=== PATIENT | male | born 1950 | race Caucasian/White ===

== ENCOUNTER 2016-06-05 12:58 | Observation (INO) | payer MEDICARE, MEDICAID ==
[2016-06-05] VITALS (12 sets, daily range): BP systolic 104–134; BP diastolic 72–89; PULSE 89–121; RESP 16–18; TEMP 97.4–98.2; O2SAT 95–98
[~2016-06-05] VITALS: Ht 177.8 cm; Wt 84.7 kg
[~2016-06-05 12:58] MED LIST: ASPI81 CHEW; ATOR80TA PO; CARV12.52 PO; ENAL5 PO; NITR.4 SL; TORS20TA PO
[2016-06-05 13:32] LABS: APTT (PATIENT) 26.6 SEC (24.3-30.1); INTERNATIONAL NORMALIZED RATIO 1.1 RATIO; PROTHROMBIN TIME - PATIENT 12.7 SEC (9.8-11.6)
[2016-06-05 13:34] LABS: AUTOMATED NEUTROPHIL # 4.1 TH/MM3 (1.8-7.7); BASOPHIL # 0.1 TH/MM3 (0-0.2); BASOPHIL % 1.2 % (0.0-2.0); EOSINOPHIL # 0.2 TH/MM3 (0-0.4); HEMATOCRIT 39.2 % (39.0-51.0); HEMO FLAGS DIFF FINAL; LYMPH % 18.9 % (9.0-44.0); LYMPHOCYTE # 1.2 TH/MM3 (1.0-4.8); MEAN CELL VOLUME 89.7 FL (80.0-100.0); MEAN CORPUSCULAR HEMOGLOBIN 30.7 PG (27.0-34.0); MEAN CORPUSCULAR HGB CONC 34.2 % (32.0-36.0); MONO % 9.4 % (0.0-8.0); NEUT % 67.5 % (16.0-70.0); PLATELET COUNT 156 TH/MM3 (150-450); RED BLOOD COUNT 4.37 MIL/MM3 (4.50-5.90); RED CELL DISTRIBUTION WIDTH 14.6 % (11.6-17.2); WHITE BLOOD COUNT 6.1 TH/MM3 (4.0-11.0)
[2016-06-05] MEDS ORDERED: ASPI1TAB69 PO (13:40)
[2016-06-05 13:43] LABS: BICARBONATE 27.9 MEQ/L (21.0-32.0)
--- NOTE | 2016-06-05 13:48 | RADRPT ---
EXAM DATE/TIME: 06/05/2016 13:17 [facility] COMPARISON: MYOCARDIAL PERF PHARM SPECT, GATED W/EF, November 29, 2015, 9:46. CT PULMONARY ANGIOGRAM, April 12, 015, 18:30. INDICATIONS : Chest pains. MEDICAL HISTORY : Cerebrovascular disease. SURGICAL HISTORY : CABG. ICD w/ Pacemaker 2010 [employer] model, Stents placed in 2009, 2012, and 2015 ENCOUNTER: Initial ACUITY: 2 days PAIN SCORE: 2/10 LOCATION: lower chest FINDINGS: Stable appearance of the single lead cardiac device. Multiple intact median sternotomy wires. Mild ca rdiomegaly. Pulmonary vasculature is normal in caliber. The lungs are clear. The osseous structures are unremarka ble. CONCLUSION: Stable mild cardiomegaly without evidence of congestive heart failure.. Altagracia Rubalcava MD on June 05, 2016 at 13:45 Board Certified Radiologist. This report was verified electronically.
--- NOTE | 2016-06-05 13:50 | PD ---
HPI Chief Complaint: Chest Pain Time Seen by Provider: 13:27 Travel History International Travel<30 days: No Contact w/Intl Traveler<30days: No Traveled to known affect area: No History of Present Illness HPI The patient is a 66-year-old male who presents to the emergency department for chest pain and shortness of breath. The patient has a history of coronary artery disease, hypertension, and hyperlipidemia with previous CABG and stent placement. The patient states his last 2 stents were placed approximately 14 months ago by his brand representative, Dr. Ward. The patient notes increasing shortness of breath with exertion over the last several weeks, was walking over 1 mile without exertional shortness of breath, now can only walk approximately 20 steps prior to having shortness of breath. The patient's chest pain is described as dull, achy, worse with exertion, and alleviated at rest. The patient's shortness of breath is also improved at rest. The patient denies any nausea, vomiting, or diaphoresis. He does have a history of chronic abdominal pain with workup including CT, but no known cause. The patient states his abdominal pain is worse after eating with distention which is alleviated after several hours. The patient denies any history of pulmonary embolism, DVT, recent hospitalizations in the last 3 months, recent surgeries and last 3 months, or recent prolonged travel in the last 3 months. PFSH Past Medical History Hx Anticoagulant Therapy: Yes (PLAVIX) Arthritis: No Atrial Fibrillation: Yes (HX) Autoimmune Disease: No Blood Disorders: No Anxiety: No Depression: No Heart Rhythm Problems: Yes (A Fib) Cancer: No Cardiac Catheterization: Yes Cardiovascular Problems: Yes High Cholesterol: Yes Chemotherapy: No Chest Pain: Yes Congestive Heart Failure: Yes COPD: No Cerebrovascular Accident: No Coronary Artery Disease: Yes Diabetes: No (borderline) Diminished Hearing: No Endocrine: No Gastrointestinal Disorders: No GERD: No Glaucoma: No Genitourinary: No Headaches: No Hepatitis: No Hiatal Hernia: No Hypertension: Yes Immune Disorder: No Implanted Vascular Access Dvce: Yes Kidney Stones: No Musculoskeletal: No Neurologic: No Psychiatric: No Reproductive: No Respiratory: No Integumentary: No Migraines: No Myocardial Infarction: Yes (X4) Radiation Therapy: No Renal Failure: No Seizures: No Sickle Cell Disease: No Thyroid Disease: No Ulcer: No Past Surgical History Abdominal Surgery: No AICD: Yes Appendectomy: No Body Medical Devices: Pacemaker Cardiac Surgery: Yes (BYPASS 2002, ABLATION 2013) Cholecystectomy: No Coronary Artery Bypass Graft: Yes (01/2003) Coronary Stent: Yes (8 STENTS) Ear Surgery: No Endocrine Surgery: No Eye Surgery: Yes Genitourinary Surgery: No Gynecologic Surgery: No Insulin Pump: No Joint Replacement: No Oral Surgery: Yes (TONSILLECTOMY) Pacemaker: Yes (ICD, PACEMAKER) Thoracic Surgery: No Tonsillectomy: Yes Other Surgery: Yes Social History Alcohol Use: No Tobacco Use: No Substance Use: No Allergies-Medications (Allergen,Severity, Reaction): Coded Allergies: No Known Allergies (Verified , 11/29/15) Reported Meds & Prescriptions Reported Meds & Active Scripts Active Reported Finasteride 5 Mg Tab 5 Mg PO DAILY Do not crush. Enalapril (Enalapril Maleate) 5 Mg Tab 5 Mg PO BID Carvedilol 25 Mg Tab 25 Mg PO BID Atorvastatin (Atorvastatin Calcium) 80 Mg Tab 80 Mg PO HS Torsemide 20 Mg Tab 20 Mg PO DAILY Aspirin 81 Mg Tabdr 81 Mg PO DAILY Review of Systems Except as stated in HPI: all other systems reviewed are Neg General / Constitutional: No: Fever HENT: No: Lightheadedness Cardiovascular: Positive: Chest Pain or Discomfort, Dyspnea on exertion Respiratory: Positive: Shortness of Breath Gastrointestinal: Positive: Abdominal Pain (chronic over the last 4-5 months), No: Nausea, Vomiting Musculoskeletal: Positive: Weakness, No: Edema Neurologic: No: Dizziness Physical Exam Narrative GENERAL: Awake, alert, nontoxic-appearing 66-year-old male who appears his stated age and is in no acute respiratory distress. SKIN: Warm and dry. Mild pallor noted. HEAD: Atraumatic. Normocephalic. EYES: Pupils equal and round. No scleral icterus. No injection or drainage. ENT: No nasal bleeding or discharge. Mucous membranes pink and moist. NECK: Trachea midline. No JVD. CARDIOVASCULAR: Regular, tachycardic with a heart rate of 120. Well-healed sternal scar. AICD in place left chest wall. RESPIRATORY: No accessory muscle use. Clear to auscultation. Breath sounds equal bilaterally. GASTROINTESTINAL: Abdomen soft, non-tender, nondistended. No rebound tenderness. MUSCULOSKELETAL: No obvious deformities. No clubbing. No cyanosis. No edema. Calves are soft bilaterally. NEUROLOGICAL: Awake and alert. No obvious cranial nerve deficits. Motor grossly within normal limits. Normal speech. PSYCHIATRIC: Appropriate mood and affect; insight and judgment normal. Data Data Last Documented VS Vital Signs Date Time Temp Pulse Resp B/P Pulse Ox O2 Delivery O2 Flow Rate FiO2 06/05/16 15:22 113 16 108/78 98 Room Air 06/05/16 13:01 97.4 Orders Electrocardiogram (06/05/16 13:04) Complete Blood Count With Diff (06/05/16 13:04) Basic Metabolic Panel (Bmp) (06/05/16 13:04) Ckmb (Isoenzyme) Profile (06/05/16 13:04) Troponin I (06/05/16 13:04) Chest, Single Ap (06/05/16 13:04) Iv Access Insert/Monitor (06/05/16 13:04) Act Partial Throm Time (Ptt) (06/05/16 13:13) Prothrombin Time / Inr (Pt) (06/05/16 13:13) Ct Pulmonary Angiogram (06/05/16 ) Aspirin Chew (Aspirin Chew) (06/05/16 14:00) Sodium Chlor 0.9% 250 Ml Inj (Ns 250 Ml (06/05/16 14:00) Iohexol 350 Inj (Omnipaque 350 Inj) (06/05/16 14:41) Admit Order (Ed Use Only) (06/05/16 15:30) Labs Laboratory Tests Test 06/05/16 13:13 White Blood Count 6.1 TH/MM3 Red Blood Count 4.37 MIL/MM3 Hemoglobin 13.4 GM/DL Hematocrit 39.2 % Mean Corpuscular Volume 89.7 FL Mean Corpuscular Hemoglobin 30.7 PG Mean Corpuscular Hemoglobin 34.2 % Concent Red Cell Distribution Width 14.6 % Platelet Count 156 TH/MM3 Mean Platelet Volume 8.6 FL Neutrophils (%) (Auto) 67.5 % Lymphocytes (%) (Auto) 18.9 % Monocytes (%) (Auto) 9.4 % Eosinophils (%) (Auto) 3.0 % Basophils (%) (Auto) 1.2 % Neutrophils # (Auto) 4.1 TH/MM3 Lymphocytes # (Auto) 1.2 TH/MM3 Monocytes # (Auto) 0.6 TH/MM3 Eosinophils # (Auto) 0.2 TH/MM3 Basophils # (Auto) 0.1 TH/MM3 CBC Comment DIFF FINAL Differential Comment Prothrombin Time 12.7 SEC Prothromb Time International 1.1 RATIO Ratio Activated Partial 26.6 SEC Thromboplast Time Sodium Level 139 MEQ/L Potassium Level 4.0 MEQ/L Chloride Level 104 MEQ/L Carbon Dioxide Level 27.9 MEQ/L Anion Gap 7 MEQ/L Blood Urea Nitrogen 22 MG/DL Creatinine 1.07 MG/DL Estimat Glomerular Filtration 69 ML/MIN Rate Random Glucose 144 MG/DL Calcium Level 8.2 MG/DL Total Creatine Kinase 93 U/L Troponin I 0.02 NG/ML MDM Medical Decision Making Medical Screen Exam Complete: Yes Emergency Medical Condition: Yes Medical Record Reviewed: Yes Interpretation(s) EKG reveals left bundle branch block with a rate of 120. Laboratory Tests Test 06/05/16 13:13 White Blood Count 6.1 TH/MM3 Red Blood Count 4.37 MIL/MM3 Hemoglobin 13.4 GM/DL Hematocrit 39.2 % Mean Corpuscular Volume 89.7 FL Mean Corpuscular Hemoglobin 30.7 PG Mean Corpuscular Hemoglobin 34.2 % Concent Red Cell Distribution Width 14.6 % Platelet Count 156 TH/MM3 Mean Platelet Volume 8.6 FL Neutrophils (%) (Auto) 67.5 % Lymphocytes (%) (Auto) 18.9 % Monocytes (%) (Auto) 9.4 % Eosinophils (%) (Auto) 3.0 % Basophils (%) (Auto) 1.2 % Neutrophils # (Auto) 4.1 TH/MM3 Lymphocytes # (Auto) 1.2 TH/MM3 Monocytes # (Auto) 0.6 TH/MM3 Eosinophils # (Auto) 0.2 TH/MM3 Basophils # (Auto) 0.1 TH/MM3 CBC Comment DIFF FINAL Differential Comment Prothrombin Time 12.7 SEC Prothromb Time International 1.1 RATIO Ratio Activated Partial 26.6 SEC Thromboplast Time Sodium Level 139 MEQ/L Potassium Level 4.0 MEQ/L Chloride Level 104 MEQ/L Carbon Dioxide Level 27.9 MEQ/L Anion Gap 7 MEQ/L Blood Urea Nitrogen 22 MG/DL Creatinine 1.07 MG/DL Estimat Glomerular Filtration 69 ML/MIN Rate Random Glucose 144 MG/DL Calcium Level 8.2 MG/DL Total Creatine Kinase 93 U/L Troponin I 0.02 NG/ML Last Impressions Chest X-Ray 06/05/16 3364 Signed Impressions: Service Date/Time: May 13:17 - CONCLUSION: Stable mild cardiomegaly without evidence of congestive heart failure.. Altagracia Rubalcava MD CT pulmonary angiogram reveals no evidence of pulmonary embolism. Cardiomegaly and coronary calcifications. Tiny bilateral pleural effusions. Stable 19 and 10 mm low density lesions within the liver which are indeterminate. Differential Diagnosis Differential diagnosis includes acute coronary syndrome, cardiomyopathy, congestive heart failure, pleural effusion, pulmonary embolism, deconditioning, pericardial effusion. Narrative Course IV was established, labs are drawn and sent, and the patient was placed on cardiac telemetry monitoring and continuous pulse oximetry monitoring. EKG was ordered and interpreted. Chest x-ray was ordered. CT pulmonary angiogram was ordered as the patient is tachycardic with exertional shortness of breath. The patient's initial troponin is negative. EKG does reveal left bundle-branch block with sinus tachycardia. CT pulmonary angiogram was negative for pulmonary embolism. Does reveal tiny bilateral pleural effusions, chest x-ray otherwise is unremarkable. I reviewed the EMR, the patient had a nuclear medicine myocardial perfusion performed in the summertime at 2016 which revealed previous infarct. As the patient is having exertional dyspnea and chest pain consistent with acute coronary syndrome, the patient's brand representative, Dr. Ward, was paged at 3:[address] Ward evaluated the patient in the emergency department. I discussed the patient with the on-call [facility] hospitalists, covering for Dr. Menjivar, who agrees with admission. Physician Communication Physician Communication I discussed the patient with a Mayra Briscoe who agrees with [address] Bruner. Diagnosis Primary Impression: Exertional dyspnea Additional Impression: Ischemic cardiomyopathy Admitting Information Admitting Physician Requests: Observation Condition: Stable Lupillo Ramon MD Jun 05, 2016 13:50
[2016-06-05] MEDS ORDERED: ASPIRIN 81 MG CHEW TAB CHEW ONE (14:00)
[2016-06-05] MEDS ORDERED: SODIUM CHLOR 0.9% 250 ML INJ 250 ML IV ONE (14:00)
[2016-06-05] MEDS ORDERED: FINA5TAB2 PO (14:19)
[2016-06-05] MEDS ORDERED: CARV25TA PO (14:19)
[2016-06-05] MEDS ORDERED: ATOR1TAB18 PO (14:19)
[2016-06-05] MEDS ORDERED: TORS20TA PO (14:19)
[2016-06-05] MEDS ORDERED: ENAL5TAB PO (14:19)
[2016-06-05] MEDS ORDERED: IOHEXOL 350 MG/ML 10 ML VIAL (for RAD DIAG) IV ONE (14:41)
--- NOTE | 2016-06-05 14:56 | RADRPT ---
EXAM DATE/TIME: 06/05/2016 14:32 [facility] COMPARISON: CT PULMONARY ANGIOGRAM, April 12, 2015, 18:30. INDICATIONS : Tachycardia with shortness of breath on exertion; evaluate for pulmonary embolism. IV CONTRAST: 65 cc Omnipaque 350 (iohexol) IV RADIATION DOSE: 23.29 CTDIvol (mGy) MEDICAL HISTORY : Cardiovascular disease. Hypertension. Diabetes mellitus type 2. SURGICAL HISTORY : CABG Pacemaker.Coronary artery stent. ENCOUNTER: Initial ACUITY: 1 day PAIN SCALE: 4/10 LOCATION: chest TECHNIQUE: Volumetric scanning of the chest was performed using a pulmonary embolism protocol MIP images were reconstructed. Using automated exposure control and adjustment of the mA and/or kV acco rding to patient size, radiation dose was kept as low as reasonably achievable to obtain optimal diag nostic quality images. FINDINGS: PULMONARY ARTERIES:No filling defects are seen in the pulmonary arteries through the segmental level. LUNGS: There is no consolidation or pneumothorax . No concerning pulmonary nodule is visualized. PLEURAE: Tiny bilateral pleural effusions are noted. MEDIASTINUM: There is good visualization of the great vessels of the middle mediastinum. No evid ence of mediastinal or hilar adenopathy/mass. Cardiomegaly and coronary artery calcifications are not ed. Left subclavian AICD has its tip in the right ventricle. MUSCULOSKELETAL: Within normal limits for patient age. MISCELLANEOUS: The visualized upper abdominal organs demonstrate no acute abnormality. There are stable low-density lesions within the liver parenchyma measuring 19 and 10 mm which are indeterminate . CONCLUSION: 1. No evidence of pulmonary embolism. 2. Cardiomegaly and coronary calcifications. 3. Tiny bilateral pleural effusions. 4. Stable 19 and 10 mm low density lesions within the liver which are indeterminate. Jaspal Nice MD on June 05, 2016 at 14:49 Board Certified Radiologist. This report was verified electronically.
--- NOTE | 2016-06-05 15:42 | HHI.HP ---
[facility] Collin Menjivar M.D. Admission Diagnosis exertional dyspnea, acute coronary syndrome Diagnoses: Travel History International Travel<30 Days: No Contact w/Intl Traveler <30 Da: No Traveled to Known Affected Are: No Past Family Social History Past Medical History atrial fibrillation, cardiac ablation [address] Crawford, coronary artery disease status post [place] cardiac stents 6 and coronary artery bypass graft, congestive heart failure status post AICD placement, cardiomyopathy. Past Surgical History Cardiac stents 6, coronary artery bypass graft, cardiac ablation last cath 03/2016-s/p stenting of SVG's to diagonal and to OM1. Reported Medications Reported Meds & Active Scripts Active Reported Finasteride 5 Mg Tab 5 Mg PO DAILY Do not crush. Enalapril (Enalapril Maleate) 5 Mg Tab 5 Mg PO BID Carvedilol 25 Mg Tab 25 Mg PO BID Atorvastatin (Atorvastatin Calcium) 80 Mg Tab 80 Mg PO HS Torsemide 20 Mg Tab 20 Mg PO DAILY Aspirin 81 Mg Tabdr 81 Mg PO DAILY Allergies: Coded Allergies: No Known Allergies (Verified , 11/29/15) Active Ordered Medications Inpatient Medications Acetaminophen (Tylenol) 650 mg Q4H PRN PO TEMP > 100.4; Start 06/05/16 at 15:45 ; Status UNV Aspirin 162 mg 162 mg ONCE ONCE CHEW ; Start 06/05/16 at 14:00; Stop 06/05/16 at 14:01; Status DC IV Flush (NS Flush) 2 ml BID FLUSH ; Start 06/05/16 at 21:00; Status UNV Naloxone HCl (Narcan Inj) 0.4 mg UNSCH PRN IV SEE LABEL COMMENTS; Start at 15:45; Status UNV Ondansetron HCl (Zofran Inj) 4 mg Q6H PRN IVP NAUSEA OR VOMITING; Start at 15:45; Status UNV Sodium Chloride (NS 250 ml Inj) 250 ml @ 250 mls/hr BOLUS ONCE IV Last administered on 06/05/16t 14:10; Start 06/05/16 at 14:00; Stop 06/05/16 at 14:59 ; Status DC Physical Exam Vital Signs Vital Signs Date Time Temp Pulse Resp B/P Pulse Ox O2 Delivery O2 Flow Rate FiO2 06/05/16 15:22 113 16 108/78 98 Room Air 06/05/16 13:38 120 18 97 Room Air 06/05/16 13:36 121 18 122/80 97 Room Air 06/05/16 13:01 97.4 120 16 116/74 95 Room Air Physical Exam GENERAL: This is a well-nourished, well-developed patient, in no apparent distress. SKIN: No rashes, ecchymoses or lesions. Cool and dry. HEAD: Atraumatic. Normocephalic. No temporal or scalp tenderness. EYES: Pupils equal round and reactive. Extraocular motions intact. No scleral icterus. No injection or drainage. ENT: Nose without bleeding, purulent drainage or septal hematoma. Throat without erythema, tonsillar hypertrophy or exudate. Uvula midline. Airway patent. NECK: Trachea midline. No JVD or lymphadenopathy. Supple, nontender, no meningeal signs. CARDIOVASCULAR: Regular rate and rhythm without murmurs, gallops, or rubs. RESPIRATORY: Clear to auscultation. Breath sounds equal bilaterally. No wheezes , rales, or rhonchi. GASTROINTESTINAL: Abdomen soft, non-tender, nondistended. No hepato-splenomegaly , or palpable masses. No guarding. MUSCULOSKELETAL: Extremities without clubbing, cyanosis, or edema. No joint tenderness, effusion, or edema noted. No calf tenderness. Negative Homans sign bilaterally. NEUROLOGICAL: Awake and alert. Cranial nerves II through XII intact. Motor and sensory grossly within normal limits. Five out of 5 muscle strength in all muscle groups. Normal speech. Laboratory Laboratory Tests Test 06/05/16 13:13 White Blood Count 6.1 Red Blood Count 4.37 Hemoglobin 13.4 Hematocrit 39.2 Mean Corpuscular Volume 89.7 Mean Corpuscular Hemoglobin 30.7 Mean Corpuscular Hemoglobin 34.2 Concent Red Cell Distribution Width 14.6 Platelet Count 156 Mean Platelet Volume 8.6 Neutrophils (%) (Auto) 67.5 Lymphocytes (%) (Auto) 18.9 Monocytes (%) (Auto) 9.4 Eosinophils (%) (Auto) 3.0 Basophils (%) (Auto) 1.2 Neutrophils # (Auto) 4.1 Lymphocytes # (Auto) 1.2 Monocytes # (Auto) 0.6 Eosinophils # (Auto) 0.2 Basophils # (Auto) 0.1 CBC Comment DIFF FINAL Differential Comment Prothrombin Time 12.7 Prothromb Time International 1.1 Ratio Activated Partial 26.6 Thromboplast Time Sodium Level 139 Potassium Level 4.0 Chloride Level 104 Carbon Dioxide Level 27.9 Anion Gap 7 Blood Urea Nitrogen 22 Creatinine 1.07 Estimat Glomerular Filtration 69 Rate Random Glucose 144 Calcium Level 8.2 Total Creatine Kinase 93 Troponin I 0.02 Result Diagram: 06/05/16 1313 06/05/16 1313 Imaging Last Impressions Chest X-Ray 06/05/16 1304 Signed Impressions: Service Date/Time: May 13:17 - CONCLUSION: Stable mild cardiomegaly without evidence of congestive heart failure.. Altagracia Rubalcava MD CT Angiography 06/05/16 0000 Signed Impressions: Service Date/Time: May 14:32 - CONCLUSION: 1. No evidence of pulmonary embolism. 2. Cardiomegaly and coronary calcifications. 3. Tiny bilateral pleural effusions. 4. Stable 19 and 10 mm low density lesions within the liver which are indeterminate. Jaspal Nice MD Assessment and Plan Problem List: (1) Exertional dyspnea (2) Hypertension (3) Hyperlipidemia (4) Ischemic cardiomyopathy (5) CAD (coronary artery disease) Mayra Briscoe Jun 05, 2016 15:42
[2016-06-05] MEDS ORDERED: SODIUM CHLORIDE 0.9% FLUSH 5 ML FLUSH FLUSH PRN (15:45)
[2016-06-05] MEDS ORDERED: NALOXONE HCL 0.4 MG/ML AMP IV PRN (15:45)
[2016-06-05] MEDS ORDERED: ACETAMINOPHEN 325 MG TAB PO PRN (15:45)
--- NOTE | 2016-06-05 16:57 | HHI.HP ---
HPI Service [facility] Primary Care Physician Collin Menjivar M.D. Admission Diagnosis exertional dyspnea, acute coronary syndrome Diagnoses: Chief Complaint: Shortness of breath, chest pain (Alden Briscoeana AnnabelWinter ESCALONA) Travel History International Travel<30 Days: No Contact w/Intl Traveler <30 Da: No Traveled to Known Affected Are: No (Alden Briscoeana AnnabelWinter ESCALONA) History of Present Illness This is a pleasant 66-year-old gentleman with a past medical history of atrial fibrillation, cardiac ablation [address] Crawford, coronary artery disease status post [place] cardiac stents 7, coronary artery bypass graft, congestive heart failure, cardiomyopathy status post AICD placement. Patient presented to the emergency room with complaint of worsening dyspnea on exertion with chest discomfort is March. According to the patient, he had been walking up to 1 mile and a half a day, however since March he's noted increased dyspnea with exertion with chest discomfort across sternum with occasional dizziness, shakiness, mild nausea, no vomiting. At this time, he ambulates maybe 20 feet when he develops symptoms,which are relieved with rest. Patient was last admitted March 2015 with same symptomology, at that time he was found with 2 occluded vein graft, underwent angioplasty and stent placement per Dr. Ward. At that time he was also found in paroxysmal A. fib and was discharged on Eliquis. According to the patient he had increased bleeding therefore he stopped taking Eliquis approximately [address] Ward was aware. Patient was also within the process of having GI workup for chronic abdominal pain and waiting for clearance to stop Plavix, patient decided on his own to stop taking it. He has not taken Plavix for the last 4-5 weeks. Patient denies other symptoms, fever, no chills, no cough, sputum production. He has chronic abdominal pain, it is diffuse, has been an ongoing problem since December and currently waiting to undergo colonoscopy per Dr. Schwartz. States that his abdomen becomes distended after eating. States bowel movements have been regular, no blood. He has lost approximately 25 pounds in the last year and a half. No urinary symptoms. He has an AICD, he has not noted any discharges. Patient was evaluated in the emergency room, laboratory workup was essentially unremarkable. Troponin was negative. CT of the chest was completed, no evidence of pulmonary emboli. Tiny bilateral pleural effusions.Stable low-density lesions within the liver which is indeterminate. Chest x-ray showed mild cardiomegaly, no evidence of CHF. Patient is noted tachycardic, heart rate 113, blood pressure stable. Patient was evaluated in the emergency room, he is resting comfortably. Dr. Ward is at bedside, examining patient. He's recommending cardiac catheterization as well as amiodarone drip to control HR. Patient is agreeable with plan. Patient is admitted for further evaluation and treatment. (Mayra Briscoe) Review of Systems Constitutional: COMPLAINS OF: Weight loss, Dizziness, DENIES: Diaphoretic episodes, Fatigue, Fever, Weight gain, Chills, Change in appetite, Night Sweats Endocrine: DENIES: Heat/cold intolerance, Polydipsia, Polyuria, Polyphagia Eyes: DENIES: Blurred vision, Diplopia, Eye inflammation, Eye pain, Vision loss , Photosensitivity, Double Vision Ears, nose, mouth, throat: DENIES: Tinnitus, Hearing loss, Vertigo, Nasal discharge, Oral lesions, Throat pain, Hoarseness, Ear Pain, Running Nose, Epistaxis, Sinus Pain, Toothache, Odynophagia Respiratory: DENIES: Apneas, Cough, Snoring, Wheezing, Hemoptysis, Sputum production, Shortness of breath Cardiovascular: COMPLAINS OF: Chest pain, Dyspnea on Exertion, DENIES: Palpitations, Syncope, PND, Lower Extremity Edema, Orthopnea, Claudication Gastrointestinal: COMPLAINS OF: Abdominal pain, DENIES: Black stools, Bloody stools, Constipation, Diarrhea, Nausea, Vomiting, Difficulty Swallowing, Anorexia Genitourinary: DENIES: Sexual dysfunction, Urinary frequency, Urinary incontinence, Urgency, Hematuria, Dysuria, Nocturia, Penile Discharge, Testicular Pain, Testicular Swelling Musculoskeletal: DENIES: Joint pain, Muscle aches, Stiffness, Joint Swelling, Back pain, Neck pain Integumentary: DENIES: Abnormal pigmentation, Nail changes, Pruritus, Rash Hematologic/lymphatic: DENIES: Bruising, Lymphadenopathy Immunologic/allergic: DENIES: Eczema, Urticaria Neurologic: DENIES: Abnormal gait, Headache, Localized weakness, Paresthesias, Seizures, Speech Problems, Tremor, Poor Balance Psychiatric: DENIES: Anxiety, Confusion, Mood changes, Depression, Hallucinations, Agitation, Suicidal Ideation, Homicidal Ideation, Delusions ( Mayra Briscoe) Past Family Social History Past Medical History atrial fibrillation, cardiac ablation [address] Crawford, coronary artery disease status post GA cardiac stents 6 and coronary artery bypass graft, congestive heart failure status post AICD placement, cardiomyopathy. Chronic abdominal pain, currently undergoing workup with gastroenterology. Past Surgical History Cardiac stents 6, coronary artery bypass graft, cardiac ablation last cath 03/2016-s/p stenting of SVG's to diagonal and to OM1. Reported Medications Reported Meds & Active Scripts Active Reported Finasteride 5 Mg Tab 5 Mg PO DAILY Do not crush. Enalapril (Enalapril Maleate) 5 Mg Tab 5 Mg PO BID Carvedilol 25 Mg Tab 25 Mg PO BID Atorvastatin (Atorvastatin Calcium) 80 Mg Tab 80 Mg PO HS Torsemide 20 Mg Tab 20 Mg PO DAILY Aspirin 81 Mg Tabdr 81 Mg PO DAILY (Mayra Briscoe) Allergies: Coded Allergies: No Known Allergies (Verified , 11/29/15) Active Ordered Medications Inpatient Medications Acetaminophen (Tylenol) 650 mg Q4H PRN PO TEMP > 100.4; Start 06/05/16 at 15:45 Aspirin (Ecotrin Ec) 81 mg DAILY PO ; Start 06/06/16 at 09:00 Aspirin 162 mg 162 mg ONCE ONCE CHEW ; Start 06/05/16 at 14:00; Stop 06/05/16 at 14:01; Status DC Atorvastatin Calcium (Lipitor) 80 mg HS PO ; Start 06/05/16 at 21:00 Carvedilol (Coreg) 25 mg BID PO ; Start 06/05/16 at 21:00 Enalapril Maleate (Vasotec) 5 mg BID PO ; Start 06/05/16 at 21:00 Finasteride (Proscar) 5 mg DAILY PO ; Start 06/06/16 at 09:00 IV Flush (NS Flush) 2 ml BID FLUSH ; Start 06/05/16 at 21:00 Naloxone HCl (Narcan Inj) 0.4 mg UNSCH PRN IV SEE LABEL COMMENTS; Start at 15:45 Ondansetron HCl (Zofran Inj) 4 mg Q6H PRN IVP NAUSEA OR VOMITING; Start at 15:45 Sodium Chloride (NS 250 ml Inj) 250 ml @ 250 mls/hr BOLUS ONCE IV Last administered on 06/05/16t 14:10; Start 06/05/16 at 14:00; Stop 06/05/16 at 14:59 ; Status DC Torsemide (Demadex) 20 mg DAILY PO ; Start 06/06/16 at 09:00 Family History Mother and father Father from bladder cancer, mother of breast cancer, history of coronary artery disease and stent Two brothers at age 47 and 62 from sudden cardiac , poss. [place] Social History Patient lives alone, has no children. Quit smoking in 1994, stopped drinking alcohol 5-6 years ago, no illegal drug use. Was walking 1 mile a day, at this time very little physical activity due to dyspnea on exertion. (Mayra Briscoe) Physical Exam Vital Signs Vital Signs Date Time Temp Pulse Resp B/P Pulse Ox O2 Delivery O2 Flow Rate FiO2 06/05/16 16:16 117 16 115/72 97 Room Air 06/05/16 15:22 113 16 108/78 98 Room Air 06/05/16 13:38 120 18 97 Room Air 06/05/16 13:36 121 18 122/80 97 Room Air 06/05/16 13:01 97.4 120 16 116/74 95 Room Air Physical Exam GENERAL: This is a well-nourished, well-developed patient, in no apparent distress. SKIN: Skin pale, no rashes, ecchymoses or lesions. Cool and dry. HEAD: Atraumatic. Normocephalic. No temporal or scalp tenderness. EYES: Pupils equal round and reactive. Extraocular motions intact. No scleral icterus. No injection or drainage. ENT: Nose without bleeding, purulent drainage or septal hematoma. Throat without erythema, tonsillar hypertrophy or exudate. Uvula midline. Airway patent. NECK: Trachea midline. No JVD or lymphadenopathy. Supple, nontender, no meningeal signs. CARDIOVASCULAR: S1, S2, tachycardic, regular rate and rhythm without murmurs, gallops, or rubs. RESPIRATORY: Clear to auscultation. Breath sounds equal bilaterally. No wheezes , rales, or rhonchi. GASTROINTESTINAL: Abdomen soft, diffuse tenderness, nondistended. No hepato- splenomegaly, or palpable masses. No guarding. MUSCULOSKELETAL: Extremities without clubbing, cyanosis, or edema. No joint tenderness, effusion, or edema noted. No calf tenderness. Negative Homans sign bilaterally. NEUROLOGICAL: Awake and alert. Cranial nerves II through XII intact. Motor and sensory grossly within normal limits. Five out of 5 muscle strength in all muscle groups. Normal speech. Laboratory Laboratory Tests Test 06/05/16 13:13 White Blood Count 6.1 Red Blood Count 4.37 Hemoglobin 13.4 Hematocrit 39.2 Mean Corpuscular Volume 89.7 Mean Corpuscular Hemoglobin 30.7 Mean Corpuscular Hemoglobin 34.2 Concent Red Cell Distribution Width 14.6 Platelet Count 156 Mean Platelet Volume 8.6 Neutrophils (%) (Auto) 67.5 Lymphocytes (%) (Auto) 18.9 Monocytes (%) (Auto) 9.4 Eosinophils (%) (Auto) 3.0 Basophils (%) (Auto) 1.2 Neutrophils # (Auto) 4.1 Lymphocytes # (Auto) 1.2 Monocytes # (Auto) 0.6 Eosinophils # (Auto) 0.2 Basophils # (Auto) 0.1 CBC Comment DIFF FINAL Differential Comment Prothrombin Time 12.7 Prothromb Time International 1.1 Ratio Activated Partial 26.6 Thromboplast Time Sodium Level 139 Potassium Level 4.0 Chloride Level 104 Carbon Dioxide Level 27.9 Anion Gap 7 Blood Urea Nitrogen 22 Creatinine 1.07 Estimat Glomerular Filtration 69 Rate Random Glucose 144 Calcium Level 8.2 Total Creatine Kinase 93 Troponin I 0.02 (Mayra Briscoe) Result Diagram: 06/05/16 1313 06/05/16 1313 Imaging Last Impressions Chest X-Ray 06/05/16 1304 Signed Impressions: Service Date/Time: May 13:17 - CONCLUSION: Stable mild cardiomegaly without evidence of congestive heart failure.. Altagracia Rubalcava MD CT Angiography 06/05/16 0000 Signed Impressions: Service Date/Time: May 14:32 - CONCLUSION: 1. No evidence of pulmonary embolism. 2. Cardiomegaly and coronary calcifications. 3. Tiny bilateral pleural effusions. 4. Stable 19 and 10 mm low density lesions within the liver which are indeterminate. Jaspal Nice MD (Mayra Briscoe) Assessment and Plan Problem List: (1) Exertional dyspnea (2) Chest pain (3) Atrial tachycardia (4) Hypertension (5) Hyperlipidemia (6) Ischemic cardiomyopathy (7) CAD (coronary artery disease) (8) Paroxysmal atrial fibrillation (9) Chronic abdominal pain Assessment and Plan Admit to Dr. Bruner 66-year-old male with significant past medical history of coronary artery disease, status post cardiac stents, CABG, cardiomyopathy, has AICD, paroxysmal A. fib. Patient presented to the emergency room with dyspnea on exertion with chest pain relieved by rest. Also noted with tachycardia. Admitted with dyspnea on exertion, rule out acute coronary syndrome -Dr. Ward evaluated patient, cardiac catheterization is recommended -Keep nothing by mouth after midnight Patient stopped taking Plavix, cardiology recommends to continue aspirin for now. -Continue Coreg, statin Sinus tachycardia, atrial tach, history of paroxysmal A. fib Amiodarone drip will be started by cardiology -He will evaluate pt. for anticoagulation, pt. agreeable with plan Cardiomyopathy, has AICD Cardiology will have rep interrogate device Hypertension, stable Continue home medications Hyperlipidemia, stable Continue with home medications Chronic abdominal pain, currently undergoing workup, stable at this time PPI for GI prophylaxis Home medications reviewed, initiated as indicated SCDs for DVT prophylaxis Protonix for GI prophylaxis Plan of care has been discussed with the patient, attending and registered nurse. Further management of the patient will be dependent hospital course This patient was seen by myself and Dr. Bruner, this H&P is written on his behalf. 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 In the case of services not specified as inpatient-only, they are appropriately provided as inpatient services in accordance with the 2-midnight benchmark. Estimated LOS (days): 2 2 days is the estimated time the patient will need to remain in the hospital, assuming treatment plan goals are met and no additional complications. Post-Hospital Plan: Home (Mayra Briscoe) Problem Qualifiers (1) Chest pain: Qualified Code: I20.8 - Stable angina pectoris (2) Hypertension: Qualified Code: I10 - Essential hypertension (3) Hyperlipidemia: Qualified Code: E78.5 - Hyperlipidemia, unspecified hyperlipidemia type (4) CAD (coronary artery disease): Qualified Code: I25.118 - Coronary artery disease involving [place] coronary artery of tor[place]inez heart with other form of angina pectoris Mayra Briscoe Jun 05, 2016 16:57 Lenny Bruner MD Jun 05, 2016 18:50
[2016-06-05] MEDS: SODIUM CHLOR 0.9% 1000 ML INJ 1,000 ML IV SCH (16:58)
[2016-06-05] MEDS ORDERED: AMIODARONE INJ 450 MG in DEXTROSE 5% IN WATE(EXCEL) INJ 241 ML IV SCH ×2 (17:00)
[2016-06-05] MEDS ORDERED: diphenhydrAMINE HCL 50 MG CAP PO SCH (17:00)
[2016-06-05] MEDS ORDERED: AMIODARONE INJ 150 MG in DEXTROSE 5% IN WATER 100ML INJ 97 ML IV ONE ×2 (17:00)
[2016-06-05] MEDS ORDERED: ASPIRIN 325 MG TAB PO SCH (17:00)
[2016-06-05] MEDS ORDERED: DIAZEPAM 10 MG TAB PO SCH (17:00)
--- NOTE | 2016-06-05 18:54 | MB ---
cc: PONCHO COURTNEY M.D. DATE OF CONSULTATION: 06/05/2016 REASON FOR CONSULTATION Acute coronary syndrome, tachycardia, shortness of breath. HISTORY OF PRESENT ILLNESS The patient is a 66-year-old white male with a history of severe ischemic cardiomyopathy, coronary artery disease, diabetes, paroxysmal atrial fibrillation who for the past several weeks has been having increasing dyspnea on exertion. The patient had been able to walk at least a half mile without difficulty but starting around Thanksgiving he began to experience increased shortness of breath. In the last few days he has been barely able to do minimal activity without considerable shortness of breath as well as a chest "burning". The patient states his chest burning symptoms last about 10 minutes and are very similar to his previous angina. He denies palpitations, lightheadedness, syncope, near-syncope, pedal edema, paroxysmal nocturnal dyspnea. The patient reports compliance with his medications and a no added salt diet. He also reports a mild nonproductive cough. At the present time he is resting comfortably denying shortness of breath or chest discomfort. PAST MEDICAL HISTORY 1. Coronary artery disease status post bypass surgery in 2002, status post stent of the ostium to proximal portion of the vein graft to the right coronary artery 09/04/09, status post stent of the proximal and mid vein graft to the first obtuse marginal 04/11/13. He is also status post repeat stenting of the ostium of the vein graft to the first obtuse marginal and stent of the ostial to proximal portion of the vein graft to the diagonal 03/2015 at which time his vein graft to the second obtuse marginal was found to be totally occluded. 2. Severe ischemic cardiomyopathy with ejection fraction of 20%. He has had approximately three hospitalizations for congestive heart failure in the last several years. 3. Paroxysmal atrial fibrillation status post ablation Sep, 2013. He has had intermittent recurrent paroxysmal atrial fibrillation based on AICD checks initially back in March,. 4. Status post [place] AICD implant 2009, single chamber. 5. Hyperlipidemia. 6. Hypertension 7. Diabetes. MEDICATIONS His medications at home - 1. Aspirin 81 mg q.d. 2. Torsemide 20 mg q.d. (he occasionally takes 30 mg q.d.). 3. Atorvastatin 80 mg q.h.s. 4. Carvedilol 25 mg b.i.d. 5. Enalapril 5 mg b.i.d. ALLERGIES NO KNOWN DRUG ALLERGIES. FAMILY HISTORY Noncontributory. SOCIAL HISTORY The patient is a former smoker. There is no history of alcohol abuse. REVIEW OF SYSTEMS As in the History of Present Illness otherwise negative or noncontributory. He also denies headache, visual changes, abdominal pain, melena, dyspepsia, bright red blood per rectum, fevers. PHYSICAL EXAMINATION VITAL SIGNS: His blood pressure 115/72 with a pulse of 120, respirations 16. GENERAL: He is a well-developed, thin, white male in no acute distress. HEENT: Jugular venous pressure is seen to the mandible. Carotid pulses are 2+ bilaterally and without bruits. CHESET: Examination of the chest reveals clear lung chaparro. CARDIAC: On cardiac examination he has a tachycardic regular rhythm without S3, S4 or murmur. His PMI is diffuse and laterally displaced. ABDOMEN: On abdominal examination he has a soft, nontender abdomen, bowel sounds are present. There is no definite hepatosplenomegaly. EXTREMITIES: Examination of the extremities reveals no clubbing, cyanosis or edema. Peripheral pulses are normal. LABORATORY DATA Normal CBC, potassium 4.0, BUN 22, creatinine 1.07, CK 93, troponin less than 0.02, INR 1.1. IMAGING Chest x-ray shows no acute disease. EKG shows possible atrial tachycardia with 2:1 AV conduction, left bundle-branch block pattern. IMPRESSION Recurrent worsening angina, probable paroxysmal atrial tachycardia in this 66-year-old white male with a history of severe ischemic cardiomyopathy, ejection fraction 20-25%, coronary artery disease status post bypass surgery in 2002, status post a number of percutaneous interventions since that time, diabetes, hypertension, paroxysmal atrial fibrillation. Initial cardiac enzymes are negative for myocardial infarction. There is no definite evidence for congestive heart failure by exam or chest x-ray. His EKG does indeed suggest atrial tachycardia which could account for some of his increase in shortness of breath. The patient also has been having recurrent angina which in the last few days has been occurring with very minimal exertion. I suspect he has restenosed one or more of his stents which were placed in March,. Because of the instability of his symptoms, I have recommended he undergo cardiac catheterization with possible repeat percutaneous intervention. The risks of which have been explained to him including but not limited to , myocardial infarction, stroke, arrhythmia, bleeding, infection, renal failure. He agrees to proceed. With respect to his atrial arrhythmias, his thromboembolic risk is very high. At some point he was on Eliquis. I do not know why he is no longer taking anticoagulation drug therapy. RECOMMENDATIONS 1. Cardiac catheterization tomorrow. 2. Continue his usual home cardiac medications. 3. We will see if the patient qualifies for participation in a research trial examining different antiplatelet/anticoagulation regimens for patients undergoing percutaneous intervention with a concomitant need for anticoagulation therapy due to atrial fibrillation. MD BRIT Paulino/BJKendrick /5:04 PM /6:32 PM MTDD
[2016-06-05] MEDS: SODIUM CHLORIDE 0.9% FLUSH 5 ML FLUSH FLUSH SCH (21:00)
[2016-06-05] MEDS ORDERED: TORSEMIDE 20 MG TAB PO ONE (21:15)
[2016-06-05] MEDS: ENALAPRIL MALEATE 5 MG TAB PO SCH (21:17)
[2016-06-05] MEDS: CARVEDILOL 12.5 MG TAB PO SCH (21:17)
[2016-06-05] MEDS: ATORVASTATIN 80 MG TAB PO SCH (21:18)
[2016-06-06] VITALS (27 sets, daily range): BP systolic 95–114; BP diastolic 58–86; PULSE 90–110; RESP 17–20; TEMP 97–98.2; O2SAT 96–100
[2016-06-06] MEDS: ONDANSETRON HCL 4 MG/2 ML VIAL IVP PRN (00:48)
[2016-06-06] MEDS: RESP: ALBUTEROL 2.5 MG/IPRATROPIUM 0.5 MG NEB (PRN) NEB ×2 (01:05→18:22)
[2016-06-06] MEDS: SODIUM CHLORIDE 0.9% FLUSH 5 ML FLUSH FLUSH SCH ×2 (07:49→20:51)
[2016-06-06] MEDS: TORSEMIDE 20 MG TAB PO SCH (08:46)
[2016-06-06] MEDS: PANTOPRAZOLE SOD 40 MG DELAYED RELEASE TAB PO SCH (08:55)
[2016-06-06] MEDS: CARVEDILOL 12.5 MG TAB PO SCH ×2 (08:55→20:51)
[2016-06-06] MEDS: FINASTERIDE 5 MG TAB PO SCH (08:55)
[2016-06-06] MEDS: ENALAPRIL MALEATE 5 MG TAB PO SCH ×2 (08:55→20:51)
[2016-06-06] MEDS ORDERED: ASPIRIN EC 81 MG TABEC PO SCH (09:00)
[2016-06-06] MEDS ORDERED: HEPARIN-NS/PF INJ 500 ML ONE (12:14)
[2016-06-06] MEDS ORDERED: MIDAZOLAM HCL 2 MG/2 ML VIAL ONE ×2 (12:21→13:41)
[2016-06-06] MEDS ORDERED: IOHEXOL 350 MG/ML 50 ML BTL (for Cath Lab) OTHER ONE (12:33)
[2016-06-06] MEDS ORDERED: IOHEXOL 350 MG/ML 100 ML BTL (for Cath Lab) OTHER ONE (12:33)
[2016-06-06] MEDS ORDERED: TIROFIBAN INFUSION INJ 250 ML IV ONE (12:56)
[2016-06-06] MEDS: SODIUM CHLOR 0.9% 1000 ML INJ 1,000 ML IV SCH ×2 (12:58→14:21)
[2016-06-06] MEDS ORDERED: HEPARIN SODIUM - IV 10,000 UNITS/10 ML VIAL ONE (13:00)
[2016-06-06] MEDS ORDERED: FLUMAZENIL 0.5 MG/5 ML VIAL ONE (13:54)
[2016-06-06] MEDS ORDERED: TICAGRELOR 90 MG TAB PO ONE (14:02)
[2016-06-06] MEDS ORDERED: ONDANSETRON HCL 4 MG/2 ML VIAL ONE (14:16)
[2016-06-06] MEDS: TIROFIBAN INFUSION INJ 250 ML IV SCH (14:21)
--- NOTE | 2016-06-06 14:21 | PD.CARD.PN ---
Subjective Subjective Remarks Mild dyspnea at rest. No angina today. No dizziness, palpitations, PND. Objective Medications Item Value Date Time Aspirin 81 mg 06/06/16 0900 (Ecotrin Ec) DAILY/PO 06/06/16 0855 Torsemide 20 mg 06/06/16 0900 (Demadex) DAILY/PO Atorvastatin 80 mg 06/05/162099 Calcium HS/PO 06/05/162117 (Lipitor) Carvedilol 25 mg 06/05/162099 (Coreg) BID/PO 06/06/16 0855 Enalapril Maleate 5 mg 06/05/162099 (Vasotec) BID/PO 06/06/16 0855 Amiodarone HCl 250 ml @ 0 mls/hr 06/05/16 1700 450 mg/Dextrose CONTINUOUS/IV 06/05/16 1810 Vital Signs / I&O Vital Signs Date Time Temp Pulse Resp B/P Pulse Ox O2 Delivery O2 Flow Rate FiO2 06/06/16 10:29 105 06/06/16 09:46 100 06/06/16 09:45 97.0 100 18 100/70 98 06/06/16 08:10 110 06/06/16 07:44 106 06/06/16 06:00 98 06/06/16 05:00 94 06/06/16 04:35 98.2 100 17 95/62 98 06/06/16 04:00 104 06/06/16 03:00 98 06/06/16 02:00 99 06/06/16 01:00 90 06/06/16 00:00 96 06/05/16 23:20 98.2 89 17 112/75 98 06/05/16 23:00 103 06/05/16 22:00 96 06/05/16 21:00 93 06/05/16 20:00 112 06/05/16 19:20 98.2 113 17 104/83 97 06/05/16 19:00 108 06/05/16 17:54 113 16 134/89 97 Room Air 06/05/16 16:16 117 16 115/72 97 Room Air 06/05/16 15:22 113 16 108/78 98 Room Air I/O 06/05/16 06/05/16 06/05/16 06/06/16 06/06/16 06/06/16 07:00 15:00 23:00 07:00 15:00 23:00 Intake Total 240 ml Balance 240 ml Intake Oral 240 ml # Voids 3 # Bowel Movements 1 Physical Exam GENERAL: Well developed, well nourished. No acute distress. HEENT: Jugular venous pressure is normal. CHEST: Lungs clear to auscultation bilaterally. Unlabored respiratory effort. CARDIAC: Regular rate and rhythm without S3, S4, or murmur. ABDOMEN: Soft, nontender, no hepatosplenomegaly. Bowel sounds present. EXTREMITIES: No clubbing, cyanosis, or edema. Laboratory Laboratory Tests Test 06/05/16 06/06/16 20:04 01:49 Total Creatine Kinase 104 U/L 128 U/L Troponin I 0.03 NG/ML 0.03 NG/ML Assessment and Plan Problem List: (1) CAD (coronary artery disease) Assessment and Plan: Patient s/p cath today showing severe 3 vessel [place] CAD , patent SIMS to LAD, patent SV to diag, chronically occluded SV to RCA with good left to right collaterals, severe disease of SV to OM, treated with 3 stents plus thrombectomy. EF 10%. REC Brilinta and aspirin, cont beta benjamin, NATE-I (2) Paroxysmal atrial fibrillation Assessment and Plan: Rhythm currently appears to be sinus rhythm. Rec change Amiodarone to po. (3) Hypertension Assessment and Plan: Hypertension not active issue. (4) Ischemic cardiomyopathy Assessment and Plan: EF 10% by cath today. Patient compensated overall. No definite pulmonary edema by CXR, exam. Rec cont metoprolol, NATE-I, consider Entresto. Code Status full code Discussed Condition With patient Problem Qualifiers (1) CAD (coronary artery disease): Qualified Code: I25.700 - Coronary artery disease involving coronary bypass graft of [place] heart with unstable angina pectoris (2) Hypertension: Qualified Code: I10 - Essential hypertension Chris Ward MD Jun 06, 2016 14:21
[2016-06-06] MEDS ORDERED: MISC INFORMATION XX ONE (14:30)
[2016-06-06] MEDS ORDERED: ONDANSETRON HCL 4 MG/2 ML VIAL IV PRN (14:30)
[2016-06-06] MEDS ORDERED: TEMAZEPAM 15 MG CAP PO PRN (14:30)
[2016-06-06] MEDS ORDERED: ATROPINE SULFATE 1 MG/ML VIAL IV PRN (14:30)
[2016-06-06] MEDS ORDERED: LIDOCAINE HCL 1% 50 ML VIAL INFIL PRN (14:30)
[2016-06-06] MEDS ORDERED: SODIUM CHLORIDE 0.9% FLUSH 5 ML FLUSH IVF PRN (14:30)
[2016-06-06] MEDS ORDERED: SODIUM CHLOR 0.9% 250 ML INJ 250 ML IV PRN (14:30)
[2016-06-06] MEDS ORDERED: LORazepam 2 MG/ML VIAL IV PRN (14:30)
[2016-06-06] MEDS ORDERED: ACETAMINOPHEN 325 MG TAB PO PRN (14:30)
[2016-06-06] MEDS ORDERED: MORPHINE SULFATE 4 MG/ML INJ IV PUSH PRN (14:30)
--- NOTE | 2016-06-06 15:04 | MA ---
cc: PONCHO COURTNEY M.D. DATE: 06/06/2016. PROCEDURE PERFORMED: Left heart catheterization, selective coronary and graft angiography, left ventriculography, angioplasty and stent x 3 of the vein graft to the obtuse marginal, thrombectomy of the vein graft to the obtuse marginal. PROCEDURE NOTES: The patient was brought to the cardiac catheterization laboratory in a fasting state after having signed informed consent. The right groin was prepped and draped as per policy and anesthetized with 1% lidocaine. Arterial access was obtained via the right femoral artery and a 6-Faroese sheath placed. Coronary arteriography was performed using 6-Faroese Sharmin left 4.0 and right progressive catheters. The bypass grafts were engaged with the progressive right catheter except for the vein graft to the obtuse marginal which was engaged with a left coronary bypass catheter. Left ventriculography was done using a standard 6-Faroese pigtail. Percutaneous graft intervention was done as described below. There were no apparent immediate complications. HEMODYNAMIC RESULTS: Left ventricle 92 with an end-diastolic pressure of 20. Aorta 93/64 with a mean of 75. There was no significant transvalvular aortic gradient on pullback of the pigtail catheter. CORONARY ARTERIOGRAPHY: The left main likely has up to 30% ostial stenosis. The left anterior descending is diffusely diseased before a total occlusion in its midportion. At the ostium of the LAD there is 40-50% stenosis. Right before the total occlusion, there is 50% stenosis. The LAD gives rise to two medium size septal perforators which provide collaterals to the right coronary. The left circumflex is diffusely diseased. The left circumflex is diffusely diseased with up to 60% ostial stenosis and then total occlusion in its midportion. The right coronary artery is totally occluded in its midportion after the takeoff of a medium-sized right ventricular branch which has up to 50% ostial stenosis. The proximal right coronary is diffusely diseased with up to 85% stenosis. GRAFT ANGIOGRAPHY: The vein graft to the right coronary artery is known to be totally chronically occluded. The left internal mammary artery to the LAD is widely patent. The vein graft to the diagonal demonstrates a number of stents throughout its length. In a non-stented region of the midportion of this graft, there is 30% to 40% stenosis. There is also up to 30% to 40% restenosis of the more distal stent in two different areas of the stent. The [place] diagonal appears to be free of disease distal to the anastomosis site. The vein graft to the obtuse marginal demonstrates possibly two overlapping stents at its ostium. These stents are widely patent. A stent is also evident in the midportion of the graft and there is eccentric 60% to 70% restenosis of the stent at its distal aspect. Just proximal to this stent, the graft has a 70% somewhat eccentric stenosis. There is suggestion of a small thrombus in the distal portion of the graft. There is normal flow through the vessel. LEFT VENTRICULOGRAPHY: Contrast injection of the left ventricle reveals severe global hypokinesis. Estimated ejection fraction is 10%. There is also mild to moderate mitral regurgitation. PERCUTANEOUS GRAFT INTERVENTION: Aggrastat was given as per protocol. Adequate heparin was given during the procedure to achieve an ACT greater than 280 seconds. Using a 6-Faroese left coronary bypass guiding catheter, the ostium of the vein graft to the obtuse marginal was re-engaged. A 0.014 [place] guidewire was advanced distal to the mid disease. A spider filter wire was then deployed distally. Stenting of the midportion was done using a 3.5 x 20-mm Promus stent which was deployed at 11 atmospheres for 40 seconds. Stenting of more proximal disease was done using a 3.5 x 16-mm Promus stent which was deployed at 11 atmospheres for 40 seconds. Angiography at this point shows a lesion between the two stents resulting in up to 80% stenosis. This area was stented with a 3.5 x 8 mm Promus stent once again inflated to 11 atmospheres for 40 seconds. Angiography at this point suggested thrombus in two areas of the distal graft. It was decided to place the [place] wire back down and an [place] thrombectomy catheter was introduced. Two passes were made. Angiography at this point shows resolution of the thrombus with good flow through the vessel. Final angiography shows reduction of the initial diffuse disease to roughly 0% residual. The patient tolerated the procedure well. He did develop chest pains with balloon inflations. CONCLUSIONS: 1. Severe three-vessel [place] coronary artery disease. 2. Known chronically totally occluded vein graft to the right coronary artery with fairly good [id number] collaterals. 3. Patent left internal mammary artery to the LAD. 4. Moderately diseased vein graft to the diagonal. 5. Severely diseased vein graft to the obtuse marginal, now status post stent x 3 of this graft as well as thrombectomy. 6. Severely reduced left ventricular systolic function with estimated ejection fraction of 10% MD BRIT Paulino/BRUNA /2:08 PM /2:49 PM SHIRAZ
[2016-06-06] MEDS: AMIODARONE 200 MG TAB PO SCH (15:23)
--- NOTE | 2016-06-06 16:36 | HHI.PR ---
Subjective Remarks Patient is seen post catheterization Offering no complaint Lying comfortably on the bed without any apparent distress denies any shortness of breath chest pain or diaphoresis Review of system for 10 point system otherwise unremarkable Objective Objective Results - Vital Signs Date Time Temp Pulse Resp B/P Pulse Ox O2 Delivery O2 Flow Rate FiO2 06/06/16 15:25 106/72 06/06/16 15:24 107/70 06/06/16 15:07 95 06/06/16 10:29 105 06/06/16 09:46 100 06/06/16 09:45 97.0 100 18 100/70 98 06/06/16 08:10 110 06/06/16 07:44 106 06/06/16 06:00 98 06/06/16 05:00 94 06/06/16 04:35 98.2 100 17 95/62 98 06/06/16 04:00 104 06/06/16 03:00 98 06/06/16 02:00 99 06/06/16 01:00 90 06/06/16 00:00 96 06/05/16 23:20 98.2 89 17 112/75 98 06/05/16 23:00 103 06/05/16 22:00 96 06/05/16 21:00 93 06/05/16 20:00 112 06/05/16 19:20 98.2 113 17 104/83 97 06/05/16 19:00 108 06/05/16 17:54 113 16 134/89 97 Room Air I/O 06/05/16 06/05/16 06/05/16 06/06/16 06/06/16 06/06/16 07:00 15:00 23:00 07:00 15:00 23:00 Intake Total 240 ml Balance 240 ml Intake Oral 240 ml # Voids 3 # Bowel Movements 1 Result Diagram: 06/05/16 1313 06/05/16 1313 Imaging Last Impressions Chest X-Ray 06/05/16 1304 Signed Impressions: Service Date/Time: May 13:17 - CONCLUSION: Stable mild cardiomegaly without evidence of congestive heart failure.. Altagracia Rubalcava MD CT Angiography 06/05/16 0000 Signed Impressions: Service Date/Time: May 14:32 - CONCLUSION: 1. No evidence of pulmonary embolism. 2. Cardiomegaly and coronary calcifications. 3. Tiny bilateral pleural effusions. 4. Stable 19 and 10 mm low density lesions within the liver which are indeterminate. Jaspal Nice MD Other Results Laboratory Tests Test 06/05/16 06/06/16 20:04 01:49 Total Creatine Kinase 104 128 Troponin I 0.03 0.03 Physical Exam Physical Exam GENERAL: This is a well-nourished, well-developed patient, in no apparent distress. SKIN: Skin pale, no rashes, ecchymoses or lesions. Cool and dry. HEAD: Atraumatic. Normocephalic. No temporal or scalp tenderness. EYES: Extraocular motions intact. No scleral icterus. No injection or drainage. ENT: Airway patent. NECK: Trachea midline. No JVD or lymphadenopathy. Supple, nontender, no meningeal signs. CARDIOVASCULAR: S1, S2, tachycardic, regular rate and rhythm without murmurs, gallops, or rubs. RESPIRATORY: Clear to auscultation. Breath sounds equal bilaterally. No wheezes , rales, or rhonchi. GASTROINTESTINAL: Abdomen soft, diffuse tenderness, nondistended. No hepato- splenomegaly, or palpable masses. No guarding. MUSCULOSKELETAL: Extremities without clubbing, cyanosis, or edema. No joint tenderness, effusion, or edema noted. No calf tenderness. Negative Homans sign bilaterally. NEUROLOGICAL: Awake and alert. Cranial nerves II through XII intact. Motor and sensory grossly within normal limits. Five out of 5 muscle strength in all muscle groups. Normal speech. A/P Assessment and Plan (1) Exertional dyspnea (2) Chest pain (3) Atrial tachycardia (4) Hypertension (5) Hyperlipidemia (6) Ischemic cardiomyopathy (7) CAD (coronary artery disease) (8) Paroxysmal atrial fibrillation (9) Chronic abdominal pain Plan 66-year-old male with significant past medical history of coronary artery disease, status post cardiac stents, CABG, cardiomyopathy, has AICD, paroxysmal A. fib. Patient presented to the emergency room with dyspnea on exertion with chest pain relieved by rest. Also noted with tachycardia. Admitted with dyspnea on exertion, rule out acute coronary syndrome -Dr. Ward evaluated patient, cardiac catheterization done today. 3 stent put in severely diseased vein graft to obtuse marginal vessel as well as thrombectomy done. Patient has severely reduced LV function 10% EF Patient patient on aspirin and Brilinta -Continue Coreg, statin Sinus tachycardia, atrial tach, history of paroxysmal A. fib Stable artery On aspirin and Brilinta -- Cardiomyopathy, has AICD EF 10% Hypertension, stable Continue home medications Hyperlipidemia, stable Continue with home medications Chronic abdominal pain, currently undergoing workup, stable at this time PPI for GI prophylaxis Home medications reviewed, initiated as indicated SCDs for DVT prophylaxis Protonix for GI prophylaxis Plan of care has been discussed with the patient and registered nurse. Further management of the patient will be dependent hospital course Lenny Bruner MD Jun 06, 2016 16:36
[2016-06-06] MEDS: SODIUM CHLORIDE 0.9% FLUSH 5 ML FLUSH IVF SCH (20:51)
[2016-06-06] MEDS: ATORVASTATIN 80 MG TAB PO SCH (20:51)
--- NOTE | 2016-06-06 22:48 | EKG ---
Date Performed: 06/05/2016 Time Performed: 13:36:36 PTAGE: 66 years EKG: SUPERVENTRICULAR TACHYCARDIA, PROBABLY A SINUS TACHYCARDIA WITH A 2:1 ATRIAL FLUTTER CANNOT BE EXCLUDED. A RHYTHM STRIP IS ADVISED. MARKED LEFT AXIS DEVIATION LATERAL MYOCARDIAL INFARCTION INT ERVENTRICULAR CONDUCTION DEFECT Compared to previous tracing, the tachycardia is new. The PVCs have resolved. ABNORMAL ECG PREVIOUS TRACING : 06/05/2016 13.21 DOCTOR: Alyson Camejo Interpretating Date/Time 06/06/2016 22:47:17
--- NOTE | 2016-06-06 22:52 | EKG ---
Date Performed: 06/05/2016 Time Performed: 22:38:50 PTAGE: 66 years EKG: Atrial fibrillation Left axis deviation IV conduction defect Possible anteroseptal infarct - age undetermined Lateral T wave changes are nonspecific Cannot exclude some type of conduction defe ct as this patient has always had a low amplitude P wave and this might not be atrial fibrillation bu t there is no definite or discrete organized P wave activity. Ventricular response is under better c ontrol and except for the uncertainty of the rhythm, with probable atrial fibrillation, there has bee n no serial change since the most recent tracing. A rhythm strip that would include lead II is advis ed, as this would be the most useful in determining the actual mechanism of the arrhythmia. Abnormal ECG PREVIOUS TRACING : 06/05/2016 13.36 DOCTOR: Alyson Camejo Interpretating Date/Time 06/06/2016 22:50:50
[2016-06-07] VITALS (26 sets, daily range): BP systolic 82–103; BP diastolic 58–79; PULSE 79–109; RESP 18–20; TEMP 97.4–98.4; O2SAT 93–100
[2016-06-07] MEDS: SODIUM CHLOR 0.9% 1000 ML INJ 1,000 ML IV SCH
[2016-06-07] MEDS: ONDANSETRON HCL 4 MG/2 ML VIAL IVP PRN (00:45)
[2016-06-07 04:37] LABS: AUTOMATED NEUTROPHIL # 7.6 TH/MM3 (1.8-7.7); BASOPHIL % 0.3 % (0.0-2.0); HEMATOCRIT 41.9 % (39.0-51.0); HEMO FLAGS DIFF FINAL; LYMPH % 8.2 % (9.0-44.0); LYMPHOCYTE # 0.8 TH/MM3 (1.0-4.8); MEAN CELL VOLUME 91.4 FL (80.0-100.0); MEAN CORPUSCULAR HEMOGLOBIN 30.2 PG (27.0-34.0); MONO % 15.2 % (0.0-8.0); NEUT % 76.3 % (16.0-70.0); PLATELET COUNT 173 TH/MM3 (150-450); RED BLOOD COUNT 4.58 MIL/MM3 (4.50-5.90); RED CELL DISTRIBUTION WIDTH 14.8 % (11.6-17.2)
[2016-06-07 04:54] LABS: BICARBONATE 25.6 MEQ/L (21.0-32.0); POTASSIUM 4.7 MEQ/L (3.5-5.1)
[2016-06-07 04:57] LABS: HDL CHOLESTEROL 24.7 MG/DL (40.0-60.0)
[2016-06-07] MEDS: TIROFIBAN INFUSION INJ 250 ML IV SCH (07:43)
[2016-06-07] MEDS: SODIUM CHLORIDE 0.9% FLUSH 5 ML FLUSH IVF SCH ×2 (09:00→21:00)
[2016-06-07] MEDS: AMIODARONE 200 MG TAB PO SCH (09:20)
[2016-06-07] MEDS: FINASTERIDE 5 MG TAB PO SCH (09:20)
[2016-06-07] MEDS: ENALAPRIL MALEATE 5 MG TAB PO SCH ×2 (09:20→23:24)
[2016-06-07] MEDS: CARVEDILOL 12.5 MG TAB PO SCH ×2 (09:21→21:00)
[2016-06-07] MEDS: TORSEMIDE 20 MG TAB PO SCH (09:21)
[2016-06-07] MEDS: TICAGRELOR 90 MG TAB PO SCH ×2 (09:21→22:11)
[2016-06-07] MEDS: PANTOPRAZOLE SOD 40 MG DELAYED RELEASE TAB PO SCH (09:21)
[2016-06-07] MEDS: SODIUM CHLORIDE 0.9% FLUSH 5 ML FLUSH FLUSH SCH ×2 (09:22→22:10)
[2016-06-07] MEDS: ASPIRIN 81 MG CHEW TAB PO SCH (09:22)
--- NOTE | 2016-06-07 09:44 | PD.CARD.PN ---
Subjective Subjective Remarks Dyspnea much better. No CP, groin pain, dizziness, palpitations. Slept fairly well. Objective Medications Item Value Date Time Aspirin 81 mg 06/07/16 0900 (Aspirin Chew) DAILY/PO 06/07/16 0922 Ticagrelor 90 mg 06/07/16 0900 (Brilinta) BID/PO 06/07/16 0921 Amiodarone HCl 200 mg 06/06/16 1430 (Cordarone) DAILY/PO 06/07/16 0920 Tirofiban/Sodium 250 ml @ 14.4 mls/hr 06/06/16 1421 Chloride [id number]/IV Torsemide 20 mg 06/06/16 0900 (Demadex) DAILY/PO 06/07/16 0921 Atorvastatin 80 mg 06/05/162099 Calcium HS/PO 06/06/162050 (Lipitor) Carvedilol 25 mg 06/05/162099 (Coreg) BID/PO 06/07/16920 Enalapril Maleate 5 mg 06/05/162099 (Vasotec) BID/PO 06/07/16919 Vital Signs / I&O Vital Signs Date Time Temp Pulse Resp B/P Pulse Ox O2 Delivery O2 Flow Rate FiO2 06/07/16 09:00 102 06/07/16 08:00 105 06/07/16 07:00 92 06/07/16 07:00 98.4 107 20 90/63 100 06/07/16 04:00 106 06/07/16 03:33 97.6 105 18 103/73 100 06/07/16 03:00 98 06/07/16 02:00 108 06/07/16 01:00 106 06/07/16 00:30 97.4 101 20 101/79 98 06/07/16 00:00 105 06/06/16 23:00 98 06/06/16 22:00 104 06/06/16 21:00 102 06/06/16 20:00 100 06/06/16 19:30 97.6 101 20 114/86 98 06/06/16 19:00 98 06/06/16 18:22 94 20 98/58 06/06/16 18:22 100 Nasal Cannula 2.00 06/06/16 18:19 98 06/06/16 17:01 98 06/06/16 16:50 97.0 92 18 107/68 96 06/06/16 16:49 92 06/06/16 15:25 106/72 06/06/16 15:24 107/70 06/06/16 15:07 95 06/06/16 10:29 105 06/06/16 09:46 100 06/06/16 09:45 97.0 100 18 100/70 98 I/O 06/06/16 06/06/16 06/06/16 06/07/16 06/07/16 06/07/16 07:00 15:00 23:00 07:00 15:00 23:00 Intake Total 240 ml 1720 ml 240 ml Output Total 750 ml 100 ml 475 ml Balance 240 ml 970 ml -100 ml -235 ml Intake Oral 240 ml 620 ml 240 ml IV Total 1100 ml Output Urine Total 750 ml 100 ml 475 ml # Voids 3 # Bowel Movements 1 Physical Exam GENERAL: Well developed, well nourished. No acute distress. HEENT: Jugular venous pressure is normal. CHEST: Lungs clear to auscultation bilaterally. Unlabored respiratory effort. CARDIAC: Regular rate and rhythm without S3, S4, or murmur. ABDOMEN: Soft, nontender, no hepatosplenomegaly. Bowel sounds present. EXTREMITIES: No clubbing, cyanosis, or edema. Right groin nontender, no hematoma. Laboratory Laboratory Tests Test 06/07/16 03:57 White Blood Count 10.0 TH/MM3 Red Blood Count 4.58 MIL/MM3 Hemoglobin 13.8 GM/DL Hematocrit 41.9 % Mean Corpuscular Volume 91.4 FL Mean Corpuscular Hemoglobin 30.2 PG Mean Corpuscular Hemoglobin 33.0 % Concent Red Cell Distribution Width 14.8 % Platelet Count 173 TH/MM3 Mean Platelet Volume 8.9 FL Neutrophils (%) (Auto) 76.3 % Lymphocytes (%) (Auto) 8.2 % Monocytes (%) (Auto) 15.2 % Eosinophils (%) (Auto) 0.0 % Basophils (%) (Auto) 0.3 % Neutrophils # (Auto) 7.6 TH/MM3 Lymphocytes # (Auto) 0.8 TH/MM3 Monocytes # (Auto) 1.5 TH/MM3 Eosinophils # (Auto) 0.0 TH/MM3 Basophils # (Auto) 0.0 TH/MM3 CBC Comment DIFF FINAL Differential Comment Sodium Level 138 MEQ/L Potassium Level 4.7 MEQ/L Chloride Level 102 MEQ/L Carbon Dioxide Level 25.6 MEQ/L Anion Gap 10 MEQ/L Blood Urea Nitrogen 40 MG/DL Creatinine 2.00 MG/DL Estimat Glomerular Filtration 33 ML/MIN Rate Random Glucose 179 MG/DL Calcium Level 8.2 MG/DL Total Creatine Kinase 264 U/L Triglycerides Level 84 MG/DL Cholesterol Level 101 MG/DL LDL Cholesterol 60 MG/DL HDL Cholesterol 24.7 MG/DL Cholesterol/HDL Ratio 4.08 RATIO Assessment and Plan Problem List: (1) CAD (coronary artery disease) Assessment and Plan: Patient s/p cath yesterday showing severe 3 vessel [place] CAD, patent SIMS to LAD, patent SV to diagonal, chronically occluded SV to RCA with good left to right collaterals, severe disease of SV to OM, treated with 3 stents plus thrombectomy. EF 10%. REC Brilinta and aspirin, cont beta benjamin, NATE-I, ambulate in halls, possible discharge tomorrow (2) Paroxysmal atrial fibrillation Assessment and Plan: Rhythm somewhat difficult to discern on monitor. May be ectopic atrial tachycardia. At times appears to be multifocal atrial tachycardia. No definite atrial fib. Patient intermittently slightly tachycardic. REC increase Amiodarone to 400 mg qd monitor 24 more hours will decide on patient's anticoagulation/antiplatelet regimen by tomorrow, may enroll patient in research protocol if he qualifies (3) Hypertension Assessment and Plan: Hypertension not active issue. (4) Ischemic cardiomyopathy Assessment and Plan: EF 10% by cath. Patient compensated overall. No definite pulmonary edema by CXR, exam. Rec cont metoprolol, NATE-I, consider Entresto. Code Status full code Discussed Condition With patient Problem Qualifiers (1) CAD (coronary artery disease): Qualified Code: I25.700 - Coronary artery disease involving coronary bypass graft of [place] heart with unstable angina pectoris (2) Hypertension: Qualified Code: I10 - Essential hypertension Chris Ward MD Jun 07, 2016 09:44
--- NOTE | 2016-06-07 13:03 | HHI.PR ---
Subjective Remarks Patient offering no complaint Feeling better Breathing better No chest pain Lying comfortably on the bed without any apparent distress denies any shortness of breath chest pain or diaphoresis Review of system for 10 point system otherwise unremarkable Objective Objective Results - Vital Signs Date Time Temp Pulse Resp B/P Pulse Ox O2 Delivery O2 Flow Rate FiO2 06/07/16 12:00 95 06/07/16 11:00 98.3 98 20 97/78 100 06/07/16 11:00 109 06/07/16 10:00 96 06/07/16 09:00 102 06/07/16 08:00 105 06/07/16 07:00 92 06/07/16 07:00 98.4 107 20 90/63 100 06/07/16 04:00 106 06/07/16 03:33 97.6 105 18 103/73 100 06/07/16 03:00 98 06/07/16 02:00 108 06/07/16 01:00 106 06/07/16 00:30 97.4 101 20 101/79 98 06/07/16 00:00 105 06/06/16 23:00 98 06/06/16 22:00 104 06/06/16 21:00 102 06/06/16 20:00 100 06/06/16 19:30 97.6 101 20 114/86 98 06/06/16 19:00 98 06/06/16 18:22 94 20 98/58 06/06/16 18:22 100 Nasal Cannula 2.00 06/06/16 18:19 98 06/06/16 17:01 98 06/06/16 16:50 97.0 92 18 107/68 96 06/06/16 16:49 92 06/06/16 15:25 106/72 06/06/16 15:24 107/70 06/06/16 15:07 95 I/O 06/06/16 06/06/16 06/06/16 06/07/16 06/07/16 06/07/16 07:00 15:00 23:00 07:00 15:00 23:00 Intake Total 240 ml 1720 ml 240 ml Output Total 750 ml 100 ml 475 ml Balance 240 ml 970 ml -100 ml -235 ml Intake Oral 240 ml 620 ml 240 ml IV Total 1100 ml Output Urine Total 750 ml 100 ml 475 ml # Voids 3 # Bowel Movements 1 Result Diagram: 06/07/16 0357 06/07/16 0357 Imaging Last Impressions Chest X-Ray 06/05/16 1304 Signed Impressions: Service Date/Time: May 13:17 - CONCLUSION: Stable mild cardiomegaly without evidence of congestive heart failure.. Altagracia Rubalcava MD CT Angiography 06/05/16 0000 Signed Impressions: Service Date/Time: May 14:32 - CONCLUSION: 1. No evidence of pulmonary embolism. 2. Cardiomegaly and coronary calcifications. 3. Tiny bilateral pleural effusions. 4. Stable 19 and 10 mm low density lesions within the liver which are indeterminate. Jaspal Nice MD Other Results Laboratory Tests Test 06/07/16 03:57 White Blood Count 10.0 Red Blood Count 4.58 Hemoglobin 13.8 Hematocrit 41.9 Mean Corpuscular Volume 91.4 Mean Corpuscular Hemoglobin 30.2 Mean Corpuscular Hemoglobin 33.0 Concent Red Cell Distribution Width 14.8 Platelet Count 173 Mean Platelet Volume 8.9 Neutrophils (%) (Auto) 76.3 Lymphocytes (%) (Auto) 8.2 Monocytes (%) (Auto) 15.2 Eosinophils (%) (Auto) 0.0 Basophils (%) (Auto) 0.3 Neutrophils # (Auto) 7.6 Lymphocytes # (Auto) 0.8 Monocytes # (Auto) 1.5 Eosinophils # (Auto) 0.0 Basophils # (Auto) 0.0 CBC Comment DIFF FINAL Differential Comment Sodium Level 138 Potassium Level 4.7 Chloride Level 102 Carbon Dioxide Level 25.6 Anion Gap 10 Blood Urea Nitrogen 40 Creatinine 2.00 Estimat Glomerular Filtration 33 Rate Random Glucose 179 Calcium Level 8.2 Total Creatine Kinase 264 Triglycerides Level 84 Cholesterol Level 101 LDL Cholesterol 60 HDL Cholesterol 24.7 Cholesterol/HDL Ratio 4.08 Physical Exam Physical Exam GENERAL: This is a well-nourished, well-developed patient, in no apparent distress. SKIN: Skin pale, no rashes, ecchymoses or lesions. Cool and dry. HEAD: Atraumatic. Normocephalic. No temporal or scalp tenderness. EYES: Extraocular motions intact. No scleral icterus. No injection or drainage. ENT: Airway patent. NECK: Trachea midline. No JVD or lymphadenopathy. Supple, nontender, no meningeal signs. CARDIOVASCULAR: S1, S2, tachycardic, regular rate and rhythm without murmurs, gallops, or rubs. RESPIRATORY: Clear to auscultation. Breath sounds equal bilaterally. No wheezes , rales, or rhonchi. GASTROINTESTINAL: Abdomen soft, diffuse tenderness, nondistended. No hepato- splenomegaly, or palpable masses. No guarding. MUSCULOSKELETAL: Extremities without clubbing, cyanosis, or edema. No joint tenderness, effusion, or edema noted. No calf tenderness. Negative Homans sign bilaterally. NEUROLOGICAL: Awake and alert. Cranial nerves II through XII intact. Motor and sensory grossly within normal limits. Five out of 5 muscle strength in all muscle groups. Normal speech. A/P Assessment and Plan (1) Exertional dyspnea (2) Chest pain (3) Atrial tachycardia (4) Hypertension (5) Hyperlipidemia (6) Ischemic cardiomyopathy (7) CAD (coronary artery disease) (8) Paroxysmal atrial fibrillation (9) Chronic abdominal pain Plan 66-year-old male with significant past medical history of coronary artery disease, status post cardiac stents, CABG, cardiomyopathy, has AICD, paroxysmal A. fib. Patient presented to the emergency room with dyspnea on exertion with chest pain relieved by rest. Also noted with tachycardia. Admitted with dyspnea on exertion, rule out acute coronary syndrome -Dr. Ward evaluated patient, cardiac catheterization done. 3 stent put in severely diseased vein graft to obtuse marginal vessel as well as thrombectomy done. Patient has severely reduced LV function 10% EF Patient on aspirin and Brilinta -Continue Coreg, statin Sinus tachycardia, atrial tach, history of paroxysmal A. fib Stable artery On aspirin and Brilinta -- Cardiomyopathy, has AICD EF 10% Hypertension, stable Continue home medications Hyperlipidemia, stable Continue with home medications Chronic abdominal pain, currently undergoing workup, stable at this time PPI for GI prophylaxis Acute kidney insufficiency increased BUN/creatinine --Plan for cautious IV hydration --BMP tomorrow morning Labs reviewed Home medications reviewed, initiated as indicated SCDs for DVT prophylaxis Protonix for GI prophylaxis Plan of care has been discussed with the patient Further management of the patient will be dependent hospital course Lenny Brunre MD Jun 07, 2016 13:03
[2016-06-07] MEDS ORDERED: SODIUM CHLORID 0.9% 500 ML INJ 250 ML IV SCH (13:15)
[2016-06-07] MEDS ORDERED: ALBUMIN HUMAN 25% 25 GM/100 ML BAGP IV ONE (22:00)
[2016-06-07] MEDS ORDERED: SODIUM CHLORID 0.9% IV ONE (22:00)
[2016-06-07] MEDS: ATORVASTATIN 80 MG TAB PO SCH (22:11)
[2016-06-07] MEDS: RESP: ALBUTEROL 2.5 MG/IPRATROPIUM 0.5 MG NEB (PRN) NEB (23:48)
[2016-06-08] VITALS (26 sets, daily range): BP systolic 90–101; BP diastolic 31–77; PULSE 75–115; RESP 18–20; TEMP 97.6–98.5; O2SAT 95–100
[2016-06-08] MEDS: TIROFIBAN INFUSION INJ 250 ML IV SCH ×2 (00:29→17:20)
[2016-06-08 05:42] LABS: BICARBONATE 29.8 MEQ/L (21.0-32.0); POTASSIUM 3.6 MEQ/L (3.5-5.1)
[2016-06-08] MEDS: SODIUM CHLORIDE 0.9% FLUSH 5 ML FLUSH IVF SCH ×2 (09:00→21:00)
[2016-06-08] MEDS: ENALAPRIL MALEATE 5 MG TAB PO SCH (10:08)
[2016-06-08] MEDS: ASPIRIN 81 MG CHEW TAB PO SCH (10:08)
[2016-06-08] MEDS: TORSEMIDE 20 MG TAB PO SCH (10:08)
[2016-06-08] MEDS: PANTOPRAZOLE SOD 40 MG DELAYED RELEASE TAB PO SCH (10:09)
[2016-06-08] MEDS: CARVEDILOL 12.5 MG TAB PO SCH ×2 (10:09→21:01)
[2016-06-08] MEDS: FINASTERIDE 5 MG TAB PO SCH (10:09)
[2016-06-08] MEDS: TICAGRELOR 90 MG TAB PO SCH ×2 (10:10→21:02)
[2016-06-08] MEDS: AMIODARONE 200 MG TAB PO SCH (10:10)
[2016-06-08] MEDS: SODIUM CHLORIDE 0.9% FLUSH 5 ML FLUSH FLUSH SCH ×2 (10:11→21:01)
--- NOTE | 2016-06-08 10:31 | PD.CARD.PN ---
Subjective Subjective Remarks Denies dyspnea, CP, palpitations, dizziness, nausea. Eating meals well, slept well. Objective Medications Item Value Date Time Amiodarone HCl 400 mg 06/08/16 0900 (Cordarone) DAILY/PO 06/08/16 1010 Aspirin 81 mg 06/07/16 0900 (Aspirin Chew) DAILY/PO 06/08/16 1008 Tirofiban/Sodium 250 ml @ 14.4 mls/hr 06/06/16 1421 Chloride [id number] Torsemide 20 mg 06/06/16 0900 (Demadex) DAILY/PO 06/08/16 1008 Atorvastatin 80 mg 06/05/16 2100 Calcium HS/PO 06/07/16 2211 (Lipitor) Carvedilol 25 mg 06/05/16 2100 (Coreg) BID/PO 06/08/16 1009 Enalapril Maleate 5 mg 06/05/16 2100 (Vasotec) BID/PO 06/08/16 1008 Vital Signs / I&O Vital Signs Date Time Temp Pulse Resp B/P Pulse Ox O2 Delivery O2 Flow Rate FiO2 06/08/16 10:00 102 06/08/16 09:00 111 06/08/16 08:00 111 06/08/16 07:00 98.5 106 18 94/77 99 06/08/16 07:00 113 06/08/16 06:00 90 06/08/16 05:00 94 06/08/16 04:00 80 06/08/16 03:30 97.9 96 18 93/62 99 06/08/16 03:00 97 06/08/16 02:00 87 06/08/16 01:00 97 06/08/16 00:00 98 06/07/16 23:51 99 Nasal Cannula 2.00 06/07/16 23:00 97.6 90 18 96/71 100 92/73 06/07/16 23:00 102 06/07/16 22:00 86 06/07/16 21:00 81 06/07/16 21:00 83/65 86/62 06/07/16 20:00 91 06/07/16 20:00 97.6 89 18 91/58 99 06/07/16 19:00 81 06/07/16 18:00 98 06/07/16 17:00 97 06/07/16 16:00 83 06/07/16 15:00 90 06/07/16 15:00 98.4 88 20 82/58 98 06/07/16 14:00 79 06/07/16 13:00 85 06/07/16 12:00 95 06/07/16 11:00 98.3 98 20 97/78 100 06/07/16 11:00 109 I/O 06/07/16 06/07/16 06/07/16 06/08/16 06/08/16 06/08/16 07:00 15:00 23:00 07:00 15:00 23:00 Intake Total 240 ml 1558 ml 640 ml Output Total 100 ml 475 ml 500 ml 650 ml Balance -100 ml -235 ml 1058 ml -10 ml Intake Oral 240 ml 660 ml 240 ml IV Total 898 ml 300 ml Albumin 100 ml Output Urine Total 100 ml 475 ml 500 ml 650 ml # Bowel Movements 0 Physical Exam GENERAL: Well developed, well nourished. No acute distress. HEENT: Jugular venous pressure is normal. CHEST: Lungs clear to auscultation bilaterally. Unlabored respiratory effort. CARDIAC: Regular rate and rhythm without S3, S4, or murmur. ABDOMEN: Soft, nontender, no hepatosplenomegaly. Bowel sounds present. EXTREMITIES: No clubbing, cyanosis, or edema. Laboratory Laboratory Tests Test 06/08/16 04:30 Sodium Level 142 MEQ/L Potassium Level 3.6 MEQ/L Chloride Level 104 MEQ/L Carbon Dioxide Level 29.8 MEQ/L Anion Gap 8 MEQ/L Blood Urea Nitrogen 36 MG/DL Creatinine 1.47 MG/DL Estimat Glomerular Filtration 48 ML/MIN Rate Random Glucose 110 MG/DL Calcium Level 7.7 MG/DL Assessment and Plan Problem List: (1) CAD (coronary artery disease) Assessment and Plan: Patient s/p cath this admission showing severe 3 vessel [place] CAD, patent SIMS to LAD, patent SV to diagonal, chronically occluded SV to RCA with good left to right collaterals, severe disease of SV to OM, treated with 3 stents plus thrombectomy. EF 10%. REC Brilinta and aspirin, cont beta benjamin hold his NATE-I with the post cath drop in renal function and with mild hypotension in past 24 hours (2) Paroxysmal atrial fibrillation Assessment and Plan: Rhythm somewhat difficult to discern on monitor. May be ectopic atrial tachycardia. At times appears to be multifocal atrial tachycardia. No definite atrial fib. Patient mildly tachycardic. REC continue Amiodarone to 400 mg qd add digoxin hold discharge for now on discharge will likely discharge him on Brilinta and Eliquis no aspirin, then try to enroll him in [place] trial examining different anticoagulation/antiplatelet regimens (3) Hypertension Assessment and Plan: Hypertension not active issue. Mildly hypotensive last night. To hold his NATE-I. (4) Ischemic cardiomyopathy Assessment and Plan: EF 10% by cath. Patient compensated overall. No definite pulmonary edema by CXR, exam. Rec cont metoprolol, consider Entresto. Code Status full code Discussed Condition With patient Problem Qualifiers (1) CAD (coronary artery disease): Qualified Code: I25.700 - Coronary artery disease involving coronary bypass graft of [place] heart with unstable angina pectoris (2) Hypertension: Qualified Code: I10 - Essential hypertension Chris Ward MD Jun 08, 2016 10:31
[2016-06-08] MEDS ORDERED: DIGOXIN 0.5 MG/2 ML VIAL IV PUSH ONE (10:45)
--- NOTE | 2016-06-08 13:36 | EKG ---
Date Performed: 06/07/2016 Time Performed: 10:51:22 PTAGE: 66 years EKG: Atrial fibrillation. Left axis deviation IV conduction defect Possible anteroseptal infarct - age undetermined Lateral T wave changes may be due to myocardial ischemia Compared to prior tracin g no significant change Abnormal ECG NO PREVIOUS TRACING DOCTOR: Pio Rubio Interpretating Date/Time 06/08/2016 13:35:10
--- NOTE | 2016-06-08 14:10 | HHI.PR ---
Subjective Remarks Patient offering no complaint at present Had high heart rate last night and this morning Feeling better Breathing better No chest pain Lying comfortably on the bed without any apparent distress denies any shortness of breath chest pain or diaphoresis Review of system for 10 point system otherwise unremarkable Objective Objective Results - Vital Signs Date Time Temp Pulse Resp B/P Pulse Ox O2 Delivery O2 Flow Rate FiO2 06/08/16 13:00 84 06/08/16 12:00 115 06/08/16 11:00 113 06/08/16 11:00 98.0 108 20 94/31 95 06/08/16 10:00 102 06/08/16 09:00 111 06/08/16 08:00 111 06/08/16 07:00 98.5 106 18 94/77 99 06/08/16 07:00 113 06/08/16 06:00 90 06/08/16 05:00 94 06/08/16 04:00 80 06/08/16 03:30 97.9 96 18 93/62 99 06/08/16 03:00 97 06/08/16 02:00 87 06/08/16 01:00 97 06/08/16 00:00 98 06/07/16 23:51 99 Nasal Cannula 2.00 06/07/16 23:00 97.6 90 18 96/71 100 92/73 06/07/16 23:00 102 06/07/16 22:00 86 06/07/16 21:00 81 06/07/16 21:00 83/65 86/62 06/07/16 20:00 91 06/07/16 20:00 97.6 89 18 91/58 99 06/07/16 19:00 81 06/07/16 18:00 98 06/07/16 17:00 97 06/07/16 16:00 83 06/07/16 15:00 90 06/07/16 15:00 98.4 88 20 82/58 98 I/O 06/07/16 06/07/16 06/07/16 06/08/16 06/08/16 06/08/16 07:00 15:00 23:00 07:00 15:00 23:00 Intake Total 240 ml 1558 ml 640 ml Output Total 100 ml 475 ml 500 ml 650 ml Balance -100 ml -235 ml 1058 ml -10 ml Intake Oral 240 ml 660 ml 240 ml IV Total 898 ml 300 ml Albumin 100 ml Output Urine Total 100 ml 475 ml 500 ml 650 ml # Bowel Movements 0 Result Diagram: 06/07/16 0357 06/08/16 0430 Imaging Last Impressions Chest X-Ray 06/05/16 1304 Signed Impressions: Service Date/Time: May 13:17 - CONCLUSION: Stable mild cardiomegaly without evidence of congestive heart failure.. Atlagracia Rubalcava MD CT Angiography 06/05/16 0000 Signed Impressions: Service Date/Time: May 14:32 - CONCLUSION: 1. No evidence of pulmonary embolism. 2. Cardiomegaly and coronary calcifications. 3. Tiny bilateral pleural effusions. 4. Stable 19 and 10 mm low density lesions within the liver which are indeterminate. Jaspal Nice MD Other Results Laboratory Tests Test 06/08/16 04:30 Sodium Level 142 Potassium Level 3.6 Chloride Level 104 Carbon Dioxide Level 29.8 Anion Gap 8 Blood Urea Nitrogen 36 Creatinine 1.47 Estimat Glomerular Filtration 48 Rate Random Glucose 110 Calcium Level 7.7 Physical Exam Physical Exam GENERAL: This is a well-nourished, well-developed patient, in no apparent distress. SKIN: Skin pale, no rashes, ecchymoses or lesions. Cool and dry. HEAD: Atraumatic. Normocephalic. No temporal or scalp tenderness. EYES: Extraocular motions intact. No scleral icterus. No injection or drainage. ENT: Airway patent. NECK: Trachea midline. No JVD or lymphadenopathy. Supple, nontender, no meningeal signs. CARDIOVASCULAR: S1, S2, tachycardic, regular rate and rhythm without murmurs, gallops, or rubs. RESPIRATORY: Clear to auscultation. Breath sounds equal bilaterally. No wheezes , rales, or rhonchi. GASTROINTESTINAL: Abdomen soft, diffuse tenderness, nondistended. No hepato- splenomegaly, or palpable masses. No guarding. MUSCULOSKELETAL: Extremities without clubbing, cyanosis, or edema. No joint tenderness, effusion, or edema noted. No calf tenderness. Negative Homans sign bilaterally. NEUROLOGICAL: Awake and alert. Cranial nerves II through XII intact. Motor and sensory grossly within normal limits. Five out of 5 muscle strength in all muscle groups. Normal speech. A/P Assessment and Plan (1) Exertional dyspnea (2) Chest pain (3) Atrial tachycardia (4) Hypertension (5) Hyperlipidemia (6) Ischemic cardiomyopathy (7) CAD (coronary artery disease) (8) Paroxysmal atrial fibrillation (9) Chronic abdominal pain Plan 66-year-old male with significant past medical history of coronary artery disease, status post cardiac stents, CABG, cardiomyopathy, has AICD, paroxysmal A. fib. Patient presented to the emergency room with dyspnea on exertion with chest pain relieved by rest. Also noted with tachycardia. Admitted with dyspnea on exertion, rule out acute coronary syndrome -Dr. Ward evaluated patient, cardiac catheterization done. 3 stent put in severely diseased vein graft to obtuse marginal vessel as well as thrombectomy done. Patient has severely reduced LV function 10% EF Patient started by cardiology on Brilinta -Continue Coreg, statin Sinus tachycardia, atrial tach, history of paroxysmal A. fib Stable amiodarone. --Digoxin added --On aspirin and Brilinta. Recommendation for discharge Eliquis and Brilinta no aspirin -- Cardiomyopathy, has AICD EF 10%. With AICD. Cardiology considering entresto Hypertension, stable Continue home medications Hyperlipidemia, stable Continue with home medications Chronic abdominal pain, currently undergoing workup, stable at this time PPI for GI prophylaxis Acute kidney insufficiency increased BUN/creatinine --Status post small dose IV hydration --BMP showing improvement of creatinine from 2--1.47. --Will give 250 cc slowly today Labs reviewed Home medications reviewed, initiated as indicated SCDs for DVT prophylaxis Protonix for GI prophylaxis Plan of care has been discussed with the patient Further management of the patient will be dependent hospital course Lenny Bruner MD Jun 08, 2016 14:10
[2016-06-08] MEDS: SODIUM CHLOR 0.45% IV SCH ×2 (14:41→19:16)
[2016-06-08] MEDS: ATORVASTATIN 80 MG TAB PO SCH (21:02)
[2016-06-08] MEDS: APIXABAN 5 MG TABLET PO SCH (21:02)
[2016-06-09] VITALS (14 sets, daily range): BP systolic 86–103; BP diastolic 59–71; PULSE 69–88; RESP 18; TEMP 97.8–97.9; O2SAT 94–98
[2016-06-09] MEDS: SODIUM CHLOR 0.45% IV SCH ×4 (00:02→10:47)
[2016-06-09 06:51] LABS: HEMATOCRIT 36.2 % (39.0-51.0); MEAN CELL VOLUME 90.2 FL (80.0-100.0); MEAN CORPUSCULAR HEMOGLOBIN 30.3 PG (27.0-34.0); MEAN CORPUSCULAR HGB CONC 33.6 % (32.0-36.0); PLATELET COUNT 132 TH/MM3 (150-450); RED BLOOD COUNT 4.01 MIL/MM3 (4.50-5.90); RED CELL DISTRIBUTION WIDTH 14.3 % (11.6-17.2); REVIEW FLAG FINAL; WHITE BLOOD COUNT 7.6 TH/MM3 (4.0-11.0)
[2016-06-09 07:17] LABS: BICARBONATE 32.1 MEQ/L (21.0-32.0); POTASSIUM 3.1 MEQ/L (3.5-5.1)
[2016-06-09] MEDS: TORSEMIDE 20 MG TAB PO SCH (08:12)
[2016-06-09] MEDS: PANTOPRAZOLE SOD 40 MG DELAYED RELEASE TAB PO SCH (08:13)
[2016-06-09] MEDS: CARVEDILOL 12.5 MG TAB PO SCH (08:13)
[2016-06-09] MEDS: TICAGRELOR 90 MG TAB PO SCH (08:13)
[2016-06-09] MEDS: FINASTERIDE 5 MG TAB PO SCH (08:14)
[2016-06-09] MEDS: APIXABAN 5 MG TABLET PO SCH (08:14)
[2016-06-09] MEDS: AMIODARONE 200 MG TAB PO SCH (08:14)
[2016-06-09] MEDS: TIROFIBAN INFUSION INJ 250 ML IV SCH (08:15)
[2016-06-09] MEDS: SODIUM CHLORIDE 0.9% FLUSH 5 ML FLUSH IVF SCH (08:15)
[2016-06-09] MEDS: SODIUM CHLORIDE 0.9% FLUSH 5 ML FLUSH FLUSH SCH (08:15)
[2016-06-09] MEDS ORDERED: DIGOXIN 0.125 MG TAB PO SCH (09:00)
--- NOTE | 2016-06-09 10:58 | PD.CARD.PN ---
Subjective Subjective Remarks Slightly lightheaded. No CP. Minimal dyspnea on ambulation. No palpitations, nausea, constipation, abdominal pain. Objective Medications Item Value Date Time Ticagrelor 90 mg 06/07/16 0900 (Brilinta) BID/PO 06/08/16 1010 Digoxin 0.125 mg 06/09/16 0900 (Lanoxin) DAILY/PO 06/09/16 0814 Apixaban 5 mg 06/08/16 2100 (Eliquis) BID/PO 06/09/16 0814 Amiodarone HCl 400 mg 06/08/16 0900 (Cordarone) DAILY/PO 06/09/16 0814 Ticagrelor 90 mg 06/07/16 0900 (Brilinta) BID/PO 06/09/16 0813 Torsemide 20 mg 06/06/16 0900 (Demadex) DAILY/PO 06/09/16 0812 Atorvastatin 80 mg 06/05/16 2100 Calcium HS/PO 06/08/16 210 (Lipitor) Carvedilol 25 mg 06/05/16 2100 (Coreg) BID/PO 06/09/16 0813 Vital Signs / I&O Vital Signs Date Time Temp Pulse Resp B/P Pulse Ox O2 Delivery O2 Flow Rate FiO2 06/09/16 10:25 94 21 06/09/16 08:00 97.8 84 18 103/71 98 06/09/16 08:00 82 06/09/16 06:00 69 06/09/16 05:00 78 06/09/16 04:00 74 06/09/16 03:00 84 06/09/16 03:00 97.8 84 18 87/59 97 06/09/16 02:00 88 06/09/16 01:00 82 06/09/16 00:00 72 06/08/16 23:00 75 06/08/16 23:00 97.8 75 18 92/60 99 06/08/16 22:00 91 06/08/16 21:00 84 06/08/16 20:00 86 06/08/16 20:00 97.9 92 18 101/73 97 06/08/16 19:00 92 06/08/16 18:00 89 06/08/16 17:00 89 06/08/16 16:00 87 06/08/16 15:00 97.6 83 20 90/65 100 06/08/16 15:00 88 06/08/16 14:00 77 06/08/16 13:00 84 06/08/16 12:00 115 06/08/16 11:59 98 06/08/16 11:00 113 06/08/16 11:00 98.0 108 20 94/31 95 I/O 06/08/16 06/08/16 06/08/16 06/09/16 06/09/16 06/09/16 07:00 15:00 23:00 07:00 15:00 23:00 Intake Total 640 ml 1187 ml 360 ml Output Total 650 ml 1050 ml 2125 ml Balance -10 ml 137 ml -1765 ml Intake Oral 240 ml 1080 ml 240 ml IV Total 300 ml 107 ml 120 ml Albumin 100 ml Output Urine Total 650 ml 1050 ml 2125 ml # Bowel Movements 0 0 Physical Exam GENERAL: Well developed, well nourished. No acute distress. HEENT: Jugular venous pressure is normal. CHEST: Lungs clear to auscultation bilaterally. Unlabored respiratory effort. CARDIAC: Regular rate and rhythm without S3, S4, or murmur. ABDOMEN: Soft, nontender, no hepatosplenomegaly. Bowel sounds present. EXTREMITIES: No clubbing, cyanosis, or edema. Laboratory Laboratory Tests Test 06/09/16 06:22 White Blood Count 7.6 TH/MM3 Red Blood Count 4.01 MIL/MM3 Hemoglobin 12.2 GM/DL Hematocrit 36.2 % Mean Corpuscular Volume 90.2 FL Mean Corpuscular Hemoglobin 30.3 PG Mean Corpuscular Hemoglobin 33.6 % Concent Red Cell Distribution Width 14.3 % Platelet Count 132 TH/MM3 Mean Platelet Volume 8.7 FL Sodium Level 142 MEQ/L Potassium Level 3.1 MEQ/L Chloride Level 101 MEQ/L Carbon Dioxide Level 32.1 MEQ/L Anion Gap 9 MEQ/L Blood Urea Nitrogen 26 MG/DL Creatinine 1.18 MG/DL Estimat Glomerular Filtration 62 ML/MIN Rate Random Glucose 113 MG/DL Calcium Level 7.3 MG/DL Protein Corrected Calcium 8.0 MG/DL Total Protein 5.8 GM/DL Assessment and Plan Problem List: (1) CAD (coronary artery disease) Assessment and Plan: Patient s/p cath this admission showing severe 3 vessel [place] CAD, patent SIMS to LAD, patent SV to diagonal, chronically occluded SV to RCA with good left to right collaterals, severe disease of SV to OM, treated with 3 stents plus thrombectomy. EF 10%. REC continue carvedilol, Brilinta continue to hold his NATE-I with the post cath drop in renal function and with mild hypotension in past 48 hours (2) Paroxysmal atrial fibrillation Assessment and Plan: Rhythm still somewhat difficult to discern on monitor. May be ectopic atrial tachycardia. No definite atrial fib. Patient's HR's now normal. REC continue Amiodarone to 400 mg qd continue digoxin 0.125 mg qd discharge today discharge him on Brilinta and Eliquis, no aspirin, then try to enroll him in [place] trial examining different anticoagulation/antiplatelet regimens (3) Hypertension Assessment and Plan: Hypertension not active issue. Mildly hypotensive again last night. To hold his NATE-I. (4) Ischemic cardiomyopathy Assessment and Plan: EF 10% by cath. Patient compensated overall. No definite pulmonary edema by CXR, exam. Rec cont carvedilol, consider Entresto. Code Status full code Discussed Condition With patient Problem Qualifiers (1) CAD (coronary artery disease): Qualified Code: I25.700 - Coronary artery disease involving coronary bypass graft of [place] heart with unstable angina pectoris (2) Hypertension: Qualified Code: I10 - Essential hypertension Chris Ward MD Jun 09, 2016 10:58
[2016-06-09] MEDS ORDERED: APIX5TAB PO (11:01)
[2016-06-09] MEDS ORDERED: DIGO0.12 PO (11:01)
[2016-06-09] MEDS ORDERED: AMIO200T PO (11:01)
[2016-06-09] MEDS ORDERED: BRIL90TA PO (11:04)
--- NOTE | 2016-06-09 12:12 | HHI.PR ---
Subjective Remarks Patient offering no complaint at present Feeling better Breathing better No chest pain Lying comfortably on the bed without any apparent distress denies any shortness of breath chest pain or diaphoresis Review of system for 10 point system otherwise unremarkable Objective Objective Results - Vital Signs Date Time Temp Pulse Resp B/P Pulse Ox O2 Delivery O2 Flow Rate FiO2 06/09/16 11:00 70 06/09/16 10:25 94 21 06/09/16 10:00 73 06/09/16 09:00 79 06/09/16 08:00 97.8 84 18 103/71 98 06/09/16 08:00 82 06/09/16 07:00 72 06/09/16 06:00 69 06/09/16 05:00 78 06/09/16 04:00 74 06/09/16 03:00 84 06/09/16 03:00 97.8 84 18 87/59 97 06/09/16 02:00 88 06/09/16 01:00 82 06/09/16 00:00 72 06/08/16 23:00 75 06/08/16 23:00 97.8 75 18 92/60 99 06/08/16 22:00 91 06/08/16 21:00 84 06/08/16 20:00 86 06/08/16 20:00 97.9 92 18 101/73 97 06/08/16 19:00 92 06/08/16 18:00 89 06/08/16 17:00 89 06/08/16 16:00 87 06/08/16 15:00 97.6 83 20 90/65 100 06/08/16 15:00 88 06/08/16 14:00 77 06/08/16 13:00 84 I/O 06/08/16 06/08/16 06/08/16 06/09/16 06/09/16 06/09/16 07:00 15:00 23:00 07:00 15:00 23:00 Intake Total 640 ml 1187 ml 360 ml Output Total 650 ml 1050 ml 2125 ml Balance -10 ml 137 ml -1765 ml Intake Oral 240 ml 1080 ml 240 ml IV Total 300 ml 107 ml 120 ml Albumin 100 ml Output Urine Total 650 ml 1050 ml 2125 ml # Bowel Movements 0 0 Result Diagram: 06/09/1662106/09/16621 Imaging Last Impressions Chest X-Ray 06/05/16 1304 Signed Impressions: Service Date/Time: May 13:17 - CONCLUSION: Stable mild cardiomegaly without evidence of congestive heart failure.. Altagracia Rubalcava MD CT Angiography 06/05/16 0000 Signed Impressions: Service Date/Time: , June 05, 2016 14:32 - CONCLUSION: 1. No evidence of pulmonary embolism. 2. Cardiomegaly and coronary calcifications. 3. Tiny bilateral pleural effusions. 4. Stable 19 and 10 mm low density lesions within the liver which are indeterminate. Jaspal Nice MD Other Results Laboratory Tests Test 06/09/16 06:22 White Blood Count 7.6 Red Blood Count 4.01 Hemoglobin 12.2 Hematocrit 36.2 Mean Corpuscular Volume 90.2 Mean Corpuscular Hemoglobin 30.3 Mean Corpuscular Hemoglobin 33.6 Concent Red Cell Distribution Width 14.3 Platelet Count 132 Mean Platelet Volume 8.7 Sodium Level 142 Potassium Level 3.1 Chloride Level 101 Carbon Dioxide Level 32.1 Anion Gap 9 Blood Urea Nitrogen 26 Creatinine 1.18 Estimat Glomerular Filtration 62 Rate Random Glucose 113 Calcium Level 7.3 Protein Corrected Calcium 8.0 Total Protein 5.8 Physical Exam Physical Exam GENERAL: This is a well-nourished, well-developed patient, in no apparent distress. SKIN: Skin pale, no rashes, ecchymoses or lesions. Cool and dry. HEAD: Atraumatic. Normocephalic. No temporal or scalp tenderness. EYES: Extraocular motions intact. No scleral icterus. No injection or drainage. ENT: Airway patent. NECK: Trachea midline. No JVD or lymphadenopathy. Supple, nontender, no meningeal signs. CARDIOVASCULAR: S1, S2, tachycardic, regular rate and rhythm without murmurs, gallops, or rubs. RESPIRATORY: Clear to auscultation. Breath sounds equal bilaterally. No wheezes , rales, or rhonchi. GASTROINTESTINAL: Abdomen soft, diffuse tenderness, nondistended. No hepato- splenomegaly, or palpable masses. No guarding. MUSCULOSKELETAL: Extremities without clubbing, cyanosis, or edema. No joint tenderness, effusion, or edema noted. No calf tenderness. Negative Homans sign bilaterally. NEUROLOGICAL: Awake and alert. Cranial nerves II through XII intact. Motor and sensory grossly within normal limits. Five out of 5 muscle strength in all muscle groups. Normal speech. A/P Assessment and Plan (1) Exertional dyspnea (2) Chest pain (3) Atrial tachycardia (4) Hypertension (5) Hyperlipidemia (6) Ischemic cardiomyopathy (7) CAD (coronary artery disease) (8) Paroxysmal atrial fibrillation (9) Chronic abdominal pain Plan 66-year-old male with significant past medical history of coronary artery disease, status post cardiac stents, CABG, cardiomyopathy, has AICD, paroxysmal A. fib. Patient presented to the emergency room with dyspnea on exertion with chest pain relieved by rest. Also noted with tachycardia. Admitted with dyspnea on exertion, rule out acute coronary syndrome -Dr. Ward evaluated patient, cardiac catheterization done. 3 stent put in severely diseased vein graft to obtuse marginal vessel as well as thrombectomy done. Patient has severely reduced LV function 10% EF Patient started by cardiology on Brilinta -Continue Coreg, statin Sinus tachycardia, atrial tach, history of paroxysmal A. fib Stable amiodarone. --Digoxin added --On eliquis and Brilinta. Recommendation for discharge Eliquis and Brilinta no aspirin -- Cardiomyopathy, has AICD EF 10%. With AICD. Cardiology considering entresto Hypertension, stable Continue home medications Hyperlipidemia, stable Continue with home medications Chronic abdominal pain, currently undergoing workup, stable at this time PPI for GI prophylaxis Acute kidney insufficiency increased BUN/creatinine --Status post small dose IV hydration --BMP showing improvement of creatinine . Labs reviewed Home medications reviewed, initiated as indicated SCDs for DVT prophylaxis Protonix for GI prophylaxis Plan of care has been discussed with the patient Okay with cardiology to DC patient. Plan to discharge him home to be followed by his primary care DrWinter and cardiology as outpatient Lenny Bruner MD Jun 09, 2016 12:12
--- NOTE | 2016-06-09 12:17 | HHI.DS ---
Discharge Summary Admission Date Jun 05, 2016 at 15:32 Admitting Diagnosis exertional dyspnea, acute coronary syndrome (1) Exertional dyspnea Diagnosis: Principal (2) Chest pain Diagnosis: Principal (3) Atrial tachycardia Diagnosis: Principal (4) Hypertension Diagnosis: Principal (5) Hyperlipidemia Diagnosis: Principal (6) Ischemic cardiomyopathy Diagnosis: Principal (7) CAD (coronary artery disease) Diagnosis: Principal (8) Paroxysmal atrial fibrillation Diagnosis: Principal (9) Chronic abdominal pain Diagnosis: Principal Brief History This is a pleasant 66-year-old gentleman with a past medical history of atrial fibrillation, cardiac ablation [address] Crawford, coronary artery disease status post [place] cardiac stents 7, coronary artery bypass graft, congestive heart failure, cardiomyopathy status post AICD placement. Patient presented to the emergency room with complaint of worsening dyspnea on exertion with chest discomfort is March. According to the patient, he had been walking up to 1 mile and a half a day, however since March he's noted increased dyspnea with exertion with chest discomfort across sternum with occasional dizziness, shakiness, mild nausea, no vomiting. Before admission he ambulates maybe 20 feet when he develops symptoms,which are relieved with rest. Patient was last admitted March 2015 with same symptomology, at that time he was found with 2 occluded vein graft, underwent angioplasty and stent placement per Dr. Ward. At that time he was also found in paroxysmal A. fib and was discharged on Eliquis. According to the patient he had increased bleeding therefore he stopped taking Eliquis approximately [address] Ward was aware. Patient was also within the process of having GI workup for chronic abdominal pain and waiting for clearance to stop Plavix, patient decided on his own to stop taking it. He has not taken Plavix for the last 4-5 weeks. Patient denies other symptoms, fever, no chills, no cough, sputum production. He has chronic abdominal pain, it is diffuse, has been an ongoing problem since December and currently waiting to undergo colonoscopy per Dr. Schwartz. Patient was admitted because of angina. Patient was seen and followed by cardiology. Cardiac catheterization was done. Another occlusion followed thrombectomy and 3 stents were put in. His heart rate was monitored. Patient was put on appropriate anticoagulants. Including Brilinta and Eliquis. No aspirin. Patient was monitored in-house. Patient has no sign of bleeding. As patient is overall a stable plan to discharge him home to be followed by his primary care doctor and cardiology as outpatient. And he has an appointment with GI as outpatient. CBC/BMP: 06/09/16 0622 06/09/16 0622 Significant Findings Laboratory Tests Test 06/07/16 06/08/16 06/09/16 03:57 04:30 06:22 Neutrophils (%) (Auto) 76.3 % (16.0-70.0) Lymphocytes (%) (Auto) 8.2 % (9.0-44.0) Monocytes (%) (Auto) 15.2 % (0.0-8.0) Lymphocytes # (Auto) 0.8 TH/MM3 (1.0-4.8) Monocytes # (Auto) 1.5 TH/MM3 (0-0.9) Blood Urea Nitrogen 40 MG/DL (7-18) 36 MG/DL (7-18) 26 MG/DL (7-18) Creatinine 2.00 MG/DL 1.47 MG/DL (0.60-1.30) (0.60-1.30) Estimat Glomerular Filtration 33 ML/MIN (>89) 48 ML/MIN (>89) 62 ML/MIN (>89) Rate Random Glucose 179 MG/DL 110 MG/DL 113 MG/DL (74-106) (74-106) (74-106) Calcium Level 8.2 MG/DL 7.7 MG/DL 7.3 MG/DL (8.5-10.1) (8.5-10.1) (8.5-10.1) Cholesterol Level 101 MG/DL (120-200) HDL Cholesterol 24.7 MG/DL (40.0-60.0) Red Blood Count 4.01 MIL/MM3 (4.50-5.90) Hemoglobin 12.2 GM/DL (13.0-17.0) Hematocrit 36.2 % (39.0-51.0) Platelet Count 132 TH/MM3 (150-450) Potassium Level 3.1 MEQ/L (3.5-5.1) Carbon Dioxide Level 32.1 MEQ/L (21.0-32.0) Protein Corrected Calcium 8.0 MG/DL (8.5-10.1) Total Protein 5.8 GM/DL (6.4-8.2) Pt Condition on Discharge: Good Discharge Disposition: Discharge Home Discharge Instructions DIET: Follow Instructions for: Heart Healthy Diet Follow up Referrals: Cardiology - 2 Weeks PCP Follow-up - 1 Week New Medications: Amiodarone (Amiodarone) 200 Mg Tab 400 MG PO DAILY HEART RHYTHM CONTROL Days 30 Ref 11 TAB Apixaban (Eliquis) 5 Mg Tab 5 MG PO BID CLOT PREVENTION Days 30 TAB Digoxin (Digoxin) 0.125 Mg Tab 0.125 MG PO DAILY HEART RATE CONTROL Days 30 Ref 11 TAB Ticagrelor (Brilinta) 90 Mg Tab 90 MG PO BID CLOT PREVENTION Days 30 Ref 11 TAB Continued Medications: Atorvastatin (Atorvastatin) 80 Mg Tab 80 MG PO HS Cholesterol Management #30 Ref 0 TAB Carvedilol (Carvedilol) 25 Mg Tab 25 MG PO BID #60 Ref 0 TAB Finasteride (Finasteride) 5 Mg Tab 5 MG PO DAILY Do not crush. Manage Prostate Problems #30 Ref 0 TAB Torsemide (Torsemide) 20 Mg Tab 20 MG PO DAILY #30 Ref 0 TAB Discontinued Medications: Aspirin (Aspirin) 81 Mg Tabdr 81 MG PO DAILY TAB Enalapril (Enalapril) 5 Mg Tab 5 MG PO BID #60 Ref 0 TAB Lenny Bruner MD Jun 09, 2016 12:17
== END 2016-06-09 15:46 | disposition home or self-care (01) ==
LOC: NEPA 12:58 → NEDA 15:32 → HCIS 18:20
PROVIDERS: ADMIT Specialist; ATTEND Specialist
DX: I25.700 Atherosclerosis of coronary artery bypass graft(s), unspecified, with unstable angina pectoris (principal); I48.0 Paroxysmal atrial fibrillation; I47.1 Supraventricular tachycardia; I25.5 Ischemic cardiomyopathy; I44.7 Left bundle-branch block, unspecified; I10 Essential (primary) hypertension; E11.9 Type 2 diabetes mellitus without complications; E78.5 Hyperlipidemia, unspecified; E78.00 Pure hypercholesterolemia, unspecified; I25.2 Old myocardial infarction; N28.9 Disorder of kidney and ureter, unspecified; R10.9 Unspecified abdominal pain; G89.29 Other chronic pain; Z95.5 Presence of coronary angioplasty implant and graft; Z95.0 Presence of cardiac pacemaker; Z87.891 Personal history of nicotine dependence
CPT/HCPCS: 71010; 71275; 80048; 80061; 82550; 84155; 84484; 85002; 85025; 85027; 85610; 85730; 92937; 93005; 93459; 94640; 94664; 96360; 99285; C1757; C1769; C1874; C1884; C1887; C1893; G0378; J0282; J1160; J1644; J2250; J2270; J2405; J3010; J3246; J7030; J7040; J7050; J7060; P9047; Q9967; 76937

== ENCOUNTER 2017-09-14 08:48 | Day surgery (SDC) | payer MEDICARE, MEDICAID ==
[~2017-09-14 08:48] MED LIST changes: +AMIO200T PO; +APIX5TAB PO; -ASPI81 CHEW; -ATOR80TA PO; +ATOR80TA45 PO; +BRIL90TA PO; -CARV12.52 PO; +CARV25TA PO; +DIGO0.12 PO; -ENAL5 PO; +FINA5TAB2 PO; -NITR.4 SL
[2017-09-14] MEDS ORDERED: IOHEXOL 350 MG/ML 100 ML BTL (for Cath Lab) OTHER ONE (08:49)
[2017-09-14 09:40] VITALS: BP 90/66; PULSE 65; RESP 18; TEMP 98; O2SAT 97
[2017-09-14] MEDS ORDERED: NS 1000P @30 MLS/HR (KVO) IV SCH (09:45)
[2017-09-14 09:51] LABS: AUTOMATED NEUTROPHIL # 5.1 TH/MM3 (1.8-7.7); BASOPHIL % 0.6 % (0.0-2.0); EOSINOPHIL # 0.2 TH/MM3 (0-0.4); EOSINOPHIL % 2.7 % (0.0-4.0); HEMATOCRIT 42.6 % (39.0-51.0); HEMOGLOBIN 15.1 GM/DL (13.0-17.0); LYMPH % 11.4 % (9.0-44.0); LYMPHOCYTE # 0.8 TH/MM3 (1.0-4.8); MEAN CELL VOLUME 93.3 FL (80.0-100.0); MEAN CORPUSCULAR HGB CONC 35.4 % (32.0-36.0); MEAN PLATELET VOLUME 8.1 FL (7.0-11.0); MONO % 9.3 % (0.0-8.0); MONOCYTE # 0.6 TH/MM3 (0-0.9); PLATELET COUNT 194 TH/MM3 (150-450); RED BLOOD COUNT 4.57 MIL/MM3 (4.50-5.90); RED CELL DISTRIBUTION WIDTH 13.9 % (11.6-17.2); WHITE BLOOD COUNT 6.7 TH/MM3 (4.0-11.0)
[2017-09-14] MEDS ORDERED: SACU1TAB PO (09:52)
[2017-09-14] MEDS ORDERED: PLAV75TA29 PO (09:52)
[2017-09-14] MEDS ORDERED: SPIR25TA PO (09:52)
[2017-09-14] MEDS ORDERED: TAMS0.4C4 (09:52)
[2017-09-14] MEDS ORDERED: METO5TAB3 PO (09:52)
[2017-09-14 10:00] LABS: INTERNATIONAL NORMALIZED RATIO 1.1 RATIO; PROTHROMBIN TIME - PATIENT 11.2 SEC (9.8-11.6)
[2017-09-14 10:15] LABS: BICARBONATE 27.6 MEQ/L (21.0-32.0); CALCIUM 8.6 MG/DL (8.5-10.1); CREATININE 1.69 MG/DL (0.60-1.30)
[2017-09-14] MEDS ORDERED: HEPARIN-NS/PF FLUSH BAG 2,000 ML IV FLUSH ONE (10:31)
[2017-09-14] MEDS ORDERED: LIDOCAINE HCL 1% PF 30 ML VIAL ONE (10:31)
[2017-09-14] MEDS ORDERED: MIDAZOLAM HCL 2 MG/2 ML VIAL ONE (10:31)
[2017-09-14] MEDS ORDERED: HEPARIN SODIUM - IV 10,000 UNITS/10 ML VIAL ONE (10:59)
[2017-09-14] MEDS ORDERED: TIROFIBAN INFUSION INJ 250 ML IV ONE (11:06)
[2017-09-14] MEDS ORDERED: CLOPIDOGREL 75 MG TAB ONE (12:01)
[2017-09-14] MEDS ORDERED: SODIUM CHLOR 0.9% 1000 ML INJ 1,000 ML IV SCH (12:16)
--- NOTE | 2017-09-14 12:26 | CATHPROC ---
[facility] HIS Report Study Information Study Number Admission Scheduled Start Study Start [id number] Sep 14 2017 8:48AM 09/14/2017 Sep 14 2017 10:18AM [place] [facility] Cardiac Catheterization Admit Source Facility Department Other [facility] [address] - Rug Inspector Physician and Clinical Staff Initial Chris Harrison Mother'S Helper Beryl Grant,BEAN Recorder Evette Bruner,[place] TECH2 Recorder Chencho Noe,RT(R) ScrGuillermo Levin,RT(R) Procedures Performed Procedure Location (Site) Vessel Name Coronary Angiograms LCA Left Coronary Coronary Angiograms RCA Right Coronary Coronary Angiograms SIMS-LAD Left Coronary Coronary Angiograms SVG-DIAG Left Coronary Coronary Angiograms SVG-LCX CIRC Coronary Angiograms Gft. Stump 1 SVG Graft PTCA RCA Prox Right Coronary Wire insertion Fem Art (right) Femoral Art Equipment Time Fleet Mechanic Description Size Mfg Part Number Used/Scraped [id number] 11:06 [employer] WIRE, ASARTB-Media PROWATER 180CM 180CM Used *[id number] TRANSDUCER, TRUWAVE [id number] 10:19 TUBBS BROUSSARD * Used W/STOCKCOCK *[id number] BALLOON, 1.2 8MM EMERGE PUSH 11:44 [employer] SCI[employer]IFIC 1.2 8MM [id number] Used MR [id number] 12:01 [facility] MEDICAL VASCADE, FR6 CLOSURE SYSTEM FR 6\7 Used *[id number] 534-676T *[id number] 670-035-00 *[id number] [phone] *[id number] 534-645T *[id number] 670-037-00 *[id number] 670-111-00 *0609450 [phone] *[id number] 534-620T *[id number] 534-672T *[id number] 10:19 MEDLINE INDUSTRIES PACK, CCL CUSTOM * Used *[id number] 10:19 MEDLINE PACER PEN, SKIN DUAL W/ RULER * Used *[id number] 11:16 MEDTRONIC BALLOON, 1.5 X 15MM EUPHORA 15MM Used *[id number] 11:39 MEDTRONIC BALLOON, 1.5 X 15MM EUPHORA 15MM Used *[id number] 11:15 MEDTRONIC BALLOON, 2.0 X 15MM EUPHORA 15MM Used *[id number] 11:10 MEDTRONIC BALLOON, 3.0 X 15MM EUPHORA 15MM Used *[id number] 11:19 Experts 911 30 ALMA INDEFLATOR Used *[id number] 10:19 [employer] MEDICAL SHEATH, FR6.5 PRELUDE 11CM FR 6.5 038ACT Used *[id number] 10:19 Experts 911 WIRE, 3MMJ .035 180CM 180CM Used *[id number] 10:19 NAMIC MANIFOLD, 4 PORT * Used *[id number] 10:19 NYCOMED OMNIPAQUE, 350 MG, 150ML 150ML [id number] Used [id number] 10:19 [facility] BLANKET,WARM AIR CCL * Used *[id number] Equipment Model, Serial, Lot Number and Expiration Data Description Model Number Serial Number Lot Number Expiration Date VASCADE, FR6 CLOSURE SYSTEM [id number] History: Current Medications Medication Dosage/Unit Route Frequency Last Date/Time Taken Statins (any) ELIQUIS PLAVIX Allopurinol NTG SL History: Allergies Allergy Reaction No Known Allergies amiodarone diltiazem History: Risk Factors Family History of Hypertension Dyslipidemia Previous AK Previous Heart Failure Premature CAD Yes Yes Yes Yes Yes Prior Valve Prior PCI Prior PCIDate Prior CABG Prior CABGDate Surgery No Yes 06/06/2016 Yes 05/25/2002 Cerebrovascular Peripheral Artery Chronic Lung On Dialysis Diabetes Diabetes Therapy Disease Disease Disease No No No No Yes Diet History: Symptoms/Diagnosis Selection Items Chest pain History: CV Disease Selection Items Cardiomyopathy dilated History: Arrhythmias Selection Items Atrial fibrillation History: Other Current Smoker Method Quit Packs a Day No Cigarettes 23 Years Ago 2 Labs Hgb (g/dl) Hct (%) WBC (l/cumm) Platelets (thousands) 11.60-17.00 35.00-51.00 4.00-11.00 150.00-450.00 15.1 42.6 6.7 194 Glucose (mg/dl) BUN (mg/dl) Creatinine (mg/dl) BUN:Creatinine (1:x) 74.00-106.00 7.00-18.00 0.50-1.30 10.00-20.00 157 54 1.7 31.8 Na (meq/l) K (meq/l) CO2 (mmol/L) 136.00-145.00 3.50-5.10 21.00-32.00 132 4.1 27.6 PT (sec) PTT (sec) INR (PTT:PT) 9.80-11.60 24.30-30.10 0.90-1.10 11.2 26.8 1.1 CPK-MB (ng/ML) 0.50-3.60 Not Drawn Medication Medication Total Dose (Bolus/Oral) Medication Total Dosage/Unit 1% XYLOCAINE 20 mL AGGRASTAT BOLUS 42 mL HEPARIN 5000 units PLAVIX 75 mg VERSED 1 mg Medications (Bolus/Oral) Medication Time Given Dosage/Unit Administered By Reason VERSED 09/14/2017 10:49:31 AM 1 mg Beryl Grant 1 mg VERSED given in lab by Beryl Grant RN in Left Antecubital via Peripheral IV. Ordered by Chris Castillo. 1% XYLOCAINE 09/14/2017 10:50:12 AM 20 mL Chris Ward 20 mL 1% XYLOCAINE given in lab by Chris Ward in Right Groin via Subcutaneous. HEPARIN 09/14/2017 11:06:25 AM 5000 units Beryl Grant As per physicians verbal order 5000 units HEPARIN given in lab by Beryl Grant RN in Left Antecubital via Peripheral IV. Ordered by Chris Ward. Reason: As per physicians verbal order. AGGRASTAT BOLUS 09/14/2017 11:09:50 AM 42 mL Beryl Grant 42 mL AGGRASTAT BOLUS given in lab by Beryl Grant RN in Left Antecubital via Peripheral IV. Orde red by Chris Ward. PLAVIX 09/14/2017 12:04:18 PM 75 mg Beryl Grant 75 mg PLAVIX given in lab by Beryl Grant, BEAN via Oral. Ordered by Chris Ward. Medication (Drip) Medication Time Given Dosage/Unit Concentration/Unit Diluent (ml) Solutio n AGGRASTAT DRIP 09/14/2017 11:12:03 AM 0.15 mcg/kg/min 12.5 mg 250 NaCl .9 0.15 mcg/kg/min AGGRASTAT DRIP given in lab by Beryl Grant RN in Left Antecubital via Peripheral IV. Pump/Drip Flow = 14.85 ml/hr using NaCl .9 with a concentration of 12.5 mg in 250 ml. Ordered by Chris Ward. AGGRASTAT DRIP 09/14/2017 11:59:05 AM 0.15 mcg/kg/min 12.5 mg 250 NaCl .9 0.15 mcg/kg/min AGGRASTAT DRIP discontinued in lab by Beryl Grant RN via Peripheral IV. Pump/Dri p Flow = 14.85 ml/hr using NaCl .9 with a concentration of 12.5 mg in 250 ml. Ordered by Chris Ward. Reason: As per physicians verbal order. Discontinued at 09/14/2017 11:58. IV Solutions 09/14/2017 10:32:36 AM 0 mL (IV) 500 NaCl .9 Patient arrived on IV Solutions in Left Antecubital via Peripheral IV. Pump/Drip Flow = 20 ml/hr usin g NaCl .9. Initial Case Assessment Cardiovascular HR Rhythm NIBP Chest Pain 52 sr/pvc's 102/81 0 Circulatory - Right Pulses Dorsalis Pedis Femoral 1 1 Scale (0,1,2,3,4,d) Circulatory - Left Pulses Dorsalis Pedis Femoral 1 1 Scale (0,1,2,3,4,d) Neurological State Oriented to time-place- Alert Moves all extremities person Respiration - General Respiration Rate SpO2 (%) (B/min) 17 96 Final Case Assessment Cardiovascular HR Rhythm NIBP Chest Pain 44 sr/pvc's 103/71 0 Neurological State Oriented to time-place- Alert Moves all extremities person Respiration - General Respiration Rate SpO2 (%) (B/min) 10 99 Chronological Log Time Study Chronological Log 10:26:01 Patient arrived via Bed. 10:26:02 Patient Name, D.O.B, / Armband Verified By R.N. 10:26:04 Consent signed by the physician and the patient and verified by the Rug Inspector staff. 10:26:05 Pre-op and post- op instructions given; patient acknowledges understanding of instructions. 10:30:35 Verbal Stimulation=2 Physical Stimulation=2 Airway=2 Respiration=2 TOTAL=8. (0=absent, 1=li mited, 2=present) Vitals capture started with the following parameters, Patient=Adult, Interval=5 min, Initial Pr qukkkr=700 mmHg, 10:31:16 Deflation Rate=5 mmHg, Cuff placed on Right Ankle 10:31:54 HR=28 bpm, KNOW=442/81 mmhg, Resp=14 B/min 10:32:12 Presedation assessment performed by Rug Inspector RN. 10:32:15 Patient has been NPO for More than 6Hrs. 10:32:16 Skin Breakdown-none 10:32:18 Shamika Prominences Protected 10:32:19 A # 20 IV was noted in the Antecubital (left). Grade = patent 10:32:36 Patient arrived on IV Solutions in Left Antecubital via Peripheral IV. Pump/Drip Flow = 20 ml/hr using NaCl .9. 10:32:54 History and physical on the chart or being dictated. Assessment: Initial Case, HR=52 BPM, Rhythm=sr/pvc's, PXDY=533/81 mmhg, Chest Pain=0 Right Pulses: Miki Ped=1, Femoral=1 10:33:10 Left Pulses: Miki Ped=1, Femoral=1 Neurological: State=Alert, Ox3, DEVRIES Respiration: Resp=17 B/min, SpO2=96 % 10:35:10 Bilateral groins prepped with 2% chlorhexidine, and draped after a 3 minute waiting time. 10:36:49 HR=55 bpm, QVFN=665/60 mmhg, SpO2=98.0 %, Resp=17 B/min 10:41:48 HR=43 bpm, NIBP=93/56 mmhg, SpO2=98.0 %, Resp=15 B/min 10:43:34 Pressure channel 1 zeroed. 10:46:00 MD arrived. 10:46:23 Reference ECG taken 10:46:47 HR=48 bpm, NIBP=83/61 mmhg, SpO2=97.0 %, Resp=12 B/min Time Out. Correct patient, correct procedure, correct physician, power injector loaded, or not loaded with contrast with 10:49:16 surgical team present. Time Out Concurred by MD and individual staff in procedure. 10:49:31 1 mg VERSED given in lab by Beryl Grant, RN in Left Antecubital via Peripheral IV. Orde red by Chris Ward. 10:50:12 Case Start 10:50:12 20 mL 1% XYLOCAINE given in lab by Chris Ward in Right Groin via Subcutaneous. 10:51:02 Access site was Right Femoral Artery. 10:51:10 A SHEATH, FR6.5 PRELUDE 11CM FR 6.5 was advanced into the Fem Art (right) using the Percuta neous technique. 10:51:44 HR=39 bpm, NIBP=84/66 mmhg, SpO2=95.0 %, Resp=18 B/min A JL 4.0 INFINITI CATHETER FR 6 was advanced over a wire. OMNIPAQUE, 350 MG, 150ML 150ML was us ed for 10:51:58 injections. 10:52:46 The LCA was injected and visualized at various angles. OMNIPAQUE, 350 MG, 150ML 150ML used . 10:53:09 Catheter was removed A 3DRC INFINITI CATHETER FR 6 was advanced over a wire. OMNIPAQUE, 350 MG, 150ML 150ML was used for 10:54:18 injections. 10:54:22 The RCA was injected and visualized at various angles. OMNIPAQUE, 350 MG, 150ML 150ML used . 10:54:58 The Gft. Stump 1 was injected and visualized at various angles. OMNIPAQUE, 350 MG, 150ML 15 0ML used. Recorded Pressure: Ao, HR=93, Condition=Condition 1 10:55:05 (Aorta) Ao 88/50/65 10:56:45 HR=35 bpm, NIBP=89/62 mmhg, SpO2=97.0 %, Resp=13 B/min, Marino=2 10:56:57 The SIMS-LAD was injected and visualized at various angles. OMNIPAQUE, 350 MG, 150ML 150ML used. 10:57:53 Catheter was removed A LCB INFINITI CATHETER FR 6 was advanced over a wire. OMNIPAQUE, 350 MG, 150ML 150ML was used for 10:58:23 injections. 11:00:05 The SVG-LCX was injected and visualized at various angles. OMNIPAQUE, 350 MG, 150ML 150ML u sed. 11:00:52 Catheter was removed A AL 1 INFINITI CATHETER FR 6 was advanced over a wire. OMNIPAQUE, 350 MG, 150ML 150ML was used for 11:00:54 injections. 11:01:48 HR=32 bpm, NIBP=97/60 mmhg, SpO2=95.0 %, Resp=15 B/min, Marino=2 11:03:28 The SVG-DIAG was injected and visualized at various angles. OMNIPAQUE, 350 MG, 150ML 150ML used. 11:06:02 Catheter was removed 5000 units HEPARIN given in lab by Beryl Grant, BEAN in Left Antecubital via Peripheral IV. O rdered by Chris Ward. 11:06:25 Reason: As per physicians verbal order. 11:06:49 HR=37 bpm, OTCX=243/62 mmhg, SpO2=93.0 %, Resp=26 B/min, Marino=2 A HS GUIDE CATHETER FR 6 was advanced over a wire. OMNIPAQUE, 350 MG, 150ML 150ML was used f or 11:07:28 injections. 11:08:12 A WIRE, ASAHI PROWATER 180CM 180CM was inserted via Fem Art (right). 42 mL AGGRASTAT BOLUS given in lab by Beryl Grant RN in Left Antecubital via Peripheral IV . Ordered by Sylvia, 11:09:50 Chris. A HS GUIDE CATHETER FR 6 was advanced over a wire. OMNIPAQUE, 350 MG, 150ML 150ML was used f or 11:10:59 injections. 11:11:31 A WIRE, ASAHI PROWATER 180CM 180CM was inserted via Fem Art (right). 11:11:35 Interventional wire has crossed the lesion 11:11:50 HR=47 bpm, NIBP=91/61 mmhg, SpO2=96.0 %, Resp=25 B/min, Marino=2 0.15 mcg/kg/min AGGRASTAT DRIP given in lab by Beryl Grant, BEAN in Left Antecubital via Kiara pheral IV. 11:12:03 Pump/Drip Flow = 14.85 ml/hr using NaCl .9 with a concentration of 12.5 mg in 250 ml. Ordered b Chris Cash. A BALLOON, 3.0 X 15MM EUPHORA 15MM was inserted over WIRE, ASAHI PROWATER 180CM 180CM via the F em Art 11:13:28 (right). 11:13:51 Balloon Removed. No inflation 11:13:58 A BALLOON, 2.0 X 15MM EUPHORA 15MM was inserted over WIRE, ASAHI PROWATER 180CM 180CM via t he RCA Prox. Balloon Removed.No inflation 11:15:04 11:15:56 A BALLOON, 1.5 X 15MM EUPHORA 15MM was inserted over WIRE, ASAHI PROWATER 180CM 180CM via t he RCA Prox. 11:16:47 HR=23 bpm, NIBP=87/70 mmhg, SpO2=96.0 %, Resp=16 B/min, Marino=2 11:18:22 ACT (Normal Range 90-180) = 240 A BALLOON, 1.5 X 15MM EUPHORA 15MM over a WIRE, ASAHI PROWATER 180CM 180CM in the RCA Prox was inflated 11:18:34 using a 30 ALMA INDEFLATOR at 13 alma for 30 sec. A BALLOON, 1.5 X 15MM EUPHORA 15MM over a WIRE, ASAHI PROWATER 180CM 180CM in the RCA Prox was inflated 11:19:28 using a 30 ALMA INDEFLATOR at 14 alma for 20 sec. 11:19:34 Balloon Removed. 11:21:46 HR=30 bpm, NIBP=98/69 mmhg, SpO2=96.0 %, Resp=15 B/min, Marino=2 11:22:06 Wire removed 11:22:16 Catheter was removed 11:23:26 A AL 1 GUIDE CATHETER FR 6 was advanced over a wire. OMNIPAQUE, 350 MG, 150ML 150ML was use d for injections. 11:25:05 Catheter was removed A AL 1 SH GUIDE CATHETER FR 6 was advanced over a wire. OMNIPAQUE, 350 MG, 150ML 150ML was used for 11:25:08 injections. 11:26:52 HR=37 bpm, NIBP=96/57 mmhg, SpO2=97.0 %, Resp=15 B/min, Marino=2 11:29:29 Catheter was removed A AR 1 SH GUIDE CATHETER FR 6 was advanced over a wire. OMNIPAQUE, 350 MG, 150ML 150ML was used for 11:30:50 injections. 11:30:56 A WIRE, ASAHI PROWATER 180CM 180CM was inserted via Fem Art (right). 11:31:51 HR=43 bpm, JQXV=241/60 mmhg, SpO2=97.0 %, Resp=6 B/min, Marino=2 11:35:00 Interventional wire has crossed the lesion 11:36:14 A BALLOON, 2.0 X 15MM EUPHORA 15MM was inserted over WIRE, ASAHI PROWATER 180CM 180CM via t he RCA Prox. 11:36:52 HR=44 bpm, NIBP=89/63 mmhg, SpO2=97.0 %, Resp=15 B/min 11:38:48 Balloon Removed. 11:39:43 A BALLOON, 1.5 X 15MM EUPHORA 15MM was inserted over WIRE, ASAHI PROWATER 180CM 180CM via t he RCA Prox. 11:41:42 Balloon Removed. 11:41:47 HR=41 bpm, BFRL=357/74 mmhg, SpO2=97.0 %, Resp=13 B/min A BALLOON, 1.2 8MM EMERGE PUSH MR 1.2 8MM was inserted over WIRE, ASAHI PROWATER 180CM 180CM vi a the 11:42:04 RCA Prox. 11:45:12 Balloon Removed. 11:45:20 Wire removed After removing the current catheter a AL .75 SH GUIDE CATHETER FR 6 was advanced over a WIRE, 3 MMJ .035 180CM 11:45:30 180CM. 11:46:45 A WIRE, ASAHI PROWATER 180CM 180CM was inserted via Fem Art (right). 11:46:52 HR=48 bpm, NIBP=96/69 mmhg, SpO2=97.0 %, Resp=14 B/min 11:50:08 A BALLOON, 2.0 X 15MM EUPHORA 15MM was inserted over WIRE, ASAHI PROWATER 180CM 180CM via t he RCA Prox. 11:51:53 HR=54 bpm, NIBP=90/69 mmhg, SpO2=97.0 %, Resp=11 B/min 11:52:02 Unable to cross, Balloon Removed. A BALLOON, 1.2 8MM EMERGE PUSH MR 1.2 8MM was inserted over WIRE, ASAHI PROWATER 180CM 180CM vi a the 11:52:17 RCA Prox. 11:56:52 HR=39 bpm, XORE=618/68 mmhg, SpO2=97.0 %, Resp=19 B/min 11:57:20 Balloon Removed, unable to cross. 11:58:00 Guide Catheter and wire were removed 11:58:30 An injection in the Fem Art (right) was made through the SHEATH, FR6.5 PRELUDE 11CM FR 6.5. 0.15 mcg/kg/min AGGRASTAT DRIP discontinued in lab by Beryl Grant, RN via Peripheral IV. Pu mp/Drip Flow = 11:59:05 14.85 ml/hr using NaCl .9 with a concentration of 12.5 mg in 250 ml. Ordered by Bruno Ward Reason: As per physicians verbal order. Discontinued at 09/14/2017 11:58. 11:59:19 VASCADE, FR6 CLOSURE SYSTEM FR 6\7 placement in the Fem Art (right) 12:00:24 Case End 12:01:51 Sterile dressing applied to site 12:01:55 HR=42 bpm, EHGX=725/71 mmhg, SpO2=99.0 %, Resp=10 B/min 12:04:18 75 mg PLAVIX given in lab by Beryl Grant, RN via Oral. Ordered by Chris Ward. Assessment: Final Case, HR=44 BPM, Rhythm=sr/pvc's, DRGQ=538/71 mmhg, Chest Pain=0 12:06:48 Neurological: State=Alert, Ox3, DEVRIES Respiration: Resp=10 B/min, SpO2=99 % 12:06:58 HR=44 bpm, NIBP=98/59 mmhg, SpO2=99.0 %, Resp=11 B/min 12:08:26 Patient moved to bed. 12:09:54 Patient transported to DOCU. 12:11:34 Vitals capture stopped. End Study - Contrast Media Used In Study Contrast Total Opened (mL) Total Used (mL) Total Wasted (mL) Omnipaque 170 170 0 End Study - Maximum Contrast Load Max Contrast Load (mL) 242.6 End Study - Radiation Exposure Fluoro Time (minutes) 30.1 End Study - Sheaths Sheaths Pulled By Sheath Hold Time (min) Chris Ward End Study - Patient Disposition Complications Transferred To Interventional Outcome No Telemetry Bed unsuccessful
--- NOTE | 2017-09-14 12:48 | MA ---
cc: Chris Ward MD DATE: 09/14/2017 PROCEDURES: Left heart catheterization, selective coronary and graft angiography, difficult and overall unsuccessful angioplasty of the ewiiaapaayp right coronary artery. PROCEDURE NOTES: The patient was brought to the cardiac catheterization laboratory in a fasting state after having signed informed consent. The right groin was prepped and draped as per policy and anesthetized with 1% lidocaine. Arterial access was obtained via the right femoral artery and a 6-Faroese sheath placed. Coronary arteriography was performed using 6-Faroese Sharmin, left 4.0 and right progressive catheters. Left ventriculography was not done. The left internal mammary artery graft was engaged with the progressive right catheter. The vein graft to the diagonal was engaged with an Amplatz left 1.0. The vein graft to the obtuse marginal was engaged with a left coronary bypass catheter. Attempted percutaneous coronary intervention was done as described below. There were no apparent, immediate complications. His arteriotomy site was closed with VASCADE. HEMODYNAMIC DATA: The aortic valve was crossed briefly during the case, demonstrating no significant transvalvular aortic gradient. Aortic pressure is 88/50 with a mean of 65. CORONARY ARTERIOGRAPHY: The left main is diffusely diseased. It is somewhat difficult to quantify the degree of stenosis. It likely approaches 30% diffusely. The left anterior descending is totally occluded in its mid-portion. There is diffuse ostial to proximal disease, which results in up to 30-40% stenosis. The left circumflex is totally occluded in its mid-portion after the takeoff of a totally occluded obtuse marginal. The ostium of the left circumflex has up to 60% stenosis. The right coronary artery has diffuse up to 95% very proximal disease and then is totally occluded in its mid-portion after the takeoff of a medium-sized right ventricular branch, which has a 50-60% stenosis at its origin. There are good left to right collaterals evident. GRAFT ANGIOGRAPHY: The left internal mammary artery to the LAD is widely patent. The mid to distal LAD has minimal luminal irregularities. The vein graft to the obtuse marginal demonstrates a number of stents encompassing most of the graft. There is up to 25% stenosis near the ostium. There is up to 20% disease in the mid-portion. The ewiiaapaayp obtuse marginal appears to be angiographically normal distal to the anastomosis site. The vein graft to the diagonal also demonstrates a number of stents encompassing most of the graft. There is up to 30% ostial stenosis of this graft. In the mid-portion, there is diffuse disease which results in up to 60% stenosis. LEFT VENTRICULOGRAPHY: Not done. PERCUTANEOUS CORONARY INTERVENTION DESCRIPTION: It was decided to try to revascularize the proximal ewiiaapaayp right coronary artery to provide additional flow into the right ventricular branch, which is a fairly large vessel extending towards the inferior wall. Adequate heparin was given to achieve an ACT of 240 seconds. Aggrastat was also given as per protocol. Using a 6-Faroese hockey stick guiding catheter with side holes, the ostium of the ewiiaapaayp right coronary artery was reengaged. We were able to wire the proximal disease with a Prowater, the tip of which was placed in the right ventricular branch. We attempted to advance 2.0 and 3.0 Euphora balloons without success. We were partially able to advance a 1.5 mm balloon catheter which was inflated to 14 atmospheres partially into the lesion. This did not affect the angiographic appearance. We decided to exchange the guiding catheter for better backup support. An Amplatz left 1.0 with side holes was used, but extended too far into the vessel, making wiring of the lesion not possible. We also used an Amplatz right guiding catheter and finally an Amplatz left 0.75 guiding catheter with side holes. After wiring the disease with the Prowater, we were once again unsuccessful in advancing a 2.0, 1.5, and 1.2 mm balloons. It was decided to abort the case. There were no apparent, immediate complications. CONCLUSIONS: 1. Severe three-vessel ewiiaapaayp coronary artery disease. 2. Patent vein graft to the diagonal, vein graft to the obtuse marginal, left internal mammary artery to the left anterior descending. 3. Status post overall unsuccessful angioplasty of the proximal ewiiaapaayp right coronary artery. MD BRIT Paulino/GINA , 12:12 PM , 12:46 PM [place]
[2017-09-14] MEDS ORDERED: SPIRONOLACTONE 25 MG TAB PO SCH (18:00)
[2017-09-14 19:57] VITALS: BP 86/67; PULSE 86; RESP 16; TEMP 97.3; O2SAT 96
[2017-09-14 20:00] VITALS: PULSE 94
[2017-09-14 21:00] VITALS: PULSE 88
[2017-09-14] MEDS ORDERED: TEMAZEPAM 15 MG CAP PO PRN (21:00)
[2017-09-14] MEDS ORDERED: TAMSULOSIN HCL 0.4 MG CAP PO SCH (21:00)
[2017-09-14] MEDS ORDERED: ATORVASTATIN 80 MG TAB PO SCH (21:00)
[2017-09-14 22:00] VITALS: PULSE 86
[2017-09-14] MEDS: APIXABAN 5 MG TABLET PO SCH (22:13)
[2017-09-14 23:00] VITALS: PULSE 82
--- NOTE | 2017-09-14 23:58 | EKG ---
Date Performed: 09/14/2017 Time Performed: 09:39:52 PTAGE: 67 years EKG: Sinus rhythm with multifocal PVCs with borderline 1st degree A-V block. Left axis deviation IV conduction defect Anterolateral infarct - age undetermined Abnormal ECG Compared to PREVIOUS TRACING , now felt to be sinus rhythm with PVCs DOCTOR: Cholo Osei Interpretating Date/Time 09/14/2017 23:58:03
[2017-09-15] VITALS (7 sets, daily range): BP systolic 80–91; BP diastolic 52–59; PULSE 82–93; RESP 16; TEMP 97.6–97.9; O2SAT 94–98
--- NOTE | 2017-09-15 07:54 | PD.CARD.PN ---
Subjective Subjective Remarks Generally weak. No CP, dyspnea, PND, groin pain, palpitations. Mild dizziness upon standing. Objective Medications Item Value Date Time Clopidogrel 75 mg 09/15/17 0900 Bisulfate DAILY/PO (Plavix) Metolazone 5 mg 09/15/17 0900 (Zaroxolyn) DAILY/PO Sacubitril/ 1 tab 09/15/17 0900 Valsartan DAILY/PO (Entresto 24-26 Mg) Torsemide 20 mg 09/15/17 0900 (Demadex) DAILY/PO Aspirin 81 mg 09/15/17 0900 (Aspirin Chew) DAILY/PO Apixaban 5 mg 09/14/17 2100 (Eliquis) BID/PO 09/14/172212 Atorvastatin 80 mg 09/14/17 2100 Calcium HS/PO 09/14/17 2213 (Lipitor) Spironolactone 25 mg 09/14/17 1800 (Aldactone) BIDPC/PO Current Medications Medications (Trade) Dose Ordered Sig/Jude Route Start Time Stop Time Status Last Admin (Eliquis) 5 mg BID PO 09/14/17 21:00 09/14/17 22:13 (Lipitor) 80 mg HS PO 09/14/17 21:00 09/14/17 22:13 (Plavix) 75 mg DAILY PO 09/15/17 09:00 (Proscar) 5 mg DAILY PO 09/15/17 09:00 (Zaroxolyn) 5 mg DAILY PO 09/15/17 09:00 (Entresto 24-26 Mg) 1 tab DAILY PO 09/15/17 09:00 (Aldactone) 25 mg BIDPC PO 09/14/17 18:00 (Flomax) 0.4 mg HS PO 09/14/17 21:00 09/14/17 22:13 (Demadex) 20 mg DAILY PO 09/15/17 09:00 (Restoril) 15 mg HS PRN PO 09/14/17 21:00 (Aspirin Chew) 81 mg DAILY PO 09/15/17 09:00 Vital Signs / I&O Vital Signs Date Time Temp Pulse Resp B/P (MAP) Pulse Ox O2 Delivery O2 Flow Rate FiO2 09/15/17 04:54 87/59 (68) 09/15/17 04:53 97.9 84 16 80/59 (66) 94 09/15/17 03:00 92 09/15/17 02:00 84 09/15/17 01:00 82 09/15/17 00:00 86 09/15/17 00:00 97.9 84 16 84/55 (65) 98 09/14/17 23:00 82 09/14/17 22:00 86 09/14/17 21:00 88 09/14/17 20:00 94 09/14/17 19:57 97.3 86 16 86/67 (73) 96 09/14/17 12:18 94 Room Air 09/14/17 09:40 98.0 65 18 90/66 (74) 97 I/O 09/14/17 09/14/17 09/14/17 09/15/17 09/15/17 09/15/17 07:00 15:00 23:00 07:00 15:00 23:00 Intake Total 240 ml Output Total 775 ml Balance -535 ml Intake Oral 240 ml Output Urine Total 775 ml Physical Exam GENERAL: Well developed, well nourished. No acute distress. HEENT: Jugular venous pressure is normal. CHEST: Lungs clear to auscultation anteriorly. CARDIAC: Regular rate and rhythm without S3, S4, or murmur. ABDOMEN: Soft, nontender, no hepatosplenomegaly. Bowel sounds present. EXTREMITIES: No clubbing, cyanosis, or edema. Right groin nontender, no hematoma. Laboratory Laboratory Tests Test 09/14/17 09:30 White Blood Count 6.7 TH/MM3 Red Blood Count 4.57 MIL/MM3 Hemoglobin 15.1 GM/DL Hematocrit 42.6 % Mean Corpuscular Volume 93.3 FL Mean Corpuscular Hemoglobin 33.0 PG Mean Corpuscular Hemoglobin Concent 35.4 % Red Cell Distribution Width 13.9 % Platelet Count 194 TH/MM3 Mean Platelet Volume 8.1 FL Neutrophils (%) (Auto) 76.0 % Lymphocytes (%) (Auto) 11.4 % Monocytes (%) (Auto) 9.3 % Eosinophils (%) (Auto) 2.7 % Basophils (%) (Auto) 0.6 % Neutrophils # (Auto) 5.1 TH/MM3 Lymphocytes # (Auto) 0.8 TH/MM3 Monocytes # (Auto) 0.6 TH/MM3 Eosinophils # (Auto) 0.2 TH/MM3 Basophils # (Auto) 0.0 TH/MM3 CBC Comment DIFF FINAL Differential Comment Prothrombin Time 11.2 SEC Prothromb Time International Ratio 1.1 RATIO Activated Partial Thromboplast Time 26.8 SEC Blood Urea Nitrogen 54 MG/DL Creatinine 1.69 MG/DL Random Glucose 157 MG/DL Calcium Level 8.6 MG/DL Sodium Level 132 MEQ/L Potassium Level 4.1 MEQ/L Chloride Level 98 MEQ/L Carbon Dioxide Level 27.6 MEQ/L Anion Gap 6 MEQ/L Estimat Glomerular Filtration Rate 41 ML/MIN Assessment and Plan Problem List: (1) CAD (coronary artery disease) ICD Codes: I25.10 - Atherosclerosis of coronary artery Status: Chronic Plan: Stable s/p unsuccessful PTCA attempt on [place] RCA. No angina. Groin stable. To discharge today, same home medications except hold Entresto due to low BP's. (2) Paroxysmal atrial fibrillation ICD Codes: I48.0 - Paroxysmal atrial fibrillation Status: Chronic Plan: Patient mostly in an atrial tachycardia based on office EKG's and ICD interrogations. Continues on anticoagulation therapy as thromboembolic risk is high. (3) Ischemic cardiomyopathy ICD Codes: I25.5 - Generalized ischemic myocardial dysfunction Status: Chronic Plan: Stable. Compensated. No CHF. Unfortunately BP's too low for beta benjamin and Entresto. Continue diuretic therapy. (4) Hypertension ICD Codes: I10 - Hypertension Status: Chronic Plan: Patient mostly hypotensive. Will stop Entresto for now. Patient to keep checking BP's at home. (5) Hyperlipidemia ICD Codes: E78.5 - Hyperlipidemia Status: Chronic Plan: Following as outpatient. Continue statin. Code Status full code Discussed Condition With patient Problem Qualifiers (1) CAD (coronary artery disease): Qualified Codes: I25.110 - Atherosclerotic heart disease of [place] coronary artery with unstable angina pectoris (2) Hypertension: Qualified Codes: I10 - Essential (primary) hypertension (3) Hyperlipidemia: Qualified Codes: E78.2 - Mixed hyperlipidemia Chris Ward MD Sep 15, 2017 07:54
[2017-09-15] MEDS: APIXABAN 5 MG TABLET PO SCH (08:59)
[2017-09-15] MEDS ORDERED: ASPIRIN 81 MG CHEW TAB PO SCH (09:00)
[2017-09-15] MEDS ORDERED: FINASTERIDE 5 MG TAB PO SCH (09:00)
[2017-09-15] MEDS: SACUBITRIL/VALSARTAN 24 MG-26 MG TAB PO SCH ×2 (09:00→09:01)
[2017-09-15] MEDS ORDERED: METOLAZONE 5 MG TAB PO SCH (09:00)
[2017-09-15] MEDS ORDERED: CLOPIDOGREL 75 MG TAB PO SCH ×2 (09:00)
[2017-09-15] MEDS ORDERED: TORSEMIDE 20 MG TAB PO SCH (09:00)
== END 2017-09-15 11:07 | disposition home or self-care (01) ==
LOC: HDIC 08:48 → HDOC 08:48 → HDIC 14:20 → HCIS 19:24 → HDOC 09-15 11:07
PROVIDERS: ATTEND Internal Medicine Cardiovascular Disease
DX: I25.110 Atherosclerotic heart disease of native coronary artery with unstable angina pectoris (principal); I10 Essential (primary) hypertension; I25.5 Ischemic cardiomyopathy; I47.1 Supraventricular tachycardia; I48.0 Paroxysmal atrial fibrillation; E78.2 Mixed hyperlipidemia; Z79.01 Long term (current) use of anticoagulants; Z79.82 Long term (current) use of aspirin
CPT/HCPCS: 80048; 85002; 85025; 85610; 85730; 92920; 93005; 93454; 99152; 99153; C1725; C1760; C1769; C1887; C1893; G0269; J1644; J2250; J3246; J7030; Q9967

== ENCOUNTER 2018-03-29 11:28 | Observation (INO) ==
[2018-03-29] MEDS ORDERED: Sod Chloride 0.9% Inj 1,000 ML IV.SIG ONE (12:01)
--- NOTE | 2018-03-29 12:22 | ED ---
HPI General Chief Complaint: Chest Pain Stated Complaint: chest pain Time Seen by Provider: 03/29/18 11:51 History of Present Illness HPI narrative: This is a 68-year-old male who chest pain. He has had intermittent exertional chest discomfort for the last 2 weeks. Whenever he exerts the pressure comes on. He says he had a heart catheterization in August which showed some degree of blockage that was not able to be relieved during the catheterization. Another one is planned for the near future but has not happened yet. He has not tried any sublingual nitroglycerin. Severity is moderate. He is currently pain-free. Symptoms are relieved by rest. Symptoms are exacerbated by any activity. He has had 5 vessel bypass. Related Data Home Medications Medication Instructions Recorded Confirmed apixaban [Eliquis] 5 mg PO BID 03/29/18 03/29/18 atorvastatin 80 mg PO DAILY 03/29/18 03/29/18 clopidogrel [Plavix] 75 mg PO DAILY 03/29/18 03/29/18 finasteride 5 mg PO DAILY 03/29/18 03/29/18 metolazone 5 mg PO DAILY 03/29/18 03/29/18 sacubitril-valsartan [Entresto] 1 tab PO BID 03/29/18 03/29/18 spironolactone 25 mg PO DAILY 03/29/18 03/29/18 tamsulosin 0.4 mg PO DAILY 03/29/18 03/29/18 torsemide 20 mg PO DAILY 03/29/18 03/29/18 Allergies Allergy/AdvReac Type Severity Reaction Status Date / Time diltiazem Allergy Severe Verified 09/14/17 09:46 amiodarone Allergy Unknown Verified 09/14/17 09:46 Review of Systems ROS: all other systems reviewed are negative [facility] Medical History Medical History Heart attack (Acute) Hypotension (Acute) Surgical History Surgical History History of cardiac cath (Acute) S/P CABG x 5 (Acute) Social History Social History Substance History: No History of Abuse Second Hand Smoke Exposure: No Smoking Status: Never smoker How Often Do You Have a Drink Containing Alcohol: Never Recent Travel in [facility] within the Last 8 Weeks: No Recent Out of Country Travel within the Last 8 Weeks: No Immunization History Tetanus Immunization: Unable to Assess Exam Narrative Exam Narrative: GENERAL: Well-nourished, well-developed patient in no apparent distress. SKIN: Focused skin assessment reveals no rash and nodules. Skin is Warm and dry. HEAD: Atraumatic. Normocephalic. EYES: Pupils equal and round. No scleral icterus. No injection or drainage. ENT: No nasal bleeding or discharge. Mucous membranes pink and moist. NECK: Trachea midline. No JVD. CARDIOVASCULAR: Irregularly irregular rhythm. No murmur appreciated. Rate is variable but has been trending down. Currently 112 RESPIRATORY: No accessory muscle use. Clear to auscultation. Breath sounds equal bilaterally. GASTROINTESTINAL: Abdomen soft, non-tender, nondistended. Hepatic and splenic margins not palpable. MUSCULOSKELETAL: No obvious deformities. No clubbing. No cyanosis. No edema. NEUROLOGICAL: Awake and alert. No obvious cranial nerve deficits. Motor grossly within normal limits. Normal speech. PSYCHIATRIC: Appropriate mood and affect; insight and judgment normal. Course Initial Documented Vital Signs Temperature 98.2 F 03/29/18 11:43 Pulse Rate 135 H 03/29/18 11:43 Respiratory Rate 16 03/29/18 11:43 Blood Pressure 93/66 L 03/29/18 11:43 Pulse Oximetry 98 03/29/18 11:43 Last Documented Vital Signs Temperature 98.2 F 03/29/18 11:43 Pulse Rate 107 H 03/29/18 15:02 Respiratory Rate 18 03/29/18 15:02 Blood Pressure 94/77 L 03/29/18 15:02 Pulse Oximetry 98 03/29/18 15:02 Critical Care Time Critical Care Time: Yes Total Critical Care Time: 43 Attestation: Aggregate critical care time was 43 minutes. Time to perform other separately billable procedures was not included in the critical care time. My time did not include minutes spent treating any other patients simultaneously or on activities that did not directly contribute to the patient's treatment. The services I provided to this patient were to treat and/or prevent clinically significant deterioration that could result in: Cardiopulmonary arrest, cardiogenic shock, cardiac arrhythmia I provided critical care services requiring my management, as noted below: Chart data review, documentation time, medication orders and management, vital sign assessments/reviewing monitor data, ordering and reviewing lab tests, ordering and interpreting/reviewing x-rays and diagnostic studies, care of the patient and discussion of the patient with the admitting physicians. Medical Decision Making MDM Narrative Medical decision making narrative: 68-year-old male with history of CAD presents with exertional chest discomfort relieved by rest. Is currently symptom-free. He is in A. fib with RVR. He reports severe allergy to diltiazem causing lip swelling so I am not going to give him that. He has very low blood pressures as baseline. He says it usually around 90. It is currently 110/73. Given that his heart rate is trending down and is now 112 I am going to observe rather than lower his blood pressure any further. Cardiac workup is ordered. Patient's baseline blood pressure is 90 and he is pain-free at rest. I reviewed with Dr. Osei who wants him admitted to [facility] and started on heparin drip. Eliquis to be held. He will evaluate the patient and is planning cardiac catheterization. Does have some renal insufficiency. Patient is going to be admitted for unstable angina Medical Screen Exam Complete: Yes Emergency Medical Condition: Yes Differential Diagnosis Differential Diagnosis: Differential diagnosis includes TN, angina, pericarditis , pleurisy, GERD, anxiety. Medical Records Medical records reviewed: Yes I reviewed the patient's medical records. Lab Data Lab results reviewed: Yes I reviewed the patient's lab results. Lab results narrative: CBC normal. Metabolic study reveals some renal insufficiency. Result diagrams: 03/29/18 12:13 03/29/18 12:13 Lab Results 03/29/18 03/29/18 Range/Units 12:13 12:13 WBC 7.0 (4.0-11.0) th/mm3 RBC 4.20 L (4.50-5.90) mil/mm3 Hgb 14.4 (13.0-17.0) gm/dL Hct 41.4 (39.0-51.0) % MCV 98.5 (80.0-100.0) fL MCH 34.4 H (27.0-34.0) pg MCHC 34.9 (32.0-36.0) % RDW 15.1 (11.6-17.2) % Plt Count 165 (150-450) th/mm3 MPV 8.7 (7.0-11.0) fL Neut % (Auto) 72.4 H (16.0-70.0) % Lymph % (Auto) 12.9 (9.0-44.0) % Martin % (Auto) 10.3 H (0.0-8.0) % Eos % (Auto) 3.5 (0.0-4.0) % Baso % (Auto) 0.9 (0.0-2.0) % Neut # (Auto) 5.0 (1.8-7.7) th/mm3 Lymph # (Auto) 0.9 L (1.0-4.8) th/mm3 Martin # (Auto) 0.7 (0.0-0.9) th/mm3 Eos # (Auto) 0.2 (0.0-0.4) th/mm3 Baso # (Auto) 0.1 (0.0-0.2) th/mm3 WBC Differential . Differential Comment Auto diff final Sodium 136 (136-145) meq/L Potassium 4.6 (3.5-5.1) meq/L Chloride 103 (98-107) meq/L Carbon Dioxide 25.3 (21.0-32.0) meq/L Anion Gap 8 (5-15) meq/L BUN 37 H (7-18) mg/dL Creatinine 1.76 H (0.60-1.30) mg/dL Estimated GFR 39 L (>89) mL/min Random Glucose 127 H (74-106) mg/dL Calcium 8.8 (8.5-10.1) mg/dL Total Creatine Kinase 102 (39-308) U/L CK-MB (CK-2) 1.6 (0.5-3.6) ng/mL Troponin I 0.03 (0.02-0.05) ng/mL Imaging Data Attestation: I personally reviewed and interpreted this imaging study as follows : My impression: Chest x-ray shows no pneumothorax or consolidation Radiologist's impression: Chest X-Ray 03/29/18 12:01 CONCLUSION: Stable chest without evidence of acute process. Cardiomegaly status post CABG. Stable ICD. ECG Data EKG Prior to Arrival: No Attestation: I personally reviewed and interpreted this ECG as follows: Prior ECG tracings: not available for review Interpretation: EKG shows atrial fibrillation with a rate of 126. There are no acute ST elevations. [place] is normal. Discharge Plan Discharge Disposition Patient Disposition: 30 Still Patient Discharge Details Diagnosis: Angina pectoris, unstable Physicians Team ED Provider: Otilio Hoover Primary Care Provider: Collin Menjivar Rxs /Orders / Referrals /Forms Prescriptions: No Action atorvastatin 80 mg Tablet 80 mg PO DAILY RF: 0 torsemide 20 mg Tablet 20 mg PO DAILY RF: 0 metolazone 5 mg Tablet 5 mg PO DAILY RF: 0 clopidogrel [Plavix] 75 mg Tablet 75 mg PO DAILY RF: 0 spironolactone 25 mg Tablet 25 mg PO DAILY RF: 0 finasteride 5 mg Tablet 5 mg PO DAILY RF: 0 apixaban [Eliquis] 5 mg Tablet 5 mg PO BID RF: 0 sacubitril-valsartan [Entresto] 24-26 mg Tablet 1 tab PO BID RF: 0 tamsulosin 0.4 mg Capsule 0.4 mg PO DAILY RF: 0 Discharge Instructions Patient Printed Instructions: Chest Pain (ED) Discharge Interventions Interventions: Vital Signs Last Done: 03/29/18 11:46 Status ED Status: With Doctor
[2018-03-29 12:33] LABS: Baso # (Auto) 0.1 th/mm3 (0.0-0.2); Baso % (Auto) 0.9 % (0.0-2.0); Eos # (Auto) 0.2 th/mm3 (0.0-0.4); Eos % (Auto) 3.5 % (0.0-4.0); Hematocrit 41.4 % (39.0-51.0); Hemoglobin 14.4 gm/dL (13.0-17.0); Lymph # (Auto) 0.9 th/mm3 (1.0-4.8); Lymph % (Auto) 12.9 % (9.0-44.0); Mean Corpuscular HGB Conc 34.9 % (32.0-36.0); Mean Corpuscular Hemoglobin 34.4 pg (27.0-34.0); Mean Corpuscular Volume 98.5 fL (80.0-100.0); Mean Platelet Volume 8.7 fL (7.0-11.0); Mono # (Auto) 0.7 th/mm3 (0.0-0.9); Mono % (Auto) 10.3 % (0.0-8.0); Neut % (Auto) 72.4 % (16.0-70.0); Platelet Count 165 th/mm3 (150-450); Red Cell Distribution Width 15.1 % (11.6-17.2)
[2018-03-29 12:57] LABS: Anion Gap 8 meq/L (5-15); Blood Urea Nitrogen 37 mg/dL (7-18); Calcium 8.8 mg/dL (8.5-10.1); Carbon Dioxide 25.3 meq/L (21.0-32.0); Chloride 103 meq/L (98-107); Glomerular Filtration Rate 39 mL/min (>89); Glucose,Random 127 mg/dL (74-106); Potassium 4.6 meq/L (3.5-5.1); Sodium 136 meq/L (136-145)
--- NOTE | 2018-03-29 13:02 | XR ---
EXAM DATE: 03/29/2018 12:32 PM EST AGE/SEX: 68 years / Male INDICATIONS: Chest pain. CLINICAL DATA: This is the patient's initial encounter. Patient reports that signs and symptoms have been present for 1 day and indicates a pain score of 5/10. MEDICAL/SURGICAL HISTORY: Cerebrovascular disease. CABG. Pacemaker. Cardiac stents. COMPARISON: [facility] [place], CHEST SINGLE AP, 06/05/2016. . FINDINGS: Heart is moderately enlarged. Evidence of previous open heart surgery is noted. Left ICD device is in stable position. Lungs remain free of significant congestion or acute airspace disease. Osseous structures are intact. CONCLUSION: Stable chest without evidence of acute process. Cardiomegaly status post CABG. Stable ICD. Electronically signed by: Rafael Nye MD 03/29/2018 1:00 PM EST
[2018-03-29 13:03] LABS: Creatine Kinase 102 U/L (39-308); Troponin I 0.03 ng/mL (0.02-0.05)
[2018-03-29 13:15] LABS: Creatine Kinase MB 1.6 ng/mL (0.5-3.6)
[2018-03-29] MEDS ORDERED: Heparin 10,000 UNITS/10 ML Vial (for IV use) IV.PUSH STA (15:42)
[2018-03-29] MEDS ORDERED: Acetaminophen 325 MG Tablet PO PRN (15:53)
--- NOTE | 2018-03-29 16:40 | P.HP ---
History of Present Illness Primary Care Physician: Collin Menjivar MD History of Present Illness: 68-year-old male with a history of coronary artery disease, CABG, previous stents, atrial fibrillation, who presents to the ER complaining of chest pain that occurs during ambulation. Patient has a history of CABG in 2008 and has remained relatively symptom-free since that time up until August 2017 when he started developing chest pain on long walks of approximately 1/2 mile. The symptoms gradually worsened over time but became markedly worse over the last month. He states that currently he is unable to ambulate more than 20 feet without onset of chest pain. Approximately 6 weeks ago he followed up with Dr. Ward who did an angiogram but was unable to stent an area of reocclusion. Dr. Ward explained that Dr. Osei his colleague might be able to use some newer techniques to address the problem. He had an appointment scheduled but was unable to follow-up due to increasing frequency of these chest pain episodes. Today he decided to come into the ER and as luck would have it Dr. Osei may be available to him during this stay. Patient denies any nausea vomiting or diarrhea, he does have some abdominal pain as referred pain associated with the chest pain. He denies any upper respiratory symptoms including cough, fever, phlegm changes. Review of Systems All other systems reviewed negative except as stated in HPI PMFSH - History History Provided By: Patient - Medical History Medical History: Medical History (Last Updated 03/29/18 @ 12:02 by Nino Sheets) Heart attack Hypotension - Surgical History Surgical History: Surgical History (Last Updated 03/29/18 @ 12:02 by Nino Sheets) History of cardiac cath S/P CABG x 5 - Family History Family History: Family History (Last Updated 03/29/18 @ 16:36 by Rafal Allen MD) Other Coronary artery disease - Tobacco History Second Hand Smoke Exposure: No Tobacco Use In Past 30 Days: No Smoking Status: Never smoker - Alcohol History How Often Do You Have a Drink Containing Alcohol: Never - Substance Use History Substance History: No History of Abuse - Travel History Recent Travel in the [place] Within the Last 8 Weeks: No Recent Travel Out of the Country Within the Last 8 Weeks: No - Immunization History Tetanus Immunization: Unable to Assess Medications and Allergies Active Medications: Active Medications Acetaminophen (Tylenol) 650 mg PO Q4H PRN PRN Reason: Temp > 100.4 Al Hydroxide/Mg Hydroxide (Milk Of Chuy Garrido) 30 ml PO Q12H PRN PRN Reason: Mild Constipation Heparin Sodium/Dextrose (Heparin/D5w 25,000 U/250 Ml) 25,000 unit in 250 mls @ 0 mls/hr IV.CONT TITRATE PRN; Protocol PRN Reason: Per Protocol Ondansetron HCl (Zofran Inj) 4 mg IV.PUSH Q6H PRN PRN Reason: NAUSEA OR VOMITING Sodium Chloride (Ns Flush) 2 ml IV.FLUSH UNSCH PRN PRN Reason: FLUSH AFTER USING IV ACCESS Allergies Allergy/AdvReac Type Severity Reaction Status Date / Time diltiazem Allergy Severe Verified 09/14/17 09:46 amiodarone Allergy Unknown Verified 09/14/17 09:46 Home Medications Medication Instructions Recorded Confirmed Type apixaban [Eliquis] 5 mg PO BID 03/29/18 03/29/18 History atorvastatin 80 mg PO DAILY 03/29/18 03/29/18 History clopidogrel [Plavix] 75 mg PO DAILY 03/29/18 03/29/18 History finasteride 5 mg PO DAILY 03/29/18 03/29/18 History metolazone 5 mg PO DAILY 03/29/18 03/29/18 History sacubitril-valsartan [Entresto] 1 tab PO BID 03/29/18 03/29/18 History spironolactone 25 mg PO DAILY 03/29/18 03/29/18 History tamsulosin 0.4 mg PO DAILY 03/29/18 03/29/18 History torsemide 20 mg PO DAILY 03/29/18 03/29/18 History Exam Vital signs: Vital Signs 03/29/18 11:43 03/29/18 11:46 03/29/18 12:10 Temperature 98.2 F Pulse Rate 135 H 124 H 111 H Respiratory Rate 16 18 18 Blood Pressure 93/66 L 110/73 110/73 Pulse Oximetry 98 98 98 03/29/18 12:39 03/29/18 13:39 03/29/18 15:02 Temperature Pulse Rate 102 H 98 H 107 H Respiratory Rate 18 18 18 Blood Pressure 86/63 L 92/63 L 94/77 L Pulse Oximetry 99 99 98 Intake & Output 03/28/18 03/29/18 03/29/18 18:59 06:59 18:59 Intake Total 1000 / 1000 Balance 1000 / 1000 Weight 74.843 kg Intake: IV 1000 / 1000 NS Inj 1,000 ML @ Wide Open IV. 1000 / 1000 SIG BOLUS ONE Rx#:[id number] Narrative: GENERAL: AAOx3, no acute distress, adequate nutrition SKIN: Warm and dry, no rashes. Old ventral scar of open heart surgery HEAD: Atraumatic. Normocephalic. EYES: Pupils equal, round, reactive to light. No scleral icterus. No injection or drainage. ENT: No nasal bleeding or discharge. Moist mucous membranes. Nonerythematous oropharynx. NECK: Trachea midline. No JVD. Thyroid size within normal limits. CARDIOVASCULAR: Irregularly irregular. No murmur, no gallops, no rubs. RESPIRATORY: Clear and equal to auscultation bilaterally. No crackles, no wheezes. No accessory muscle use. GASTROINTESTINAL: Abdomen soft, non-tender, nondistended, normal active bowel sounds. Hepatic and splenic margins not palpable. MUSCULOSKELETAL: Extremities without clubbing or cyanosis. No obvious deformities. No edema. NEUROLOGICAL: Awake and alert. No obvious cranial nerve deficits. Motor grossly within normal limits. No focal deficits. Five out of 5 muscle strength in the arms and legs. Normal speech. PSYCHIATRIC: Appropriate mood and affect; insight and judgment normal. Results - Labs CBC & Chem 7: 03/29/18 12:13 03/29/18 12:13 Labs: Laboratory Results - last 24 hr 03/29/18 03/29/18 12:13 12:13 WBC 7.0 RBC 4.20 L Hgb 14.4 Hct 41.4 MCV 98.5 MCH 34.4 H MCHC 34.9 RDW 15.1 Plt Count 165 MPV 8.7 Neut % (Auto) 72.4 H Lymph % (Auto) 12.9 [place] % (Auto) 10.3 H Eos % (Auto) 3.5 Baso % (Auto) 0.9 Neut # (Auto) 5.0 Lymph # (Auto) 0.9 L [place] # (Auto) 0.7 Eos # (Auto) 0.2 Baso # (Auto) 0.1 WBC Differential . Differential Comment Auto diff final Sodium 136 Potassium 4.6 Chloride 103 Carbon Dioxide 25.3 Anion Gap 8 BUN 37 H Creatinine 1.76 H Estimated GFR 39 L Random Glucose 127 H Calcium 8.8 Total Creatine Kinase 102 CK-MB (CK-2) 1.6 Troponin I 0.03 - Imaging Impressions Chest X-Ray 03/29/18 12:01 CONCLUSION: Stable chest without evidence of acute process. Cardiomegaly status post CABG. Stable ICD. Caprini VTE Risk Assessment Caprini VTE Risk Assessment: Moderate/High Risk (score >= 2) Caprini Risk Assessment Model: Point Value = 1 Point Value = 2 Point Value = 3 Point Value = 5 Age 41-60 Minor surgery BMI > 25 kg/m2 Swollen legs Varicose veins or History of unexplained or recurrent spontaneous Oral contraceptives or hormone replacement Sepsis (< 1 month) Serious lung disease, including pneumonia (< 1 month) Abnormal pulmonary function Acute myocardial infarction Congestive heart failure (< 1 month) History of inflammatory bowel disease Medical patient at bed rest Age 61-74 Arthroscopic surgery Major open surgery (> 45 min) Laparoscopic surgery (> 45 min) Malignancy Confined to bed (> 72 hours) Immobilizing plaster cast Central venous access Age >= 75 History of VTE Family history of VTE Factor V Leiden Prothrombin [id number] Lupus anticoagulant Anticardiolipin antibodies Elevated serum homocysteine Heparin-induced thrombocytopenia Other congenital or acquired thrombophilia Stroke (< 1 month) Elective arthroplasty Hip, pelvis, or leg fracture Acute spinal cord injury (< 1 month) Prophylaxis Regimen: Total Risk Factor Score Risk Level Prophylaxis Regimen 0-1 Low Early ambulation 2 Moderate Order ONE of the following: *Sequential Compression Device (SCD) *Heparin 5000 units SQ BID 3-4 Higher Order ONE of the following medications: *Heparin 5000 units SQ TID *Enoxaparin/Lovenox 40 mg SQ daily (WT < 150 kg, CrCl > 30 mL/min) *Enoxaparin/Lovenox 30 mg SQ daily (WT < 150 kg, CrCl > 10-29 mL/min) *Enoxaparin/Lovenox 30 mg SQ BID (WT < 150 kg, CrCl > 30 mL/min) AND/OR *Sequential Compression Device (SCD) 5 or more Highest Order ONE of the following medications: *Heparin 5000 units SQ TID (Preferred with Epidurals) *Enoxaparin/Lovenox 40 mg SQ daily (WT < 150 kg, CrCl > 30 mL/min) *Enoxaparin/Lovenox 30 mg SQ daily (WT < 150 kg, CrCl > 10-29 mL/min) *Enoxaparin/Lovenox 30 mg SQ BID (WT < 150 kg, CrCl > 30 mL/min) AND *Sequential Compression Device (SCD) Assessment and Plan - Plan Acute chest pain Symptoms have been worsening over the last month and he was unable to wait until his scheduled appointment with Dr. Osei Patient has no symptoms at rest but did have recurrence in the ER when he got up to go to the bathroom By his history there is apparently an area of previous stenting that has reoccluded and has been difficult to reach on prior heart catheterization Continue supportive care with supplemental oxygen as needed, nitro as needed We will keep him n.p.o. in case of procedure later today, if no procedures to be done he may have dinner and be n.p.o. after midnight Continue heparin drip Cardiology consulted Atrial fibrillation Patient is rate controlled but irregularly irregular This is not a new issue, continue with home meds Continue heparin drip DVT Prophylaxis Heparin drip
[2018-03-29 16:42] LABS: Activated Partial Thrombo Time 28.2 sec (23.4-31.7); INR 1.1 Ratio; Prothrombin Time 11.1 sec (9.8-11.6)
[2018-03-29] MEDS: Heparin Drip 25,000 UNIT/250 ML BAG IV.CONT PRN (17:04)
[2018-03-29 18:22] LABS: Creatine Kinase 88 U/L (39-308)
--- NOTE | 2018-03-29 19:17 | ECG ---
Date Performed: 03/29/2018 Time Performed: 11:50:54 PTAGE: 68 years EKG: ATRIAL FIBRILLATION WITH RAPID VENTRICULAR RESPONSE WITH ABERRANT CONDUCTION OR VENTRICULAR PREMATURE COMPLEXES INTRAVENTRICULAR CONDUCTION DELAY LATERAL MYOCARDIAL INFARCTION ABNORMAL ECG Com pared to prior electrocardiogram, Atrial fibrillation has replaced probable Sinus rhythm . PREVIOUS TRACING : 09/14/2017 09.39 DOCTOR: Cheo Potts Interpretating Date/Time 03/29/2018 19:15:18
[2018-03-29] MEDS ORDERED: Torsemide 20 MG Tablet PO ONE (20:45)
[2018-03-30 00:09] LABS: Troponin I 0.03 ng/mL (0.02-0.05)
[2018-03-30] MEDS ORDERED: Metoprolol Inj 5 MG/5 ML Vial IV.PUSH ONE (04:17)
--- NOTE | 2018-03-30 05:19 | ECG ---
Date Performed: 03/29/2018 Time Performed: 18:41:46 PTAGE: 68 years EKG: ATRIAL FIBRILLATION WITH RAPID VENTRICULAR RESPONSE WITH ABERRANT CONDUCTION OR VENTRICULAR PREMATURE COMPLEXES INTRAVENTRICULAR CONDUCTION DELAY POSSIBLE LATERAL MYOCARDIAL INFARCTION ABNORMA L ECG No significant change from prior electrocardiogram. DOCTOR: Cheo Potts Interpretating Date/Time 03/30/2018 05:18:53
[2018-03-30 06:05] LABS: Hematocrit 40.7 % (39.0-51.0); Hemoglobin 13.8 gm/dL (13.0-17.0); Mean Corpuscular Hemoglobin 33.2 pg (27.0-34.0); Mean Corpuscular Volume 97.7 fL (80.0-100.0); Mean Platelet Volume 8.7 fL (7.0-11.0); Platelet Count 151 th/mm3 (150-450); Red Blood Count 4.16 mil/mm3 (4.50-5.90); Red Cell Distribution Width 14.9 % (11.6-17.2); White Blood Count 7.2 th/mm3 (4.0-11.0)
--- NOTE | 2018-03-30 07:57 | ECG ---
Date Performed: 03/30/2018 Time Performed: 04:16:36 PTAGE: 68 years EKG: Atrial fibrillation with rapid ventricular response with non-sustained ventricular tachycar lucho vs. aberrancy. Nonspecific intraventricular conduction delay Nonspecific ST and T wave abnormalit ies Abnormal ECG No significant change from prior electrocardiogram. PREVIOUS TRACING : 03/29/2018 22.46 DOCTOR: Cheo Potts Interpretating Date/Time 03/30/2018 07:56:35
--- NOTE | 2018-03-30 08:07 | ECG ---
Date Performed: 03/29/2018 Time Performed: 22:46:28 PTAGE: 68 years EKG: Baseline artifact present Atrial fibrillation Left axis deviation IV conduction defect Nons pecific ST and T wave abnormalities Abnormal ECG No significant change from prior electrocardiogram. PREVIOUS TRACING : 03/29/2018 18.41 DOCTOR: Cheo Potts Interpretating Date/Time 03/30/2018 08:05:58
--- NOTE | 2018-03-30 11:24 | P.PN ---
Subjective Interval history: Nursing denies any deterioration since last night. Patient himself says he is not having chest pain at this moment. Says is very intermittent. Patient denies being lightheaded while lying in bed, blood pressure taken with automated cuff just now is 83/60. Nurse reports that he gets somewhat hypotensive easily. She says that his blood pressure was around 110 systolic this morning. Physical Exam Vital signs: Vital Signs 03/29/18 11:43 03/29/18 11:46 03/29/18 12:10 Temperature 98.2 F Pulse Rate 135 H 124 H 111 H Respiratory Rate 16 18 18 Blood Pressure 93/66 L 110/73 110/73 Pulse Oximetry 98 98 98 03/29/18 12:39 03/29/18 13:39 03/29/18 15:02 Temperature Pulse Rate 102 H 98 H 107 H Respiratory Rate 18 18 18 Blood Pressure 86/63 L 92/63 L 94/77 L Pulse Oximetry 99 99 98 03/29/18 17:14 03/29/18 17:33 03/29/18 20:30 Temperature 97.5 F L Pulse Rate 98 H 98 H 110 H Respiratory Rate 18 18 20 Blood Pressure 96/68 L 96/68 L 94/62 L Pulse Oximetry 100 100 03/29/18 21:00 03/29/18 22:00 03/29/18 22:53 Temperature Pulse Rate 100 H 102 H Respiratory Rate Blood Pressure Pulse Oximetry 100 03/29/18 23:00 03/29/18 23:37 03/30/18 00:00 Temperature 97.6 F Pulse Rate 95 H 95 H 92 H Respiratory Rate 20 Blood Pressure 92/58 L Pulse Oximetry 98 03/30/18 01:00 03/30/18 02:00 03/30/18 03:00 Temperature 97.5 F L Pulse Rate 94 H 97 H 108 H Respiratory Rate 20 Blood Pressure 100/69 Pulse Oximetry 96 03/30/18 03:35 03/30/18 04:00 03/30/18 04:40 Temperature Pulse Rate 167 H 118 H 101 H Respiratory Rate Blood Pressure 104/85 94/71 L 81/60 L Pulse Oximetry 98 97 98 03/30/18 05:00 03/30/18 06:00 03/30/18 07:00 Temperature Pulse Rate 97 H 93 H 107 H Respiratory Rate Blood Pressure Pulse Oximetry 03/30/18 08:06 Temperature 97.9 F Pulse Rate 117 H Respiratory Rate 20 Blood Pressure 110/80 Pulse Oximetry 98 Intake & Output 03/29/18 03/30/18 03/30/18 18:59 06:59 18:59 Intake Total 1000 / 1000 240 / 240 Output Total 1675 / 1675 Balance 1000 / 1000 -1435 / -1435 Weight 74.843 kg 82 kg Intake: IV 1000 / 1000 NS Inj 1,000 ML @ Wide Open IV. 1000 / 1000 SIG BOLUS ONE Rx#:[id number] Oral 240 / 240 Output: Urine 1675 / 1675 Other: Date of Last Bowel Movement 03/29/18 # Bowel Movements 0 Narrative: Heart sounds regular rate rhythm, no murmurs Clear lungs bilaterally, unlabored breathing Lying in bed, awake, alert, no acute distress No lower extremity edema Results - Labs CBC & Chem 7: 03/30/18 05:46 03/30/18 11:35 Laboratory Results - last 24 hr 03/29/18 03/29/18 03/29/18 12:13 12:13 13:12 WBC 7.0 RBC 4.20 L Hgb 14.4 Hct 41.4 MCV 98.5 MCH 34.4 H MCHC 34.9 RDW 15.1 Plt Count 165 MPV 8.7 Neut % (Auto) 72.4 H Lymph % (Auto) 12.9 [place] % (Auto) 10.3 H Eos % (Auto) 3.5 Baso % (Auto) 0.9 Neut # (Auto) 5.0 Lymph # (Auto) 0.9 L [place] # (Auto) 0.7 Eos # (Auto) 0.2 Baso # (Auto) 0.1 WBC Differential . Differential Comment Auto diff final PT 11.1 INR 1.1 APTT 28.2 Sodium 136 Potassium 4.6 Chloride 103 Carbon Dioxide 25.3 Anion Gap 8 BUN 37 H Creatinine 1.76 H Estimated GFR 39 L Random Glucose 127 H Calcium 8.8 Total Creatine Kinase 102 CK-MB (CK-2) 1.6 Troponin I 0.03 03/29/18 03/29/18 03/29/18 17:32 23:29 23:29 WBC RBC Hgb Hct MCV MCH MCHC RDW Plt Count MPV Neut % (Auto) Lymph % (Auto) [place] % (Auto) Eos % (Auto) Baso % (Auto) Neut # (Auto) Lymph # (Auto) [place] # (Auto) Eos # (Auto) Baso # (Auto) WBC Differential Differential Comment PT INR APTT 43.9 H D Sodium Potassium Chloride Carbon Dioxide Anion Gap BUN Creatinine Estimated GFR Random Glucose Calcium Total Creatine Kinase 88 86 CK-MB (CK-2) Troponin I Less than 0.02 L 0.03 03/30/18 03/30/18 03/30/18 05:46 05:46 10:22 WBC 7.2 RBC 4.16 L Hgb 13.8 Hct 40.7 MCV 97.7 MCH 33.2 MCHC 34.0 RDW 14.9 Plt Count 151 MPV 8.7 Neut % (Auto) Lymph % (Auto) [place] % (Auto) Eos % (Auto) Baso % (Auto) Neut # (Auto) Lymph # (Auto) [place] # (Auto) Eos # (Auto) Baso # (Auto) WBC Differential Differential Comment PT INR APTT 41.5 H 40.8 H Sodium Potassium Chloride Carbon Dioxide Anion Gap BUN Creatinine Estimated GFR Random Glucose Calcium Total Creatine Kinase CK-MB (CK-2) Troponin I - Imaging Impressions Chest X-Ray 03/29/18 12:01 CONCLUSION: Stable chest without evidence of acute process. Cardiomegaly status post CABG. Stable ICD. Assessment and Plan - Plan 68-year-old white male admitted with chest pain. Suspicious for stable angina Acute chest pain -Symptoms have been worsening over the last month and he was unable to wait until his scheduled appointment with Dr. Osei -Stable angina, troponins within normal limits -By his history there is apparently an area of previous stenting that has reoccluded and has been difficult to reach on prior heart catheterization -Continue heparin drip, anticipate cardiac catheterization per cardiology in a.m. - statin, aspirin Chronic systolic heart failure -Resume home medications once blood pressure is more stable -would include spironolactone, torsemide, Entresto Atrial fibrillation -Hold home apixaban in light of possible cardiac catheterization, heparin drip while inpatient Acute kidney injury Elevated creatinine noted yesterday, will repeat today, if still poor will do gentle hydration BPH Continue home finasteride -resume Flomax when blood pressure is more tolerable DVT Prophylaxis -Heparin drip
[2018-03-30 12:35] LABS: Calcium 8.2 mg/dL (8.5-10.1); Carbon Dioxide 24.4 meq/L (21.0-32.0); Potassium 4.5 meq/L (3.5-5.1)
[2018-03-30] MEDS: Heparin Drip 25,000 UNIT/250 ML BAG IV.CONT PRN (20:04)
--- NOTE | 2018-03-31 01:50 | MB ---
cc: Cholo Osei DO DATE: 03/31/2018 REASON FOR CONSULTATION: Unstable angina. HISTORY OF PRESENT ILLNESS: Gt Abrams is a pleasant 68-year-old male who sees my partner, Dr. Chris Ward, in the office and presented to [facility] due to chest pain with exertion. He previously had bypass in 2008 and had remained relatively symptom free until 08/2017 when he started noticing chest pain on long walks. The pain seemed to be getting worse over time. He is currently unable to ambulate more than 20 feet without the onset of chest pain. In August, Dr. Ward did an angiogram, but was unable to stent an area of subtotal occlusion and had me look at the films recently as he continued to have chest pain. Mr. Abrams was to be evaluated by me in the office and discuss further possibilities of repeat angiogram, but he continued to have significant chest pain episodes and so he came to the hospital. He is here and he is currently hemodynamically stable without chest pain at rest. PAST MEDICAL HISTORY: 1. Coronary artery disease with a history of myocardial infarction. 2. Chronic hypotension. 3. Atrial fibrillation. 4. Ischemic cardiomyopathy with an ejection fraction of 10%-15%. 5. Diabetes mellitus. 6. Hyperlipidemia. 7. History of paroxysmal atrial tachycardia. PAST SURGICAL HISTORY: 1. History of coronary artery bypass graft. 2. AICD implant in 2002 with change in 2009. ALLERGIES: 1. AMIODARONE. 2. DILTIAZEM. MEDICATIONS: 1. Spironolactone 25 mg daily. 2. Entresto 24/26 mg b.i.d. 3. Metolazone 5 mg daily. 4. Finasteride 5 mg daily. 5. Plavix 75 mg daily. 6. Eliquis 5 mg b.i.d. 7. Torsemide 20 mg daily. 8. Lipitor 80 mg daily. 9. Flomax 0.4 mg daily. FAMILY HISTORY: Positive for coronary artery disease. SOCIAL HISTORY: Denies tobacco, alcohol or drug abuse. REVIEW OF SYSTEMS: Fourteen systems were reviewed including osteopathic. Pertinent positives and negatives above, otherwise negative. PHYSICAL EXAMINATION: VITAL SIGNS: Temperature 97.6, heart rate 100, blood pressure 94/68, respirations 20, pulse oximetry 96% on room air. GENERAL: The patient appears well, in no acute distress. Alert, awake and oriented x3. HEENT: Extraocular muscles intact. Mucous membranes moist. NECK: Supple. No JVD at 45 degrees. No carotid bruits heard bilaterally. Carotid upstroke is brisk in nature. HEART: Irregularly irregular. Positive first and second heart sounds with no noted murmurs, gallops or rubs. LUNGS: Clear to auscultation bilaterally. No wheezes, rales or rhonchi. ABDOMEN: Soft, nontender, nondistended. No organomegaly noted. EXTREMITIES: Show no clubbing, cyanosis or edema. Femoral and distal pulses intact bilaterally. NEUROLOGIC: No focal deficits. SKIN: Warm, dry and intact. OSTEOPATHIC: No kyphoscoliosis, lordosis or paraspinal tender points. LABORATORY DATA: Hemoglobin 13.8, hematocrit 40.7, platelets 151. Potassium 4.5, BUN 34, creatinine 1.57. Electrocardiogram (03/30/2018 0416 hours): Atrial fibrillation with rapid ventricular response, left bundle branch block. IMPRESSIONS: 1. Coronary artery disease with a history of coronary artery bypass graft and myocardial infarction. 2. Unstable angina (Story anginal score of 3). 3. Atrial fibrillation. 4. Hyperlipidemia. 5. Ischemic cardiomyopathy. RECOMMENDATIONS: 1. Mr. Abrams appears to have significant angina with minimal exertion. 2. We are unable to add further antianginals due to his chronic hypotension. 3. We will plan on undergoing coronary angiography for further evaluation of his lesions to determine if anything is possible to decrease his angina. 4. Risks, benefits, and alternatives have been explained and he consented to such. 5. His Eliquis will be held for anticipation of angiogram. 6. He will be n.p.o. after breakfast with a plan to do this tomorrow afternoon. Thank you for allowing me to see Gt Abrams. If there are any questions, please do not hesitate to call. DO MARK Chua/rachel/nessa , 12:39 AM , 12:54 AM
[2018-03-31 05:09] LABS: Hematocrit 39.4 % (39.0-51.0); Hemoglobin 13.9 gm/dL (13.0-17.0); Mean Corpuscular HGB Conc 35.1 % (32.0-36.0); Mean Corpuscular Hemoglobin 33.5 pg (27.0-34.0); Mean Corpuscular Volume 95.4 fL (80.0-100.0); Mean Platelet Volume 8.9 fL (7.0-11.0); Platelet Count 144 th/mm3 (150-450); Red Blood Count 4.13 mil/mm3 (4.50-5.90); Red Cell Distribution Width 14.7 % (11.6-17.2); White Blood Count 6.9 th/mm3 (4.0-11.0)
[2018-03-31] MEDS: Finasteride 5 MG Tablet PO SCH (09:07)
[2018-03-31] MEDS ORDERED: fentaNYL Citrate Inj 100 MCG/2 ML Ampul ONE (15:10)
[2018-03-31] MEDS ORDERED: Heparin/NS PF Inj 1,000 ML ONE (15:59)
[2018-03-31] MEDS ORDERED: Heparin 10,000 UNITS/10 ML Vial (for IV use) ONE (15:59)
[2018-03-31] MEDS ORDERED: Adenosine Inj 6 MG/2 ML Syringe IV.PUSH ONE (16:06)
[2018-03-31] MEDS ORDERED: Iohexol 350 MG/ML 50 ML Vial (for Cath Lab) IVCONTRAST ONE (16:15)
[2018-03-31] MEDS ORDERED: Iohexol 350 MG/ML 100 ML Vial (for Cath Lab) IVCONTRAST ONE (16:15)
--- NOTE | 2018-03-31 16:57 | P.PN ---
Subjective Interval history: Nursing denies no acute events overnight. Patient's blood pressure is holding steady. He himself denies having any active ongoing chest pain. Catheterization for today. Physical Exam Vital signs: Vital Signs 03/30/18 17:00 03/30/18 18:00 03/30/18 19:00 Temperature Pulse Rate 94 H 92 H 98 H Respiratory Rate Blood Pressure Pulse Oximetry 03/30/18 20:00 03/30/18 21:00 03/30/18 22:00 Temperature 97.3 F L Pulse Rate 98 H 100 H 99 H Respiratory Rate 20 Blood Pressure 86/62 L Pulse Oximetry 98 03/30/18 23:00 03/30/18 23:46 03/31/18 00:00 Temperature 97.5 F L Pulse Rate 96 H 96 H 98 H Respiratory Rate 18 Blood Pressure 87/57 L Pulse Oximetry 99 03/31/18 01:00 03/31/18 02:00 03/31/18 03:00 Temperature Pulse Rate 94 H 94 H 103 H Respiratory Rate Blood Pressure Pulse Oximetry 03/31/18 03:55 03/31/18 04:00 03/31/18 05:00 Temperature 97.4 F L Pulse Rate 97 H 98 H 90 Respiratory Rate 16 Blood Pressure 100/56 L Pulse Oximetry 100 03/31/18 06:00 Temperature Pulse Rate 95 H Respiratory Rate Blood Pressure Pulse Oximetry Intake & Output 03/30/18 03/31/18 03/31/18 18:59 06:59 18:59 Intake Total 1200 / 1200 490 / 490 5 / 5 Output Total 960 / 960 1275 / 1275 Balance 240 / 240 -785 / -785 5 / 5 Weight 80 kg Intake: IV 250 / 250 5 / 5 Heparin/NS PF Inj 1,000 ML @ 0 5 / 5 mls/hr .ROUTE .STK-MED ONE Rx#: [id number] Heparin/D5W 25,000 U/250 mL 25, 250 / 250 000 unit In 250 ml @ Per Protocol IV.CONT TITRATE PRN Rx #:[id number] Oral 1200 / 1200 240 / 240 Output: Urine 960 / 960 1275 / 1275 Other: Date of Last Bowel Movement 03/29/18 # Bowel Movements 0 Narrative: Lying in bed, awake and alert, no acute distress Heart sounds regular rate rhythm, no murmurs Clear lungs bilaterally, unlabored breathing No lower extremity edema Results - Labs CBC & Chem 7: 03/31/18 03:42 03/30/18 11:35 Laboratory Results - last 24 hr 03/31/18 03/31/18 03:42 04:42 WBC 6.9 RBC 4.13 L Hgb 13.9 Hct 39.4 MCV 95.4 MCH 33.5 MCHC 35.1 RDW 14.7 Plt Count 144 L MPV 8.9 APTT 41.8 H Assessment and Plan - Plan 68-year-old white male admitted with chest pain. Suspicious for stable angina Acute chest pain -Symptoms have been worsening over the last month and he was unable to wait until his scheduled appointment with Dr. Osei -Stable angina, troponins within normal limits -By his history there is apparently an area of previous stenting that has reoccluded and has been difficult to reach on prior heart catheterization -Cardiac catheterization today, statin, aspirin Chronic systolic heart failure -Resume home medications once blood pressure is more stable -would include spironolactone, torsemide, Entresto Atrial fibrillation -Hold home apixaban in light of possible cardiac catheterization, heparin drip while inpatient Acute kidney injury Improved yesterday, will recheck today given catheterization planned BPH Continue home finasteride -resume Flomax when blood pressure is more tolerable DVT Prophylaxis -Heparin drip
--- NOTE | 2018-03-31 17:05 | CATHPROC ---
[employer] HIS Report Study Information Study Number Admission Scheduled Start Study Start [id number] Mar 29 2018 4:14PM 03/31/2018 Mar 31 2018 3:00PM [place] [facility] Electrophysiology Study Admit Source Facility Department Other [facility] - [facility] Physician and Clinical Staff Initial Cholo Lal Teachers' Assistant Luca Jaffe RN Recorder Lauren New,RT(R) Scrub Azul Paris ,RT(R) X-Ray Guillermo Bueno,RT(R) Procedures Performed Procedure Location (Site) Vessel Name Coronary Angiograms RCA Right Coronary Coronary Angiograms SIMS Graft Left Coronary Coronary Angiograms SVG-DIAG Left Coronary Coronary Angiograms SVG-OM CIRC Coronary Angiograms Gft. Stump 1 SVG Graft Coronary Angiograms Gft. Stump 2 SVG Graft Drug Eluting Inflatio SVG-DIAG Left Coronary L Heart Cath PTCA SVG-DIAG Left Coronary Wire insertion Fem Art (right) Femoral Art Equipment Time Beer Cooler Description Size Mfg Part Number Used/Scraped WIRE, BALANCE MIDDLEWEIGHT [id number] 15:57 [employer] 190CM Used 190CM *[id number] TRANSDUCER, TRUWAVE [id number] 15:03 TUBBS BROUSSARD * Used W/STOCKCOCK *[id number] INTRODUCER SET, 15:03 [employer] FR 5 [id number] *[id number] Used MICROPUNCTURE STIFF 534-545T *[id number] 534-520T *[id number] [id number] *[id number] 534-521T *[id number] 15:03 [employer] BLANKET,WARM AIR CCL * Used *[id number] 15:03 [employer] PACK, CCL CUSTOM * Used *[id number] BALLOON, 3.5 X 15MM NC [id number] 16:21 MEDTRONIC 15MM Used EUPHORA *[id number] 16:05 MEDTRONIC STENT, 3.5 12MM VINOD 3.5 12MM Used *[id number] 16:13 MEDTR[employer]IC STENT, 3.5 18MM VINOD 3.5 18MM Used *[id number] 16:18 MEDTR[employer] STENT, 3.5 22MM VINOD 3.5 22MM [id number] 16:10 US [employer]ologic 30 ALMA INDEFLATOR Used *[id number] 15:03 Expensify MEDICAL WIRE, 3MMJ .035 180CM 180CM Used *[id number] 15:03 NAMIC MANIFOLD, 4 PORT * Used *[id number] 15:03 NYCOMED OMNIPAQUE, 350 MG, 150ML 150ML [id number] Used [id number] 15:03 TERUMO MEDICAL SHEATH, FR5 TERUMO (10CM) FR 5 Used *[id number] 15:56 TERUMO MEDICAL SHEATH, FR6 TERUMO (10CM) FR 6 Used *[id number] Equipment Model, Serial, Lot Number and Expiration Data Description Model Number Serial Number Lot Number Expiration Date STENT, 3.5 12MM VINOD [id number] 07-13-2019 STENT, 3.5 18MM VINOD [id number] 07-30-2019 STENT, 3.5 22MM VINOD [id number] 06-22-2019 History: Current Medications Medication Dosage/Unit Route Frequency Last Date/Time Taken ASA Statins (any) HEPARIN ELIQUIS PLAVIX History: Allergies Allergy Reaction No Known Allergies amiodarone diltiazem History: Risk Factors Family History of Hypertension Dyslipidemia Previous HI Previous Heart Failure Premature CAD No Yes Yes Yes Yes Prior Valve Prior PCI Prior CABG Prior CABGDate Surgery No Yes Yes 05/25/2002 Cerebrovascular Peripheral Artery Chronic Lung On Dialysis Diabetes Disease Disease Disease No No No No Yes History: CV Disease Selection Items Known CAD History: Stress Tests Stress or Imaging Studies Performed No Labs Hgb (g/dl) Hct (%) WBC (l/cumm) Platelets (thousands) 11.60-17.00 35.00-51.00 4.00-11.00 150.00-450.00 13.9 39.4 6.9 144 Glucose (mg/dl) BUN (mg/dl) Creatinine (mg/dl) BUN:Creatinine (1:x) 74.00-106.00 7.00-18.00 0.50-1.30 10.00-20.00 147 34 1.5 22.7 Na (meq/l) K (meq/l) 136.00-145.00 3.50-5.10 135 4.5 Troponin I (ng/ml) CPK (u/l) CPK-MB (ng/ML) 0.02-0.05 26.00-308.00 0.50-3.60 0.03 86 1.6 Medication Medication Total Dose (Bolus/Oral) Medication Total Dosage/Unit 1% XYLOCAINE 20 mL FENTANYL 25 mcg HEPARIN 5600 units PLAVIX 600 mg VERSED 0.5 mg Medications (Bolus/Oral) Medication Time Given Dosage/Unit Administered By Reason 1% XYLOCAINE 03/31/2018 3:34:41 PM 20 mL Cholo Osei 20 mL 1% XYLOCAINE given in lab by Cholo Osei in Right Groin via Subcutaneous. VERSED 03/31/2018 3:35:18 PM 0.5 mg Alannah, Luca 0.5 mg VERSED given in lab by Luca Jaffe RN via Peripheral IV. FENTANYL 03/31/2018 3:36:42 PM 25 mcg Alannah, Luca 25 mcg FENTANYL given in lab by Luca Jaffe RN via Peripheral IV. HEPARIN 03/31/2018 3:58:06 PM 5600 units Alannah, Luca 5600 units HEPARIN given in lab by Luca Jaffe RN via Peripheral IV. PLAVIX 03/31/2018 4:34:23 PM 600 mg Alannah, Luca 600 mg PLAVIX given in lab by Luca Jaffe RN via Oral. Initial Case Assessment Cardiovascular HR Rhythm NIBP Chest Pain 128 irreg 99/76 0 Edema Present Skin color Skin None Normal Warm Circulatory - Right Pulses Dorsalis Pedis Femoral 1 2 Scale (0,1,2,3,4,d) Circulatory - Left Pulses Dorsalis Pedis Femoral 1 2 Scale (0,1,2,3,4,d) Circulatory - Lower Extremities Color Lower Right Color Lower Left Normal Normal Neurological State Oriented to time-place- Alert Moves all extremities person Respiration - General Respiration Rate SpO2 (%) (B/min) 20 96 Final Case Assessment Cardiovascular HR Rhythm NIBP Chest Pain 115 irreg 90/71 0 Edema Present Skin color Skin None Normal Warm Circulatory - Right Pulses Dorsalis Pedis Femoral 1 2 Scale (0,1,2,3,4,d) Circulatory - Left Pulses Dorsalis Pedis Femoral 1 2 Scale (0,1,2,3,4,d) Circulatory - Lower Extremities Color Lower Right Color Lower Left Normal Normal Neurological State Oriented to time-place- Alert Moves all extremities person Respiration - General Respiration Rate SpO2 (%) (B/min) 28 96 Chronological Log Time Study Chronological Log 14:55:52 Patient arrived via Bed. 14:59:57 Patient Name, D.O.B, / Armband Verified By R.N. 14:59:57 Consent signed by the physician and the patient and verified by the [facility] staff. 14:59:58 Pre-op and post- op instructions given; patient acknowledges understanding of instructions. 14:59:59 Verbal Stimulation=2 Physical Stimulation=2 Airway=2 Respiration=2 TOTAL=8. (0=absent, 1=li mited, 2=present) 15:00:01 Patient has been NPO for More than 6Hrs. 15:00:02 Skin Breakdown-none 15:00:04 Patient Warmer Placed on the Table. 15:00:06 A # 20 IV was noted in the Antecubital (right). Grade = 0 Vitals capture started with the following parameters, Patient=Adult, Interval=5 min, Initial Pr gozbzy=054 mmHg, 15:00:54 Deflation Rate=5 mmHg, Cuff placed on Left Arm 15:01:01 Reference ECG taken 15:01:35 KT=533 bpm, NIBP=99/76 mmhg, SpO2=97.0 %, Resp=15 B/min, Pain=0, Earl=10, Marino=2 15:03:28 A # 20 IV was noted in the Antecubital (right). Grade = 0 15:03:51 History and physical on the chart or being dictated. Assessment: Initial Case, RM=807 BPM, Rhythm=irreg, NIBP=99/76 mmhg, Chest Pain=0, Edema=None, Color=Normal, Skin = Warm Right Pulses: Miki Ped=1, Femoral=2 Left Pulses: Miki Ped=1, Femoral=2 15:04:26 Lower Right Extremities: Color=Normal Lower Left Extremities: Color=Normal Neurological: State=Alert, Ox3, DEVRIES Respiration: Resp=20 B/min, SpO2=96 % 15:05:12 Bilateral groins prepped with 2% chlorhexidine, and draped after a 3 minute waiting time. 15:05:22 MD paged 15:06:24 XQ=510 bpm, NIBP=94/67 mmhg, SpO2=96.0 %, Resp=26 B/min, Pain=0, Earl=10, Marino=2 15:11:21 GR=398 bpm, NIBP=96/76 mmhg, SpO2=97.0 %, Resp=7 B/min, Pain=0, Earl=10, Marino=2 15:15:03 Pressure channel 1 zeroed. 15:16:22 YL=045 bpm, NIBP=96/72 mmhg, SpO2=95.0 %, Resp=24 B/min, Pain=0, Earl=10, Marino=2 15:21:23 LF=227 bpm, WZER=230/67 mmhg, SpO2=94.0 %, Resp=24 B/min, Pain=0, Earl=10, Marino=2 15:26:26 JL=462 bpm, NIBP=92/64 mmhg, SpO2=95.0 %, Resp=22 B/min, Pain=0, Earl=10, Marino=2 15:31:21 TN=744 bpm, NIBP=86/72 mmhg, SpO2=96.0 %, Resp=27 B/min, Pain=0, Earl=10, Marino=2 15:31:50 MD arrived. Time Out. Correct patient, correct procedure, correct physician, labs, allergies, and equipment verified with track laborer 15:34:06 team present. Fire risk assesment completed (see hard stop sheet for coding). Time Out Conc urred by MD and individual staff in procedure. 15:34:10 Case Start 15:34:34 Verbal Stimulation=2 Physical Stimulation=2 Airway=2 Respiration=2 TOTAL=8. (0=absent, 1=li mited, 2=present) 15:34:41 20 mL 1% XYLOCAINE given in lab by Cholo Osei in Right Groin via Subcutaneous. 15:35:18 0.5 mg VERSED given in lab by Luca Jaffe RN via Peripheral IV. 15:36:20 VN=752 bpm, NIBP=95/71 mmhg, SpO2=97.0 %, Resp=28 B/min, Pain=0, Earl=10, Marino=2 15:36:42 25 mcg FENTANYL given in lab by Luca Jaffe, RN via Peripheral IV. 15:37:16 Access site was Right Femoral Artery with MP kit 15:37:38 A wire was inserted via Fem Art (right). 15:37:40 A SHEATH, FR5 TERUMO (10CM) FR 5 was advanced into the Fem Art (right) using the Percutaneo us technique. 15:38:53 An injection in the Fem Art (right) was made through the SHEATH, FR5 TERUMO (10CM) FR 5. Recorded Pressure: LV, MZ=815, Condition=Condition 1 15:40:53 (Left Ventricle) LV 85/17/21 Recorded Pressure: LV, EH=631, Condition=Condition 1 15:41:07 (Left Ventricle) LV 91/15/22 A JR 4.0 INFINITI CATHETER FR 5 was advanced over a wire. OMNIPAQUE, 350 MG, 150ML 150ML was us ed for 15:41:18 injections. Recorded Pressure: LV, Ao, VX=567, Condition=Condition 1 15:41:22 (Left Ventricle) LV 97/17/31, (Aorta) Ao 98/67/81 15:41:23 GE=841 bpm, NIBP=93/68 mmhg, SpO2=91.0 %, Resp=26 B/min, Pain=0, Earl=10, Marino=2 15:42:24 The RCA was injected and visualized at various angles. OMNIPAQUE, 350 MG, 150ML 150ML used . 15:42:54 The SVG-OM was injected and visualized at various angles. OMNIPAQUE, 350 MG, 150ML 150ML us ed. 15:45:46 The Gft. Stump 1 was injected and visualized at various angles. OMNIPAQUE, 350 MG, 150ML 15 0ML used. 15:46:11 The Gft. Stump 2 was injected and visualized at various angles. OMNIPAQUE, 350 MG, 150ML 15 0ML used. 15:46:22 MH=485 bpm, NIBP=89/68 mmhg, SpO2=88.0 %, Resp=26 B/min, Pain=0, Earl=10, Marino=2 15:48:49 The SIMS Graft was injected and visualized at various angles. OMNIPAQUE, 350 MG, 150ML 150M L used. Recorded Pressure: Ao, ZW=482, Condition=Condition 1 15:49:03 (Aorta) Ao 81/60/70 15:49:37 Catheter was removed After removing the current catheter a AL 1 INFINITI CATHETER FR 5 was advanced over a WIRE, 3MM J .035 180CM 15:51:09 180CM. 15:51:25 HR=95 bpm, NIBP=83/62 mmhg, SpO2=94.0 %, Resp=25 B/min, Pain=0, Earl=10, Marino=2 15:52:21 The SVG-OM was injected and visualized at various angles. OMNIPAQUE, 350 MG, 150ML 150ML us ed. After removing the current catheter a JL 4.0 INFINITI CATHETER FR 5 was advanced over a WIRE, 3 MMJ .035 180CM 15:53:43 180CM. 15:54:59 Catheter was removed A SHEATH, FR6 TERUMO (10CM) FR 6 was exchanged in the Fem Art (right). This was necessary in or verna to 15:55:19 accomodate a larger catheter. 15:56:22 AJ=295 bpm, NIBP=95/62 mmhg, SpO2=97.0 %, Resp=17 B/min, Pain=0, Earl=10, Marino=2 A JR 4.0 GUIDE CATHETER FR 6 was advanced over a wire. OMNIPAQUE, 350 MG, 150ML 150ML was used for 15:58:00 injections. 15:58:06 5600 units HEPARIN given in lab by Luca Jaffe, RN via Peripheral IV. 16:01:28 RK=362 bpm, NIBP=89/64 mmhg, SpO2=95.0 %, Resp=27 B/min, Pain=0, Earl=10, Marino=2 16:01:41 A WIRE, BALANCE MIDDLEWEIGHT 190CM 190CM was inserted via Fem Art (right). 16:02:11 Interventional wire has crossed the lesion 16:05:00 Activated Clotting Time Drawn A STENT, 3.5 12MM VINOD 3.5 12MM was advanced through a JR 4.0 GUIDE CATHETER FR 6 over a WIRE, BALANCE 16:05:06 MIDDLEWEIGHT 190CM 190CM. 16:06:27 XX=765 bpm, NIBP=96/67 mmhg, SpO2=97.0 %, Resp=21 B/min, Pain=0, Earl=10, Marino=2 A STENT, 3.5 12MM VINOD 3.5 12MM was deployed using a 30 ALMA INDEFLATOR at 14 atmospheres for 30 seconds in 16:09:41 the SVG-DIAG. 16:11:10 ACT (Normal Range 90-180) = 321 16:11:26 EZ=241 bpm, NIBP=97/70 mmhg, SpO2=95.0 %, Resp=24 B/min, Pain=0, Earl=10, Marino=2 16:11:50 Delivery device removed A STENT, 3.5 18MM VINOD 3.5 18MM was advanced through a JR 4.0 GUIDE CATHETER FR 6 over a WIRE, BALANCE 16:13:34 MIDDLEWEIGHT 190CM 190CM. 16:16:01 Stent not deployed. Stent removed and intact. 16:16:27 CO=300 bpm, NIBP=97/67 mmhg, SpO2=95.0 %, Resp=23 B/min, Pain=0, Earl=10, Marino=2 A STENT, 3.5 22MM VINOD 3.5 22MM was advanced through a JR 4.0 GUIDE CATHETER FR 6 over a WIRE, BALANCE 16:16:43 MIDDLEWEIGHT 190CM 190CM. A STENT, 3.5 22MM VINOD 3.5 22MM was deployed using a 30 ALMA INDEFLATOR at 14 atmospheres for 18 seconds in 16:17:36 the SVG-DIAG. 16:18:40 The SVG-DIAG was injected and visualized at various angles. OMNIPAQUE, 350 MG, 150ML 150ML used. A BALLOON, 3.5 X 15MM NC EUPHORA 15MM was inserted over WIRE, BALANCE MIDDLEWEIGHT 190CM 190CM via 16:20:45 the SVG-DIAG. 16:21:28 JV=273 bpm, NIBP=90/63 mmhg, SpO2=94.0 %, Resp=25 B/min A BALLOON, 3.5 X 15MM NC EUPHORA 15MM over a WIRE, BALANCE MIDDLEWEIGHT 190CM 190CM in the SVG- DIAG 16:21:28 was inflated using a 30 ALMA INDEFLATOR at 16 alma for 10 sec. A BALLOON, 3.5 X 15MM NC EUPHORA 15MM over a WIRE, BALANCE MIDDLEWEIGHT 190CM 190CM in the SVG- DIAG 16:23:44 was inflated using a 30 ALMA INDEFLATOR at 16 alma for 10 sec. 16:24:10 Balloon Removed. 16:24:32 The SVG-DIAG was injected and visualized at various angles. OMNIPAQUE, 350 MG, 150ML 150ML used. 16:26:25 BV=303 bpm, NIBP=90/71 mmhg, SpO2=97.0 %, Resp=18 B/min, Pain=0, Earl=10, Marino=2 16:26:34 Balloon Removed. 16:28:31 Wire removed 16:28:34 Catheter was removed Assessment: Final Case, UX=043 BPM, Rhythm=irreg, NIBP=90/71 mmhg, Chest Pain=0, Edema=None, Color=Normal, Skin = Warm Right Pulses: Miki Ped=1, Femoral=2 Left Pulses: Miki Ped=1, Femoral=2 16:28:38 Lower Right Extremities: Color=Normal Lower Left Extremities: Color=Normal Neurological: State=Alert, Ox3, DEVRIES Respiration: Resp=28 B/min, SpO2=96 % 16:29:09 Catheter(s) removed without difficulty 16:29:10 In the Fem Art (right) the SHEATH, FR6 TERUMO (10CM) FR [address] by Azul Paris , (R) . 16:31:26 PQ=054 bpm, NIBP=90/68 mmhg, SpO2=96.0 %, Resp=32 B/min, Pain=0, Earl=10, Marino=2 16:32:34 Case End (Physician broke scrub) 16:34:23 600 mg PLAVIX given in lab by Luca Jaffe RN via Oral. 16:35:06 lakeisha called for spoke to Jori DEL ANGEL 16:35:58 Sterile dressing applied to site 16:35:58 No case complications noted. 16:35:59 Cine recording checked. 16:36:01 Bedside Report will be given. 16:36:02 Implantable Device card placed in patient's chart. 16:36:06 A Left Heart Cath was performed. 16:36:11 Clinical correlaton risk stratification. 16:36:29 FL=813 bpm, VRYB=727/57 mmhg, SpO2=97.0 %, Resp=21 B/min, Pain=0, Earl=10, Marino=2 16:36:46 ACT (Normal Range 90-180) = 231 16:41:30 WF=858 bpm, IOAJ=976/73 mmhg, SpO2=96.0 %, Resp=16 B/min, Pain=0, Earl=10, Marino=2 16:46:33 QG=049 bpm, JXTP=963/67 mmhg, SpO2=96.0 %, Resp=14 B/min, Pain=0, Earl=10, Marino=2 End Study - Contrast Media Used In Study Contrast Total Opened (mL) Total Used (mL) Total Wasted (mL) Omnipaque 135 135 0 End Study - Maximum Contrast Load Max Contrast Load (mL) 266.7 End Study - Radiation Exposure Fluoro Time (minutes) 12.9 End Study - Patient Disposition Complications Transferred To Interventional Outcome No Regular Bed successful
[2018-03-31] MEDS ORDERED: Digoxin Inj 500 MCG/2 ML Ampul IV.PUSH ONE (17:48)
[2018-03-31 21:51] LABS: Calcium 8.2 mg/dL (8.5-10.1); Carbon Dioxide 26.5 meq/L (21.0-32.0); Potassium 4.2 meq/L (3.5-5.1)
--- NOTE | 2018-03-31 22:59 | P.PNCA ---
Subjective Interval history: s/p PCI of SVG to Diagonal with 2 COLETTE Afib with RVR No chest pain Medications and Allergies Active Medications: Active Medications Acetaminophen (Tylenol) 650 mg PO Q4H PRN PRN Reason: Temp > 100.4 Al Hydroxide/Mg Hydroxide (Milk Of Chuy Liq) 30 ml PO Q12H PRN PRN Reason: Mild Constipation Aspirin (Aspirin Chew) 81 mg PO DAILY [facility] Last Admin: 03/31/18 09:07 Dose: 81 mg Atorvastatin Calcium (Lipitor) 80 mg PO DAILY [facility] Last Admin: 03/31/18 09:07 Dose: 80 mg Clopidogrel Bisulfate (Plavix) 75 mg PO DAILY [facility] Digoxin (Lanoxin Inj) 250 mcg IV.PUSH Q6HR [facility] Stop: 04/01/18 12:01 Finasteride (Proscar) 5 mg PO DAILY [facility] Last Admin: 03/31/18 09:07 Dose: 5 mg Ondansetron HCl (Zofran Inj) 4 mg IV.PUSH Q6H PRN PRN Reason: NAUSEA OR VOMITING Last Admin: 03/30/18 04:09 Dose: 4 mg Sodium Chloride (Ns Flush) 2 ml IV.FLUSH UNSCH PRN PRN Reason: FLUSH AFTER USING IV ACCESS Sodium Chloride (Ns Flush) 2 ml IV.FLUSH BID ANIYAH Sodium Chloride (Ns Flush) 2 ml IV.FLUSH PRN PRN PRN Reason: FLUSH AFTER USING IV ACCESS Allergies Allergy/AdvReac Type Severity Reaction Status Date / Time diltiazem Allergy Severe Verified 09/14/17 09:46 amiodarone Allergy Unknown Verified 09/14/17 09:46 Home Medications Medication Instructions Recorded Confirmed Type apixaban [Eliquis] 5 mg PO BID 03/29/18 03/29/18 History atorvastatin 80 mg PO DAILY 03/29/18 03/29/18 History clopidogrel [Plavix] 75 mg PO DAILY 03/29/18 03/29/18 History finasteride 5 mg PO DAILY 03/29/18 03/29/18 History metolazone 5 mg PO DAILY 03/29/18 03/29/18 History sacubitril-valsartan [Entresto] 1 tab PO BID 03/29/18 03/29/18 History spironolactone 25 mg PO DAILY 03/29/18 03/29/18 History tamsulosin 0.4 mg PO DAILY 03/29/18 03/29/18 History torsemide 20 mg PO DAILY 03/29/18 03/29/18 History Physical Exam Vital signs: Vital Signs 03/30/18 23:00 03/30/18 23:46 03/31/18 00:00 Temperature 97.5 F L Pulse Rate 96 H 96 H 98 H Respiratory Rate 18 Blood Pressure 87/57 L Pulse Oximetry 99 03/31/18 01:00 03/31/18 02:00 03/31/18 03:00 Temperature Pulse Rate 94 H 94 H 103 H Respiratory Rate Blood Pressure Pulse Oximetry 03/31/18 03:55 03/31/18 04:00 03/31/18 05:00 Temperature 97.4 F L Pulse Rate 97 H 98 H 90 Respiratory Rate 16 Blood Pressure 100/56 L Pulse Oximetry 100 03/31/18 06:00 03/31/18 07:00 03/31/18 08:00 Temperature 97.9 F Pulse Rate 95 H 95 H 115 H Respiratory Rate 16 Blood Pressure 95/68 L Pulse Oximetry 99 03/31/18 09:00 03/31/18 10:00 03/31/18 11:00 Temperature Pulse Rate 136 H 102 H 102 H Respiratory Rate Blood Pressure Pulse Oximetry 03/31/18 12:00 03/31/18 13:00 03/31/18 15:00 Temperature 98.4 F Pulse Rate 146 H 142 H 137 H Respiratory Rate 18 Blood Pressure 87/58 L Pulse Oximetry 98 03/31/18 16:00 03/31/18 17:00 03/31/18 18:00 Temperature 98.4 F Pulse Rate 162 H 152 H 149 H Respiratory Rate 18 Blood Pressure 110/78 98/62 L Pulse Oximetry 98 03/31/18 19:00 03/31/18 20:00 03/31/18 21:00 Temperature 97.5 F L Pulse Rate 169 H 150 H 115 H Respiratory Rate 14 Blood Pressure 91/63 L Pulse Oximetry 99 03/31/18 22:00 Temperature Pulse Rate 106 H Respiratory Rate Blood Pressure Pulse Oximetry Intake & Output 03/31/18 03/31/18 04/01/18 06:59 18:59 06:59 Intake Total 490 / 490 485 / 485 Output Total 1275 / 1275 1000 / 1000 Balance -785 / -785 -515 / -515 Weight 80 kg Intake: IV 250 / 250 5 / 5 Heparin/NS PF Inj 1,000 ML @ 0 5 / 5 mls/hr .ROUTE .[facility] ONE Rx#: [id number] Heparin/D5W 25,000 U/250 mL 25, 250 / 250 000 unit In 250 ml @ Per Protocol IV.CONT TITRATE PRN Rx #:[id number] Oral 240 / 240 480 / 480 Output: Urine 1275 / 1275 1000 / 1000 Other: # Bowel Movements 0 Narrative: GENERAL: NAD, AAOx3 SKIN: Warm and dry. HEAD: Atraumatic. Normocephalic. EYES: Pupils equal and round. No scleral icterus. No injection or drainage. ENT: No nasal bleeding or discharge. Mucous membranes pink and moist. NECK: Trachea midline. No JVD. CARDIOVASCULAR: Irregularly irregular, tachycardic RESPIRATORY: No accessory muscle use. Clear to auscultation. Breath sounds equal bilaterally. GASTROINTESTINAL: Abdomen soft, non-tender, nondistended. Hepatic and splenic margins not palpable. MUSCULOSKELETAL: Extremities without clubbing, cyanosis, or edema. No obvious deformities. NEUROLOGICAL: Awake and alert. No obvious cranial nerve deficits. Motor grossly within normal limits. Five out of 5 muscle strength in the arms and legs. Normal speech. PSYCHIATRIC: Appropriate mood and affect; insight and judgment normal. Results 03/31/18 03:42 03/31/18 21:05 Cardiac Enzymes 03/29/18 Range/Units 23:29 Troponin I 0.03 (0.02-0.05) ng/mL Coagulation 03/29/18 03/30/18 03/30/18 Range/Units 23:29 05:46 10:22 APTT 43.9 H D 41.5 H 40.8 H (23.4-31.7) sec 03/31/18 Range/Units 04:42 APTT 41.8 H (23.4-31.7) sec CBC 03/30/18 03/31/18 Range/Units 05:46 03:42 WBC 7.2 6.9 (4.0-11.0) th/mm3 RBC 4.16 L 4.13 L (4.50-5.90) mil/mm3 Hgb 13.8 13.9 (13.0-17.0) gm/dL Hct 40.7 39.4 (39.0-51.0) % Plt Count 151 144 L (150-450) th/mm3 Comprehensive Metabolic Panel 03/30/18 03/31/18 Range/Units 11:35 21:05 Sodium 135 L 133 L (136-145) meq/L Potassium 4.5 4.2 (3.5-5.1) meq/L Chloride 102 98 (98-107) meq/L Carbon Dioxide 24.4 26.5 (21.0-32.0) meq/L BUN 34 H 30 H (7-18) mg/dL Creatinine 1.57 H 1.66 H (0.60-1.30) mg/dL Calcium 8.2 L 8.2 L (8.5-10.1) mg/dL Intake and Output 03/31/18 03/31/18 03/31/18 06:59 14:59 22:59 Intake Total 240 / 240 485 / 485 Output Total 1275 / 1275 1000 / 1000 Balance -1035 / -1035 -515 / -515 Intake: IV 5 / 5 Heparin/NS PF Inj 1,000 ML @ 0 5 / 5 mls/hr .ROUTE [facility] Rx#: [id number] Oral 240 / 240 480 / 480 Output: Urine 1275 / 1275 1000 / 1000 Other: # Bowel Movements 0 Weight 80 kg Assessment and Plan - Assessment (1) Uncontrolled atrial fibrillation Code(s): I48.91 - Unspecified atrial fibrillation Status: Acute (2) CAD (coronary artery disease) Code(s): I25.10 - Atherosclerotic heart disease of [place] coronary artery without angina pectoris Status: Acute (3) Hx of CABG Code(s): Z95.1 - Presence of aortocoronary bypass graft Status: Acute (4) Angina pectoris, unstable Code(s): I20.0 - Unstable angina Status: Acute - Plan 1) [place]/CAD [place] anginal score of 3, unable to add anti-anginals due to chronic hypotension s/p DESx2 to SVG to Diagonal ASA/Plavix/Statin No BB due to hypotension No NATE-I due to hypotension, MELISSA Hx of CABG x5 (3/5 grafts patent) Residual RCA disease which supplies an RV branch, con't medical management 2) AFib with uncontrolled ventricular rate Unable to add BB/CCB due to hypotension Will load with Digoxin and place on daily digoxin Restart Eliquis if no problems overnight 3) ICM EF 10-15% 4) CKD
[2018-03-31] MEDS: Digoxin Inj 500 MCG/2 ML Ampul IV.PUSH SCH (23:34)
[2018-04-01] MEDS: Digoxin Inj 500 MCG/2 ML Ampul IV.PUSH SCH ×2 (05:54→14:32)
[2018-04-01 07:21] LABS: Baso % (Auto) 0.6 % (0.0-2.0); Eos # (Auto) 0.2 th/mm3 (0.0-0.4); Eos % (Auto) 2.5 % (0.0-4.0); Hematocrit 38.1 % (39.0-51.0); Hemoglobin 13.3 gm/dL (13.0-17.0); Lymph % (Auto) 14.7 % (9.0-44.0); Mean Corpuscular HGB Conc 34.9 % (32.0-36.0); Mean Corpuscular Hemoglobin 33.5 pg (27.0-34.0); Mean Corpuscular Volume 95.8 fL (80.0-100.0); Mean Platelet Volume 8.9 fL (7.0-11.0); Mono # (Auto) 0.9 th/mm3 (0.0-0.9); Mono % (Auto) 13.2 % (0.0-8.0); Neut # (Auto) 4.5 th/mm3 (1.8-7.7); Platelet Count 146 th/mm3 (150-450); Red Blood Count 3.98 mil/mm3 (4.50-5.90); Red Cell Distribution Width 14.9 % (11.6-17.2); White Blood Count 6.5 th/mm3 (4.0-11.0)
[2018-04-01 07:48] VITALS: RESP 15
[2018-04-01 08:12] LABS: Calcium 8.1 mg/dL (8.5-10.1); Carbon Dioxide 27.5 meq/L (21.0-32.0); Potassium 4.2 meq/L (3.5-5.1)
[2018-04-01] MEDS: Finasteride 5 MG Tablet PO SCH (08:14)
--- NOTE | 2018-04-01 09:26 | MA ---
cc: Cholo Osei DO DATE: 03/31/2018 PROCEDURES: Left heart catheterization, coronary angiogram, bypass angiogram, moderate sedation, 60 minutes; [place] drug-eluting stent x2 (3.5 x 22, mid, 3.5 x 12 distal) to the saphenous vein graft to diagonal. PREPROCEDURE DIAGNOSES: Unstable angina (Citizen [place] anginal class III) with an inability to place on antianginals due to chronic hypotension, known coronary artery disease, history of coronary artery bypass graft x5. POSTPROCEDURE DIAGNOSES: Unstable angina, status post [place] drug-eluting stent x2 (3.5 x 22, mid 3.5 x 12 distal) to saphenous vein graft to diagonal, history of coronary artery bypass graft x5 (3/5 grafts patent). MEDICATIONS: Versed 0.5 mg, fentanyl 25 mcg, heparin 5600 units, Plavix 600 mg. CONTRAST USED: 135 mL. FLUOROSCOPY: 12.9 minutes. MODERATE SEDATION: 60 minutes. FRAILTY SCORE 5. ESTIMATED BLOOD LOSS: 10 mL. SURGEON: Cholo Osei DO. INDICATIONS FOR PROCEDURE: Gt Abrams is a pleasant 68-year-old male, who sees my partner, Dr. Myrick, in the office and due to continued chest pain and shortness of breath with minimal activity, he presented to the emergency room. He has been unable to be placed on any antianginals, due to his chronic hypotension with blood pressures running 90/50. Because of his continued chest pain, he was recommended cardiac catheterization. Risks, benefits, and alternatives were explained to him, and he consented to such. PROCEDURE IN DETAIL: He was brought to the lab and prepped in the usual sterile fashion. The right femoral artery was accessed using a modified Seldinger technique and placement of a 5-[place] sheath. This was easily aspirated and flushed. A JR4 was advanced over a J-wire to the ascending aorta, and across the aortic valve for measurement of left ventricular pressure. This was pulled back across the aortic valve showing no significant gradient of aortic stenosis. JR4 was used for selective angiography of the [place] right coronary, the saphenous vein graft to diagonal, the saphenous vein graft to the RCA, the saphenous vein graft to the second obtuse marginal, and the SIMS to LAD. This was exchanged out for a JL4, which was used for selective angiography of the left coronary artery system. This was exchanged out for an AL1, which was used for angiography of the saphenous vein graft to the first obtuse marginal. Due to the significance of disease in the saphenous vein graft to the diagonal, I felt that intervention was necessary. Please see notes below for intervention. FINDINGS: Left main: Normal-sized vessel with adequate reflux. It bifurcates into LAD and circumflex. The LAD has diffuse 30% disease throughout the proximal portion before 100% occlusion in the mid portion. Left circumflex: Moderate size vessel with 70% to 80% disease in the proximal portion. Mid portion occludes with 2 obtuse marginals, also being occluded. RCA: Moderate size vessel with 95% disease in the proximal portion before a small area in the mid portion, which has 100% occlusion. It gives off 1 RV branch distal to this. SIMS to LAD: Patent and supplies both antegrade and retrograde to the LAD, as well as collaterals to the distal RCA. Saphenous vein graft to diagonal: Patent with tandem 80% lesions in the mid portion with a 70% lesion in the distal portion. Saphenous vein graft to RCA: Occluded. Saphenous vein graft to second obtuse marginal: Occluded. Saphenous vein graft to first obtuse marginal: Patent with 3 stents noted. LVEDP: 21. INTERVENTION: Due to the significance of disease in the saphenous vein graft and the diagonal, as well as the patient's unstable angina, I felt that intervention was necessary. The 5-[place] sheath was exchanged for a 6-[place] sheath. The patient was given heparin as an anticoagulant. A JR4 guide was engaged into the saphenous vein graft. A BMW wire was advanced into the distal portion. Unfortunately, due to the areas of disease, a filter could not be placed. An [place] drug-eluting stent (3.5 x 12) was placed over the distal lesion and inflated. An [place] drug-eluting stent (3.5 x 22) was placed over the mid lesion, and inflated. Angiogram shows a possibility that the mid stent was not fully deployed, and so a Noncompliant balloon (3.5 x 15) was used to further post-dilate the mid stent. Final angiogram shows well-opposed stents with no perforations or dissections. Sheath was sutured in place with a plan to remove once ACT values were appropriate. 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 INTERVENTIONAL DATA: Lesion 1: Mid saphenous vein graft to diagonal. Lesion length 20, pre-HARVEY 2, post-HARVEY 3, post-stenosis 0. Lesion 2: Distal saphenous vein graft to diagonal. Lesion length 10, pre-HARVEY 2, post-HARVEY 3, post-stenosis 0. IMPRESSION: 1. Unstable angina ([place]izen [place] anginal class III) with an inability to be placed on antianginals, due to chronic hypotension. 2. Coronary artery disease with a history of coronary artery bypass graft x5 (3/5 grafts patent). 3. Status post [place] drug-eluting stent x2 (3.5 x 22 mid, 3.5 x 12 distal) to the saphenous vein graft to diagonal. 4. Atrial fibrillation with uncontrolled rate. RECOMMENDATIONS: 1. Mr. Abrams underwent PCI as above, and will be placed on aspirin and Plavix therapy. 2. He will continue on statin therapy. 3. He is unable to be placed on beta benjamin or NATE inhibitor therapy, due to his chronic hypotension. 4. If stable in the morning, we will restart his Eliquis, and he will most likely go home on aspirin, Plavix, and Eliquis with a plan to stop aspirin in 30 days. 5. His atrial fibrillation has been uncontrolled over the past month. We are unable to use beta benjamin or calcium channel blockers. He has an ALLERGY TO AMIODARONE. He will be loaded with digoxin today, and less likely need to go home on digoxin therapy. 6. Further recommendations will be made based on the hospital course. Thank you for allowing me to see Gt Abrams. If there are any questions, please do not hesitate to call. DO MARK Chua/evgeny , 01:27 AM , 01:41 AM
[2018-04-01] MEDS ORDERED: Digoxin 250 MCG Tablet PO ONE (14:30)
[2018-04-01 14:49] VITALS: BP 90/53
[2018-04-01 15:23] VITALS: TEMP 97.5
[2018-04-01 18:06] VITALS: PULSE 88
[2018-04-01 19:58] VITALS: O2SAT 98
--- NOTE | 2018-04-01 22:42 | P.PNCA ---
Subjective Interval history: No chest pain Blood pressure 90/60, which is his baseline Heart rates controlled after Digoxin load Medications and Allergies Allergies Allergy/AdvReac Type Severity Reaction Status Date / Time diltiazem Allergy Severe Verified 09/14/17 09:46 amiodarone Allergy Unknown Verified 09/14/17 09:46 Home Medications Medication Instructions Recorded Confirmed Type apixaban [Eliquis] 5 mg PO BID 03/29/18 03/29/18 History atorvastatin 80 mg PO DAILY 03/29/18 03/29/18 History clopidogrel [Plavix] 75 mg PO DAILY 03/29/18 03/29/18 History finasteride 5 mg PO DAILY 03/29/18 03/29/18 History tamsulosin 0.4 mg PO DAILY 03/29/18 03/29/18 History Physical Exam Vital signs: Vital Signs 03/31/18 23:00 04/01/18 00:00 04/01/18 01:00 Temperature 97.9 F Pulse Rate 96 H 94 H 82 Respiratory Rate 16 Blood Pressure 86/60 L Pulse Oximetry 97 04/01/18 02:00 04/01/18 03:00 04/01/18 04:00 Temperature 97.6 F Pulse Rate 92 H 113 H 81 Respiratory Rate 14 Blood Pressure 99/67 L Pulse Oximetry 98 04/01/18 05:00 04/01/18 06:00 04/01/18 07:00 Temperature Pulse Rate 78 87 97 H Respiratory Rate Blood Pressure Pulse Oximetry 04/01/18 07:48 04/01/18 08:00 04/01/18 08:08 Temperature 96.8 F L Pulse Rate 81 74 Respiratory Rate 15 Blood Pressure 88/63 L Pulse Oximetry 99 99 04/01/18 09:00 04/01/18 10:00 04/01/18 10:31 Temperature Pulse Rate 82 84 Respiratory Rate Blood Pressure Pulse Oximetry 97 04/01/18 11:00 04/01/18 11:26 04/01/18 12:00 Temperature 97.4 F L Pulse Rate 90 87 88 Respiratory Rate 15 Blood Pressure 86/52 L Pulse Oximetry 96 04/01/18 13:00 04/01/18 14:00 04/01/18 14:47 Temperature 97.3 F L Pulse Rate 84 88 86 Respiratory Rate 15 Blood Pressure 90/53 L Pulse Oximetry 96 04/01/18 15:00 04/01/18 15:23 04/01/18 16:00 Temperature 97.5 F L Pulse Rate 90 93 H Respiratory Rate Blood Pressure Pulse Oximetry 04/01/18 17:00 04/01/18 18:00 04/01/18 19:58 Temperature Pulse Rate 90 88 Respiratory Rate Blood Pressure Pulse Oximetry 98 Intake & Output 04/01/18 04/01/18 04/02/18 06:59 18:59 06:59 Intake Total 240 / 240 480 / 480 Output Total 750 / 750 800 / 800 Balance -510 / -510 -320 / -320 Weight 81.2 kg Intake: Oral 240 / 240 480 / 480 Output: Urine 750 / 750 800 / 800 Other: Date of Last Bowel Movement 03/31/18 Narrative: GENERAL: NAD, AAOx3 SKIN: Warm and dry. HEAD: Atraumatic. Normocephalic. EYES: Pupils equal and round. No scleral icterus. No injection or drainage. ENT: No nasal bleeding or discharge. Mucous membranes pink and moist. NECK: Trachea midline. No JVD. CARDIOVASCULAR: Irregularly irregular RESPIRATORY: No accessory muscle use. Clear to auscultation. Breath sounds equal bilaterally. GASTROINTESTINAL: Abdomen soft, non-tender, nondistended. Hepatic and splenic margins not palpable. MUSCULOSKELETAL: Extremities without clubbing, cyanosis, or edema. No obvious deformities. NEUROLOGICAL: Awake and alert. No obvious cranial nerve deficits. Motor grossly within normal limits. Five out of 5 muscle strength in the arms and legs. Normal speech. PSYCHIATRIC: Appropriate mood and affect; insight and judgment normal. Results 04/01/18 05:37 04/01/18 05:37 Coagulation 03/31/18 04/01/18 Range/Units 04:42 05:37 APTT 41.8 H 28.7 D (23.4-31.7) sec CBC 03/31/18 04/01/18 Range/Units 03:42 05:37 WBC 6.9 6.5 (4.0-11.0) th/mm3 RBC 4.13 L 3.98 L (4.50-5.90) mil/mm3 Hgb 13.9 13.3 (13.0-17.0) gm/dL Hct 39.4 38.1 L (39.0-51.0) % Plt Count 144 L 146 L (150-450) th/mm3 Neut # (Auto) 4.5 (1.8-7.7) th/mm3 Lymph # (Auto) 1.0 (1.0-4.8) th/mm3 Desha # (Auto) 0.9 (0.0-0.9) th/mm3 Eos # (Auto) 0.2 (0.0-0.4) th/mm3 Baso # (Auto) 0.0 (0.0-0.2) th/mm3 Comprehensive Metabolic Panel 03/31/18 04/01/18 Range/Units 21:05 05:37 Sodium 133 L 135 L (136-145) meq/L Potassium 4.2 4.2 (3.5-5.1) meq/L Chloride 98 97 L (98-107) meq/L Carbon Dioxide 26.5 27.5 (21.0-32.0) meq/L BUN 30 H 31 H (7-18) mg/dL Creatinine 1.66 H 1.53 H (0.60-1.30) mg/dL Calcium 8.2 L 8.1 L (8.5-10.1) mg/dL Intake and Output 04/01/18 04/01/18 04/01/18 06:59 14:59 22:59 Intake Total 240 / 240 480 / 480 Output Total 750 / 750 800 / 800 Balance -510 / -510 -320 / -320 Intake: Oral 240 / 240 480 / 480 Output: Urine 750 / 750 800 / 800 Other: Date of Last Bowel Movement 03/31/18 Weight 81.2 kg Assessment and Plan - Assessment (1) Uncontrolled atrial fibrillation Code(s): I48.91 - Unspecified atrial fibrillation Status: Acute (2) CAD (coronary artery disease) Code(s): I25.10 - Atherosclerotic heart disease of [place] coronary artery without angina pectoris Status: Acute (3) Hx of CABG Code(s): Z95.1 - Presence of aortocoronary bypass graft Status: Acute (4) Angina pectoris, unstable Code(s): I20.0 - Unstable angina Status: Acute - Plan 1) [place]/CAD [place] anginal score of 3, unable to add anti-anginals due to chronic hypotension s/p DESx2 to SVG to Diagonal ASA/Plavix/Statin No BB due to hypotension No NATE-I due to hypotension, MELISSA Hx of CABG x5 (3/5 grafts patent) Residual RCA disease which supplies an RV branch, con't medical management 2) AFib with uncontrolled ventricular rate Unable to add BB/CCB due to hypotension Loaded with Digoxin, heart rates now controlled Restart Eliquis if no problems overnight 3) ICM EF 10-15% 4) CKD 5) Cardiovascularly stable for discharge Con't on Digoxin 250mcg daily Check a BMP and Dig level in 1-2 weeks Eliquis/Plavix for AFib/PCI Will go back to his usual meds He checks his blood pressure before taking meds, if too low he won't take
--- NOTE | 2018-04-02 08:37 | P.DS ---
Date of admission: 03/29/18 16:14 Primary care physician: Collin Menjivar MD Brief History from admission: 68-year-old male with a history of coronary artery disease, CABG, previous stents, atrial fibrillation, who presents to the ER complaining of chest pain that occurs during ambulation. Patient has a history of CABG in 2008 and has remained relatively symptom-free since that time up until August 2017 when he started developing chest pain on long walks of approximately 1/2 mile. The symptoms gradually worsened over time but became markedly worse over the last month. He states that currently he is unable to ambulate more than 20 feet without onset of chest pain. Approximately 6 weeks ago he followed up with Dr. Ward who did an angiogram but was unable to stent an area of reocclusion. Dr. Ward explained that Dr. Osei his colleague might be able to use some newer techniques to address the problem. He had an appointment scheduled but was unable to follow-up due to increasing frequency of these chest pain episodes. Today he decided to come into the ER and as luck would have it Dr. Osei may be available to him during this stay. Patient denies any nausea vomiting or diarrhea, he does have some abdominal pain as referred pain associated with the chest pain. He denies any upper respiratory symptoms including cough, fever, phlegm changes. DS: Medications - Discharge Medications Prescriptions: digoxin 0.25 mg PO DAILY #30 tab DS: Summary Hospital Course: Patient was admitted, underwent cardiac catheterization with drug-eluting stent x 2 SVG to diagonal. Remained hypotensive but this was his baseline. Patient was cleared to resume his home anti-hypertensives so long as his blood pressure was checked to be greater than 90/60, including Entresto per cardiology. Was loaded with digoxin by cardiology patient was informed to have his levels checked probably upon discharge. Patient has met maximal benefit from hospitalization is clinically stable for discharge. - Time Spent with Patient Total time spent providing and/or coordinating discharge services: Less than 30 minutes - Quality: VTE Deep Vein Thrombosis/Pulmonary Embolism Present on Admission: No Exam Vital signs: Vital Signs 04/01/18 09:00 04/01/18 10:00 04/01/18 10:31 Temperature Pulse Rate 82 84 Respiratory Rate Blood Pressure Pulse Oximetry 97 04/01/18 11:00 04/01/18 11:26 04/01/18 12:00 Temperature 97.4 F L Pulse Rate 90 87 88 Respiratory Rate 15 Blood Pressure 86/52 L Pulse Oximetry 96 04/01/18 13:00 04/01/18 14:00 04/01/18 14:47 Temperature 97.3 F L Pulse Rate 84 88 86 Respiratory Rate 15 Blood Pressure 90/53 L Pulse Oximetry 96 04/01/18 15:00 04/01/18 15:23 04/01/18 16:00 Temperature 97.5 F L Pulse Rate 90 93 H Respiratory Rate Blood Pressure Pulse Oximetry 04/01/18 17:00 04/01/18 18:00 04/01/18 19:58 Temperature Pulse Rate 90 88 Respiratory Rate Blood Pressure Pulse Oximetry 98 Intake & Output 04/01/18 04/02/18 04/02/18 18:59 06:59 18:59 Intake Total 480 / 480 Output Total 800 / 800 Balance -320 / -320 Intake: Oral 480 / 480 Output: Urine 800 / 800 Other: Date of Last Bowel Movement 03/31/18 Narrative: Heart sounds regular rate rhythm, no murmurs Unlabored breathing No lower extremity edema Results Procedures completed during hospitalization: s/p DESx2 to SVG to Diagonal - Impressions ITS Impressions Chest X-Ray 03/29/18 12:01 CONCLUSION: Stable chest without evidence of acute process. Cardiomegaly status post CABG. Stable ICD. Discharge Plan - Discharge Disposition Patient Disposition: Discharge Home - Discharge Condition Condition: Stable - Discharge Order Discharge Orders: Discharge Order (Routine); Ordered 04/01/18 Ordered By: Sai Kaplan - Physicians Team Primary Care Provider: Collin Menjivar Attending Provider: Sai Kaplan Other Providers: Cholo Osei DO
== END 2018-04-01 20:21 | disposition home or self-care (01) ==
LOC: NEPC 11:28 → HSDI 11:28 → HCIS 19:25
PROVIDERS: ADMIT Hospitalist; ATTEND Hospitalist

== ENCOUNTER 2018-04-09 13:28 | Inpatient (IN) ==
[2018-04-09 14:13] LABS: Baso # (Auto) 0.1 th/mm3 (0.0-0.2); Baso % (Auto) 1.1 % (0.0-2.0); Eos # (Auto) 0.1 th/mm3 (0.0-0.4); Eos % (Auto) 1.6 % (0.0-4.0); Hematocrit 43.1 % (39.0-51.0); Hemoglobin 15.3 gm/dL (13.0-17.0); Lymph # (Auto) 0.6 th/mm3 (1.0-4.8); Lymph % (Auto) 9.6 % (9.0-44.0); Mean Corpuscular HGB Conc 35.6 % (32.0-36.0); Mean Corpuscular Hemoglobin 34.2 pg (27.0-34.0); Mean Corpuscular Volume 96.3 fL (80.0-100.0); Mean Platelet Volume 7.9 fL (7.0-11.0); Mono # (Auto) 0.5 th/mm3 (0.0-0.9); Mono % (Auto) 7.9 % (0.0-8.0); Neut # (Auto) 5.1 th/mm3 (1.8-7.7); Neut % (Auto) 79.8 % (16.0-70.0); Platelet Count 181 th/mm3 (150-450); Red Blood Count 4.48 mil/mm3 (4.50-5.90); Red Cell Distribution Width 14.6 % (11.6-17.2); White Blood Count 6.4 th/mm3 (4.0-11.0)
[2018-04-09 14:24] LABS: Activated Partial Thrombo Time 29.6 sec (23.4-31.7); INR 1.1 Ratio; Prothrombin Time 11.4 sec (9.8-11.6)
[2018-04-09 14:32] LABS: Alanine Aminotransferase 25 U/L (12-78); Albumin 4.1 g/dL (3.4-5.0); Anion Gap 7 meq/L (5-15); Aspartate Aminotransferase 17 U/L (15-37); Blood Urea Nitrogen 21 mg/dL (7-18); Calcium 8.9 mg/dL (8.5-10.1); Carbon Dioxide 26.7 meq/L (21.0-32.0); Chloride 99 meq/L (98-107); Glomerular Filtration Rate 46 mL/min (>89); Glucose,Random 186 mg/dL (74-106); Potassium 4.8 meq/L (3.5-5.1); Sodium 133 meq/L (136-145)
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
--- NOTE | 2018-04-09 14:35 | XR ---
EXAM DATE: 04/09/2018 2:32 PM EST AGE/SEX: 68 years / Male INDICATIONS: Chest pain. Pacemaker fired four times. CLINICAL DATA: This is the patient's initial encounter. Patient reports that signs and symptoms have been present for 1 day and indicates a pain score of 4/10. MEDICAL/SURGICAL HISTORY: . Cerebrovascular disease. . CABG. Pacemaker. Cardiac stents. COMPARISON: C, CHEST 1V SINGLE AP, 03/29/2018. . FINDINGS: The heart is enlarged. The patient is post median sternotomy. There is a transvenous pacer in place. The lungs are clear. Visualized bony structures demonstrate degenerative changes but are otherwise in tact. The exam is stable compared to prior dated 03/29/2018. CONCLUSION: Cardiomegaly. Stable compared to previous exam dated 03/29/2018. Electronically signed by: Lowell Palma MD 04/09/2018 2:33 PM EST
[2018-04-09 14:46] LABS: Alkaline Phosphatase 109 U/L (45-117); Digoxin 1.8 ng/mL (0.8-2.0); Total Protein 7.9 g/dL (6.4-8.2); Troponin I 0.04 ng/mL (0.02-0.05)
[2018-04-09 15:03] LABS: Creatine Kinase 76 U/L (39-308)
[2018-04-09] MEDS ORDERED: Amiodarone Inj 150 MG in Dextrose 5% in Water Inj 97 ML IV.SIG ONE ×2 (15:46)
--- NOTE | 2018-04-09 16:50 | P.HPIM ---
History of Present Illness Primary Care Physician: Collin Menjivar MD Chief Complaint: Pacemaker firing History of Present Illness: The patient is a 68-year-old male with a past medical history of CAD status post CABG x5 and multiple stents who is presenting to the hospital after his pacemaker fired. The patient says yesterday he was taking a walk when all of a sudden his pacemaker shocked him. He said he gets a little lightheaded 3 seconds prior to the shock. He says that it feels like a truck is running over him. He says today he was on the computer and he experienced another firing of his pacemaker. He then felt another one at 12:45 PM and another one in the emergency department at 2:45 PM. He says that he was discharged about a week ago from the hospital. He was having chest tightness at that time. He had 2 stents placed and currently denies any chest tightness or shortness of breath. He says he was tried on digoxin again. He says that he is allergic to a couple different medications but is unsure of which medication. He says he was recently told that he has a problem with his pancreas and he was supposed to have that worked up with a red hat linux engineer. - Diagnosis (1) Pacemaker malfunction Inpatient Certification: I certify that the inpatient services were ordered in accordance with Medicare regulations governing the order. This includes certification that hospital inpatient services are reasonable and necessary and in the case of services not specified as inpatient-only under 42 CFR 419.22(n), that they are appropriately provided as inpatient services in accordance to with the 2-midnight benchmark under 43 CFR 412.3(e) Estimated Total Length of Stay (Days): 2 Plans for Post Hospital Care: Not yet determined Review of Systems All other systems reviewed negative except as stated in HPI [facility] - History History Provided By: Patient - Medical History Medical History: Medical History (Last Updated 04/09/18 @ 16:53 by Gautam Faulkner DO) Atrial fibrillation BPH (benign prostatic hyperplasia) Presence of combination internal cardiac defibrillator (ICD) and pacemaker Heart attack Hypotension - Surgical History Surgical History: Surgical History (Last Reviewed 04/09/18 @ 16:46 by Gautam Faulkner DO) History of cardiac cath S/P CABG x 5 - Family History Family History: Family History (Last Updated 04/09/18 @ 16:53 by Gautam Sayess, DO) Other Coronary artery disease Squamous cell carcinoma - Social History I have reviewed the patient's Social History: Yes - Tobacco History Second Hand Smoke Exposure: No Smoking Status: Former smoker - Alcohol History How Often Do You Have a Drink Containing Alcohol: Never - Substance Use History Substance History: No History of Abuse - Travel History Recent Travel in the [place] Within the Last 8 Weeks: No Recent Travel Out of the Country Within the Last 8 Weeks: No - Immunization History Tetanus Immunization: Unsure Medications and Allergies Active Medications: Active Medications Acetaminophen (Tylenol) 650 mg PO Q4H PRN PRN Reason: Temp > 100.4, pain 1-2 Apixaban (Eliquis) 5 mg PO BID ANIYAH Atorvastatin Calcium (Lipitor) 80 mg PO DAILY ANIYAH Digoxin (Lanoxin) 250 mcg PO DAILY ANIYAH Finasteride (Proscar) 5 mg PO DAILY ANIYAH Amiodarone HCl 450 mg/ (Dextrose) 250 mls @ 33.33 mls/hr IV.CONT TITRATE PRN; Protocol PRN Reason: Per Protocol Ondansetron HCl (Zofran Inj) 4 mg IV.PUSH Q6H PRN PRN Reason: NAUSEA OR VOMITING Sacubitril/Valsartan (Entresto 24 Mg/26 Mg Tablet) 1 tab PO BID ANIYAH Spironolactone (Aldactone) 25 mg PO DAILY ANIYAH Tamsulosin HCl (Flomax) 0.4 mg PO DAILY ANIYAH Torsemide (Demadex) 20 mg PO DAILY ANIYAH Allergies Allergy/AdvReac Type Severity Reaction Status Date / Time diltiazem Allergy Severe Edema Verified 04/09/18 13:46 amiodarone Allergy Unknown Edema Verified 04/09/18 13:46 Home Medications Medication Instructions Recorded Confirmed Type apixaban [Eliquis] 5 mg PO BID 03/29/18 04/09/18 History atorvastatin 80 mg PO DAILY 03/29/18 04/09/18 History clopidogrel [Plavix] 75 mg PO DAILY 03/29/18 04/09/18 History finasteride 5 mg PO DAILY 03/29/18 04/09/18 History tamsulosin 0.4 mg PO DAILY 03/29/18 04/09/18 History Exam Vital signs: Vital Signs 04/09/18 13:31 04/09/18 13:43 04/09/18 14:04 Temperature 98.2 F Pulse Rate 111 H 112 H 88 Respiratory Rate 18 16 Blood Pressure 118/73 Pulse Oximetry 98 99 98 04/09/18 15:48 Temperature Pulse Rate 99 H Respiratory Rate 14 Blood Pressure 107/56 L Pulse Oximetry 99 Intake & Output 04/08/18 04/09/18 04/09/18 18:59 06:59 18:59 Weight 74.843 kg Narrative: GENERAL: No distress. SKIN: Focused skin assessment warm/dry. HEAD: Atraumatic. Normocephalic. EYES: Pupils equal and round. No scleral icterus. No injection or drainage. ENT: No nasal bleeding or discharge. Mucous membranes pink and moist.Tongue is midline. No uvula deviation. NECK: Trachea midline. No JVD. CARDIOVASCULAR: Irregularly irregular rhythm. No murmur appreciated. RESPIRATORY: No accessory muscle use. Clear to auscultation. Breath sounds equal bilaterally. GASTROINTESTINAL: Abdomen soft, non-tender, nondistended. Hepatic and splenic margins not palpable. MUSCULOSKELETAL: No obvious deformities. No clubbing. No cyanosis. No edema. Full ROM of the upper and lower extremities bilaterally. 2+ pulses bilaterally. NEUROLOGICAL: Awake and alert. No obvious cranial nerve deficits. Motor grossly within normal limits. Normal speech. PSYCHIATRIC: Appropriate mood and affect; insight and judgment normal. Results - Labs CBC & Chem 7: 04/09/18 14:00 04/09/18 14:00 Labs: Short CBC 04/09/18 Range/Units 14:00 WBC 6.4 (4.0-11.0) th/mm3 Hgb 15.3 (13.0-17.0) gm/dL Hct 43.1 (39.0-51.0) % Plt Count 181 (150-450) th/mm3 [facility] 04/09/18 14:00 Sodium 133 L Potassium 4.8 Chloride 99 Carbon Dioxide 26.7 BUN 21 H Creatinine 1.50 H Calcium 8.9 Cardiac Enzymes 04/09/18 Range/Units 14:00 Total Creatine Kinase 76 (39-308) U/L Troponin I 0.04 (0.02-0.05) ng/mL Liver Function 04/09/18 Range/Units 14:00 Total Bilirubin 1.5 H (0.2-1.0) mg/dL AST 17 (15-37) U/L ALT 25 (12-78) U/L Alkaline Phosphatase 109 (45-117) U/L Albumin 4.1 (3.4-5.0) g/dL - Imaging Impressions Chest X-Ray 04/09/18 13:58 CONCLUSION: Cardiomegaly. Stable compared to previous exam dated 03/29/2018. Caprini VTE Risk Assessment Caprini VTE Risk Assessment: Moderate/High Risk (score >= 2) Caprini Risk Assessment Model: Point Value = 1 Point Value = 2 Point Value = 3 Point Value = 5 Age 41-60 Minor surgery BMI > 25 kg/m2 Swollen legs Varicose veins or History of unexplained or recurrent spontaneous Oral contraceptives or hormone replacement Sepsis (< 1 month) Serious lung disease, including pneumonia (< 1 month) Abnormal pulmonary function Acute myocardial infarction Congestive heart failure (< 1 month) History of inflammatory bowel disease Medical patient at bed rest Age 61-74 Arthroscopic surgery Major open surgery (> 45 min) Laparoscopic surgery (> 45 min) Malignancy Confined to bed (> 72 hours) Immobilizing plaster cast Central venous access Age >= 75 History of VTE Family history of VTE Factor V Leiden Prothrombin [id number] Lupus anticoagulant Anticardiolipin antibodies Elevated serum homocysteine Heparin-induced thrombocytopenia Other congenital or acquired thrombophilia Stroke (< 1 month) Elective arthroplasty Hip, pelvis, or leg fracture Acute spinal cord injury (< 1 month) Prophylaxis Regimen: Total Risk Factor Score Risk Level Prophylaxis Regimen 0-1 Low Early ambulation 2 Moderate Order ONE of the following: *Sequential Compression Device (SCD) *Heparin 5000 units SQ BID 3-4 Higher Order ONE of the following medications: *Heparin 5000 units SQ TID *Enoxaparin/Lovenox 40 mg SQ daily (WT < 150 kg, CrCl > 30 mL/min) *Enoxaparin/Lovenox 30 mg SQ daily (WT < 150 kg, CrCl > 10-29 mL/min) *Enoxaparin/Lovenox 30 mg SQ BID (WT < 150 kg, CrCl > 30 mL/min) AND/OR *Sequential Compression Device (SCD) 5 or more Highest Order ONE of the following medications: *Heparin 5000 units SQ TID (Preferred with Epidurals) *Enoxaparin/Lovenox 40 mg SQ daily (WT < 150 kg, CrCl > 30 mL/min) *Enoxaparin/Lovenox 30 mg SQ daily (WT < 150 kg, CrCl > 10-29 mL/min) *Enoxaparin/Lovenox 30 mg SQ BID (WT < 150 kg, CrCl > 30 mL/min) AND *Sequential Compression Device (SCD) Assessment and Plan - Assessment (1) Pacemaker malfunction Code(s): T82.111A - Breakdown (mechanical) of cardiac pulse generator (battery) , initial encounter Status: Acute - Plan AICD firing The pt's pacemaker fired multiple times on the day of admission. The pt had his pacemaker interrogated and SVT was noted. Cardiology was consulted. EKG with atrial fibrillation. Initial troponin 0.04. -amiodarone bolus/gtt ordered. His diaper machine tender does not feel like the pt has a true allergy to amiodarone. -telemetry. -EP consult also requested. -trend trops. Chronic systolic CHF Appears euvolemic at this time. -continue cardiac regimen. -follow Is and Os. Atrial fibrillation Chronic. -continue Eliquis. Renal disease Seems chronic. -follow BMP and avoid nephrotoxins. Hyponatremia Mild. -follow BMP. PPx: Eliquis Code Status: Full
[2018-04-10 08:04] LABS: Baso # (Auto) 0.1 th/mm3 (0.0-0.2); Baso % (Auto) 0.9 % (0.0-2.0); Eos # (Auto) 0.3 th/mm3 (0.0-0.4); Eos % (Auto) 4.7 % (0.0-4.0); Hematocrit 40.8 % (39.0-51.0); Hemoglobin 14.5 gm/dL (13.0-17.0); Lymph # (Auto) 0.9 th/mm3 (1.0-4.8); Lymph % (Auto) 11.6 % (9.0-44.0); Mean Corpuscular HGB Conc 35.5 % (32.0-36.0); Mean Corpuscular Hemoglobin 33.7 pg (27.0-34.0); Mean Platelet Volume 7.7 fL (7.0-11.0); Mono # (Auto) 0.9 th/mm3 (0.0-0.9); Mono % (Auto) 12.8 % (0.0-8.0); Neut # (Auto) 5.2 th/mm3 (1.8-7.7); Platelet Count 179 th/mm3 (150-450); Red Cell Distribution Width 14.5 % (11.6-17.2); White Blood Count 7.4 th/mm3 (4.0-11.0)
[2018-04-10 08:25] LABS: Alanine Aminotransferase 23 U/L (12-78); Albumin 3.6 g/dL (3.4-5.0); Anion Gap 6 meq/L (5-15); Aspartate Aminotransferase 17 U/L (15-37); Blood Urea Nitrogen 20 mg/dL (7-18); Calcium 8.8 mg/dL (8.5-10.1); Carbon Dioxide 28.1 meq/L (21.0-32.0); Chloride 99 meq/L (98-107); Glomerular Filtration Rate 58 mL/min (>89); Glucose,Random 122 mg/dL (74-106); Potassium 4.3 meq/L (3.5-5.1); Sodium 133 meq/L (136-145)
[2018-04-10 08:27] LABS: Alkaline Phosphatase 101 U/L (45-117); Total Protein 7.1 g/dL (6.4-8.2)
[2018-04-10] MEDS ORDERED: Digoxin 250 MCG Tablet PO SCH (09:00)
[2018-04-10] MEDS: Finasteride 5 MG Tablet PO SCH (09:06)
[2018-04-10] MEDS: Spironolactone 25 MG Tablet PO SCH (09:08)
[2018-04-10] MEDS: Torsemide 20 MG Tablet PO SCH (09:08)
--- NOTE | 2018-04-10 12:35 | P.PNIM ---
Subjective Interval history: The patient was resting comfortably in bed. He said he talked with the shift nurse manager earlier today. He said that he has not had any further shocks from his pacemaker. He is tolerating the amiodarone. No acute concerns at this time. Physical Exam Vital signs: Vital Signs 04/09/18 13:31 04/09/18 13:43 04/09/18 14:04 Temperature 98.2 F Pulse Rate 111 H 112 H 88 Respiratory Rate 18 16 Blood Pressure 118/73 Pulse Oximetry 98 99 98 04/09/18 15:48 04/09/18 18:58 04/09/18 19:00 Temperature 97.9 F Pulse Rate 99 H 90 87 Respiratory Rate 14 Blood Pressure 107/56 L 100/54 L Pulse Oximetry 99 97 04/09/18 20:00 04/09/18 21:00 04/09/18 22:00 Temperature 98.2 F Pulse Rate 88 82 80 Respiratory Rate 16 Blood Pressure 96/60 L Pulse Oximetry 97 04/09/18 23:00 04/10/18 00:00 04/10/18 01:00 Temperature Pulse Rate 78 74 76 Respiratory Rate 16 Blood Pressure 93/64 L Pulse Oximetry 97 04/10/18 02:00 04/10/18 03:00 04/10/18 03:15 Temperature Pulse Rate 74 73 Respiratory Rate Blood Pressure Pulse Oximetry 96 04/10/18 04:00 04/10/18 05:00 04/10/18 06:00 Temperature Pulse Rate 74 66 82 Respiratory Rate 16 Blood Pressure 88/60 L Pulse Oximetry 98 04/10/18 07:00 04/10/18 07:59 04/10/18 08:00 Temperature 97.7 F Pulse Rate 75 82 84 Respiratory Rate 16 Blood Pressure 95/70 L Pulse Oximetry 82 L 97 04/10/18 09:00 04/10/18 09:04 Temperature Pulse Rate 80 84 Respiratory Rate Blood Pressure 95/67 L Pulse Oximetry Intake & Output 04/09/18 04/10/18 04/10/18 18:59 06:59 18:59 Intake Total 100 / 100 730 / 730 Output Total 600 / 600 Balance 100 / 100 130 / 130 Weight 74.843 kg 80.5 kg Intake: IV 100 / 100 250 / 250 Cordarone Inj 450 MG In D5W Inj 250 / 250 241 ML @ 1 MG/MIN 33.33 mls/hr IV.CONT TITRATE PRN Rx#: [id number] Cordarone Inj 150 MG In D5W Inj 100 / 100 97 ML @ 600 mls/hr IV.SIG ONCE ONE Rx#:[id number] Oral 480 / 480 Output: Urine 600 / 600 Other: Date of Last Bowel Movement 04/09/18 Weight On Admission 80.5 kg Narrative: GENERAL: No distress. SKIN: Focused skin assessment warm/dry. HEAD: Atraumatic. Normocephalic. EYES: Pupils equal and round. No scleral icterus. No injection or drainage. ENT: No nasal bleeding or discharge. Mucous membranes pink and moist.Tongue is midline. No uvula deviation. NECK: Trachea midline. No JVD. CARDIOVASCULAR: Irregularly irregular rhythm. No murmur appreciated. RESPIRATORY: No accessory muscle use. Clear to auscultation. Breath sounds equal bilaterally. GASTROINTESTINAL: Abdomen soft, non-tender, nondistended. Hepatic and splenic margins not palpable. MUSCULOSKELETAL: No obvious deformities. No clubbing. No cyanosis. No edema. Full ROM of the upper and lower extremities bilaterally. 2+ pulses bilaterally. NEUROLOGICAL: Awake and alert. No obvious cranial nerve deficits. Motor grossly within normal limits. Normal speech. PSYCHIATRIC: Appropriate mood and affect; insight and judgment normal. Results - Labs CBC & Chem 7: 04/10/18 07:40 04/10/18 07:40 Laboratory Results - last 24 hr 04/09/18 04/09/18 04/09/18 14:00 14:00 14:00 WBC 6.4 RBC 4.48 L Hgb 15.3 Hct 43.1 MCV 96.3 MCH 34.2 H MCHC 35.6 RDW 14.6 Plt Count 181 MPV 7.9 Neut % (Auto) 79.8 H Lymph % (Auto) 9.6 [place] % (Auto) 7.9 Eos % (Auto) 1.6 Baso % (Auto) 1.1 Neut # (Auto) 5.1 Lymph # (Auto) 0.6 L [place] # (Auto) 0.5 Eos # (Auto) 0.1 Baso # (Auto) 0.1 WBC Differential . Differential Comment Auto diff final PT 11.4 INR 1.1 APTT 29.6 Sodium 133 L Potassium 4.8 Chloride 99 Carbon Dioxide 26.7 Anion Gap 7 BUN 21 H Creatinine 1.50 H Estimated GFR 46 L Random Glucose 186 H Calcium 8.9 Magnesium Total Bilirubin 1.5 H AST 17 ALT 25 Alkaline Phosphatase 109 Total Creatine Kinase 76 Troponin I 0.04 Total Protein 7.9 Albumin 4.1 Digoxin 1.8 04/09/18 04/09/18 04/09/18 14:00 16:23 22:00 WBC RBC Hgb Hct MCV MCH MCHC RDW Plt Count MPV Neut % (Auto) Lymph % (Auto) [place] % (Auto) Eos % (Auto) Baso % (Auto) Neut # (Auto) Lymph # (Auto) [place] # (Auto) Eos # (Auto) Baso # (Auto) WBC Differential Differential Comment PT INR APTT Sodium Potassium Chloride Carbon Dioxide Anion Gap BUN Creatinine Estimated GFR Random Glucose Calcium Magnesium 2.1 Total Bilirubin AST ALT Alkaline Phosphatase Total Creatine Kinase Troponin I 0.05 0.06 H Total Protein Albumin Digoxin 04/10/18 04/10/18 07:40 07:40 WBC 7.4 RBC 4.30 L Hgb 14.5 Hct 40.8 MCV 95.0 MCH 33.7 MCHC 35.5 RDW 14.5 Plt Count 179 MPV 7.7 Neut % (Auto) 70.0 Lymph % (Auto) 11.6 [place] % (Auto) 12.8 H Eos % (Auto) 4.7 H Baso % (Auto) 0.9 Neut # (Auto) 5.2 Lymph # (Auto) 0.9 L [place] # (Auto) 0.9 Eos # (Auto) 0.3 Baso # (Auto) 0.1 WBC Differential . Differential Comment Auto diff final PT INR APTT Sodium 133 L Potassium 4.3 Chloride 99 Carbon Dioxide 28.1 Anion Gap 6 BUN 20 H Creatinine 1.24 Estimated GFR 58 L Random Glucose 122 H Calcium 8.8 Magnesium Total Bilirubin 1.9 H AST 17 ALT 23 Alkaline Phosphatase 101 Total Creatine Kinase Troponin I Total Protein 7.1 D Albumin 3.6 Digoxin - Imaging Impressions Chest X-Ray 04/09/18 13:58 CONCLUSION: Cardiomegaly. Stable compared to previous exam dated 03/29/2018. Assessment and Plan - Assessment (1) Pacemaker malfunction Code(s): T82.111A - Breakdown (mechanical) of cardiac pulse generator (battery) , initial encounter Status: Acute - Plan AICD firing The pt's pacemaker fired multiple times on the day of admission. The pt had his pacemaker interrogated and SVT was noted. Cardiology was consulted. EKG with atrial fibrillation. Initial troponin 0.04. -amiodarone bolus/gtt ordered. His shift nurse manager does not feel like the pt has a true allergy to amiodarone. Tolerating well. Continue. -telemetry. -EP consult pending. Chronic systolic CHF Appears euvolemic at this time. -continue cardiac regimen. -follow Is and Os. Atrial fibrillation Chronic. -continue Eliquis. Renal disease Seems chronic. -follow BMP and avoid nephrotoxins. Improved. Hyponatremia Mild. -follow BMP. Stable at 133. Hyperglycemia May be a stress reaction. -check an A1c. PPx: [place]
[2018-04-10 13:32] LABS: Hemoglobin A1c 6.1 % (4.3-6.0)
--- NOTE | 2018-04-10 13:39 | MB ---
cc: Chris Ward MD DATE: 04/10/2018 REASON FOR CONSULTATION: AICD shocks, tachyarrhythmia. HISTORY OF PRESENT ILLNESS: The patient is a very pleasant 68-year-old white male, well known to me, with a history of severe ischemic cardiomyopathy, ejection fraction 10% to 15%, coronary artery disease, status post numerous percutaneous graft interventions, diabetes, paroxysmal atrial fibrillation, who came to the emergency department yesterday after a number of AICD shocks. Two days ago while walking, he developed severe lightheadedness. He went down to one knee and was subsequently shocked by his defibrillator. He never lost consciousness completely. Yesterday while sitting around, he had 3 more AICD shocks within an approximately 3-hour time period. Each of these episodes were associated with moderate lightheadedness without syncope or near syncope. He did feel like he lost consciousness very briefly a week ago. He denies angina, shortness of breath, paroxysmal nocturnal dyspnea, pedal edema, palpitations. He reports compliance with his medications. PAST MEDICAL HISTORY: 1. History of [place] AICD implant in 2009, single chamber. 2. Severe ischemic cardiomyopathy with ejection fraction 10% to 15% by most recent evaluations within the last year. 3. Coronary artery disease, status post bypass surgery in 2002. He is also status post stent of the ostial to proximal vein graft to the right coronary artery with two 2.75 mm Xience stents 09/04/2009. On 04/11/2013, he underwent thrombectomy and stent of the ostium and the mid to distal portion of the vein graft to the diagonal with two 3.5 mm Resolute stents as well as stent x 2 of the vein graft to the first obtuse marginal using two 3.5 mm Resolute stents. On 04/13/2015, he underwent repeat stenting of the ostium of the vein graft to the obtuse marginal, as well as the vein graft to the diagonal. By this time, his vein graft to the second diagonal and to the right coronary were occluded. The patient once again underwent stenting of the vein graft to the first obtuse marginal using three 3.5 mm Promus stents on 06/06/2016. Most recently on 03/31/2018, he underwent stent x 2 of the vein graft to the diagonal by Dr. Cholo Osei using two 3.[address] [place] stents. 4. Diabetes. 5. Hyperlipidemia. 6. Hypertension. 7. Paroxysmal atrial fibrillation, initially diagnosed 07/2013, status post ablation in 09/2013 with recurrent atrial fibrillation noted this month. 8. History of paroxysmal atrial tachycardia on a 03/23/2017 Holter monitor. CARDIAC MEDICATIONS AT HOME: 1. Torsemide 20 mg daily. 2. Spironolactone 25 mg daily. 3. Entresto 1 b.i.d. 4. Digoxin 0.25 mg daily. 5. Plavix 75 mg daily. 6. Atorvastatin 80 mg daily. 7. Apixaban 5 mg b.i.d. ALLERGIES: DILTIAZEM. FAMILY HISTORY: Noncontributory. SOCIAL HISTORY: The patient is a former smoker. There is no history of alcohol abuse. REVIEW OF SYSTEMS: As in the history of present illness, otherwise negative or noncontributory. He also denies headache, abdominal pain, melena, dyspepsia, bright red blood per rectum, vomiting, fevers. PHYSICAL EXAMINATION: VITAL SIGNS: His blood pressure 95/67 with a pulse of 84, respirations 16. GENERAL: He is a well-developed, thin white male, in no acute distress. NECK: Jugular venous pressure is normal. Carotid pulses are 2+ bilaterally and without bruits. CHEST: Reveals minimal scattered rhonchi and diminished breath sounds diffusely. CARDIAC: He has a regular rhythm and rate without S3, S4, or murmur. ABDOMEN: He has a soft, nontender abdomen. Bowel sounds are present. There is no definite hepatosplenomegaly. EXTREMITIES: Reveals no clubbing, cyanosis or edema. DIAGNOSTIC DATA: Chest x-ray shows cardiomegaly, no acute disease. LABORATORY DATA: EKG from 04/09/2018 at 1:38 p.m. shows atrial fibrillation, left bundle branch block, left axis deviation, possible lateral infarct, age undetermined. LABORATORY DATA: Includes WBC 7.4, hemoglobin 14.5, platelets 179. INR 1.1. Potassium 4.3, BUN 20, creatinine 1.24, troponin 0.06, CK 76. IMPRESSION: Four AICD shocks in a 24-hour period in this 68-year-old white male with a history of severe ischemic cardiomyopathy, ejection fraction 10% to 15%, extensive history of coronary artery disease as described above, diabetes, paroxysmal atrial fibrillation. Review of the interrogation of his automated implantable cardioverter defibrillator yesterday suggests that all 4 shocks were due to ventricular tachycardia rather than atrial fibrillation with a rapid ventricular response, although it is difficult to tell with certainty. He has a single chamber device. Medical therapy is somewhat limited by his severely reduced ejection fraction and relatively low blood pressures. He has not been able to tolerate beta benjamin therapy due to low blood pressures at home. The patient has been stable since admission on intravenous amiodarone. Looking back at his many years of records, I do not see a true allergy to amiodarone documented. RECOMMENDATIONS: 1. Continue his usual home cardiac medications except the digoxin can be stopped, particularly with its interactions with amiodarone. 2. Await consultation from Dr. Ramos regarding optimal therapy for his ventricular tachyarrhythmias. Chris Ward MD [facility]/ct , 11:28 AM , 11:40 AM [email or web address]
--- NOTE | 2018-04-10 16:03 | ECG ---
Date Performed: 04/09/2018 Time Performed: 13:38:49 PTAGE: 68 years EKG: ATRIAL FIBRILLATION WITH RAPID VENTRICULAR RESPONSE WITH ABERRANT CONDUCTION OR VENTRICULAR PREMATURE COMPLEXES INTRAVENTRICULAR CONDUCTION DELAY LATERAL MYOCARDIAL INFARCTION ABNORMAL ECG INT ERPRETATION BASED ON A DEFAULT AGE OF 40 YEARS PREVIOUS TRACING : 03/30/2018 04.16 Since the previous tracing, no significant change not ed DOCTOR: Alverto Dodson Interpretating Date/Time 04/10/2018 16:02:55
[2018-04-11] MEDS: Finasteride 5 MG Tablet PO SCH (09:28)
[2018-04-11] MEDS: Torsemide 20 MG Tablet PO SCH ×2 (09:29→13:20)
[2018-04-11] MEDS: Spironolactone 25 MG Tablet PO SCH ×2 (09:29→13:20)
--- NOTE | 2018-04-11 11:52 | P.PNCA ---
Subjective Interval history: Denies angina, dyspnea, near syncope, PND, palpitations. Slept well. Mild lightheadedness upon standing. Medications and Allergies Active Medications: Active Medications Acetaminophen (Tylenol) 650 mg PO Q4H PRN PRN Reason: Temp > 100.4, pain 1-2 Apixaban (Eliquis) 5 mg PO BID [facility] Last Admin: 04/11/18 09:28 Dose: 5 mg Atorvastatin Calcium (Lipitor) 80 mg PO DAILY [facility] Last Admin: 04/11/18:28 Dose: 80 mg Clopidogrel Bisulfate (Plavix) 75 mg PO DAILY [facility] Last Admin: 04/11/18:28 Dose: 75 mg Finasteride (Proscar) 5 mg PO DAILY [facility] Last Admin: 04/11/18: Dose: 5 mg Amiodarone HCl 450 mg/ (Dextrose) 250 mls @ 33.33 mls/hr IV.CONT TITRATE PRN; Protocol PRN Reason: Per Protocol Last Admin: 04/11/18 09:29 Dose: 0.5 mg/min, 16.7 mls/hr Ondansetron HCl (Zofran Inj) 4 mg IV.PUSH Q6H PRN PRN Reason: NAUSEA OR VOMITING Sacubitril/Valsartan (Entresto 24 Mg/26 Mg Tablet) 1 tab PO BID [facility] Last Admin: 04/11/18 09:29 Dose: Not Given Spironolactone (Aldactone) 25 mg PO DAILY [facility] Last Admin: 04/11/18 09:29 Dose: Not Given Tamsulosin HCl (Flomax) 0.4 mg PO DAILY [facility] Last Admin: 04/11/18 09:28 Dose: 0.4 mg Torsemide (Demadex) 20 mg PO DAILY [facility] Last Admin: 04/11/18 09:29 Dose: Not Given Allergies Allergy/AdvReac Type Severity Reaction Status Date / Time diltiazem Allergy Severe Edema Verified 04/09/18 13:46 Home Medications Medication Instructions Recorded Confirmed Type apixaban [Eliquis] 5 mg PO BID 03/29/18 04/09/18 History atorvastatin 80 mg PO DAILY 03/29/18 04/09/18 History clopidogrel [Plavix] 75 mg PO DAILY 03/29/18 04/09/18 History finasteride 5 mg PO DAILY 03/29/18 04/09/18 History tamsulosin 0.4 mg PO DAILY 03/29/18 04/09/18 History Physical Exam Vital signs: Vital Signs 04/10/18 12:00 04/10/18 13:00 04/10/18 14:00 Temperature 97.4 F L Pulse Rate 86 80 78 Respiratory Rate 16 Blood Pressure 93/65 L Pulse Oximetry 98 04/10/18 15:00 04/10/18 15:21 04/10/18 16:00 Temperature 97.9 F Pulse Rate 78 80 78 Respiratory Rate 16 Blood Pressure 88/57 L Pulse Oximetry 98 04/10/18 17:00 04/10/18 18:00 04/10/18 19:00 Temperature Pulse Rate 84 76 76 Respiratory Rate Blood Pressure Pulse Oximetry 04/10/18 20:00 04/10/18 21:00 04/10/18 22:00 Temperature 97.1 F L Pulse Rate 78 74 96 H Respiratory Rate 16 Blood Pressure 82/54 L Pulse Oximetry 99 04/10/18 23:00 04/10/18 23:42 04/11/18 00:00 Temperature Pulse Rate 77 76 74 Respiratory Rate 16 Blood Pressure 93/63 L Pulse Oximetry 99 04/11/18 01:00 04/11/18 02:00 04/11/18 03:00 Temperature Pulse Rate 72 70 77 Respiratory Rate Blood Pressure Pulse Oximetry 04/11/18 04:00 04/11/18 05:00 04/11/18 06:00 Temperature Pulse Rate 68 72 70 Respiratory Rate 16 Blood Pressure 93/59 L Pulse Oximetry 99 04/11/18 07:00 04/11/18 08:00 04/11/18 08:14 Temperature 98.2 F Pulse Rate 71 76 Respiratory Rate 16 Blood Pressure 86/55 L Pulse Oximetry 98 95 Intake & Output 04/10/18 04/11/18 04/11/18 18:59 06:59 18:59 Intake Total 1510 / 1510 480 / 480 250 / 250 Output Total 1050 / 1050 975 / 975 Balance 460 / 460 -495 / -495 250 / 250 Intake: IV 250 / 250 250 / 250 Cordarone Inj 450 MG In D5W Inj 250 / 250 250 / 250 241 ML @ 1 MG/MIN 33.33 mls/hr IV.CONT TITRATE PRN Rx#: [id number] Oral 1260 / 1260 480 / 480 Output: Urine 1050 / 1050 975 / 975 Other: Date of Last Bowel Movement 04/09/18 04/10/18 04/11/18 # Bowel Movements 1 - Constitutional no acute distress - Routine Neck Exam Absent: JVD - Routine Respiratory Exam Present: decreased breath sounds - Routine Cardiovascular Exam Present: RRR, S1, S2. Absent: murmur, gallop - Routine Abdominal Exam Present: soft, normoactive bowel sounds. Absent: tenderness, organomegaly - Routine Extremities Exam Absent: cyanosis, clubbing, edema Results 04/10/18 07:40 04/10/18 07:40 Cardiac Enzymes 04/09/18 04/09/18 04/09/18 Range/Units 14:00 16:23 22:00 AST 17 (15-37) U/L Troponin I 0.04 0.05 0.06 H (0.02-0.05) ng/mL 04/10/18 Range/Units 07:40 AST 17 (15-37) U/L Troponin I (0.02-0.05) ng/mL Coagulation 04/09/18 Range/Units 14:00 PT 11.4 (9.8-11.6) sec APTT 29.6 (23.4-31.7) sec CBC 04/09/18 04/10/18 Range/Units 14:00 07:40 WBC 6.4 7.4 (4.0-11.0) th/mm3 RBC 4.48 L 4.30 L (4.50-5.90) mil/mm3 Hgb 15.3 14.5 (13.0-17.0) gm/dL Hct 43.1 40.8 (39.0-51.0) % Plt Count 181 179 (150-450) th/mm3 Neut # (Auto) 5.1 5.2 (1.8-7.7) th/mm3 Lymph # (Auto) 0.6 L 0.9 L (1.0-4.8) th/mm3 [place] # (Auto) 0.5 0.9 (0.0-0.9) th/mm3 Eos # (Auto) 0.1 0.3 (0.0-0.4) th/mm3 Baso # (Auto) 0.1 0.1 (0.0-0.2) th/mm3 Comprehensive Metabolic Panel 04/09/18 04/10/18 Range/Units 14:00 07:40 Sodium 133 L 133 L (136-145) meq/L Potassium 4.8 4.3 (3.5-5.1) meq/L Chloride 99 99 (98-107) meq/L Carbon Dioxide 26.7 28.1 (21.0-32.0) meq/L BUN 21 H 20 H (7-18) mg/dL Creatinine 1.50 H 1.24 (0.60-1.30) mg/dL Calcium 8.9 8.8 (8.5-10.1) mg/dL AST 17 17 (15-37) U/L ALT 25 23 (12-78) U/L Alkaline Phosphatase 109 101 (45-117) U/L Total Protein 7.9 7.1 D (6.4-8.2) g/dL Albumin 4.1 3.6 (3.4-5.0) g/dL Intake and Output 04/10/18 04/11/18 04/11/18 22:59 06:59 14:59 Intake Total 1510 / 1510 480 / 480 250 / 250 Output Total 1050 / 1050 975 / 975 Balance 460 / 460 -495 / -495 250 / 250 Intake: IV 250 / 250 250 / 250 Cordarone Inj 450 MG In D5W Inj 250 / 250 250 / 250 241 ML @ 1 MG/MIN 33.33 mls/hr IV.CONT TITRATE PRN Rx#: [id number] Oral 1260 / 1260 480 / 480 Output: Urine 1050 / 1050 975 / 975 Other: Date of Last Bowel Movement 04/09/18 04/10/18 04/11/18 # Bowel Movements 1 - Imaging and Cardiology Imaging: Impressions Chest X-Ray 04/09/18 13:58 CONCLUSION: Cardiomegaly. Stable compared to previous exam dated 03/29/2018. Assessment and Plan - Assessment (1) AICD discharge Code(s): Z45.02 - Encounter for adjustment and management of automatic implantable cardiac defibrillator Status: Acute Plan: Stable since admission. No further ICD shocks. Seems as if the shocks were for sustained VT though difficult to rule out was atrial fibrillation with rapid ventricular response. Recommend change to oral Amiodarone, await consultation from Dr. Crawford. Medical therapy somewhat limited by low BP's, severe LV dysfunction. (2) Ischemic cardiomyopathy Code(s): I25.5 - Ischemic cardiomyopathy Status: Chronic Plan: EF ~15%. Compensated at present. BP's too low for beta benjamin. Continue Entresto. (3) Paroxysmal atrial fibrillation Code(s): I48.0 - Paroxysmal atrial fibrillation Status: Acute Plan: Seems mostly in atrial fib on monitoring. HR's acceptable at this time. Continue anticoagulation therapy. (4) CAD (coronary artery disease) Code(s): I25.10 - Atherosclerotic heart disease of [place] coronary artery without angina pectoris Status: Chronic Plan: Overall stable CAD status s/p recent PCI by Dr. Osei, history of numerous PCI's, history of CABG. Continue Plavix. - Plan Code Status: full code Discussed Condition With: patient (4) CAD (coronary artery disease) Qualifiers: Coronary Disease-Associated Artery/Lesion type: bypass graft [place] vs. transplanted heart: [place] heart Associated angina: without angina Qualified Code(s): I25.810 - Atherosclerosis of coronary artery bypass graft(s) without angina pectoris
[2018-04-11] MEDS: Amiodarone 200 MG Tablet PO SCH (13:10)
--- NOTE | 2018-04-11 13:29 | P.PNIM ---
Subjective Interval history: The patient was sitting up in bed and eating lunch. He said he felt a lot better. He denied any further firings of his pacemaker. He says his blood pressure has been low on the medications. Physical Exam Vital signs: Vital Signs 04/10/18 14:00 04/10/18 15:00 04/10/18 15:21 Temperature 97.9 F Pulse Rate 78 78 80 Respiratory Rate 16 Blood Pressure 88/57 L Pulse Oximetry 98 04/10/18 16:00 04/10/18 17:00 04/10/18 18:00 Temperature Pulse Rate 78 84 76 Respiratory Rate Blood Pressure Pulse Oximetry 04/10/18 19:00 04/10/18 20:00 04/10/18 21:00 Temperature 97.1 F L Pulse Rate 76 78 74 Respiratory Rate 16 Blood Pressure 82/54 L Pulse Oximetry 99 04/10/18 22:00 04/10/18 23:00 04/10/18 23:42 Temperature Pulse Rate 96 H 77 76 Respiratory Rate 16 Blood Pressure 93/63 L Pulse Oximetry 99 04/11/18 00:00 04/11/18 01:00 04/11/18 02:00 Temperature Pulse Rate 74 72 70 Respiratory Rate Blood Pressure Pulse Oximetry 04/11/18 03:00 04/11/18 04:00 04/11/18 05:00 Temperature Pulse Rate 77 68 72 Respiratory Rate 16 Blood Pressure 93/59 L Pulse Oximetry 99 04/11/18 06:00 04/11/18 07:00 04/11/18 08:00 Temperature 98.2 F Pulse Rate 70 71 76 Respiratory Rate 16 Blood Pressure 86/55 L Pulse Oximetry 98 04/11/18 08:14 Temperature Pulse Rate Respiratory Rate Blood Pressure Pulse Oximetry 95 Intake & Output 04/10/18 04/11/18 04/11/18 18:59 06:59 18:59 Intake Total 1510 / 1510 480 / 480 250 / 250 Output Total 1050 / 1050 975 / 975 Balance 460 / 460 -495 / -495 250 / 250 Intake: IV 250 / 250 250 / 250 Cordarone Inj 450 MG In D5W Inj 250 / 250 250 / 250 241 ML @ 1 MG/MIN 33.33 mls/hr IV.CONT TITRATE PRN Rx#: [id number] Oral 1260 / 1260 480 / 480 Output: Urine 1050 / 1050 975 / 975 Other: Date of Last Bowel Movement 04/09/18 04/10/18 04/11/18 # Bowel Movements 1 Narrative: GENERAL: No distress. SKIN: Focused skin assessment warm/dry. HEAD: Atraumatic. Normocephalic. EYES: Pupils equal and round. No scleral icterus. No injection or drainage. ENT: No nasal bleeding or discharge. Mucous membranes pink and moist.Tongue is midline. No uvula deviation. NECK: Trachea midline. No JVD. CARDIOVASCULAR: Irregularly irregular rhythm. No murmur appreciated. RESPIRATORY: No accessory muscle use. Clear to auscultation. Breath sounds equal bilaterally. GASTROINTESTINAL: Abdomen soft, non-tender, nondistended. Hepatic and splenic margins not palpable. MUSCULOSKELETAL: No obvious deformities. No clubbing. No cyanosis. No edema. Full ROM of the upper and lower extremities bilaterally. 2+ pulses bilaterally. NEUROLOGICAL: Awake and alert. No obvious cranial nerve deficits. Motor grossly within normal limits. Normal speech. PSYCHIATRIC: Appropriate mood and affect; insight and judgment normal. Results - Labs CBC & Chem 7: 04/10/18 07:40 04/10/18 07:40 Laboratory Results - last 24 hr 04/10/18 07:40 Hemoglobin A1c 6.1 H Assessment and Plan - Assessment (1) Pacemaker malfunction Code(s): T82.111A - Breakdown (mechanical) of cardiac pulse generator (battery) , initial encounter Status: Acute - Plan AICD firing The pt's pacemaker fired multiple times on the day of admission. The pt had his pacemaker interrogated and SVT was noted. Cardiology was consulted. EKG with atrial fibrillation. Initial troponin 0.04. -amiodarone drip changed to p.o. per cardiology. -telemetry. -EP consult pending. Chronic systolic CHF Appears euvolemic at this time. -continue cardiac regimen. -follow Is and Os. -Hold diuretics. Atrial fibrillation Chronic. Rate controlled at this time. -continue Eliquis. Hypotension The patient is on blood pressure medication, diuretics and amiodarone. -DC diuretics for now as patient appears euvolemic. -Holding parameters for Entresto. Renal disease Seems chronic. -follow BMP and avoid nephrotoxins. Improved. Hyponatremia Mild. -follow BMP. Stable at 133. Hyperglycemia May be a stress reaction. A1c 6.1%. -Lifestyle modifications. PPx: Eliquis
[2018-04-12] MEDS: Finasteride 5 MG Tablet PO SCH (07:59)
[2018-04-12] MEDS: Amiodarone 200 MG Tablet PO SCH (07:59)
--- NOTE | 2018-04-12 10:22 | P.PNCA ---
Subjective Interval history: Mild dizziness intermittently this morning. No CP, syncope, palpitations, PND. Slept well. Appetite good. Medications and Allergies Active Medications: Active Medications Acetaminophen (Tylenol) 650 mg PO Q4H PRN PRN Reason: Temp > 100.4, pain 1-2 Amiodarone HCl (Cordarone) 400 mg PO DAILY [facility] Last Admin: 04/12/18 07:59 Dose: 400 mg Apixaban (Eliquis) 5 mg PO BID [facility] Last Admin: 04/12/18 07:59 Dose: 5 mg Atorvastatin Calcium (Lipitor) 80 mg PO DAILY [facility] Last Admin: 04/12/18 07:59 Dose: 80 mg Clopidogrel Bisulfate (Plavix) 75 mg PO DAILY [facility] Last Admin: 04/12/18 07:59 Dose: 75 mg Finasteride (Proscar) 5 mg PO DAILY [facility] Last Admin: 04/12/18 07:59 Dose: 5 mg Ondansetron HCl (Zofran Inj) 4 mg IV.PUSH Q6H PRN PRN Reason: NAUSEA OR VOMITING Sacubitril/Valsartan (Entresto 24 Mg/26 Mg Tablet) 1 tab PO BID [facility] Last Admin: 04/12/18 07:59 Dose: Not Given Tamsulosin HCl (Flomax) 0.4 mg PO DAILY [facility] Last Admin: 04/12/18 07:59 Dose: 0.4 mg Allergies Allergy/AdvReac Type Severity Reaction Status Date / Time diltiazem Allergy Severe Edema Verified 04/09/18 13:46 Home Medications Medication Instructions Recorded Confirmed Type apixaban [Eliquis] 5 mg PO BID 03/29/18 04/09/18 History atorvastatin 80 mg PO DAILY 03/29/18 04/09/18 History clopidogrel [Plavix] 75 mg PO DAILY 03/29/18 04/09/18 History finasteride 5 mg PO DAILY 03/29/18 04/09/18 History tamsulosin 0.4 mg PO DAILY 03/29/18 04/09/18 History Physical Exam Vital signs: Vital Signs 04/11/18 11:00 04/11/18 12:00 04/11/18 13:00 Temperature 98 F Pulse Rate 71 86 84 Respiratory Rate 16 Blood Pressure 93/66 L Pulse Oximetry 98 04/11/18 14:00 04/11/18 15:00 04/11/18 16:00 Temperature 98.2 F Pulse Rate 76 71 76 Respiratory Rate 16 Blood Pressure 86/57 L Pulse Oximetry 97 04/11/18 17:00 04/11/18 18:00 04/11/18 19:00 Temperature Pulse Rate 71 80 75 Respiratory Rate Blood Pressure Pulse Oximetry 04/11/18 20:00 04/11/18 21:00 04/11/18 22:00 Temperature 98.2 F Pulse Rate 78 78 74 Respiratory Rate 18 Blood Pressure 88/57 L Pulse Oximetry 98 04/11/18 23:00 04/11/18 23:44 04/12/18 00:00 Temperature Pulse Rate 77 76 80 Respiratory Rate 18 Blood Pressure 89/60 L Pulse Oximetry 99 04/12/18 01:00 04/12/18 02:00 04/12/18 03:00 Temperature Pulse Rate 76 76 72 Respiratory Rate Blood Pressure Pulse Oximetry 04/12/18 04:00 04/12/18 05:00 04/12/18 06:00 Temperature Pulse Rate 72 76 72 Respiratory Rate 18 Blood Pressure 82/53 L Pulse Oximetry 96 04/12/18 07:00 04/12/18 08:00 04/12/18 09:00 Temperature 98.2 F Pulse Rate 77 74 80 Respiratory Rate 18 Blood Pressure 111/66 Pulse Oximetry 97 04/12/18 10:00 04/12/18 10:08 Temperature Pulse Rate 86 80 Respiratory Rate Blood Pressure Pulse Oximetry Intake & Output 04/11/18 04/12/18 04/12/18 18:59 06:59 18:59 Intake Total 1260 / 1260 480 / 480 Output Total 1200 / 1200 1375 / 1375 Balance 60 / 60 -895 / -895 Weight 79 kg Intake: IV 400 / 400 Cordarone Inj 450 MG In D5W Inj 400 / 400 241 ML @ 1 MG/MIN 33.33 mls/hr IV.CONT TITRATE PRN Rx#: [id number] Oral 860 / 860 480 / 480 Output: Urine 1200 / 1200 1375 / 1375 Other: Date of Last Bowel Movement 04/11/18 04/10/18 04/11/18 # Bowel Movements 0 - Constitutional no acute distress - Routine Neck Exam Absent: JVD - Routine Respiratory Exam Present: decreased breath sounds - Routine Cardiovascular Exam Present: RRR, S1, S2. Absent: murmur, gallop - Routine Abdominal Exam Present: soft, normoactive bowel sounds. Absent: tenderness, organomegaly - Routine Extremities Exam Absent: cyanosis, clubbing, edema Results 04/10/18 07:40 04/10/18 07:40 Intake and Output 04/11/18 04/12/18 04/12/18 22:59 06:59 14:59 Intake Total 1010 / 1010 480 / 480 Output Total 1200 / 1200 1375 / 1375 Balance -190 / -190 -895 / -895 Intake: IV 150 / 150 Cordarone Inj 450 MG In D5W Inj 150 / 150 241 ML @ 1 MG/MIN 33.33 mls/hr IV.CONT TITRATE PRN Rx#: [id number] Oral 860 / 860 480 / 480 Output: Urine 1200 / 1200 1375 / 1375 Other: Date of Last Bowel Movement 04/11/18 04/10/18 04/11/18 # Bowel Movements 0 Weight 79 kg Assessment and Plan - Assessment (1) AICD discharge Code(s): Z45.02 - Encounter for adjustment and management of automatic implantable cardiac defibrillator Status: Acute Plan: Stable since admission. No further ICD shocks. Seems as if the shocks were for sustained VT though difficult to rule out was atrial fibrillation with rapid ventricular response. Recommend continue oral Amiodarone, await consultation from Dr. Crawford. Medical therapy somewhat limited by low BP's, severe LV dysfunction. Patient otherwise OK for discharge from my standpoint. (2) Ischemic cardiomyopathy Code(s): I25.5 - Ischemic cardiomyopathy Status: Chronic Plan: EF ~15%. Compensated at present. BP's too low for beta benjamin. May need to hold Entresto as well with SBP's often in the 80's. (3) Paroxysmal atrial fibrillation Code(s): I48.0 - Paroxysmal atrial fibrillation Status: Acute Plan: Seems mostly in atrial fib on monitoring. HR's acceptable at this time. Continue anticoagulation therapy. (4) CAD (coronary artery disease) Code(s): I25.10 - Atherosclerotic heart disease of [place] coronary artery without angina pectoris Status: Chronic Plan: Overall stable CAD status s/p recent PCI by Dr. Osei, history of numerous PCI's, history of CABG. Continue Plavix. - Plan Code Status: full code Discussed Condition With: patient (4) CAD (coronary artery disease) Qualifiers: Coronary Disease-Associated Artery/Lesion type: bypass graft [place] vs. transplanted heart: [place] heart Associated angina: without angina Qualified Code(s): I25.810 - Atherosclerosis of coronary artery bypass graft(s) without angina pectoris
--- NOTE | 2018-04-12 15:32 | P.PNIM ---
Subjective Interval history: The patient was feeling well. He denied further shocks from his pacemaker. He was breathing comfortably. Tolerating a diet. Discussed with nursing. Physical Exam Vital signs: Vital Signs 04/11/18 16:00 04/11/18 17:00 04/11/18 18:00 Temperature 98.2 F Pulse Rate 76 71 80 Respiratory Rate 16 Blood Pressure 86/57 L Pulse Oximetry 97 04/11/18 19:00 04/11/18 20:00 04/11/18 21:00 Temperature 98.2 F Pulse Rate 75 78 78 Respiratory Rate 18 Blood Pressure 88/57 L Pulse Oximetry 98 04/11/18 22:00 04/11/18 23:00 04/11/18 23:44 Temperature Pulse Rate 74 77 76 Respiratory Rate 18 Blood Pressure 89/60 L Pulse Oximetry 99 04/12/18 00:00 04/12/18 01:00 04/12/18 02:00 Temperature Pulse Rate 80 76 76 Respiratory Rate Blood Pressure Pulse Oximetry 04/12/18 03:00 04/12/18 04:00 04/12/18 05:00 Temperature Pulse Rate 72 72 76 Respiratory Rate 18 Blood Pressure 82/53 L Pulse Oximetry 96 04/12/18 06:00 04/12/18 07:00 04/12/18 08:00 Temperature 98.2 F Pulse Rate 72 77 74 Respiratory Rate 18 Blood Pressure 111/66 Pulse Oximetry 97 04/12/18 09:00 04/12/18 10:00 04/12/18 10:08 Temperature Pulse Rate 80 86 80 Respiratory Rate Blood Pressure Pulse Oximetry 04/12/18 12:00 04/12/18 13:00 04/12/18 14:00 Temperature 98.1 F Pulse Rate 86 80 78 Respiratory Rate 18 Blood Pressure 87/57 L Pulse Oximetry 97 04/12/18 15:00 Temperature Pulse Rate 72 Respiratory Rate Blood Pressure Pulse Oximetry Intake & Output 04/11/18 04/12/18 04/12/18 18:59 06:59 18:59 Intake Total 1260 / 1260 480 / 480 Output Total 1200 / 1200 1375 / 1375 Balance 60 / 60 -895 / -895 Weight 79 kg Intake: IV 400 / 400 Cordarone Inj 450 MG In D5W Inj 400 / 400 241 ML @ 1 MG/MIN 33.33 mls/hr IV.CONT TITRATE PRN Rx#: [id number] Oral 860 / 860 480 / 480 Output: Urine 1200 / 1200 1375 / 1375 Other: Date of Last Bowel Movement 04/11/18 04/10/18 04/11/18 # Bowel Movements 0 Narrative: GENERAL: No distress. SKIN: Focused skin assessment warm/dry. HEAD: Atraumatic. Normocephalic. EYES: Pupils equal and round. No scleral icterus. No injection or drainage. ENT: No nasal bleeding or discharge. Mucous membranes pink and moist.Tongue is midline. No uvula deviation. NECK: Trachea midline. No JVD. CARDIOVASCULAR: Irregularly irregular rhythm. No murmur appreciated. RESPIRATORY: No accessory muscle use. Clear to auscultation. Breath sounds equal bilaterally. GASTROINTESTINAL: Abdomen soft, non-tender, nondistended. Hepatic and splenic margins not palpable. MUSCULOSKELETAL: No obvious deformities. No clubbing. No cyanosis. No edema. Full ROM of the upper and lower extremities bilaterally. 2+ pulses bilaterally. NEUROLOGICAL: Awake and alert. No obvious cranial nerve deficits. Motor grossly within normal limits. Normal speech. PSYCHIATRIC: Appropriate mood and affect; insight and judgment normal. Results - Labs CBC & Chem 7: 04/10/18 07:40 04/10/18 07:40 Assessment and Plan - Assessment (1) Pacemaker malfunction Code(s): T82.111A - Breakdown (mechanical) of cardiac pulse generator (battery) , initial encounter Status: Acute - Plan AICD firing The pt's pacemaker fired multiple times on the day of admission. The pt had his pacemaker interrogated and SVT was noted. Cardiology was consulted. EKG with atrial fibrillation. Initial troponin 0.04. -amiodarone drip changed to p.o. per cardiology. -telemetry. -EP consult pending. Chronic systolic CHF Appears euvolemic at this time. -continue cardiac regimen. -follow Is and Os. -Hold diuretics. Atrial fibrillation Chronic. Rate controlled at this time. -continue Eliquis. Hypotension The patient is on blood pressure medication, diuretics and amiodarone. -DC diuretics for now as patient appears euvolemic. -Holding parameters for Entresto. May need to discontinue at discharge. Renal disease Seems chronic. -follow BMP and avoid nephrotoxins. Improved. Hyponatremia Mild. -follow BMP. Stable. Hyperglycemia May be a stress reaction. A1c 6.1%. -Lifestyle modifications. PPx: Eliquis Discharge Planning: Awaiting EP consult.
--- NOTE | 2018-04-12 23:22 | MB ---
cc: Hodan Crawford MD DATE: 04/12/2018 REASON FOR CONSULTATION: Compensated heart failure, defibrillator shock. HISTORY OF PRESENT ILLNESS: Mr. Abrams is a 68-year-old gentleman with a history of congestive heart failure, cardiomyopathy, paroxysmal atrial fibrillation previous PTCA plus stent, previous defibrillator implanted that was in 2009, ejection fraction around 10% to 15%, admitted due to a recurrent defibrillator shock. This is apparently regular tachyarrhythmia. Ventricular tachycardia is suspected. I was consulted for evaluation and management. The chart was reviewed. The patient was evaluated. ALLERGIES: DILTIAZEM. SOCIAL HISTORY: Negative for smoking and drinking. FAMILY HISTORY: Noncontributory to his current medical condition. MEDICATIONS: The patient is on: 1. Acetaminophen. 2. Amiodarone 400 mg a day. 3. Eliquis 5 mg twice a day. 4. Lipitor 80 mg a day. 5. Plavix 75 mg a day. 6. Proscar 5 mg a day. 7. Entresto. 8. Tamsulosin. REVIEW OF SYSTEMS: The patient refers feeling better. No chest pain, no chest discomfort. Shortness of breath is decreased. No fever. No defibrillator shocks. PHYSICAL EXAMINATION: GENERAL: Alert, fully oriented. VITAL SIGNS: Blood pressure on evaluation 100/70, pulse 85, respiratory rate 18. LUNGS: Ventilated. CARDIOVASCULAR: S1, S2. Regular. No gallop. ABDOMEN: Soft. No mass. EXTREMITIES: No edema. DIAGNOSTIC DATA: Electrocardiogram shows atrial fibrillation, intraventricular conduction delay, QRS around 150 milliseconds, diffuse ST changes. LABORATORY DATA: Hemoglobin 14.5, white blood cells 7.4. INR 1.1. Potassium 4.3, creatinine 1.24. Troponin 0.06. Digoxin 1.8. ASSESSMENT AND RECOMMENDATIONS: Ms. Abrams has had around 4-5 defibrillator shocks. Apparently, this is due to ventricular tachycardia, but the gentleman has a single-chamber device. Since on amiodarone, the gentleman is stable. No new episodes reported. Entresto was added. He has an ejection fraction of around 10% to 15%. This is considered heart failure class III. This gentleman will need in the future an upgrade of his defibrillator to a biventricular pacer defibrillator. The device is close to POLO. At this point, my recommendation is to continue current management. If the gentleman is stable, he can be discharged home. I will see him as an outpatient for further management. I will monitor him during this hospitalization. He should continue the Entresto for now. MD JACKELYN Leon/rachel , 09:06 PM , 09:15 PM
[2018-04-13] MEDS: Acetaminophen 325 MG Tablet PO PRN ×2 (01:32→08:41)
[2018-04-13] MEDS: Amiodarone 200 MG Tablet PO SCH (08:40)
[2018-04-13] MEDS: Finasteride 5 MG Tablet PO SCH (08:40)
--- NOTE | 2018-04-13 09:32 | P.PNCA ---
Subjective Interval history: Mild occasional nausea when walking around. No definite angina. No dyspnea, palpitations, PND. Occasional short-lived lightheadedness. No near syncope, syncope. Medications and Allergies Active Medications: Active Medications Acetaminophen (Tylenol) 650 mg PO Q4H PRN PRN Reason: Temp > 100.4, pain 1-2 Last Admin: 04/13/18 08:41 Dose: 650 mg Amiodarone HCl (Cordarone) 400 mg PO DAILY [facility] Last Admin: 04/13/18 08:40 Dose: 400 mg Apixaban (Eliquis) 5 mg PO BID [facility] Last Admin: 04/13/18 08:41 Dose: 5 mg Atorvastatin Calcium (Lipitor) 80 mg PO DAILY [facility] Last Admin: 04/13/18 08:41 Dose: 80 mg Clopidogrel Bisulfate (Plavix) 75 mg PO DAILY [facility] Last Admin: 04/13/18 08:41 Dose: 75 mg Finasteride (Proscar) 5 mg PO DAILY [facility] Last Admin: 04/13/18 08:40 Dose: 5 mg Ondansetron HCl (Zofran Inj) 4 mg IV.PUSH Q6H PRN PRN Reason: NAUSEA OR VOMITING Sacubitril/Valsartan (Entresto 24 Mg/26 Mg Tablet) 1 tab PO BID [facility] Last Admin: 04/13/18 08:40 Dose: 1 tab Tamsulosin HCl (Flomax) 0.4 mg PO DAILY [facility] Last Admin: 04/13/18 08:41 Dose: 0.4 mg Allergies Allergy/AdvReac Type Severity Reaction Status Date / Time diltiazem Allergy Severe Edema Verified 04/09/18 13:46 Home Medications Medication Instructions Recorded Confirmed Type apixaban [Eliquis] 5 mg PO BID 03/29/18 04/09/18 History atorvastatin 80 mg PO DAILY 03/29/18 04/09/18 History clopidogrel [Plavix] 75 mg PO DAILY 03/29/18 04/09/18 History finasteride 5 mg PO DAILY 03/29/18 04/09/18 History tamsulosin 0.4 mg PO DAILY 03/29/18 04/09/18 History Physical Exam Vital signs: Vital Signs 04/12/18 10:00 04/12/18 10:08 04/12/18 12:00 Temperature 98.1 F Pulse Rate 86 80 86 Respiratory Rate 18 Blood Pressure 87/57 L Pulse Oximetry 97 04/12/18 13:00 04/12/18 14:00 04/12/18 15:00 Temperature Pulse Rate 80 78 72 Respiratory Rate Blood Pressure Pulse Oximetry 04/12/18 16:00 04/12/18 16:54 04/12/18 17:09 Temperature 98.1 F Pulse Rate 78 81 Respiratory Rate 16 Blood Pressure 100/70 Pulse Oximetry 98 98 04/12/18 17:28 04/12/18 19:00 04/12/18 20:00 Temperature 97.7 F Pulse Rate 84 84 83 Respiratory Rate 16 Blood Pressure 97/68 L Pulse Oximetry 98 04/12/18 21:00 04/12/18 22:00 04/12/18 23:00 Temperature Pulse Rate 80 78 78 Respiratory Rate Blood Pressure Pulse Oximetry 04/12/18 23:35 04/13/18 00:00 04/13/18 01:00 Temperature 98.1 F Pulse Rate 81 77 83 Respiratory Rate 16 Blood Pressure 89/63 L Pulse Oximetry 97 04/13/18 02:00 04/13/18 02:05 04/13/18 03:00 Temperature 98 F Pulse Rate 77 76 Respiratory Rate 16 16 Blood Pressure 89/62 L Pulse Oximetry 98 04/13/18 04:00 04/13/18 05:00 04/13/18 06:00 Temperature Pulse Rate 74 76 79 Respiratory Rate 16 Blood Pressure Pulse Oximetry 04/13/18 07:00 Temperature Pulse Rate 78 Respiratory Rate Blood Pressure Pulse Oximetry Intake & Output 04/12/18 04/13/18 04/13/18 18:59 06:59 18:59 Intake Total 620 / 620 480 / 480 Output Total 925 / 925 Balance 620 / 620 -445 / -445 Weight 76 kg Intake: Oral 620 / 620 480 / 480 Output: Urine 925 / 925 Other: # Voids 4 Date of Last Bowel Movement 04/11/18 # Bowel Movements 0 - Constitutional no acute distress - Routine Neck Exam Absent: JVD - Routine Respiratory Exam Present: CTA bilaterally - Routine Cardiovascular Exam Present: RRR, S1, S2. Absent: murmur, gallop - Routine Abdominal Exam Present: soft, normoactive bowel sounds. Absent: tenderness, organomegaly - Routine Extremities Exam Absent: cyanosis, clubbing, edema Results 04/10/18 07:40 04/10/18 07:40 Intake and Output 04/12/18 04/13/18 04/13/18 22:59 06:59 14:59 Intake Total 620 / 620 480 / 480 Output Total 925 / 925 Balance 620 / 620 -445 / -445 Intake: Oral 620 / 620 480 / 480 Output: Urine 925 / 925 Other: # Voids 4 Date of Last Bowel Movement 04/11/18 # Bowel Movements 0 Weight 76 kg Assessment and Plan - Assessment (1) AICD discharge Code(s): Z45.02 - Encounter for adjustment and management of automatic implantable cardiac defibrillator Status: Acute Plan: Stable since admission. No further ICD shocks. Seems as if the shocks were for sustained VT though difficult to rule out was atrial fibrillation with rapid ventricular response. Dr. Crawford's consult note reviewed, appreciated. Recommend continue oral Amiodarone. Discharge today, same home medications plus Amiodarone 400 mg daily. Patient to be set up for upgrade of his ICD to a biventricular system by Dr. Crawford as an outpatient. (2) Ischemic cardiomyopathy Code(s): I25.5 - Ischemic cardiomyopathy Status: Chronic Plan: EF ~15%. Compensated at present. BP's too low for beta benjamin. Patient given instructions to hold Entresto when SBP less than 95. (3) Paroxysmal atrial fibrillation Code(s): I48.0 - Paroxysmal atrial fibrillation Status: Acute Plan: Seems mostly in atrial fib on monitoring. HR's acceptable at this time. Continue anticoagulation therapy. (4) CAD (coronary artery disease) Code(s): I25.10 - Atherosclerotic heart disease of [place] coronary artery without angina pectoris Status: Chronic Plan: Overall stable CAD status s/p recent PCI by Dr. Osei, history of numerous PCI's, history of CABG. Continue Plavix. - Plan Code Status: full code Discussed Condition With: patient, at length (4) CAD (coronary artery disease) Qualifiers: Coronary Disease-Associated Artery/Lesion type: bypass graft [place] vs. transplanted heart: [place] heart Associated angina: without angina Qualified Code(s): I25.810 - Atherosclerosis of coronary artery bypass graft(s) without angina pectoris
--- NOTE | 2018-04-13 11:45 | P.PN ---
Subjective Interval history: Follow-up AICD firing/discharge April 13, 2018-patient seen and examined, complain of mild dizziness shortness of breath otherwise denies any chest pain. Physical Exam Vital signs: Vital Signs 04/12/18 12:00 04/12/18 13:00 04/12/18 14:00 Temperature 98.1 F Pulse Rate 86 80 78 Respiratory Rate 18 Blood Pressure 87/57 L Pulse Oximetry 97 04/12/18 15:00 04/12/18 16:00 04/12/18 16:54 Temperature 98.1 F Pulse Rate 72 78 81 Respiratory Rate 16 Blood Pressure 100/70 Pulse Oximetry 98 04/12/18 17:09 04/12/18 17:28 04/12/18 19:00 Temperature Pulse Rate 84 84 Respiratory Rate Blood Pressure Pulse Oximetry 98 04/12/18 20:00 04/12/18 21:00 04/12/18 22:00 Temperature 97.7 F Pulse Rate 83 80 78 Respiratory Rate 16 Blood Pressure 97/68 L Pulse Oximetry 98 04/12/18 23:00 04/12/18 23:35 04/13/18 00:00 Temperature 98.1 F Pulse Rate 78 81 77 Respiratory Rate 16 Blood Pressure 89/63 L Pulse Oximetry 97 04/13/18 01:00 04/13/18 02:00 04/13/18 02:05 Temperature Pulse Rate 83 77 Respiratory Rate 16 Blood Pressure Pulse Oximetry 04/13/18 03:00 04/13/18 04:00 04/13/18 05:00 Temperature 98 F Pulse Rate 76 74 76 Respiratory Rate 16 16 Blood Pressure 89/62 L Pulse Oximetry 98 04/13/18 06:00 04/13/18 07:00 04/13/18 08:00 Temperature 97.6 F Pulse Rate 79 78 85 Respiratory Rate 16 Blood Pressure 93/65 L Pulse Oximetry 98 04/13/18 09:00 04/13/18 09:59 04/13/18 10:34 Temperature Pulse Rate 90 80 Respiratory Rate Blood Pressure Pulse Oximetry 98 Intake & Output 04/12/18 04/13/18 04/13/18 18:59 06:59 18:59 Intake Total 620 / 620 480 / 480 Output Total 925 / 925 Balance 620 / 620 -445 / -445 Weight 76 kg Intake: Oral 620 / 620 480 / 480 Output: Urine 925 / 925 Other: # Voids 4 Date of Last Bowel Movement 04/11/18 04/12/18 # Bowel Movements 0 Narrative: GENERAL: No distress. SKIN: Focused skin assessment warm/dry. HEAD: Atraumatic. Normocephalic. EYES: Pupils equal and round. No scleral icterus. No injection or drainage. ENT: No nasal bleeding or discharge. Mucous membranes pink and moist.Tongue is midline. No uvula deviation. NECK: Trachea midline. No JVD. CARDIOVASCULAR: Irregularly irregular rhythm. No murmur appreciated. RESPIRATORY: No accessory muscle use. Clear to auscultation. Breath sounds equal bilaterally. GASTROINTESTINAL: Abdomen soft, non-tender, nondistended. Hepatic and splenic margins not palpable. MUSCULOSKELETAL: No obvious deformities. No clubbing. No cyanosis. No edema. Full ROM of the upper and lower extremities bilaterally. 2+ pulses bilaterally. NEUROLOGICAL: Awake and alert. No obvious cranial nerve deficits. Motor grossly within normal limits. Normal speech. PSYCHIATRIC: Appropriate mood and affect; insight and judgment normal. Results - Labs CBC & Chem 7: 04/10/18 07:40 04/10/18 07:40 - Procedures None Assessment and Plan - Assessment (1) Pacemaker malfunction Code(s): T82.111A - Breakdown (mechanical) of cardiac pulse generator (battery) , initial encounter Status: Acute - Plan 68-year-old man with AICD firing The pt's pacemaker fired multiple times on the day of admission. The pt had his pacemaker interrogated and SVT was noted. -Currently on 400 mg p.o. amiodarone daily per cardiology. Continue outpatient medications -Patient to be set up for upgrade of his ICD to a biventricular system by Dr. Crawford as an outpatient. Ischemic cardiomyopathy -EF ~15%. Compensated at present. BP's too low for beta benjamin. Patient given instructions to hold Entresto when SBP less than 95. Chronic systolic CHF Appears euvolemic at this time. -continue cardiac regimen. -Continue to hold diuretics. Atrial fibrillation Chronic. Rate controlled at this time. -continue Eliquis amiodarone. Hypotension The patient is on blood pressure medication, diuretics and amiodarone. -DC diuretics for now as patient appears euvolemic. -Holding parameters for Entresto. Renal disease -Improved. Hyponatremia Mild. -follow BMP. Stable. Hyperglycemia May be a stress reaction. A1c 6.1%. -Lifestyle modifications. PPx: Eliquis
--- NOTE | 2018-04-13 11:51 | P.DS ---
Date of admission: 04/09/18 15:59 Primary care physician: Collin Menjivar MD Brief History from admission: The patient is a 68-year-old male with a past medical history of CAD status post CABG x5 and multiple stents who is presenting to the hospital after his pacemaker fired. The patient says yesterday he was taking a walk when all of a sudden his pacemaker shocked him. He said he gets a little lightheaded 3 seconds prior to the shock. He says that it feels like a truck is running over him. He says today he was on the computer and he experienced another firing of his pacemaker. He then felt another one at 12:45 PM and another one in the emergency department at 2:45 PM. He says that he was discharged about a week ago from the hospital. He was having chest tightness at that time. He had 2 stents placed and currently denies any chest tightness or shortness of breath. He says he was tried on digoxin again. He says that he is allergic to a couple different medications but is unsure of which medication. He says he was recently told that he has a problem with his pancreas and he was supposed to have that worked up with a principal mechanical engineer. DS: Diagnosis - Discharge Diagnosis (1) Pacemaker malfunction Status: Acute DS: Summary Hospital Course: While in the hospital, patient was treated for: AICD firing The pt's pacemaker fired multiple times on the day of admission. The pt had his pacemaker interrogated and SVT was noted. -Initially started on IV amiodarone then switched to 400 mg p.o. amiodarone daily per cardiology. Patient was continued on his outpatient medications -Patient to be set up for upgrade of his ICD to a biventricular system by Dr. Crawford as an outpatient. Ischemic cardiomyopathy -EF ~15%. Compensated at present. BP's too low for beta benjamin. Patient given instructions to hold Entresto when SBP less than 95. Chronic systolic CHF Appeared euvolemic on admission, therefore all diuretics have been put on hold Atrial fibrillation Chronic. Rate controlled and patient was continued on his Eliquis as well as amiodarone. Hypotension The patient is on blood pressure medication, diuretics and amiodarone. - diuretics were discontinued as patient appeared euvolemic. -Holding parameters for Entresto. Renal disease -Improved. Hyponatremia Mild. -follow BMP. Stable. Hyperglycemia May be a stress reaction. A1c 6.1%. -Lifestyle modifications. PPx: Eliquis - Time Spent with Patient Total time spent providing and/or coordinating discharge services: Less than 30 minutes - Quality: VTE Deep Vein Thrombosis/Pulmonary Embolism Present on Admission: No Exam Vital signs: Vital Signs 04/12/18 12:00 04/12/18 13:00 04/12/18 14:00 Temperature 98.1 F Pulse Rate 86 80 78 Respiratory Rate 18 Blood Pressure 87/57 L Pulse Oximetry 97 04/12/18 15:00 04/12/18 16:00 04/12/18 16:54 Temperature 98.1 F Pulse Rate 72 78 81 Respiratory Rate 16 Blood Pressure 100/70 Pulse Oximetry 98 04/12/18 17:09 04/12/18 17:28 04/12/18 19:00 Temperature Pulse Rate 84 84 Respiratory Rate Blood Pressure Pulse Oximetry 98 04/12/18 20:00 04/12/18 21:00 04/12/18 22:00 Temperature 97.7 F Pulse Rate 83 80 78 Respiratory Rate 16 Blood Pressure 97/68 L Pulse Oximetry 98 04/12/18 23:00 04/12/18 23:35 04/13/18 00:00 Temperature 98.1 F Pulse Rate 78 81 77 Respiratory Rate 16 Blood Pressure 89/63 L Pulse Oximetry 97 04/13/18 01:00 04/13/18 02:00 04/13/18 02:05 Temperature Pulse Rate 83 77 Respiratory Rate 16 Blood Pressure Pulse Oximetry 04/13/18 03:00 04/13/18 04:00 04/13/18 05:00 Temperature 98 F Pulse Rate 76 74 76 Respiratory Rate 16 16 Blood Pressure 89/62 L Pulse Oximetry 98 04/13/18 06:00 04/13/18 07:00 04/13/18 08:00 Temperature 97.6 F Pulse Rate 79 78 85 Respiratory Rate 16 Blood Pressure 93/65 L Pulse Oximetry 98 04/13/18 09:00 04/13/18 09:59 04/13/18 10:34 Temperature Pulse Rate 90 80 Respiratory Rate Blood Pressure Pulse Oximetry 98 04/13/18 11:00 04/13/18 11:44 Temperature 97.7 F Pulse Rate 75 77 Respiratory Rate 17 Blood Pressure 83/54 L Pulse Oximetry 99 Intake & Output 04/12/18 04/13/18 04/13/18 18:59 06:59 18:59 Intake Total 620 / 620 480 / 480 Output Total 925 / 925 Balance 620 / 620 -445 / -445 Weight 76 kg Intake: Oral 620 / 620 480 / 480 Output: Urine 925 / 925 Other: # Voids 4 Date of Last Bowel Movement 04/11/18 04/12/18 # Bowel Movements 0 Narrative: GENERAL: No distress. SKIN: Focused skin assessment warm/dry. HEAD: Atraumatic. Normocephalic. EYES: Pupils equal and round. No scleral icterus. No injection or drainage. ENT: No nasal bleeding or discharge. Mucous membranes pink and moist.Tongue is midline. No uvula deviation. NECK: Trachea midline. No JVD. CARDIOVASCULAR: Irregularly irregular rhythm. No murmur appreciated. RESPIRATORY: No accessory muscle use. Clear to auscultation. Breath sounds equal bilaterally. GASTROINTESTINAL: Abdomen soft, non-tender, nondistended. Hepatic and splenic margins not palpable. MUSCULOSKELETAL: No obvious deformities. No clubbing. No cyanosis. No edema. Full ROM of the upper and lower extremities bilaterally. 2+ pulses bilaterally. NEUROLOGICAL: Awake and alert. No obvious cranial nerve deficits. Motor grossly within normal limits. Normal speech. PSYCHIATRIC: Appropriate mood and affect; insight and judgment normal. Results Procedures completed during hospitalization: None - Impressions ITS Impressions Chest X-Ray 04/09/18 13:58 CONCLUSION: Cardiomegaly. Stable compared to previous exam dated 03/29/2018. Discharge Plan - Discharge Disposition Patient Disposition: 01 Discharge Home - Discharge Condition Condition: Good - Discharge Order Discharge Orders: Discharge Order (Routine); Ordered 04/13/18 Ordered By: Adrián Dozier Cardiology Clear for Discharge (Routine); Ordered 04/13/18 Ordered By: Chris Ward - Physicians Team Primary Care Provider: Collin Menjivar Attending Provider: Adrián Dozier Other Providers: Chris Wadr MD ; Hodan Crawford MD
--- NOTE | 2018-04-13 22:51 | P.PN ---
Subjective Interval history: Feeling better No shock Physical Exam Vital signs: Vital Signs 04/12/18 23:00 04/12/18 23:35 04/13/18 00:00 Temperature 98.1 F Pulse Rate 78 81 77 Respiratory Rate 16 Blood Pressure 89/63 L Pulse Oximetry 97 04/13/18 01:00 04/13/18 02:00 04/13/18 02:05 Temperature Pulse Rate 83 77 Respiratory Rate 16 Blood Pressure Pulse Oximetry 04/13/18 03:00 04/13/18 04:00 04/13/18 05:00 Temperature 98 F Pulse Rate 76 74 76 Respiratory Rate 16 16 Blood Pressure 89/62 L Pulse Oximetry 98 04/13/18 06:00 04/13/18 07:00 04/13/18 08:00 Temperature 97.6 F Pulse Rate 79 78 85 Respiratory Rate 16 Blood Pressure 93/65 L Pulse Oximetry 98 04/13/18 09:00 04/13/18 09:59 04/13/18 10:34 Temperature Pulse Rate 90 80 Respiratory Rate Blood Pressure Pulse Oximetry 98 04/13/18 11:00 04/13/18 11:44 04/13/18 12:00 Temperature 97.7 F Pulse Rate 75 77 78 Respiratory Rate 17 Blood Pressure 83/54 L Pulse Oximetry 99 04/13/18 13:00 04/13/18 14:00 04/13/18 15:00 Temperature Pulse Rate 77 82 83 Respiratory Rate Blood Pressure Pulse Oximetry 04/13/18 16:00 Temperature 97.9 F Pulse Rate 81 Respiratory Rate 16 Blood Pressure 90/70 L Pulse Oximetry 99 Intake & Output 04/13/18 04/13/18 04/14/18 06:59 18:59 06:59 Intake Total 480 / 480 Output Total 925 / 925 Balance -445 / -445 Weight 76 kg Intake: Oral 480 / 480 Output: Urine 925 / 925 Other: Date of Last Bowel Movement 04/12/18 # Bowel Movements 0 - Constitutional no acute distress - Routine HEENT Exam Head: Present: normocephalic Eye: Present: PERRL ENT: Present: mucous membranes moist - Routine Cardiovascular Exam Present: RRR - Routine Abdominal Exam Present: soft - Routine Neurological Exam Present: alert, oriented X3 - Detailed Neurological Exam: Coma Scale Eye Opening: Spontaneous Verbal Response: Oriented - Routine Psychiatric Exam Present: normal affect Results - Labs CBC & Chem 7: 04/10/18 07:40 04/10/18 07:40 - Procedures None Assessment and Plan - Assessment (1) AICD discharge Code(s): Z45.02 - Encounter for adjustment and management of automatic implantable cardiac defibrillator Status: Acute Plan: No new defib shock reported (2) Ischemic cardiomyopathy Code(s): I25.5 - Ischemic cardiomyopathy Status: Chronic Plan: On optimal medical management CHF III EF 10-15% QRS 150 Device near POLO. Will need ICD upgrade to BIV ICD Case discussed with patient Will be evaluated at the office and case scheduled as OP. Can be DH Patient previously evaluated earlier today (3) Paroxysmal atrial fibrillation Code(s): I48.0 - Paroxysmal atrial fibrillation Status: Acute Plan: In sinus (4) CAD (coronary artery disease) Code(s): I25.10 - Atherosclerotic heart disease of [place] coronary artery without angina pectoris Status: Chronic (4) CAD (coronary artery disease) Qualifiers: Coronary Disease-Associated Artery/Lesion type: bypass graft [place] vs. transplanted heart: [place] heart Associated angina: without angina Qualified Code(s): I25.810 - Atherosclerosis of coronary artery bypass graft(s) without angina pectoris
== END 2018-04-13 17:19 | disposition home or self-care (01) ==
LOC: NEPE 13:28 → NEDA 15:59 → HCIS 18:42
PROVIDERS: ADMIT Hospitalist; ATTEND Hospitalist

== ENCOUNTER 2018-04-27 01:28 | Observation (INO) ==
[2018-04-27] MEDS ORDERED: Sodium Chlor 0.9% Inj 500 ML IV.SIG ONE (01:43)
--- NOTE | 2018-04-27 01:53 | ED ---
HPI General Chief Complaint: Arrhythmia / Palpitations Stated Complaint: Medcal,Evac Time Seen by Provider: 04/27/18 01:32 Source: patient Mode of arrival: EMS Limitations: no limitations History of Present Illness HPI narrative: The patient is a 68-year-old male who presents to the emergency department via EMS for elevated heart rate. The patient states he recently had stents placed in his heart and then subsequently had his AICD firing last week. The patient states he was admitted to the hospital and underwent AICD replacement for the battery and was discharged home. The patient states he was in the hospital and they placed him on amiodarone for his elevated heart rate. The patient states his heart rate got down to 80 and has been stable in the 80s until earlier tonight when he noticed his heart rate was in the upper 90s and the lower 100s. The patient states that fast as his heart rate has been is approximately 115 on the ambulance. The patient denied any chest pain, shortness of breath, nausea, vomiting, or diaphoresis. However, he did complain of mild lightheadedness and generalized weakness when he tried to get in the ambulance. The patient's AICD was placed by Dr. Crawford. The patient is currently anticoagulated on Eliquis and Plavix. The patient states his AICD is made by [employer]. ANGUIANO complaint: Reports rapid heart beat Onset (ago): minute(s) Duration: constant Severity: moderate Context: Reports occurred during rest Arrhythmia history: Reports on anti-coagulants and AICD Associated symptoms: Reports other Treatments prior to arrival: Reports amiodarone Related Data Home Medications Medication Instructions Recorded Confirmed apixaban [Eliquis] 5 mg PO BID 03/29/18 04/27/18 atorvastatin 80 mg PO DAILY 03/29/18 04/27/18 clopidogrel [Plavix] 75 mg PO DAILY 03/29/18 04/27/18 finasteride 5 mg PO DAILY 03/29/18 04/27/18 tamsulosin 0.4 mg PO DAILY 03/29/18 04/27/18 allopurinol 100 mg PO DAILY 04/22/18 04/27/18 metolazone 5 mg PO DAILY 04/22/18 04/27/18 nitroglycerin 0.4 mg SUBLINGUAL Q5-15M PRN 04/22/18 04/27/18 spironolactone 25 mg PO DAILY 04/27/18 04/27/18 torsemide 20 mg PO DAILY 04/27/18 04/27/18 Previous Rx's Medication Instructions Recorded sacubitril-valsartan [Entresto] 1 tab PO BID #0 tab 04/01/18 amiodarone 400 mg PO DAILY #30 tab 04/13/18 midodrine 5 mg PO TID@0700,1200,1700 #9 tab 04/13/18 Allergies Allergy/AdvReac Type Severity Reaction Status Date / Time diltiazem Allergy Severe Edema Verified 04/22/18 10:26 Review of Systems ROS: all other systems reviewed are negative [facility] Medical History Medical History Atrial fibrillation (Acute) BPH (benign prostatic hyperplasia) (Acute) CAD (coronary artery disease) (Acute) CHF (congestive heart failure) (Acute) Heart attack (Acute) Hyperlipemia (Acute) Hypotension (Acute) Presence of combination internal cardiac defibrillator (ICD) and pacemaker ( Acute) Vertigo (Acute) Surgical History Surgical History History of cardiac cath (Acute) S/P CABG x 5 (Acute) Family History Family History Other Coronary artery disease Squamous cell carcinoma Social History Social History Substance History: No History of Abuse Second Hand Smoke Exposure: No Smoking Status: Former smoker Tobacco Type: Cigarettes How Often Do You Have a Drink Containing Alcohol: Never Recent Travel in [place] within the Last 8 Weeks: No Recent Out of Country Travel within the Last 8 Weeks: No Immunization History Tetanus Immunization: <5 Years Exam Narrative Exam Narrative: GENERAL: Awake, alert, pleasant 68-year-old male who appears his stated age and is in no acute respiratory distress. SKIN: Focused skin assessment warm/dry. HEAD: Atraumatic. Normocephalic. EYES: Pupils equal and round. No scleral icterus. No injection or drainage. ENT: No nasal bleeding or discharge. Mucous membranes pink and moist. NECK: Trachea midline. No JVD. CARDIOVASCULAR: Regular, tachycardic with a heart rate of 100. Bruising noted over the anterior left chest and lateral left chest wall and medial left arm from recent AICD placement. RESPIRATORY: No accessory muscle use. Clear to auscultation. Breath sounds equal bilaterally. GASTROINTESTINAL: Abdomen soft, non-tender, nondistended. MUSCULOSKELETAL: No obvious deformities. No clubbing. No cyanosis. No edema. NEUROLOGICAL: Awake and alert. No obvious cranial nerve deficits. Motor grossly within normal limits. Normal speech. PSYCHIATRIC: Appropriate mood and affect; insight and judgment normal. Course Initial Documented Vital Signs Temperature 98.5 F 04/27/18 01:35 Pulse Rate 116 H 04/27/18 01:35 Respiratory Rate 16 04/27/18 01:35 Blood Pressure 113/75 04/27/18 01:35 Pulse Oximetry 99 04/27/18 01:35 Last Documented Vital Signs Temperature 98.7 F 04/28/18 12:00 Pulse Rate 99 H 04/28/18 12:00 Respiratory Rate 16 04/28/18 12:00 Blood Pressure 92/53 L 04/28/18 12:00 Pulse Oximetry 99 04/28/18 12:00 Sign Out Sign Out Data: Patient Sign Out occurred on 04/27/18 at 07:18. Patient's care was discussed, and care was transferred from Lupillo Ramon MD to Rambo Mehta. Sign Out Comment: 68-year-old male who had a cardiac catheterization with stent placement by Dr. Osei 1 month ago, recent AICD change last week and was placed on amiodarone for nonsustained ventricular tachycardia. Now presents with elevated heart rate just over 100, patient is in Atrial flutter. Patient is currently anticoagulated with Eliquis. Phone call out to patient's relocation manager for discussion of medication changes prior to discharge home. Last updated by Lupillo Ramon MD at 04/27/18 07:02 Post-Handoff Eval: At 08 100 received phone call back from Dr. medina, who recommended observation , and will see patient to make decision as far as adjusting medication versus procedure for a flutter episodes. Patient is chest pain-free, asymptomatic, normotensive, rate justice remains between mid to high 90s and low 100s Medical Decision Making MDM Narrative Medical decision making narrative: IV was established, labs are drawn and sent, and the patient was placed on cardiac telemetry monitoring and continuous pulse oximetry monitoring. EKG was ordered and interpreted. Chest x-ray was obtained. I discussed the patient with a [facility] rep who will come and interrogate the patient's AICD at approximately 6:30 AM. Medical Screen Exam Complete: Yes Emergency Medical Condition: Yes Differential Diagnosis Differential Diagnosis: Differential diagnosis includes arrhythmia, dysrhythmia , ventricular tachycardia, dehydration, orthostatic hypotension, hypokalemia, hypomagnesemia, medication side effect. Lab Data Result diagrams: 04/28/18 05:39 04/28/18 05:39 Lab Results 04/27/18 04/27/18 04/27/18 Range/Units 01:15 01:15 01:15 WBC 7.7 (4.0-11.0) th/mm3 RBC 3.85 L (4.50-5.90) mil/mm3 Hgb 12.6 L (13.0-17.0) gm/dL Hct 36.0 L (39.0-51.0) % MCV 93.6 (80.0-100.0) fL MCH 32.7 (27.0-34.0) pg MCHC 35.0 (32.0-36.0) % RDW 14.4 (11.6-17.2) % Plt Count 211 (150-450) th/mm3 MPV 7.9 (7.0-11.0) fL Neut % (Auto) 67.0 (16.0-70.0) % Lymph % (Auto) 14.2 (9.0-44.0) % Tyrrell % (Auto) 12.6 H (0.0-8.0) % Eos % (Auto) 5.2 H (0.0-4.0) % Baso % (Auto) 1.0 (0.0-2.0) % Neut # (Auto) 5.2 (1.8-7.7) th/mm3 Lymph # (Auto) 1.1 (1.0-4.8) th/mm3 Tyrrell # (Auto) 1.0 H (0.0-0.9) th/mm3 Eos # (Auto) 0.4 (0.0-0.4) th/mm3 Baso # (Auto) 0.1 (0.0-0.2) th/mm3 WBC Differential . Differential Comment Auto diff final PT 11.4 (9.8-11.6) sec INR 1.1 Ratio APTT 28.8 (23.4-31.7) sec Sodium 132 L (136-145) meq/L Potassium 4.4 (3.5-5.1) meq/L Chloride 99 (98-107) meq/L Carbon Dioxide 23.3 (21.0-32.0) meq/L Anion Gap 10 (5-15) meq/L BUN 30 H (7-18) mg/dL Creatinine 1.77 H (0.60-1.30) mg/dL Estimated GFR 38 L (>89) mL/min Random Glucose 159 H (74-106) mg/dL Calcium 8.0 L (8.5-10.1) mg/dL Magnesium 2.2 (1.5-2.5) mg/dL Total Bilirubin 1.1 H (0.2-1.0) mg/dL AST 15 (15-37) U/L ALT 20 (12-78) U/L Alkaline Phosphatase 107 (45-117) U/L Total Creatine Kinase 169 (39-308) U/L CK-MB (CK-2) 1.8 (0.5-3.6) ng/mL Troponin I 0.02 (0.02-0.05) ng/mL B-Natriuretic Peptide (0-100) pg/mL Total Protein 7.5 (6.4-8.2) g/dL Albumin 3.8 (3.4-5.0) g/dL 04/27/18 04/28/18 04/28/18 Range/Units 01:15 05:39 05:39 WBC 6.8 (4.0-11.0) th/mm3 RBC 3.81 L (4.50-5.90) mil/mm3 Hgb 12.7 L (13.0-17.0) gm/dL Hct 35.7 L (39.0-51.0) % MCV 93.7 (80.0-100.0) fL MCH 33.3 (27.0-34.0) pg MCHC 35.5 (32.0-36.0) % RDW 14.7 (11.6-17.2) % Plt Count 215 (150-450) th/mm3 MPV 7.8 (7.0-11.0) fL Neut % (Auto) 71.1 H (16.0-70.0) % Lymph % (Auto) 10.0 (9.0-44.0) % Tyrrell % (Auto) 12.1 H (0.0-8.0) % Eos % (Auto) 5.5 H (0.0-4.0) % Baso % (Auto) 1.3 (0.0-2.0) % Neut # (Auto) 4.9 (1.8-7.7) th/mm3 Lymph # (Auto) 0.7 L (1.0-4.8) th/mm3 Tyrrell # (Auto) 0.8 (0.0-0.9) th/mm3 Eos # (Auto) 0.4 (0.0-0.4) th/mm3 Baso # (Auto) 0.1 (0.0-0.2) th/mm3 WBC Differential . Differential Comment Auto diff final PT (9.8-11.6) sec INR Ratio APTT (23.4-31.7) sec Sodium 132 L (136-145) meq/L Potassium 4.1 (3.5-5.1) meq/L Chloride 96 L (98-107) meq/L Carbon Dioxide 29.0 (21.0-32.0) meq/L Anion Gap 7 (5-15) meq/L BUN 26 H (7-18) mg/dL Creatinine 1.63 H (0.60-1.30) mg/dL Estimated GFR 42 L (>89) mL/min Random Glucose 128 H (74-106) mg/dL Calcium 8.8 D (8.5-10.1) mg/dL Magnesium (1.5-2.5) mg/dL Total Bilirubin 1.4 H (0.2-1.0) mg/dL AST 15 (15-37) U/L ALT 21 (12-78) U/L Alkaline Phosphatase 125 H (45-117) U/L Total Creatine Kinase (39-308) U/L CK-MB (CK-2) (0.5-3.6) ng/mL Troponin I (0.02-0.05) ng/mL B-Natriuretic Peptide 904 H (0-100) pg/mL Total Protein 7.7 (6.4-8.2) g/dL Albumin 4.0 (3.4-5.0) g/dL Imaging Data Radiologist's impression: Chest X-Ray 04/27/18 01:43 CONCLUSION: Cardiomegaly. Clear lungs. ECG Data EKG Prior to Arrival: No Attestation: I personally reviewed and interpreted this ECG as follows: Interpretation: EKG reveals sinus tachycardia with a rate of 103. Intraventricular conduction delay with QRS of 155 ms. Discharge Plan Discharge Disposition Patient Disposition: ED Admit(ED Internal Use Only) Discharge Condition Condition: Fair Discharge Order Discharge Orders: ED Use Only Admit Order (Routine); Ordered 04/27/18 Ordered By: Rambo Mehta Discharge Details Diagnosis: Cardiac dysrhythmia Physicians Team ED Provider: Rambo Mehta Primary Care Provider: Collin Menjivar Attending Provider: Sai Kaplan Other Providers: Hodan Crawford Status ED Status: Left Department Discharge Information Discharge Date/Time: 04/27/18 19:16
[2018-04-27 01:56] LABS: Baso # (Auto) 0.1 th/mm3 (0.0-0.2); Eos # (Auto) 0.4 th/mm3 (0.0-0.4); Eos % (Auto) 5.2 % (0.0-4.0); Hemoglobin 12.6 gm/dL (13.0-17.0); Lymph # (Auto) 1.1 th/mm3 (1.0-4.8); Lymph % (Auto) 14.2 % (9.0-44.0); Mean Corpuscular Hemoglobin 32.7 pg (27.0-34.0); Mean Corpuscular Volume 93.6 fL (80.0-100.0); Mean Platelet Volume 7.9 fL (7.0-11.0); Mono % (Auto) 12.6 % (0.0-8.0); Neut # (Auto) 5.2 th/mm3 (1.8-7.7); Platelet Count 211 th/mm3 (150-450); Red Blood Count 3.85 mil/mm3 (4.50-5.90); Red Cell Distribution Width 14.4 % (11.6-17.2); White Blood Count 7.7 th/mm3 (4.0-11.0)
[2018-04-27 02:08] LABS: Activated Partial Thrombo Time 28.8 sec (23.4-31.7); INR 1.1 Ratio; Prothrombin Time 11.4 sec (9.8-11.6)
[2018-04-27 02:10] LABS: Alanine Aminotransferase 20 U/L (12-78); Albumin 3.8 g/dL (3.4-5.0); Anion Gap 10 meq/L (5-15); Aspartate Aminotransferase 15 U/L (15-37); Blood Urea Nitrogen 30 mg/dL (7-18); Carbon Dioxide 23.3 meq/L (21.0-32.0); Chloride 99 meq/L (98-107); Glomerular Filtration Rate 38 mL/min (>89); Glucose,Random 159 mg/dL (74-106); Magnesium 2.2 mg/dL (1.5-2.5); Potassium 4.4 meq/L (3.5-5.1); Sodium 132 meq/L (136-145)
[2018-04-27 02:14] LABS: Alkaline Phosphatase 107 U/L (45-117); Creatine Kinase 169 U/L (39-308); Total Protein 7.5 g/dL (6.4-8.2); Troponin I 0.02 ng/mL (0.02-0.05)
[2018-04-27 02:26] LABS: Creatine Kinase MB 1.8 ng/mL (0.5-3.6)
--- NOTE | 2018-04-27 03:21 | XR ---
EXAM DATE: 04/27/2018 3:10 AM EST AGE/SEX: 68 years / Male INDICATIONS: Pleural effusion. CLINICAL DATA: This is the patient's initial encounter. Patient reports that signs and symptoms have been present for 1 day and indicates a pain score of 0/10. MEDICAL/SURGICAL HISTORY: Cerebrovascular disease. CABG. Pacemaker. cardiac stents. COMPARISON: [facility] – [place], CHEST 1V SINGLE AP, 04/22/2018. . FINDINGS: A single AP view of the chest demonstrates mild cardiomegaly. No pulmonary vascular engorgement. Lung s are clear. No infiltrates or effusions. Left-sided pacing device. Median sternotomy wires and coron norris markers. CONCLUSION: Cardiomegaly. Clear lungs. Electronically signed by: Chris Escamilla MD 04/27/2018 3:19 AM EST
[2018-04-27] MEDS ORDERED: Acetaminophen 325 MG Tablet PO PRN (08:39)
[2018-04-27] MEDS ORDERED: Nitroglycerin SL (Override) 0.4 MG Tab SL PRN (08:42)
--- NOTE | 2018-04-27 09:24 | ECG ---
Date Performed: 04/27/2018 Time Performed: 01:36:44 PTAGE: 68 years EKG: SINUS TACHYCARDIA WITH SHORT LA INTERVAL INTRAVENTRICULAR CONDUCTION DELAY Versus ventricul ar pacemaker POSSIBLE LATERAL MYOCARDIAL INFARCTION ABNORMAL ECG Compared to prior electrocardiogram, Rate has increased and QRS duration has increased. PREVIOUS TRACING : 04/22/2018 15.15 DOCTOR: Cheo Potts Interpretating Date/Time 04/27/2018 09:23:19
[2018-04-27] MEDS: Amiodarone 200 MG Tablet PO SCH (10:32)
[2018-04-27] MEDS: Allopurinol 100 MG Tablet PO SCH (10:33)
[2018-04-27] MEDS: Finasteride 5 MG Tablet PO SCH (10:33)
[2018-04-27] MEDS: metOLazone 5 MG Tablet PO SCH (10:36)
--- NOTE | 2018-04-27 13:49 | P.HPIM ---
History of Present Illness Primary Care Physician: Collin Menjivar MD Chief Complaint: Palpitations History of Present Illness: Mr. Abrams is a 68-year-old male. He came in secondary to palpitations overnight. He was found to be in a flutter. He has a recent revision of his AICD. He has not been symptomatic since arriving to the ER. On telemetry he has had occasional episodes of brief runs of tachycardia. No chest pain during all this time. No shortness of breath. Review of Systems Constitutional: No fevers, no chills no night sweats, no fatigue, no weakness Eyes: No eye pain, no blurry vision, no loss of vision ENT: No sore throat, no ear pain, no rhinorrhea Cardiovascular: No chest pain, no tachycardia, palpitations, no syncope Respiratory: No wheezing, no cough, no shortness of breath Gastrointestinal: No abdominal pain, no black tarry stools, no bright red blood per rectum, no vomiting, no diarrhea Musculoskeletal: No joint pain, no muscle cramps, no stiffness Integumentary: No rash, no ulcers, no drainage Neurologic: No sensory loss, no loss of motor function, no dizziness Psychiatric: No behavioral changes, no hallucinations, no suicidal ideations PMFSH Medical History Medical History Atrial fibrillation (Acute) BPH (benign prostatic hyperplasia) (Acute) CAD (coronary artery disease) (Acute) CHF (congestive heart failure) (Acute) Heart attack (Acute) Hyperlipemia (Acute) Hypotension (Acute) Presence of combination internal cardiac defibrillator (ICD) and pacemaker ( Acute) Vertigo (Acute) Surgical History Surgical History History of cardiac cath (Acute) S/P CABG x 5 (Acute) Family History Family History Other Coronary artery disease Squamous cell carcinoma Social History Social History Substance History: No History of Abuse Second Hand Smoke Exposure: No Smoking Status: Former smoker Tobacco Type: Cigarettes How Often Do You Have a Drink Containing Alcohol: Never Recent Travel in [facility] [place] within the Last 8 Weeks: No Recent Out of Country Travel within the Last 8 Weeks: No Immunization History Tetanus Immunization: <5 Years Medications and Allergies Allergies Allergy/AdvReac Type Severity Reaction Status Date / Time diltiazem Allergy Severe Edema Verified 04/22/18 10:26 Home Medications Medication Instructions Recorded Confirmed Type apixaban [Eliquis] 5 mg PO BID 03/29/18 04/27/18 History atorvastatin 80 mg PO DAILY 03/29/18 04/27/18 History clopidogrel [Plavix] 75 mg PO DAILY 03/29/18 04/27/18 History finasteride 5 mg PO DAILY 03/29/18 04/27/18 History tamsulosin 0.4 mg PO DAILY 03/29/18 04/27/18 History allopurinol 100 mg PO DAILY 04/22/18 04/27/18 History metolazone 5 mg PO DAILY 04/22/18 04/27/18 History nitroglycerin 0.4 mg SUBLINGUAL Q5-15M PRN 04/22/18 04/27/18 History Active Medications: Active Medications Acetaminophen (Tylenol) 650 mg PO Q4H PRN PRN Reason: Temp > 100.4 Al Hydroxide/Mg Hydroxide (Milk Of righTuneanuel Liq) 30 ml PO Q12H PRN PRN Reason: Mild Constipation Allopurinol (Zyloprim) [address] [facility] Last Admin: 04/27/18 10:33 Dose: 100 mg Amiodarone HCl (Cordarone) [address] [facility] Last Admin: 04/27/18 10:32 Dose: Not Given Apixaban (Eliquis) [address] [facility] Last Admin: 04/27/18 10:33 Dose: 5 mg Atorvastatin Calcium (Lipitor) [address] [facility] Last Admin: 04/27/18 10:34 Dose: 80 mg Clopidogrel Bisulfate (Plavix) [address] [facility] Last Admin: 04/27/18 10:33 Dose: 75 mg Finasteride (Proscar) [address] [facility] Last Admin: 04/27/18 10:33 Dose: Not Given Metolazone (Zaroxolyn) [address] [facility] Last Admin: 04/27/18 10:36 Dose: Not Given Midodrine (Proamatine) 5 mg PO TID@0700,1200,1700 [facility] Nitroglycerin (Nitrostat Sl (Override)) 0.4 mg SL Q5M PRN PRN Reason: Chest Pain Ondansetron HCl (Zofran Inj) 4 mg IV.PUSH Q6H PRN PRN Reason: NAUSEA OR VOMITING Sacubitril/Valsartan (Entresto 24 Mg/26 Mg Tablet) [address] [facility] Last Admin: 04/27/18 13:27 Dose: Not Given Sodium Chloride (Ns Flush) 2 ml IV.FLUSH UNSCH PRN PRN Reason: FLUSH AFTER USING IV ACCESS Sodium Chloride (Ns Flush) [address] [facility] Last Admin: 04/27/18 10:37 Dose: 2 ml Sodium Chloride (Ns Flush) 2 ml IV.FLUSH PRN PRN PRN Reason: FLUSH AFTER USING IV ACCESS Tamsulosin HCl (Flomax) 0.[address] [facility] Last Admin: 04/27/18 10:34 Dose: 0.4 mg Physical Exam Vital signs: Last Vital Signs Temp 98.7 F 04/27/18 12:00 Pulse 96 H 04/27/18 12:00 Resp 16 04/27/18 12:00 BP 87/52 L 04/27/18 12:00 Pulse Ox 100 04/27/18 12:00 Intake & Output 04/25/18 04/26/18 04/27/18 04/28/18 06:59 06:59 06:59 06:59 Intake Total 500 / 500 Balance 500 / 500 Narrative: GENERAL: NAD, A&Ox3 HEAD: Normocephalic. NECK: Supple, trachea midline. No lymphadenopathy. EYES: No scleral icterus. No injection or drainage. CARDIOVASCULAR: Regular rate and rhythm without murmurs, gallops, or rubs. RESPIRATORY: Breath sounds equal bilaterally. No accessory muscle use. GASTROINTESTINAL: Abdomen soft, non-tender, nondistended. MUSCULOSKELETAL: No cyanosis, or edema. SKIN: Warm and dry. NEURO: No focal neurological deficits. Results Labs CBC & Chem 7: 04/27/18 01:15 04/27/18 01:15 Imaging Impressions Chest X-Ray 04/27/18 01:43 CONCLUSION: Cardiomegaly. Clear lungs. Caprini VTE Risk Assessment Caprini VTE Risk Assessment: Moderate/High Risk (score >= 2) Caprini Risk Assessment Model: Point Value = 1 Point Value = 2 Point Value = 3 Point Value = 5 Age 41-60 Minor surgery BMI > 25 kg/m2 Swollen legs Varicose veins or History of unexplained or recurrent spontaneous Oral contraceptives or hormone replacement Sepsis (< 1 month) Serious lung disease, including pneumonia (< 1 month) Abnormal pulmonary function Acute myocardial infarction Congestive heart failure (< 1 month) History of inflammatory bowel disease Medical patient at bed rest Age 61-74 Arthroscopic surgery Major open surgery (> 45 min) Laparoscopic surgery (> 45 min) Malignancy Confined to bed (> 72 hours) Immobilizing plaster cast Central venous access Age >= 75 History of VTE Family history of VTE Factor V Leiden Prothrombin [id number] Lupus anticoagulant Anticardiolipin antibodies Elevated serum homocysteine Heparin-induced thrombocytopenia Other congenital or acquired thrombophilia Stroke (< 1 month) Elective arthroplasty Hip, pelvis, or leg fracture Acute spinal cord injury (< 1 month) Prophylaxis Regimen: Total Risk Factor Score Risk Level Prophylaxis Regimen 0-1 Low Early ambulation 2 Moderate Order ONE of the following: *Sequential Compression Device (SCD) *Heparin 5000 units SQ BID 3-4 Higher Order ONE of the following medications: *Heparin 5000 units SQ TID *Enoxaparin/Lovenox 40 mg SQ daily (WT < 150 kg, CrCl > 30 mL/min) *Enoxaparin/Lovenox 30 mg SQ daily (WT < 150 kg, CrCl > 10-29 mL/min) *Enoxaparin/Lovenox 30 mg SQ BID (WT < 150 kg, CrCl > 30 mL/min) AND/OR *Sequential Compression Device (SCD) 5 or more Highest Order ONE of the following medications: *Heparin 5000 units SQ TID (Preferred with Epidurals) *Enoxaparin/Lovenox 40 mg SQ daily (WT < 150 kg, CrCl > 30 mL/min) *Enoxaparin/Lovenox 30 mg SQ daily (WT < 150 kg, CrCl > 10-29 mL/min) *Enoxaparin/Lovenox 30 mg SQ BID (WT < 150 kg, CrCl > 30 mL/min) AND *Sequential Compression Device (SCD) Assessment and Plan Plan 68-year-old male admitted secondary to palpitations with evidence of a-flutter History of atrial fibrillation A flutter versus A. fib with RVR History of CHF History of coronary artery disease Old [place] AICD Follow on telemetry Cardiology consulted Any adjustment in medications will be deferred to cardiology at this time Currently patient asymptomatic Hyperlipidemia Continue present treatment Follow as an outpatient BPH Vertigo Asymptomatic Follow these conditions clinically DVT prophylaxis Patient ambulatory
[2018-04-28 06:10] LABS: Baso # (Auto) 0.1 th/mm3 (0.0-0.2); Baso % (Auto) 1.3 % (0.0-2.0); Eos # (Auto) 0.4 th/mm3 (0.0-0.4); Eos % (Auto) 5.5 % (0.0-4.0); Hematocrit 35.7 % (39.0-51.0); Hemoglobin 12.7 gm/dL (13.0-17.0); Lymph # (Auto) 0.7 th/mm3 (1.0-4.8); Mean Corpuscular HGB Conc 35.5 % (32.0-36.0); Mean Corpuscular Hemoglobin 33.3 pg (27.0-34.0); Mean Corpuscular Volume 93.7 fL (80.0-100.0); Mean Platelet Volume 7.8 fL (7.0-11.0); Mono # (Auto) 0.8 th/mm3 (0.0-0.9); Mono % (Auto) 12.1 % (0.0-8.0); Neut # (Auto) 4.9 th/mm3 (1.8-7.7); Neut % (Auto) 71.1 % (16.0-70.0); Platelet Count 215 th/mm3 (150-450); Red Blood Count 3.81 mil/mm3 (4.50-5.90); Red Cell Distribution Width 14.7 % (11.6-17.2); White Blood Count 6.8 th/mm3 (4.0-11.0)
[2018-04-28 06:29] LABS: Alanine Aminotransferase 21 U/L (12-78); Alkaline Phosphatase 125 U/L (45-117); Anion Gap 7 meq/L (5-15); Aspartate Aminotransferase 15 U/L (15-37); Blood Urea Nitrogen 26 mg/dL (7-18); Calcium 8.8 mg/dL (8.5-10.1); Chloride 96 meq/L (98-107); Glomerular Filtration Rate 42 mL/min (>89); Glucose,Random 128 mg/dL (74-106); Potassium 4.1 meq/L (3.5-5.1); Sodium 132 meq/L (136-145); Total Protein 7.7 g/dL (6.4-8.2)
[2018-04-28] MEDS: Finasteride 5 MG Tablet PO SCH (08:36)
[2018-04-28] MEDS: metOLazone 5 MG Tablet PO SCH (08:36)
[2018-04-28] MEDS: Allopurinol 100 MG Tablet PO SCH (08:36)
[2018-04-28] MEDS: Amiodarone 200 MG Tablet PO SCH (08:37)
--- NOTE | 2018-04-28 16:39 | P.PN ---
Subjective Interval history: Nursing denies any acute changes overnight, pulse still reaching up to 110. Patient still says he still feels nauseated, queasy especially when he gets up and moves around- Even on an empty stomach. Patient claims somebody could come in yesterday morning and had interrogated his device. Physical Exam Vital signs: Vital Signs 04/27/18 20:00 04/28/18 00:00 04/28/18 04:00 Temperature 97.7 F 97.7 F 97.5 F L Pulse Rate 111 H 105 H 105 H Respiratory Rate 16 16 14 Blood Pressure 91/59 L 92/57 L 91/56 L Pulse Oximetry 97 98 98 04/28/18 08:00 04/28/18 08:25 04/28/18 09:00 Temperature 97.6 F Pulse Rate 111 H 110 H Respiratory Rate 18 Blood Pressure 102/63 Pulse Oximetry 97 97 04/28/18 12:00 Temperature 98.7 F Pulse Rate 99 H Respiratory Rate 16 Blood Pressure 92/53 L Pulse Oximetry 99 Intake & Output 04/27/18 04/28/18 04/28/18 18:59 06:59 18:59 Intake Total 360 / 360 Balance 360 / 360 Weight 80.9 kg Intake: Oral 360 / 360 Other: # Voids 3 Weight On Admission 80.9 kg Narrative: Irregular rhythm, slightly tachycardic rate Clear lungs bilaterally, labored breathing Appears mildly pale No acute distress Results - Labs CBC & Chem 7: 04/28/18 05:39 04/28/18 05:39 Laboratory Results - last 24 hr 04/28/18 04/28/18 05:39 05:39 WBC 6.8 RBC 3.81 L Hgb 12.7 L Hct 35.7 L MCV 93.7 MCH 33.3 MCHC 35.5 RDW 14.7 Plt Count 215 MPV 7.8 Neut % (Auto) 71.1 H Lymph % (Auto) 10.0 Terry % (Auto) 12.1 H Eos % (Auto) 5.5 H Baso % (Auto) 1.3 Neut # (Auto) 4.9 Lymph # (Auto) 0.7 L Terry # (Auto) 0.8 Eos # (Auto) 0.4 Baso # (Auto) 0.1 WBC Differential . Differential Comment Auto diff final Sodium 132 L Potassium 4.1 Chloride 96 L Carbon Dioxide 29.0 Anion Gap 7 BUN 26 H Creatinine 1.63 H Estimated GFR 42 L Random Glucose 128 H Calcium 8.8 D Total Bilirubin 1.4 H AST 15 ALT 21 Alkaline Phosphatase 125 H Total Protein 7.7 Albumin 4.0 Assessment and Plan - Plan 68-year-old male admitted secondary to palpitations with evidence of a-flutter A flutter versus A. fib with RVR History of sCHF AICD -telemetry -EP consulted -On amiodarone, Entresto, Midrodrine, metolazone -Continue Eliquis -Any adjustment in medications will be deferred to cardiology at this time CAD stenting -Continue home aspirin, Plavix -Continue Lipitor BPH Vertigo -Follow these conditions clinically -Obtain B12 level DVT prophylaxis Patient ambulatory, eliquis
--- NOTE | 2018-04-28 21:12 | MB ---
cc: Hodan Crawford MD, Hanscy MD Masoodi,Sai Garcia MD DATE: 04/28/2018 REASON FOR CONSULTATION: Tachyarrhythmia. HISTORY OF PRESENT ILLNESS: Mr. Abrams is a 68-year-old gentleman, congestive heart failure, cardiomyopathy, recent hospitalization due to multiple defibrillator shocks. Biventricular pace. No ICD, coronary artery disease, multiple defibrillatory shocks, recent hospitalization. Defibrillator was upgraded to a biventricular pacer defibrillator. The gentleman was at home, feeling his heart is going fast, decided to come to the emergency room where he was admitted. Duration of the device show atrial fibrillation with fast ventricular response. He had a previous atrial fibrillation ablation in 2013. I was consulted for evaluation and management. The chart was reviewed. The patient was evaluated. ALLERGIES: CARDIZEM. SOCIAL HISTORY: Negative for smoking and drinking. FAMILY HISTORY: Noncontributory to his current medical condition. MEDICATIONS: Mr. Abrams currently is on acetaminophen, amiodarone 400 mg a day, Eliquis 5 mg twice a day, Plavix 75 mg a day, Lipitor 80 mg a day, Proscar 5 mg a day, magnesium with losartan 5 mg a day, nitro, Zofran, Flomax. REVIEW OF SYSTEMS: He referred no chest pain or palpitation. No vomiting. No fever. PHYSICAL EXAMINATION: GENERAL: Alert, fully oriented. VITAL SIGNS: Blood pressure 92/53, pulse 110 and telemetry is 118-120, respiratory rate 18. LUNGS: Ventilated. CARDIOVASCULAR: S1, S2, tachycardic. ABDOMEN: Soft. No masses. EXTREMITIES: No edema. Left femoral clavicular area of healing surgical wound. Electrocardiogram show irregular tachyarrhythmia. Diffuse ST changes. LABORATORY DATA: Hemoglobin is 12.7, white blood cell 6.0. INR 1.1. Potassium 4.1, creatinine is 1.63. Troponin 0.02. ASSESSMENT AND RECOMMENDATIONS: The biventricular pacer defibrillator was interrogated. Mr. Abrams is in atrial fibrillation, atrial tachyarrhythmia, fast ventricular response. Heart rate is high. He is on anticoagulation. Ejection fraction is 15%. Mr. Abrams is not a good candidate for atrial fibrillation at this point. He is on amiodarone. My recommendation is cardioversion. If the patient post-cardioversion back again into atrial fibrillation with a fast ventricular response or I am unable to cardiovert him, the best approach will be AV node modification. Case discussed with the patient. I will keep him n.p.o. after midnight, cardioversion tomorrow morning. MD JACKELYN Leon/benita , 06:58 PM , 07:07 PM
[2018-04-29] MEDS ORDERED: Chlorhexidine Gluconate 2% 1 Pack (2 Cloths) TOPICAL ONE (08:30)
[2018-04-29] MEDS ORDERED: Metoprolol Tartrate 25 MG Tablet PO ONE (08:30)
--- NOTE | 2018-04-29 10:26 | P.PN ---
Subjective Interval history: Feeling better Physical Exam Vital signs: Vital Signs 04/28/18 12:00 04/28/18 16:00 04/28/18 19:50 Temperature 98.7 F 97.8 F 97.6 F Pulse Rate 99 H 99 H 119 H Respiratory Rate 16 16 20 Blood Pressure 92/53 L 85/61 L 95/64 L Pulse Oximetry 99 98 99 04/28/18 20:44 04/29/18 00:00 04/29/18 03:51 Temperature 97.8 F 97.6 F Pulse Rate 107 H 92 H 86 Respiratory Rate 16 17 Blood Pressure 74/51 L 76/46 L Pulse Oximetry 98 98 04/29/18 08:00 Temperature 97.6 F Pulse Rate 89 Respiratory Rate 16 Blood Pressure 79/51 L Pulse Oximetry 95 Intake & Output 04/28/18 04/29/18 04/29/18 18:59 06:59 18:59 Intake Total 360 / 360 Output Total 200 / 200 Balance -200 / -200 360 / 360 Intake: Oral 360 / 360 Output: Urine 200 / 200 Other: # Voids 3 Date of Last Bowel Movement 04/28/18 # Bowel Movements 1 - Constitutional no acute distress - Routine HEENT Exam Head: Present: normocephalic Eye: Present: PERRL ENT: Present: mucous membranes moist - Routine Respiratory Exam Present: CTA bilaterally - Routine Cardiovascular Exam Present: RRR, S1, S2 - Routine Abdominal Exam Present: soft - Routine Neurological Exam Present: alert, oriented X3 - Detailed Neurological Exam: Coma Scale Eye Opening: Spontaneous Verbal Response: Oriented Motor Response: Obey commands [place] Coma Scale Total: 15 - Routine Psychiatric Exam Present: normal affect Results - Labs CBC & Chem 7: 04/28/18 05:39 04/28/18 05:39 Laboratory Results - last 24 hr 04/28/18 05:39 Vitamin B12 376 Assessment and Plan - Assessment (1) Uncontrolled atrial fibrillation Code(s): I48.91 - Unspecified atrial fibrillation Status: Acute Plan: SP) cardioversion patient back into sinus rhythm. Doing well Can be DH Follow up as OP. If back into afib with FVR, AV node modification should be considered. (2) Ischemic cardiomyopathy Code(s): I25.5 - Ischemic cardiomyopathy Status: Chronic Plan: On optimal medical management
--- NOTE | 2018-04-29 10:52 | P.DS ---
Date of admission: 04/27/18 08:39 Primary care physician: Collin Menjivar MD Brief History from admission: Mr. Abrams is a 68-year-old male. He came in secondary to palpitations overnight. He was found to be in a flutter. He has a recent revision of his AICD. He has not been symptomatic since arriving to the ER. On telemetry he has had occasional episodes of brief runs of tachycardia. No chest pain during all this time. No shortness of breath. DS: Summary Hospital Course: Patient was admitted, placed on telemetry. Evaluated by elective physiology, underwent cardioversion successfully, rhythm is now sinus. Patient denies any chest pain or shortness of breath upon day of discharge. Blood pressure was in the 80s/60s systolic which the patient says is his baseline, but is asymptomatic. Patient advised to follow his home regimen where he holds his blood pressure medications if his BP is less than 90/60 which he checks frequently at home before taking his meds. Patient has met maximal benefit from hospitalization and is clinically stable for discharge. - Time Spent with Patient Total time spent providing and/or coordinating discharge services: Less than 30 minutes - Quality: VTE Deep Vein Thrombosis/Pulmonary Embolism Present on Admission: Yes Exam Vital signs: Vital Signs 04/28/18 12:00 04/28/18 16:00 04/28/18 19:50 Temperature 98.7 F 97.8 F 97.6 F Pulse Rate 99 H 99 H 119 H Respiratory Rate 16 16 20 Blood Pressure 92/53 L 85/61 L 95/64 L Pulse Oximetry 99 98 99 04/28/18 20:44 04/29/18 00:00 04/29/18 03:51 Temperature 97.8 F 97.6 F Pulse Rate 107 H 92 H 86 Respiratory Rate 16 17 Blood Pressure 74/51 L 76/46 L Pulse Oximetry 98 98 04/29/18 08:00 04/29/18 09:00 Temperature 97.6 F Pulse Rate 89 88 Respiratory Rate 16 Blood Pressure 79/51 L Pulse Oximetry 95 Intake & Output 04/28/18 04/29/18 04/29/18 18:59 06:59 18:59 Intake Total 360 / 360 Output Total 200 / 200 Balance -200 / -200 360 / 360 Intake: Oral 360 / 360 Output: Urine 200 / 200 Other: # Voids 3 Date of Last Bowel Movement 04/28/18 04/28/18 # Bowel Movements 1 Narrative: Heart sounds regular rate and rhythm, no murmurs Clear lungs bilaterally, unlabored breathing . Radial pulses noted to be regular Awake and alert No lower extremity edema No acute distress Results Procedures completed during hospitalization: biventricular pacer defibrillator was interrogated, 40 joules were delivered to the device. That failed to convert the patient in sinus rhythm. NIPS were unsuccessful. Subsequently, a 200 sync biphasic converted the patient into sinus rhythm. No S3 to report. The patient tolerated the procedure. Labs on day of discharge: Labs from last 24 hours 04/28/18 05:39 Vitamin B12 376 - Impressions ITS Impressions Chest X-Ray 04/27/18 01:43 CONCLUSION: Cardiomegaly. Clear lungs. Discharge Plan - Discharge Disposition Patient Disposition: Discharge Home - Discharge Condition Condition: Fair - Discharge Order Discharge Orders: Discharge Order (Routine); Ordered 04/29/18 Ordered By: Sai Kaplan Cardiology Clear for Discharge (Routine); Ordered 04/29/18 Ordered By: Hodan Crawford - Discharge Details Discharge Comment: Patient already cleared by cardiology - please dc once seen by attending - Physicians Team Primary Care Provider: Collin Menjivar Attending Provider: Sai Kaplan Other Providers: Hodan Crawford MD
--- NOTE | 2018-04-29 11:28 | MA ---
cc: Hodan Crawford MD DATE: 04/29/2018 PROCEDURE: Cardioversion on and noninvasive program simulation to the biventricular pacer defibrillator. INDICATIONS: Mr. Abrams is a 68-year-old gentleman with history of congestive heart failure, cardiomyopathy, atrial fibrillation,and ventricular tachycardia, admitted to the emergency room due to atrial fibrillation with fast ventricular response. This patient is not a candidate for atrial fibrillation ablation. Decision for noninvasive program simulation and cardioversion was taken. The risks, the nature, and the benefits of the procedure were clearly stated to him. Risks include pneumothorax, cardiac perforation, stroke, need for open heart surgery, and even . The patient understood and agreed to proceed. PROCEDURE IN DETAIL: After written informed consent was obtained, the patient was brought to the DOCU, where he was evaluated by anesthesiologist. An anterolateral pad was placed. Subsequently, the biventricular pacer defibrillator was interrogated, 40 joules were delivered to the device. That failed to convert the patient in sinus rhythm. NIPS were unsuccessful. Subsequently, I proceeded to external cardioversion. A 200 sync biphasic converted the patient into sinus rhythm. No S3 to report. The patient tolerated the procedure. The patient is going to be transferred to the recovery room. Can be discharged home,whenever he is okay with the managing team. CONCLUSION: Successful cardioversion. RECOMMENDATIONS: The patient is going to be observed. He will be discharged home later, whenever it is okay to manage. Hodan Crawford MD / , 10:31 AM , 10:38 AM
[2018-04-29] MEDS: Amiodarone 200 MG Tablet PO SCH (11:38)
[2018-04-29] MEDS: Finasteride 5 MG Tablet PO SCH (11:38)
[2018-04-29] MEDS: Allopurinol 100 MG Tablet PO SCH (11:39)
[2018-04-29] MEDS: metOLazone 5 MG Tablet PO SCH (11:39)
--- NOTE | 2018-04-29 17:31 | ECG ---
Date Performed: 04/29/2018 Time Performed: 09:00:50 PTAGE: 68 years EKG: Atrial fibrillation with multifocal PVCs or aberrant ventricular conduction. Left axis antonio ation IV conduction defect Lateral infarct - age undetermined Possible anterior infarct - age undeter mined Compared to previous tracing, the patient has developed atrial fibrillation with controlled carlos tricular response. The PVCs are new. Otherwise no significant change Abnormal ECG PREVIOUS TRACING : 04/27/2018 01.36 DOCTOR: Alyson Camejo Interpretating Date/Time 04/29/2018 17:29:55
== END 2018-04-29 12:52 | disposition home or self-care (01) ==
LOC: NEPE 01:28 → NEDA 01:28 → NEPGCP 13:10
PROVIDERS: ADMIT Hospitalist; ATTEND Hospitalist

== ENCOUNTER 2018-05-03 13:11 | Inpatient (IN) ==
--- NOTE | 2018-05-03 14:53 | ED ---
HPI General Chief Complaint: Arrhythmia / Palpitations Stated Complaint: Dizzy/Nausea Complaint Time Seen by Provider: 05/03/18 13:53 Source: patient Mode of arrival: ambulatory Limitations: no limitations History of Present Illness HPI narrative: 68 yo M c/o generalized weakness and fatigue for about three days. Dizziness also reported. No CP. Recent PMH shows revision of AICD done 04/[address] Crawford. Coronary Cath by Dr Osei toward end of March shows multiple vessel disease with stent placement. EF approx 10%. BP low (90s typically) precluding antianginal agents. No fever/cough. Timing constant. Related Data Home Medications Medication Instructions Recorded Confirmed apixaban [Eliquis] 5 mg PO BID 03/29/18 05/03/18 atorvastatin 80 mg PO DAILY 03/29/18 05/03/18 clopidogrel [Plavix] 75 mg PO DAILY 03/29/18 05/03/18 finasteride 5 mg PO DAILY 03/29/18 05/03/18 tamsulosin 0.4 mg PO DAILY 03/29/18 05/03/18 allopurinol 100 mg PO DAILY 04/22/18 05/03/18 metolazone 5 mg PO DAILY 04/22/18 05/03/18 nitroglycerin 0.4 mg SUBLINGUAL Q5-15M PRN 04/22/18 05/03/18 spironolactone 25 mg PO DAILY 04/27/18 05/03/18 torsemide 20 mg PO DAILY 04/27/18 05/03/18 Previous Rx's Medication Instructions Recorded amiodarone 400 mg PO DAILY #30 tab 04/13/18 midodrine 5 mg PO TID@0700,1200,1700 #9 tab 04/13/18 Allergies Allergy/AdvReac Type Severity Reaction Status Date / Time diltiazem Allergy Severe Edema Verified 05/03/18 13:44 Review of Systems ROS: all other systems reviewed are negative [facility] Surgical History Surgical History History of cardiac cath (Acute) History of permanent cardiac pacemaker placement (Acute) S/P CABG x 5 (Acute) Family History Family History Mother Coronary artery disease Uncle Coronary artery disease Grandparent Coronary artery disease Father Squamous cell carcinoma Social History Social History Substance History: No History of Abuse Second Hand Smoke Exposure: No Smoking Status: Former smoker (quit in 1994) Tobacco Type: Cigarettes How Often Do You Have a Drink Containing Alcohol: Never Recent Travel in [facility] within the Last 8 Weeks: No Recent Out of Country Travel within the Last 8 Weeks: No Immunization History Tetanus Immunization: Unsure Exam Narrative Exam Narrative: GENERAL: 68 yo M, chronically ill in appearance SKIN: Focused skin assessment warm/dry. HEAD: Atraumatic. Normocephalic. EYES: Pupils equal and round. No scleral icterus. No injection or drainage. ENT: No nasal bleeding or discharge. Mucous membranes pink and moist. NECK: Trachea midline. No JVD. CARDIOVASCULAR: Regular rate and rhythm. No murmur appreciated. Anterior chest wall ecchymosis with swelling overlying pacing pocket on L side. RESPIRATORY: No accessory muscle use. Clear to auscultation. Breath sounds equal bilaterally. GASTROINTESTINAL: Abdomen soft, non-tender, nondistended. Hepatic and splenic margins not palpable. MUSCULOSKELETAL: No obvious deformities. No clubbing. No cyanosis. No edema. NEUROLOGICAL: Awake and alert. No obvious cranial nerve deficits. Motor grossly within normal limits. Normal speech. PSYCHIATRIC: Appropriate mood and affect; insight and judgment normal. Course Initial Documented Vital Signs Temperature 98.3 F 05/03/18 13:40 Pulse Rate 120 H 05/03/18 13:40 Respiratory Rate 20 05/03/18 13:40 Blood Pressure 88/55 L 05/03/18 13:40 Pulse Oximetry 100 05/03/18 13:40 Last Documented Vital Signs Temperature 96.6 F L 05/06/18 08:01 Pulse Rate 99 H 05/06/18 08:01 Respiratory Rate 18 05/06/18 08:01 Blood Pressure 91/70 L 05/06/18 08:01 Pulse Oximetry 98 05/06/18 08:01 Sign Out Sign Out Data: Patient Sign Out occurred on 05/03/18 at 16:02. Patient's care was discussed, and care was transferred from Lowell Osei MD to Rambo Mehta. Sign Out Comment: Work up pending for complicated cardiac hx arriving w 2-3 days weakness, nausea, dizziness. EF 10%, chronic angina, BP 70s here, unable to IV fluid rescucitate. plan on admission pending work up. d/w Dr Ward for cardiology. Last updated by Lowell Osei MD at 05/03/18 15:05 Post-Handoff Eval: On repeat evaluation patient's heart rate is improved and is now in the low 100s , and blood pressure systolic of 103/56. No leukocytosis no anemia no abnormal platelet count noted. Coagulation profile is within normal limits The patient is noted to have acute on chronic worsening of his renal status with a BUN of 44 and a creatinine of 2.13 this was previously a BUN of 26 and creatinine 1.63 on April 28. First set of cardiac enzymes is negative, the patient's beta natruretic peptide is elevated at 907 similar to when he was here on April 27 with 904 Chest x-ray read by radiologist as negative for pulmonary edema however cardiomegaly noted Call placed out to [facility] for admission and cardiology consultation with Dr. Menezes' s Medical Decision Making MDM Narrative Medical decision making narrative: Pt well known to [facility]. Work up started at approx 245PM. D/w oncoming physician with plan for admission upon results of work up here. d/w Dr Ward Medical Screen Exam Complete: Yes Emergency Medical Condition: Yes Lab Data Result diagrams: 05/03/18 14:31 05/04/18 07:15 Lab Results 05/03/18 05/03/18 05/03/18 Range/Units 14:31 14:31 14:31 WBC 5.9 (4.0-11.0) th/mm3 RBC 3.75 L (4.50-5.90) mil/mm3 Hgb 12.6 L (13.0-17.0) gm/dL Hct 36.5 L (39.0-51.0) % MCV 97.3 (80.0-100.0) fL MCH 33.6 (27.0-34.0) pg MCHC 34.6 (32.0-36.0) % RDW 16.0 (11.6-17.2) % Plt Count 191 (150-450) th/mm3 MPV 7.9 (7.0-11.0) fL Neut % (Auto) 75.9 H (16.0-70.0) % Lymph % (Auto) 6.6 L (9.0-44.0) % [place] % (Auto) 12.8 H (0.0-8.0) % Eos % (Auto) 3.8 (0.0-4.0) % Baso % (Auto) 0.9 (0.0-2.0) % Neut # (Auto) 4.5 (1.8-7.7) th/mm3 Lymph # (Auto) 0.4 L (1.0-4.8) th/mm3 [place] # (Auto) 0.8 (0.0-0.9) th/mm3 Eos # (Auto) 0.2 (0.0-0.4) th/mm3 Baso # (Auto) 0.1 (0.0-0.2) th/mm3 WBC Differential . Differential Comment Auto diff final PT 11.8 H (9.8-11.6) sec INR 1.2 Ratio APTT 29.1 (23.4-31.7) sec Sodium 132 L (136-145) meq/L Potassium 4.4 (3.5-5.1) meq/L Chloride 96 L (98-107) meq/L Carbon Dioxide 28.0 (21.0-32.0) meq/L Anion Gap 8 (5-15) meq/L BUN 44 H (7-18) mg/dL Creatinine 2.13 H (0.60-1.30) mg/dL Estimated GFR 31 L (>89) mL/min Random Glucose 130 H (74-106) mg/dL Calcium 7.9 L (8.5-10.1) mg/dL Magnesium 2.4 (1.5-2.5) mg/dL Total Bilirubin 1.4 H (0.2-1.0) mg/dL AST 14 L (15-37) U/L ALT 20 (12-78) U/L Alkaline Phosphatase 130 H (45-117) U/L Troponin I 0.02 (0.02-0.05) ng/mL B-Natriuretic Peptide (0-100) pg/mL Total Protein 7.8 (6.4-8.2) g/dL Albumin 4.1 (3.4-5.0) g/dL Urine Color (Yellw/Straw) Urine Clarity (Clear) Urine pH (5.0-8.5) Ur Specific [place] (1.002-1.035) Urine Protein (Neg-Trace) mg/dL Urine Glucose (UA) (Negative) mg/dL Urine Ketones (Negative) mg/dL Urine Occult Blood (Negative) Urine Nitrate (Negative) Urine Bilirubin (Negative) Urine Urobilinogen (Less than 2) mg/dL Ur Leukocyte Esterase (Negative) Urine RBC (0-3) /hpf Urine WBC (0-5) /hpf Ur Squamous Epith Cells (0-5) /hpf Hyaline Casts (0-3) /lpf Micro UA Comment Ur Microscopic Review Urine Culture Comments Urine Opiates Screen (Neg) Ur Barbiturates Screen (Neg) Ur Amphetamines Screen (Neg) U Benzodiazepines Scrn (Neg) Urine Cocaine Screen (Neg) U Cannabinoids Screen (Neg) 05/03/18 05/03/18 05/03/18 Range/Units 14:31 16:50 16:50 WBC (4.0-11.0) th/mm3 RBC (4.50-5.90) mil/mm3 Hgb (13.0-17.0) gm/dL Hct (39.0-51.0) % MCV (80.0-100.0) fL MCH (27.0-34.0) pg MCHC (32.0-36.0) % RDW (11.6-17.2) % Plt Count (150-450) th/mm3 MPV (7.0-11.0) fL Neut % (Auto) (16.0-70.0) % Lymph % (Auto) (9.0-44.0) % [place] % (Auto) (0.0-8.0) % Eos % (Auto) (0.0-4.0) % Baso % (Auto) (0.0-2.0) % Neut # (Auto) (1.8-7.7) th/mm3 Lymph # (Auto) (1.0-4.8) th/mm3 [place] # (Auto) (0.0-0.9) th/mm3 Eos # (Auto) (0.0-0.4) th/mm3 Baso # (Auto) (0.0-0.2) th/mm3 WBC Differential Differential Comment PT (9.8-11.6) sec INR Ratio APTT (23.4-31.7) sec Sodium (136-145) meq/L Potassium (3.5-5.1) meq/L Chloride (98-107) meq/L Carbon Dioxide (21.0-32.0) meq/L Anion Gap (5-15) meq/L BUN (7-18) mg/dL Creatinine (0.60-1.30) mg/dL Estimated GFR (>89) mL/min Random Glucose (74-106) mg/dL Calcium (8.5-10.1) mg/dL Magnesium (1.5-2.5) mg/dL Total Bilirubin (0.2-1.0) mg/dL AST (15-37) U/L ALT (12-78) U/L Alkaline Phosphatase (45-117) U/L Troponin I (0.02-0.05) ng/mL B-Natriuretic Peptide 907 H (0-100) pg/mL Total Protein (6.4-8.2) g/dL Albumin (3.4-5.0) g/dL Urine Color Yellow (Yellw/Straw) Urine Clarity Clear (Clear) Urine pH 5.0 (5.0-8.5) Ur Specific [place] 1.013 (1.002-1.035) Urine Protein Negative (Neg-Trace) mg/dL Urine Glucose (UA) Negative (Negative) mg/dL Urine Ketones Negative (Negative) mg/dL Urine Occult Blood Small H (Negative) Urine Nitrate Negative (Negative) Urine Bilirubin Negative (Negative) Urine Urobilinogen Less than 2 (Less than 2) mg/dL Ur Leukocyte Esterase Negative (Negative) Urine RBC 4 H (0-3) /hpf Urine WBC Less than 1 (0-5) /hpf Ur Squamous Epith Cells <1 (0-5) /hpf Hyaline Casts 20 (0-3) /lpf Micro UA Comment Culture not ind Ur Microscopic Review Not Reportable Urine Culture Comments Culture not ind Urine Opiates Screen Neg (Neg) Ur Barbiturates Screen Neg (Neg) Ur Amphetamines Screen Neg (Neg) U Benzodiazepines Scrn Neg (Neg) Urine Cocaine Screen Neg (Neg) U Cannabinoids Screen Neg (Neg) 05/04/18 Range/Units 07:15 WBC (4.0-11.0) th/mm3 RBC (4.50-5.90) mil/mm3 Hgb (13.0-17.0) gm/dL Hct (39.0-51.0) % MCV (80.0-100.0) fL MCH (27.0-34.0) pg MCHC (32.0-36.0) % RDW (11.6-17.2) % Plt Count (150-450) th/mm3 MPV (7.0-11.0) fL Neut % (Auto) (16.0-70.0) % Lymph % (Auto) (9.0-44.0) % [place] % (Auto) (0.0-8.0) % Eos % (Auto) (0.0-4.0) % Baso % (Auto) (0.0-2.0) % Neut # (Auto) (1.8-7.7) th/mm3 Lymph # (Auto) (1.0-4.8) th/mm3 [place] # (Auto) (0.0-0.9) th/mm3 Eos # (Auto) (0.0-0.4) th/mm3 Baso # (Auto) (0.0-0.2) th/mm3 WBC Differential Differential Comment PT (9.8-11.6) sec INR Ratio APTT (23.4-31.7) sec Sodium 131 L (136-145) meq/L Potassium 4.0 (3.5-5.1) meq/L Chloride 97 L (98-107) meq/L Carbon Dioxide 27.0 (21.0-32.0) meq/L Anion Gap 7 (5-15) meq/L BUN 42 H (7-18) mg/dL Creatinine 1.77 H (0.60-1.30) mg/dL Estimated GFR 38 L (>89) mL/min Random Glucose 123 H (74-106) mg/dL Calcium 8.5 (8.5-10.1) mg/dL Magnesium (1.5-2.5) mg/dL Total Bilirubin (0.2-1.0) mg/dL AST (15-37) U/L ALT (12-78) U/L Alkaline Phosphatase (45-117) U/L Troponin I (0.02-0.05) ng/mL B-Natriuretic Peptide (0-100) pg/mL Total Protein (6.4-8.2) g/dL Albumin (3.4-5.0) g/dL Urine Color (Yellw/Straw) Urine Clarity (Clear) Urine pH (5.0-8.5) Ur Specific [place] (1.002-1.035) Urine Protein (Neg-Trace) mg/dL Urine Glucose (UA) (Negative) mg/dL Urine Ketones (Negative) mg/dL Urine Occult Blood (Negative) Urine Nitrate (Negative) Urine Bilirubin (Negative) Urine Urobilinogen (Less than 2) mg/dL Ur Leukocyte Esterase (Negative) Urine RBC (0-3) /hpf Urine WBC (0-5) /hpf Ur Squamous Epith Cells (0-5) /hpf Hyaline Casts (0-3) /lpf Micro UA Comment Ur Microscopic Review Urine Culture Comments Urine Opiates Screen (Neg) Ur Barbiturates Screen (Neg) Ur Amphetamines Screen (Neg) U Benzodiazepines Scrn (Neg) Urine Cocaine Screen (Neg) U Cannabinoids Screen (Neg) Imaging Data Radiologist's impression: Chest X-Ray 05/03/18 14:19 CONCLUSION: Stable appearance with no acute cardiopulmonary disease. Discharge Plan Discharge Disposition Patient Disposition: ED Admit(ED Internal Use Only) Discharge Condition Condition: Fair Discharge Order Discharge Orders: Discharge Order (Routine); Ordered 05/06/18 Ordered By: Genoveva Jarvis Cardiology Clear for Discharge (Routine); Ordered 05/06/18 Ordered By: Chris Ward ED Use Only Admit Order (Routine); Ordered 05/03/18 Ordered By: Rambo Mehta Discharge Details Anticipated Discharge Date: 05/06/18 Diagnosis: Ischemic cardiomyopathy, Hypotension Physicians Team ED Provider: Rambo Mehta Primary Care Provider: Collin Menjivar Attending Provider: Genoveva Jarvis Other Providers: Chris Ward ; Nemo Mckeon Status ED Status: Left Department Discharge Information Discharge Date/Time: 05/03/18 20:02
[2018-05-03 14:58] LABS: Baso # (Auto) 0.1 th/mm3 (0.0-0.2); Baso % (Auto) 0.9 % (0.0-2.0); Eos # (Auto) 0.2 th/mm3 (0.0-0.4); Eos % (Auto) 3.8 % (0.0-4.0); Hematocrit 36.5 % (39.0-51.0); Hemoglobin 12.6 gm/dL (13.0-17.0); Lymph # (Auto) 0.4 th/mm3 (1.0-4.8); Lymph % (Auto) 6.6 % (9.0-44.0); Mean Corpuscular HGB Conc 34.6 % (32.0-36.0); Mean Corpuscular Hemoglobin 33.6 pg (27.0-34.0); Mean Corpuscular Volume 97.3 fL (80.0-100.0); Mean Platelet Volume 7.9 fL (7.0-11.0); Mono # (Auto) 0.8 th/mm3 (0.0-0.9); Mono % (Auto) 12.8 % (0.0-8.0); Neut # (Auto) 4.5 th/mm3 (1.8-7.7); Neut % (Auto) 75.9 % (16.0-70.0); Platelet Count 191 th/mm3 (150-450); Red Blood Count 3.75 mil/mm3 (4.50-5.90); White Blood Count 5.9 th/mm3 (4.0-11.0)
--- NOTE | 2018-05-03 15:03 | XR ---
EXAM DATE: 05/03/2018 2:51 PM EST AGE/SEX: 68 years / Male INDICATIONS: Vertigo, short of breath, chest pain CLINICAL DATA: This is the patient's initial encounter. Patient reports that signs and symptoms have been present for 1 day and indicates a pain score of 0/10. MEDICAL/SURGICAL HISTORY: Cardiovascular disease. CABG. Coronary artery stent. Pacemaker. IC D x 3, had third ICD placed last week COMPARISON: [facility] [place] 1[place] SINGLE AP, 04/27/2018. . FINDINGS: A single AP view of the chest demonstrates the lungs to be symmetrically aerated without evidence of mass, infiltrate or effusion. The cardiomediastinal contours are unremarkable. The patient is status post median sternotomy for bypass grafting procedure. The left subclavian AV sequential transvenous pacer and defibrillator lead remain in place. CONCLUSION: Stable appearance with no acute cardiopulmonary disease. Electronically signed by: Gautam Ramires MD 05/03/2018 3:02 PM EST
[2018-05-03 15:22] LABS: Albumin 4.1 g/dL (3.4-5.0); Anion Gap 8 meq/L (5-15); Aspartate Aminotransferase 14 U/L (15-37); Blood Urea Nitrogen 44 mg/dL (7-18); Calcium 7.9 mg/dL (8.5-10.1); Chloride 96 meq/L (98-107); Glomerular Filtration Rate 31 mL/min (>89); Glucose,Random 130 mg/dL (74-106); Magnesium 2.4 mg/dL (1.5-2.5); Potassium 4.4 meq/L (3.5-5.1); Sodium 132 meq/L (136-145)
[2018-05-03 15:23] LABS: Activated Partial Thrombo Time 29.1 sec (23.4-31.7); INR 1.2 Ratio; Prothrombin Time 11.8 sec (9.8-11.6)
[2018-05-03 15:27] LABS: Alanine Aminotransferase 20 U/L (12-78); Alkaline Phosphatase 130 U/L (45-117); Total Protein 7.8 g/dL (6.4-8.2); Troponin I 0.02 ng/mL (0.02-0.05)
[2018-05-03] MEDS ORDERED: Amiodarone Inj 150 MG in Dextrose 5% in Water Inj 97 ML IV.SIG ONE ×2 (16:42)
[2018-05-03 17:48] LABS: Amphetamine Screen,Urine Neg (Neg); Barbiturate Screen,Urine Neg (Neg); Cannabinoid Screen,Urine Neg (Neg); Cocaine Screen,Urine Neg (Neg)
[2018-05-03 17:51] LABS: Opiate Screen,Urine Neg (Neg)
--- NOTE | 2018-05-03 17:52 | P.HP ---
History of Present Illness Primary Care Physician: Collin Menjivar MD Chief Complaint: dizziness, rapid heart rate History of Present Illness: 68-year-old male with history of atrial fibrillation on Eliquis s/p pacer/AICD, CAD s/p CABG and stents, CHF with EF 15%, CKD stage III, chronic hypotension, hyperlipidemia, vertigo, BPH, presents with a 2 day history of dizziness and fatigue with concern for recurrent rapid heart rate. The patient was recently admitted 04/27-04/29 for afib with RVR s/p cardioversion and biventricular pacer defibrillator placement by Dr. Crawford. He states after discharge he was feeling well for a few days, until Thursday night 05/02 he started to notice his heart rate going up to the upper 90s. He reports feeling dizzy and nauseous. Denies any palpitations, chest pain, or shortness of breath. Today he woke up and still did not feel well. He took his blood pressure which was in the 90s/60s with heart rate going up the low 100s. He states he was feeling similar to how he felt before his last admission, therefore he decided to come to the ER. He reports compliance with his medications since discharge. He denies any other new medical complaints including no fevers/chills, cough, abdominal or urinary complaints. His signal constructor is Dr. Ward. Review of Systems All other systems reviewed negative except as stated in HPI [facility] - History History Provided By: Patient - Medical History Medical History: Medical History (Last Reviewed 05/03/18 @ 17:38 by Dianne Richardson) Atrial fibrillation BPH (benign prostatic hyperplasia) CAD (coronary artery disease) CHF (congestive heart failure) Heart attack Hyperlipemia Hypotension Presence of combination internal cardiac defibrillator (ICD) and pacemaker Vertigo - Surgical History Surgical History: Surgical History (Last Updated 05/03/18 @ 17:37 by Dianne Richardson) History of permanent cardiac pacemaker placement History of cardiac cath S/P CABG x 5 - Family History Family History: Family History (Last Updated 05/03/18 @ 17:37 by Dianne Richardson) Mother Coronary artery disease Uncle Coronary artery disease Grandparent Coronary artery disease Father Squamous cell carcinoma - Social History I have reviewed the patient's Social History: Yes - Tobacco History Second Hand Smoke Exposure: No Tobacco Use In Past 30 Days: No Smoking Status: Former smoker (quit in 1994) Tobacco Type: Cigarettes - Alcohol History How Often Do You Have a Drink Containing Alcohol: Never - Substance Use History Substance History: No History of Abuse - Travel History Recent Travel in the [place] Within the Last 8 Weeks: No Recent Travel Out of the Country Within the Last 8 Weeks: No - Immunization History Tetanus Immunization: Unsure Medications and Allergies Active Medications: Active Medications Apixaban (Eliquis) 5 mg PO BID [facility] Clopidogrel Bisulfate (Plavix) 75 mg PO DAILY ANIYAH Amiodarone HCl 150 mg/ (Dextrose) 100 mls @ 100 mls/hr IV.SIG ONCE ONE Stop: 05/03/18 17:41 Amiodarone HCl 450 mg/ (Dextrose) 250 mls @ 33.33 mls/hr IV.CONT TITRATE PRN; Protocol PRN Reason: Per Protocol Sodium Chloride (Ns Flush) 2 ml IV.FLUSH BID ANIYAH Sodium Chloride (Ns Flush) 2 ml IV.FLUSH PRN PRN PRN Reason: FLUSH AFTER USING IV ACCESS Torsemide (Demadex) 20 mg PO DAILY [facility] Allergies Allergy/AdvReac Type Severity Reaction Status Date / Time diltiazem Allergy Severe Edema Verified 05/03/18 13:44 Home Medications Medication Instructions Recorded Confirmed Type apixaban [Eliquis] 5 mg PO BID 03/29/18 05/03/18 History atorvastatin 80 mg PO DAILY 03/29/18 05/03/18 History clopidogrel [Plavix] 75 mg PO DAILY 03/29/18 05/03/18 History finasteride 5 mg PO DAILY 03/29/18 05/03/18 History tamsulosin 0.4 mg PO DAILY 03/29/18 05/03/18 History allopurinol 100 mg PO DAILY 04/22/18 05/03/18 History metolazone 5 mg PO DAILY 04/22/18 05/03/18 History nitroglycerin 0.4 mg SUBLINGUAL Q5-15M PRN 04/22/18 05/03/18 History spironolactone 25 mg PO DAILY 04/27/18 05/03/18 History torsemide 20 mg PO DAILY 04/27/18 05/03/18 History Exam Vital signs: Vital Signs 05/03/18 13:40 05/03/18 14:05 05/03/18 14:19 Temperature 98.3 F Pulse Rate 120 H 115 H 115 H Respiratory Rate 20 18 18 Blood Pressure 88/55 L 85/60 L 85/60 L Pulse Oximetry 100 100 97 Intake & Output 05/02/18 05/03/18 05/03/18 18:59 06:59 18:59 Weight 74.843 kg Narrative: GENERAL: Well-nourished, well-developed pleasant middle aged male patient in [facility]. SKIN: Warm and dry. No rash. HEENT: Normocephalic. Atraumatic. Pupils equal and round. Mucous membranes pink and moist. NECK: Supple. Trachea midline. CARDIOVASCULAR: Irregular rate and rhythm. No murmur appreciated. New pacer/ AICD surgical site at left upper chest with diffuse ecchymosis. RESPIRATORY: No accessory muscle use. Clear to auscultation. Breath sounds equal bilaterally. GASTROINTESTINAL: Abdomen soft, non-tender, nondistended. Normoactive bowel sounds x4. MUSCULOSKELETAL: No obvious deformities. Extremities without clubbing, cyanosis , or edema. NEUROLOGICAL: Awake and alert. No obvious cranial nerve deficits. Moving all extremities spontaneously. Normal speech. PSYCHIATRIC: Appropriate mood and affect; insight and judgment normal. Results - Labs CBC & Chem 7: 05/03/18 14:31 05/03/18 14:31 Labs: Laboratory Results - last 24 hr 05/03/18 05/03/18 05/03/18 14:31 14:31 14:31 WBC 5.9 RBC 3.75 L Hgb 12.6 L Hct 36.5 L MCV 97.3 MCH 33.6 MCHC 34.6 RDW 16.0 Plt Count 191 MPV 7.9 Neut % (Auto) 75.9 H Lymph % (Auto) 6.6 L Randall % (Auto) 12.8 H Eos % (Auto) 3.8 Baso % (Auto) 0.9 Neut # (Auto) 4.5 Lymph # (Auto) 0.4 L Randall # (Auto) 0.8 Eos # (Auto) 0.2 Baso # (Auto) 0.1 WBC Differential . Differential Comment Auto diff final PT 11.8 H INR 1.2 APTT 29.1 Sodium 132 L Potassium 4.4 Chloride 96 L Carbon Dioxide 28.0 Anion Gap 8 BUN 44 H Creatinine 2.13 H Estimated GFR 31 L Random Glucose 130 H Calcium 7.9 L Magnesium 2.4 Total Bilirubin 1.4 H AST 14 L ALT 20 Alkaline Phosphatase 130 H Troponin I 0.02 B-Natriuretic Peptide Total Protein 7.8 Albumin 4.1 05/03/18 14:31 WBC RBC Hgb Hct MCV MCH MCHC RDW Plt Count MPV Neut % (Auto) Lymph % (Auto) Randall % (Auto) Eos % (Auto) Baso % (Auto) Neut # (Auto) Lymph # (Auto) Randall # (Auto) Eos # (Auto) Baso # (Auto) WBC Differential Differential Comment PT INR APTT Sodium Potassium Chloride Carbon Dioxide Anion Gap BUN Creatinine Estimated GFR Random Glucose Calcium Magnesium Total Bilirubin AST ALT Alkaline Phosphatase Troponin I B-Natriuretic Peptide 907 H Total Protein Albumin - Imaging Impressions Chest X-Ray 05/03/18 14:19 CONCLUSION: Stable appearance with no acute cardiopulmonary disease. Caprini VTE Risk Assessment Caprini VTE Risk Assessment: Moderate/High Risk (score >= 2) Caprini Risk Assessment Model: Point Value = 1 Point Value = 2 Point Value = 3 Point Value = 5 Age 41-60 Minor surgery BMI > 25 kg/m2 Swollen legs Varicose veins or History of unexplained or recurrent spontaneous Oral contraceptives or hormone replacement Sepsis (< 1 month) Serious lung disease, including pneumonia (< 1 month) Abnormal pulmonary function Acute myocardial infarction Congestive heart failure (< 1 month) History of inflammatory bowel disease Medical patient at bed rest Age 61-74 Arthroscopic surgery Major open surgery (> 45 min) Laparoscopic surgery (> 45 min) Malignancy Confined to bed (> 72 hours) Immobilizing plaster cast Central venous access Age >= 75 History of VTE Family history of VTE Factor V Leiden Prothrombin [id number] Lupus anticoagulant Anticardiolipin antibodies Elevated serum homocysteine Heparin-induced thrombocytopenia Other congenital or acquired thrombophilia Stroke (< 1 month) Elective arthroplasty Hip, pelvis, or leg fracture Acute spinal cord injury (< 1 month) Prophylaxis Regimen: Total Risk Factor Score Risk Level Prophylaxis Regimen 0-1 Low Early ambulation 2 Moderate Order ONE of the following: *Sequential Compression Device (SCD) *Heparin 5000 units SQ BID 3-4 Higher Order ONE of the following medications: *Heparin 5000 units SQ TID *Enoxaparin/Lovenox 40 mg SQ daily (WT < 150 kg, CrCl > 30 mL/min) *Enoxaparin/Lovenox 30 mg SQ daily (WT < 150 kg, CrCl > 10-29 mL/min) *Enoxaparin/Lovenox 30 mg SQ BID (WT < 150 kg, CrCl > 30 mL/min) AND/OR *Sequential Compression Device (SCD) 5 or more Highest Order ONE of the following medications: *Heparin 5000 units SQ TID (Preferred with Epidurals) *Enoxaparin/Lovenox 40 mg SQ daily (WT < 150 kg, CrCl > 30 mL/min) *Enoxaparin/Lovenox 30 mg SQ daily (WT < 150 kg, CrCl > 10-29 mL/min) *Enoxaparin/Lovenox 30 mg SQ BID (WT < 150 kg, CrCl > 30 mL/min) AND *Sequential Compression Device (SCD) Assessment and Plan - Plan 68-year-old male with history of atrial fibrillation on Eliquis s/p pacer/AICD, CAD s/p CABG and stents, CHF with EF 15%, CKD stage III, chronic hypotension, hyperlipidemia, vertigo, BPH, presents with a 2 day history of dizziness and fatigue with concern for recurrent rapid heart rate. The patient was recently admitted 04/27-04/29 for afib with RVR s/p cardioversion and biventricular pacer defibrillator placement by Dr. Crawford. Atrial Fibrillation with RVR: acute. HR in the 110s on telemetry in the ER. S/p recent pacer placement. -EKG reviewed, shows afib with RVR HR 109 -Monitor on telemetry -[facility]Scientific Artist Dr. Ward consulted, appreciate assistance -Started on amiodarone drip Hypotension: patient with chronic hx of hypotension, difficult controlling HR due to BP limitations -holding off on IVF resuscitation at this time due to hx of CHF -continue patient's midodrine tid -monitor BP closely, currently SBP in low 100s in the ER Chronic Systolic CHF: no signs of fluid overload. BNP 900 consistent with previous. S/p AICD. -CXR reviewed and unremarkable -continue patient's torsemide and Zaroxolyn, caution with renal function -holding patient's entresto and spironolactone for now MELISSA on CKD Stage III: Cr 2.13, previously 1.63 on 04/28/18 -possibly secondary to home meds including torsemide -signal constructor has continued torsemide for now -will avoid any further nephrotoxins -monitor renal function closely CAD: s/p CABG and stents -continue patient's plavix -no complaints of chest pain -cardiology following as above BPH: chronic -continue patient's flomax and finasteride DVT Prophylaxis: on Eliquis
[2018-05-03 17:58] LABS: Bilirubin,Urine Negative (Negative); Clarity,Urine Clear (Clear); Color,Urine Yellow (Yellw/Straw); Glucose,Urine (UA) Negative (Negative); Hyaline Casts,Urine 20 /lpf (0-3); Leukocyte Esterase,Urine Negative (Negative); Nitrite,Urine Negative (Negative); Specific Gravity,Urine 1.013 (1.002-1.035); Squamous Epithelial Cell,Urine <1 /hpf (0-5)
--- NOTE | 2018-05-03 20:30 | MB ---
cc: Chris Ward MD DATE: 05/03/2018 REASON FOR CONSULTATION: Hypotension, dizziness, atrial fibrillation. HISTORY OF PRESENT ILLNESS: The patient is a 68-year-old white male, well known to me, with a history of severe ischemic cardiomyopathy, ejection fraction 10-15%, coronary artery disease, status post numerous percutaneous graft interventions, diabetes, paroxysmal atrial fibrillation, who came to the emergency department today mainly with complaints of fairly severe lightheadedness, generalized weakness. The patient recently had his defibrillator upgraded to a biventricular system during which he was also cardioverted out of atrial fibrillation. He was found to be in atrial fibrillation again in the emergency department today. He denies palpitations, syncope, angina, paroxysmal nocturnal dyspnea, pedal edema. His oral intake has been fairly good. The patient experiences mild dyspnea on exertion, without significant change recently. The patient's lightheadedness began sometime in the last 48 hours. He was actually feeling fairly well in the last week up until yesterday. PAST MEDICAL HISTORY: 1. History of [place] AICD implant in 2009, single chamber, with upgrade to a biventricular chamber device 04/22/[address] Hodan Crawford. 2. Severe ischemic cardiomyopathy with ejection fraction of 10-15% by most recent evaluations within the last year. 3. Coronary artery disease, status post bypass surgery in 2002. He is status post a number of percutaneous graft interventions, the details of which are outlined in my consult note 04/10/2018. Most recently, he underwent stent x 2 of the vein graft to the diagonal by Dr. Cholo Osei, 03/31/2018, using two 3.5 mm [place] stents. 4. Diabetes. 5. Hyperlipidemia. 6. Hypertension. 7. Paroxysmal atrial fibrillation, initially diagnosed 07/2013, status post ablation in 09/2013, status post cardioversion 04/22/2018. 8. History of paroxysmal atrial tachycardia. CARDIAC MEDICATIONS AT HOME: 1. Torsemide 20 mg daily. 2. Spironolactone 25 mg daily. 3. Entresto one b.i.d. 4. Midodrine 5 mg t.i.d. 5. Metolazone 5 mg daily. 6. Clopidogrel 75 mg daily. 7. Atorvastatin 80 mg daily. 8. Apixaban 5 mg b.i.d. 9. Amiodarone 400 mg daily. ALLERGIES: DILTIAZEM. FAMILY HISTORY: Noncontributory. SOCIAL HISTORY: The patient is a former smoker. There is no history of alcohol abuse. REVIEW OF SYSTEMS: As in the history of present illness, otherwise negative or noncontributory. He also denies headache, abdominal pain, melena, diarrhea, bright red blood per rectum, fevers, headache. PHYSICAL EXAMINATION: VITAL SIGNS: His blood pressure is 85/60 with a pulse of 115, respirations 18. GENERAL: He is a well-developed, well-nourished white male in no acute distress. NECK: Jugular venous pressure is normal. Carotid pulses are 2+ bilaterally and without bruits. CHEST: Reveals unlabored respiratory effort with clear lungs [place]. CARDIAC: He has a tachycardic irregular rhythm without S3 or murmur. ABDOMEN: He has a soft, nontender abdomen. Bowel sounds are present. There is no definite hepatosplenomegaly. EXTREMITIES: Reveals no clubbing, cyanosis or edema. DIAGNOSTIC DATA: EKG is pending. Chest x-ray shows no acute disease. LABORATORY DATA: Includes WBC 5.9, hemoglobin 12.6, platelets 191. Potassium 4.4, BUN 44, creatinine 2.13, AST 14, ALT 20. Troponin 0.02. Brain natriuretic peptide level 907. IMPRESSION: Mild hypotension, lightheadedness, recurrent atrial fibrillation in a 68-year-old white male with a history of coronary artery disease, severe ischemic cardiomyopathy with ejection fraction of 10-15%, diabetes, paroxysmal atrial fibrillation, status post recent cardioversion, history of AICD implant, status post recent upgrade to a biventricular device. Overall, there is no definite evidence for acute coronary syndrome or acute congestive heart failure. His current monitor suggests atrial fibrillation with a mildly increased ventricular response. I suspect the loss of atrial contribution to ventricular filling further worsens his left ventricular cardiac output. Unfortunately, it may be difficult to maintain sinus rhythm long-term. Also of note, the patient's renal indices are elevated from baseline. RECOMMENDATIONS: 1. Obviously, hold his Entresto in light of his hypotension and renal insufficiency. 2. No beta benjamin at this time with his hypotension. 3. Hold his diuretics except for torsemide. 4. We will change his amiodarone to intravenous administration tonight and consider cardioversion again in the morning. 5. Continue his apixaban and clopidogrel. MD BRIT Paulino/richy , 04:37 PM , 04:47 PM SHIRAZ
[2018-05-04] MEDS: Allopurinol 100 MG Tablet PO SCH (08:17)
[2018-05-04] MEDS: metOLazone 5 MG Tablet PO SCH (08:17)
[2018-05-04] MEDS: Torsemide 20 MG Tablet PO SCH (08:17)
[2018-05-04] MEDS: Finasteride 5 MG Tablet PO SCH (08:17)
[2018-05-04 08:32] LABS: Calcium 8.5 mg/dL (8.5-10.1)
--- NOTE | 2018-05-04 09:35 | ECG ---
Date Performed: 05/03/2018 Time Performed: 14:02:46 PTAGE: 68 years EKG: ATRIAL FIBRILLATION WITH RAPID VENTRICULAR RESPONSE INTRAVENTRICULAR CONDUCTION DELAY LATER AL MYOCARDIAL INFARCTION ACUTE MN INTERPRETATION BASED ON A DEFAULT AGE OF 40 YEARS PREVIOUS TRACING : 04/29/2018 09.00 DOCTOR: Nitesh Sherman Interpretating Date/Time 05/04/2018 09:34:53
--- NOTE | 2018-05-04 10:21 | P.PNCA ---
Subjective Interval history: Doesn't feel well. Generally weak. Still periodically lightheaded. No syncope , CP, dyspnea, PND, palpitations. Medications and Allergies Active Medications: Active Medications Allopurinol (Zyloprim) 100 mg PO DAILY [facility] Last Admin: 05/04/18 08:17 Dose: 100 mg Apixaban (Eliquis) 5 mg PO BID [facility] Last Admin: 05/04/18 08:17 Dose: 5 mg Atorvastatin Calcium (Lipitor) 80 mg PO DAILY [facility] Last Admin: 05/04/18 08:17 Dose: 80 mg Clopidogrel Bisulfate (Plavix) 75 mg PO DAILY [facility] Last Admin: 05/04/18 08:17 Dose: 75 mg Finasteride (Proscar) 5 mg PO DAILY [facility] Last Admin: 05/04/18 08:17 Dose: Not Given Amiodarone HCl 450 mg/ (Dextrose) 250 mls @ 33.33 mls/hr IV.CONT TITRATE PRN; Protocol PRN Reason: Per Protocol Metolazone (Zaroxolyn) 5 mg PO DAILY [facility] Last Admin: 05/04/18 08:17 Dose: Not Given Midodrine (Proamatine) 5 mg PO TID@0700,1200,1700 [facility] Last Admin: 05/04/18 06:39 Dose: 5 mg Ondansetron HCl (Zofran Inj) 4 mg IV.PUSH Q8H PRN PRN Reason: NAUSEA Last Admin: 05/04/18 09:38 Dose: 4 mg Sodium Chloride (Ns Flush) 2 ml IV.FLUSH BID [facility] Last Admin: 05/04/18 08:21 Dose: 2 ml Sodium Chloride (Ns Flush) 2 ml IV.FLUSH PRN PRN PRN Reason: FLUSH AFTER USING IV ACCESS Tamsulosin HCl (Flomax) 0.4 mg PO DAILY [facility] Last Admin: 05/04/18 08:17 Dose: 0.4 mg Torsemide (Demadex) 20 mg PO DAILY [facility] Last Admin: 05/04/18 08:17 Dose: Not Given Allergies Allergy/AdvReac Type Severity Reaction Status Date / Time diltiazem Allergy Severe Edema Verified 05/03/18 13:44 Home Medications Medication Instructions Recorded Confirmed Type apixaban [Eliquis] 5 mg PO BID 03/29/18 05/03/18 History atorvastatin 80 mg PO DAILY 03/29/18 05/03/18 History clopidogrel [Plavix] 75 mg PO DAILY 03/29/18 05/03/18 History finasteride 5 mg PO DAILY 03/29/18 05/03/18 History tamsulosin 0.4 mg PO DAILY 03/29/18 05/03/18 History allopurinol 100 mg PO DAILY 04/22/18 05/03/18 History metolazone 5 mg PO DAILY 04/22/18 05/03/18 History nitroglycerin 0.4 mg SUBLINGUAL Q5-15M PRN 04/22/18 05/03/18 History spironolactone 25 mg PO DAILY 04/27/18 05/03/18 History torsemide 20 mg PO DAILY 04/27/18 05/03/18 History Physical Exam Vital signs: Vital Signs 05/03/18 13:40 05/03/18 14:05 05/03/18 14:19 Temperature 98.3 F Pulse Rate 120 H 115 H 115 H Respiratory Rate 20 18 18 Blood Pressure 88/55 L 85/60 L 85/60 L Pulse Oximetry 100 100 97 05/03/18 18:00 05/03/18 19:20 05/03/18 20:00 Temperature 98.7 F Pulse Rate 98 H 96 H 100 H Respiratory Rate 18 26 H 16 Blood Pressure 95/70 L 84/65 L 97/64 L Pulse Oximetry 98 96 05/04/18 00:00 05/04/18 03:16 05/04/18 04:00 Temperature 97.6 F Pulse Rate 119 H 110 H 116 H Respiratory Rate 16 18 Blood Pressure 96/62 L 109/69 Pulse Oximetry 95 97 05/04/18 07:58 05/04/18 08:00 Temperature 98.1 F Pulse Rate 86 Respiratory Rate 18 Blood Pressure 104/60 Pulse Oximetry 98 98 Intake & Output 05/03/18 05/04/18 05/04/18 18:59 06:59 18:59 Intake Total 460 / 460 Balance 460 / 460 Weight 74.843 kg 78.6 kg Intake: IV 100 / 100 Cordarone Inj 150 MG In D5W Inj 100 / 100 97 ML @ 100 mls/hr IV.SIG ONCE ONE Rx#:[id number] Oral 360 / 360 Other: # Voids 2 Date of Last Bowel Movement 12/10/18 12/10/18 - Constitutional no acute distress - Routine Neck Exam Absent: JVD - Routine Respiratory Exam Present: CTA bilaterally - Routine Cardiovascular Exam Present: S1, S2, irregular rhythm. Absent: murmur, gallop - Routine Abdominal Exam Present: soft, normoactive bowel sounds. Absent: tenderness, organomegaly - Routine Extremities Exam Absent: cyanosis, clubbing, edema Results 05/03/18 14:31 05/04/18 07:15 Cardiac Enzymes 05/03/18 05/03/18 Range/Units 14:31 14:31 AST 14 L (15-37) U/L Troponin I 0.02 (0.02-0.05) ng/mL B-Natriuretic Peptide 907 H (0-100) pg/mL Coagulation 05/03/18 05/03/18 Range/Units 14:31 14:31 PT 11.8 H (9.8-11.6) sec APTT 29.1 (23.4-31.7) sec B-Natriuretic Peptide 907 H (0-100) pg/mL CBC 05/03/18 Range/Units 14:31 WBC 5.9 (4.0-11.0) th/mm3 RBC 3.75 L (4.50-5.90) mil/mm3 Hgb 12.6 L (13.0-17.0) gm/dL Hct 36.5 L (39.0-51.0) % Plt Count 191 (150-450) th/mm3 Neut # (Auto) 4.5 (1.8-7.7) th/mm3 Lymph # (Auto) 0.4 L (1.0-4.8) th/mm3 [place] # (Auto) 0.8 (0.0-0.9) th/mm3 Eos # (Auto) 0.2 (0.0-0.4) th/mm3 Baso # (Auto) 0.1 (0.0-0.2) th/mm3 Comprehensive Metabolic Panel 05/03/18 05/04/18 Range/Units 14:31 07:15 Sodium 132 L 131 L (136-145) meq/L Potassium 4.4 4.0 (3.5-5.1) meq/L Chloride 96 L 97 L (98-107) meq/L Carbon Dioxide 28.0 27.0 (21.0-32.0) meq/L BUN 44 H 42 H (7-18) mg/dL Creatinine 2.13 H 1.77 H (0.60-1.30) mg/dL Calcium 7.9 L 8.5 (8.5-10.1) mg/dL AST 14 L (15-37) U/L ALT 20 (12-78) U/L Alkaline Phosphatase 130 H (45-117) U/L Total Protein 7.8 (6.4-8.2) g/dL Albumin 4.1 (3.4-5.0) g/dL Intake and Output 05/03/18 05/04/18 05/04/18 22:59 06:59 14:59 Intake Total 100 / 100 360 / 360 Balance 100 / 100 360 / 360 Intake: IV 100 / 100 Cordarone Inj 150 MG In D5W Inj 100 / 100 97 ML @ 100 mls/hr IV.SIG ONCE ONE Rx#:[id number] Oral 360 / 360 Other: # Voids 2 Date of Last Bowel Movement 05/03/18 05/03/18 05/03/18 Weight 78.6 kg - Imaging and Cardiology Imaging: Impressions Chest X-Ray 05/03/18 14:19 CONCLUSION: Stable appearance with no acute cardiopulmonary disease. Assessment and Plan - Assessment (1) Hypotension Code(s): I95.9 - Hypotension, unspecified Status: Acute Plan: Normal BP's since admission and at baseline now. Unfortunately will likely have to keep him off Entresto and beta benjamin therapy. Redevelopment of atrial fib and subsequent loss of atrial contribution to left ventricular filling also may be reducing his cardiac output considerably. To attempt cardioversion of his atrial fib today. (2) CAD (coronary artery disease) Code(s): I25.10 - Atherosclerotic heart disease of [place] coronary artery without angina pectoris Status: Chronic Plan: Stable CAD status. No recent angina. Continue Plavix. No aspirin while on Eliquis. (3) Ischemic cardiomyopathy Code(s): I25.5 - Ischemic cardiomyopathy Status: Chronic Plan: EF 10-15%. Overall compensated at present. BP's often too low for beta benjamin or Entresto. Continue torsemide, consider resuming his spironolactone and metolazone. (4) Paroxysmal atrial fibrillation Code(s): I48.0 - Paroxysmal atrial fibrillation Status: Chronic Plan: Remains in atrial fib, fluctuating HR's, mostly mildly elevated. Redevelopment of atrial fib and subsequent loss of atrial contribution to left ventricular filling also may be reducing his cardiac output considerably. To attempt cardioversion of his atrial fib today. Continue Eliquis. - Plan Code Status: full Discussed Condition With: patient (1) Hypotension Qualifiers: Hypotension type: other hypotension type Qualified Code(s): I95.89 - Other hypotension (2) CAD (coronary artery disease) Qualifiers: Coronary Disease-Associated Artery/Lesion type: bypass graft [place] vs. transplanted heart: [place] heart Associated angina: without angina Qualified Code(s): I25.810 - Atherosclerosis of coronary artery bypass graft(s) without angina pectoris
--- NOTE | 2018-05-04 12:00 | P.CONPAL ---
Consult Service: Palliative Care Requesting Physician: Sai Kaplan Reason for Consult: a. To assist with evaluation and management of symptoms including: Weakness, fatigue, dizziness b. To assist medical decision maker(s) with: better understanding of current medical conditions; weighing benefits/burdens of medical treatment options; making medical treatment decisions. Primary Care Provider: Collin Menjivar MD History of Present Illness History of Present Illness: This is a 68-year-old male with a past medical history of coronary artery disease status post CABG with ejection fraction of 10-15%, atrial fibrillation, diabetes on his fifth emergency room visit in 35 days for cardiac symptomatology. He presented 03/29 with intermittent, exertional chest discomfort for the 2 prior weeks. At that visit he underwent left heart catheterization with Terrence drug-eluting stent placement to the saphenous vein graft to the diagonal. The catheterization showed normal left main bifurcating into LAD and circumflex. LAD had diffuse 30% disease throughout the proximal before 100% occlusion in the midportion. Left circumflex was a moderate-sized vessel with 70-80% disease proximally, occluded in the midportion with 2 up to' s marginals also occluded. RCA showed a moderate-sized vessel with 95% disease in the proximal portion with a 100% occlusion in the midportion with one distal RV branch beyond the occlusion. SIMS to LAD graft was patent, SVG to diagonal with tandem 80% lesions in the mid and 70% lesions in the distal portion. SVG to RCA occluded. SVG to second obtuse marginal occluded. SVG to first obtuse marginal, patent with 3 stents noted. He was continued on aspirin and Plavix therapy and discharged home 04/01. He presented 8 days later to the ED with complaint of multiple AICD shocks due to VT. Due to his extended QRS of 150 ms it was recommended that his defibrillator was upgraded to a biventricular pacer defibrillator which was done on an 04/22 admission. He was seen again on 04/27 with JOB Morton and required cardioversion on 04/29 and was subsequently discharged home 05/01. He presented for this admission on 05/03 complaining of generalized weakness fatigue and dizziness for about 3 days. He was hypotensive with blood pressure 88/55, heart rate 120. He was seen by Dr. Ward who recommended holding his Entresto in light of the hypotension and renal insufficiency, holding diuretics except for torsemide and changing his oral amiodarone to IV administration with consideration for cardioversion. Diagnostic data on admission * WBC 5.9, hemoglobin 12.6, HCT 36.5, PLT 191, sodium 132, potassium 4.4, BUN 44 , creatinine 2.13, B natruretic peptide 907 * Chest x-ray shows a stable appearance with no acute cardiopulmonary disease * Electrocardiogram showed atrial fibrillation with rapid ventricular response, intraventricular conduction delay, lateral myocardial infarction. He is seen in [facility], n.p.o. pending cardioversion. He is an alert, oriented male complaining of weakness, fatigue and dizziness. He states that he is dizzy most of the time and frequently has nausea which he had been advised is related to his low blood pressure. He has been intolerant of beta-blockers due to hypotension and had been taking Entresto when his blood pressure would tolerate. He stated his average dosing was 1-2 times daily but occasionally had to skip a day due to the hypotension. He stated if his blood pressure was 90/55 he would take the medication but if lower than that, Dr. Ward had advised him to hold the medication. He is quite distressed about the recurrent shocks and somewhat depressed at the short time he was able to remain in NSR. He was last cardioverted on 04/[address] Crawford, discharged 05/01 and he was able to walk three quarters of a mile with no significant dyspnea. He stated shortly thereafter he became more dyspneic, weak, dizzy and fatigued signaling recurrent atrial fibrillation. His questions included "what would the end of my disease look like, from a symptom standpoint?" He asked about inactivating the device if he continues to get recurrent shocks. Questions were answered to the best of my ability as well as remaining possible options that could be considered by a Dr. Ward. Past medical history Severe ischemic cardiomyopathy with EF 10-15% Chronic systolic congestive heart failure Coronary artery disease status post CABG in 2002 MELISSA/CKD stage III ID Diabetes Hyperlipidemia Hypertension Hypotension Paroxysmal atrial fibrillation Paroxysmal atrial tachycardia Gout BPH Angina Vertigo Surgical history placement of single-chamber [place] AICD 2009 Upgrade of AICD to [place] biventricular device 04/22/2018. CABG 2002 Stent to proximal vein graft to RCA 09/04/2009 Thrombectomy and stent to the ostium and mid to distal portion of the vein graft to the diagonal 04/11/2013 Stent x2 to the vein graft of the first OM 04/11/2013 Repeat stenting of the ostium of the vein graft to the OM and diagonal 2014 Stenting of the vein graft to the first OM 06/06/2016 Stent x2 of the vein graft to the diagonal 03/31/2018 Atrial fibrillation ablation 07/2013 and 09/2013 Social history Former tobacco user quit in 1994 No alcohol or illicit use Family history His mother is alive at 90 with a history of coronary artery disease and stent placement. His father in his 60s of cancer. Multiple members of his family have coronary artery disease including a brother who in his 40s of sudden cardiac . . Function/Cognitive Trajectory: Due to his dyspnea and dizziness, he is becoming weaker, more fatigued and having more difficulty maintaining his ADLs. When in sinus rhythm, he is able to walk nearly a mile without significant dyspnea. When he is in atrial fibrillation, he becomes dyspneic with minimal activity. . Review of Systems Constitutional: Reports fatigue Cardiovascular: Reports lightheadedness, Reports rapid, pounding, or irregular heartbeat, Reports shortness of breath, Reports shortness of breath with activity PMFSH - History History Provided By: Patient - Medical History Medical History: Medical History (Last Reviewed 05/03/18 @ 17:38 by Dianne Richardson) Atrial fibrillation BPH (benign prostatic hyperplasia) CAD (coronary artery disease) CHF (congestive heart failure) Heart attack Hyperlipemia Hypotension Presence of combination internal cardiac defibrillator (ICD) and pacemaker Vertigo - Surgical History Surgical History: Surgical History (Last Updated 05/03/18 @ 17:37 by Dianne Richardson) History of permanent cardiac pacemaker placement History of cardiac cath S/P CABG x 5 - Family History Family History: Family History (Last Updated 05/03/18 @ 17:37 by Dianne Richardson) Mother Coronary artery disease Uncle Coronary artery disease Grandparent Coronary artery disease Father Squamous cell carcinoma - Tobacco History Second Hand Smoke Exposure: No Tobacco Use In Past 30 Days: No Smoking Status: Former smoker (quit in 1994) Tobacco Type: Cigarettes - Alcohol History How Often Do You Have a Drink Containing Alcohol: Never - Substance Use History Substance History: No History of Abuse - Travel History Recent Travel in the [place] Within the Last 8 Weeks: No Recent Travel Out of the Country Within the Last 8 Weeks: No - Immunization History Tetanus Immunization: Unsure Medications and Allergies Active Medications: Active Medications Allopurinol (Zyloprim) 100 mg PO DAILY [facility] Last Admin: 05/04/18 08:17 Dose: 100 mg Apixaban (Eliquis) 5 mg PO BID [facility] Last Admin: 05/04/18 08:17 Dose: 5 mg Atorvastatin Calcium (Lipitor) 80 mg PO DAILY [facility] Last Admin: 05/04/18 08:17 Dose: 80 mg Clopidogrel Bisulfate (Plavix) 75 mg PO DAILY [facility] Last Admin: 05/04/18 08:17 Dose: 75 mg Finasteride (Proscar) 5 mg PO DAILY [facility] Last Admin: 05/04/18 08:17 Dose: Not Given Amiodarone HCl 450 mg/ (Dextrose) 250 mls @ 33.33 mls/hr IV.CONT TITRATE PRN; Protocol PRN Reason: Per Protocol Metolazone (Zaroxolyn) 5 mg PO DAILY [facility] Last Admin: 05/04/18 08:17 Dose: Not Given Midodrine (Proamatine) 5 mg PO TID@0700,1200,1700 [facility] Last Admin: 05/04/18 06:39 Dose: 5 mg Ondansetron HCl (Zofran Inj) 4 mg IV.PUSH Q8H PRN PRN Reason: NAUSEA Last Admin: 05/04/18 09:38 Dose: 4 mg Sodium Chloride (Ns Flush) 2 ml IV.FLUSH BID [facility] Last Admin: 05/04/18 08:21 Dose: 2 ml Sodium Chloride (Ns Flush) 2 ml IV.FLUSH PRN PRN PRN Reason: FLUSH AFTER USING IV ACCESS Tamsulosin HCl (Flomax) 0.4 mg PO DAILY [facility] Last Admin: 05/04/18 08:17 Dose: 0.4 mg Torsemide (Demadex) 20 mg PO DAILY [facility] Last Admin: 05/04/18 08:17 Dose: Not Given Allergies Allergy/AdvReac Type Severity Reaction Status Date / Time diltiazem Allergy Severe Edema Verified 05/03/18 13:44 Home Medications Medication Instructions Recorded Confirmed Type apixaban [Eliquis] 5 mg PO BID 03/29/18 05/03/18 History atorvastatin 80 mg PO DAILY 03/29/18 05/03/18 History clopidogrel [Plavix] 75 mg PO DAILY 03/29/18 05/03/18 History finasteride 5 mg PO DAILY 03/29/18 05/03/18 History tamsulosin 0.4 mg PO DAILY 03/29/18 05/03/18 History allopurinol 100 mg PO DAILY 04/22/18 05/03/18 History metolazone 5 mg PO DAILY 04/22/18 05/03/18 History nitroglycerin 0.4 mg SUBLINGUAL Q5-15M PRN 04/22/18 05/03/18 History spironolactone 25 mg PO DAILY 04/27/18 05/03/18 History torsemide 20 mg PO DAILY 04/27/18 05/03/18 History Advance Directives Living Will: No Healthcare Surrogate: Yes Health Care Surrogate Name and Number: Kathy Parrishkup Power of Boot And Shoe Laborer: No Physical Exam Vital Signs: Vital Signs - 24 hr 05/03/18 13:40 05/03/18 14:05 05/03/18 14:19 Temperature 98.3 F Pulse Rate 120 H 115 H 115 H Respiratory Rate 20 18 18 Blood Pressure 88/55 L 85/60 L 85/60 L Pulse Oximetry 100 100 97 05/03/18 18:00 05/03/18 19:20 05/03/18 20:00 Temperature 98.7 F Pulse Rate 98 H 96 H 100 H Respiratory Rate 18 26 H 16 Blood Pressure 95/70 L 84/65 L 97/64 L Pulse Oximetry 98 96 05/04/18 00:00 05/04/18 03:16 05/04/18 04:00 Temperature 97.6 F Pulse Rate 119 H 110 H 116 H Respiratory Rate 16 18 Blood Pressure 96/62 L 109/69 Pulse Oximetry 95 97 05/04/18 07:58 05/04/18 08:00 Temperature 98.1 F Pulse Rate 86 Respiratory Rate 18 Blood Pressure 104/60 Pulse Oximetry 98 98 I&O: Intake & Output 05/02/18 05/03/18 05/04/18 05/05/18 06:59 06:59 06:59 06:59 Intake Total 460 / 460 Balance 460 / 460 Weight 173 lb 4.533 oz Physical Exam: CONSTITUTIONAL/GENERAL: This is an adequately nourished patient, in no apparent distress. TUBES/LINES/DRAINS: PIV SKIN: No jaundice, rashes, or lesions. Ecchymoses on left upper chest wall status post recent upgrade from ICD to BIVICD. No wounds seen anteriorly. Skin temperature appropriate. Not diaphoretic. HEAD: Atraumatic. Normocephalic. EYES: Pupils equal and round and reactive. Extraocular motions intact. No scleral icterus. No injection or drainage. Fundi not examined. ENT: Hearing grossly normal. Nose without bleeding or purulent drainage. Throat without visible erythema, exudates, masses, or lesions. NECK: Trachea midline. Supple, nontender. No palpable thyroid enlargement or nodularity. CARDIOVASCULAR: S1, S2, irregular rhythm, mildly tachycardic rate, without murmurs, gallops, or rubs. No JVD. Peripheral pulses symmetric. RESPIRATORY/CHEST: Symmetric, unlabored respirations. Clear to auscultation. Breath sounds equal bilaterally. No wheezes, rales, or rhonchi. GASTROINTESTINAL: Abdomen soft, non-tender, nondistended. No hepato-splenomegaly , or palpable masses. No guarding. Bowel sounds present. GENITOURINARY: Without palpable bladder distension. MUSCULOSKELETAL: Extremities without clubbing, cyanosis, or edema. No joint tenderness or effusion noted. No calf tenderness. No mottling or clubbing. LYMPHATICS: No palpable cervical or supraclavicular adenopathy. NEUROLOGICAL: Awake and alert. Motor and sensory grossly within normal limits. Follows commands. Cognitively sharp. Moves all extremities. PSYCHIATRIC: No obvious anxiety/depression. no apparent hallucinations or other psychotic thought process. . Diagnostic Tests Laboratory: Laboratory Results - last 72 hr 05/03/18 05/03/18 05/03/18 14:31 14:31 14:31 WBC 5.9 RBC 3.75 L Hgb 12.6 L Hct 36.5 L MCV 97.3 MCH 33.6 MCHC 34.6 RDW 16.0 Plt Count 191 MPV 7.9 Neut % (Auto) 75.9 H Lymph % (Auto) 6.6 L [place] % (Auto) 12.8 H Eos % (Auto) 3.8 Baso % (Auto) 0.9 Neut # (Auto) 4.5 Lymph # (Auto) 0.4 L [place] # (Auto) 0.8 Eos # (Auto) 0.2 Baso # (Auto) 0.1 WBC Differential . Differential Comment Auto diff final PT 11.8 H INR 1.2 APTT 29.1 Sodium 132 L Potassium 4.4 Chloride 96 L Carbon Dioxide 28.0 Anion Gap 8 BUN 44 H Creatinine 2.13 H Estimated GFR 31 L Random Glucose 130 H Calcium 7.9 L Magnesium 2.4 Total Bilirubin 1.4 H AST 14 L ALT 20 Alkaline Phosphatase 130 H Troponin I 0.02 B-Natriuretic Peptide Total Protein 7.8 Albumin 4.1 Urine Color Urine Clarity Urine pH Ur Specific [place] Urine Protein Urine Glucose (UA) Urine Ketones Urine Occult Blood Urine Nitrate Urine Bilirubin Urine Urobilinogen Ur Leukocyte Esterase Urine RBC Urine WBC Ur Squamous Epith Cells Hyaline Casts Micro UA Comment Ur Microscopic Review Urine Culture Comments Urine Opiates Screen Ur Barbiturates Screen Ur Amphetamines Screen U Benzodiazepines Scrn Urine Cocaine Screen U Cannabinoids Screen 05/03/18 05/03/18 05/03/18 14:31 16:50 16:50 WBC RBC Hgb Hct MCV MCH MCHC RDW Plt Count MPV Neut % (Auto) Lymph % (Auto) [place] % (Auto) Eos % (Auto) Baso % (Auto) Neut # (Auto) Lymph # (Auto) [place] # (Auto) Eos # (Auto) Baso # (Auto) WBC Differential Differential Comment PT INR APTT Sodium Potassium Chloride Carbon Dioxide Anion Gap BUN Creatinine Estimated GFR Random Glucose Calcium Magnesium Total Bilirubin AST ALT Alkaline Phosphatase Troponin I B-Natriuretic Peptide 907 H Total Protein Albumin Urine Color Yellow Urine Clarity Clear Urine pH 5.0 Ur Specific [place] 1.013 Urine Protein Negative Urine Glucose (UA) Negative Urine Ketones Negative Urine Occult Blood Small H Urine Nitrate Negative Urine Bilirubin Negative Urine Urobilinogen Less than 2 Ur Leukocyte Esterase Negative Urine RBC 4 H Urine WBC Less than 1 Ur Squamous Epith Cells <1 Hyaline Casts 20 Micro UA Comment Culture not ind Ur Microscopic Review Not Reportable Urine Culture Comments Culture not ind Urine Opiates Screen Neg Ur Barbiturates Screen Neg Ur Amphetamines Screen Neg U Benzodiazepines Scrn Neg Urine Cocaine Screen Neg U Cannabinoids Screen Neg 05/04/18 07:15 WBC RBC Hgb Hct MCV MCH MCHC RDW Plt Count MPV Neut % (Auto) Lymph % (Auto) [place] % (Auto) Eos % (Auto) Baso % (Auto) Neut # (Auto) Lymph # (Auto) [place] # (Auto) Eos # (Auto) Baso # (Auto) WBC Differential Differential Comment PT INR APTT Sodium 131 L Potassium 4.0 Chloride 97 L Carbon Dioxide 27.0 Anion Gap 7 BUN 42 H Creatinine 1.77 H Estimated GFR 38 L Random Glucose 123 H Calcium 8.5 Magnesium Total Bilirubin AST ALT Alkaline Phosphatase Troponin I B-Natriuretic Peptide Total Protein Albumin Urine Color Urine Clarity Urine pH Ur Specific [place] Urine Protein Urine Glucose (UA) Urine Ketones Urine Occult Blood Urine Nitrate Urine Bilirubin Urine Urobilinogen Ur Leukocyte Esterase Urine RBC Urine WBC Ur Squamous Epith Cells Hyaline Casts Micro UA Comment Ur Microscopic Review Urine Culture Comments Urine Opiates Screen Ur Barbiturates Screen Ur Amphetamines Screen U Benzodiazepines Scrn Urine Cocaine Screen U Cannabinoids Screen Result Diagrams: 05/03/18 14:31 05/04/18 07:15 Imaging: Chest X-Ray 05/03/18 14:19 CONCLUSION: Stable appearance with no acute cardiopulmonary disease. Procedures: 05/04: Electric cardioversion x2 with quaker of normal sinus rhythm Patient/Family Conference Present at Family Conference: No family at bedside. Discussed extensively with patient pathophysiology of his disease process reviewing coronary artery disease history, congestive heart failure history and electrophysiologic history. Answered multiple questions over an extended conference regarding the function of the heart. Reviewed the function of the biventricular MIXER RUNNER-D, and the mechanism of action of the medications. He remains somewhat traumatized by the multiple shocks he received and had multiple questions regarding the alternative of deactivating the device and dying peacefully. He states that he is not ready to make that decision yet but wished to know the outcome should he decide to do so. I did recommend that he discuss this with both Dr. Ward and Dr. Carwford, as they may have alternative interventions to offer prior to proceeding to a comfort care designation. Reviewed clinical course, interventions attempted, patient's current clinical status, past medical, social, family, psychosocial history. Reviewed palliative care purpose and focus as well as the below listed items. Discussed healthcare surrogate C and he chose his sister, Kathy as his primary healthcare surrogate and his friend, Mark Torres as his alternate healthcare surrogate. Provided palliative care contact information. All questions answered to the best of my ability. . Family Conference Location: Bedside Issues Discussed: * Palliative care role, purpose, approach * Additional medical, psychosocial, and spiritual history * Patients general health, functional status, and cognitive changes in the months leading up to the current hospitalization * Patient/family understanding of the current medical problems * Patient/family understanding of prognosis * Patients goals of care as best understood from advance directives and/or conversations and/or values * Current medical treatment options and benefits/burdens of those options * Likely scenarios comparing ongoing aggressive care with a transition to comfort measures only * Questions answered to the best of my ability * Palliative care contact information provided Assessment and Plan Pertinent Non-Medical Issues: Psychosocial: He was born in [place] and 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 He created the [employer] and currently run through [place]. He has not been nor does he have any children. 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 Legal: Ethical issues impacting care: Important Contacts: Sister: Kathy Abrams . Primary healthcare surrogate. Friend: Augusto Torres (home) , (cell) . Alternate healthcare surrogate. . Prognosis: His prognosis is guarded. He has over 11 stents in his heart that were placed both before and after his coronary artery bypass grafting. His ejection fraction is 10-15%. He becomes moderately to severely symptomatic with atrial fibrillation due to the loss of atrial kick. He managed to stay in sinus rhythm for 2 days after being discharged post cardioversion and was able to walk nearly a mile with well-controlled symptoms. Once he converted to atrial fibrillation, he is severely symptomatic and short of breath with minimal activity. He had several episodes of ventricular tachycardia and was shocked multiple times. He is considering whether he wishes to continue to leave the defibrillator active due to the discomfort incurred during his defibrillator shocks. He is at significant risk of recurrent hospitalizations, complications and decline. . Code Status: Full Code Plan: PLAN: Legal decision maker: Patient is capacitated to make his own decisions but has designated his Sister Kathy as his primary healthcare surrogate and his friend and as the alternate surrogate. Goals: Remain aggressive at this time. CODE STATUS: FULL CODE SYMPTOMS: * Weakness: When in sinus rhythm, he is able to walk and exercises regularly. His weakness appears to be related to his arrhythmia. Cardiology following. * Fatigue: Also appears to be related to heart rhythm as well as congestive heart failure, ischemic cardiomyopathy and ejection fraction of 10-15%. * Dizziness: He remains quite hypotensive, likely contributing to his symptoms. He is pending cardioversion which may resolve this. Blood pressure medications have been held and diuretics decreased. Further management pending cardiology evaluation post cardioversion. Palliative care will continue to follow the patient during hospital course as condition evolves, to assist patient/decision-maker with understanding of their medical conditions, weighing benefits/burdens of treatment options, for clarification of goals of treatment. Additionally will assist with any symptoms of palliative concern. . Appreciation Thank you for the opportunity to participate in the care of Gt Abrams. Attestation Attestation: To help prompt me to consider important information that might be impacting today's encounter and assessment, information from prior notes written by myself or my colleagues may have been "brought forward" into today's note. My signature on this note, however, is an attestation that I personally performed the exam, history, and/or decision-making noted today, and, unless otherwise indicated, the interactions with patient, family, and staff as well as the review of records all occurred today. I also attest that the listed assessment and stated plan reflect my best clinical judgment today based on the combination of historical information, prior notes, and today's exam/ interactions. When time spent is documented, it refers only to time spent today by the signer, or if indicated, combined time spent today by collaborating physician/nurse practitioner. .
--- NOTE | 2018-05-04 13:52 | P.PN ---
Subjective Interval history: telemetry- a fib- rate 110-120s no chest pains or shortness of breath Physical Exam Vital signs: Vital Signs 05/03/18 14:05 05/03/18 14:19 05/03/18 18:00 Temperature Pulse Rate 115 H 115 H 98 H Respiratory Rate 18 18 18 Blood Pressure 85/60 L 85/60 L 95/70 L Pulse Oximetry 100 97 05/03/18 19:20 05/03/18 20:00 05/04/18 00:00 Temperature 98.7 F 97.6 F Pulse Rate 96 H 100 H 119 H Respiratory Rate 26 H 16 16 Blood Pressure 84/65 L 97/64 L 96/62 L Pulse Oximetry 98 96 95 05/04/18 03:16 05/04/18 04:00 05/04/18 07:58 Temperature Pulse Rate 110 H 116 H Respiratory Rate 18 Blood Pressure 109/69 Pulse Oximetry 97 98 05/04/18 08:00 05/04/18 11:44 05/04/18 12:00 Temperature 98.1 F 98.5 F Pulse Rate 86 109 H 103 H Respiratory Rate 18 16 Blood Pressure 104/60 85/62 L Pulse Oximetry 98 99 Intake & Output 05/03/18 05/04/18 05/04/18 18:59 06:59 18:59 Intake Total 460 / 460 Balance 460 / 460 Weight 74.843 kg 78.6 kg Intake: IV 100 / 100 Cordarone Inj 150 MG In D5W Inj 100 / 100 97 ML @ 100 mls/hr IV.SIG ONCE ONE Rx#:[id number] Oral 360 / 360 Other: # Voids 2 Date of Last Bowel Movement 05/03/18 05/03/18 Narrative: GENERAL: Well-nourished, well-developed pleasant middle aged male patient in [facility]. SKIN: Warm and dry. No rash. HEENT: Normocephalic. Atraumatic. Pupils equal and round. Mucous membranes pink and moist. NECK: Supple. Trachea midline. CARDIOVASCULAR: Irregular rate and rhythm. New pacer/AICD surgical site at left upper chest with diffuse ecchymosis. RESPIRATORY: No accessory muscle use. Clear to auscultation. Breath sounds equal bilaterally. GASTROINTESTINAL: Abdomen soft, non-tender, nondistended. Normoactive bowel sounds x4. MUSCULOSKELETAL: No obvious deformities. Extremities without clubbing, cyanosis , or edema. NEUROLOGICAL: Awake and alert. No obvious cranial nerve deficits. Moving all extremities spontaneously. Normal speech. Results - Labs CBC & Chem 7: 05/03/18 14:31 05/04/18 07:15 Laboratory Results - last 24 hr 05/03/18 05/03/18 05/03/18 14:31 14:31 14:31 WBC 5.9 RBC 3.75 L Hgb 12.6 L Hct 36.5 L MCV 97.3 MCH 33.6 MCHC 34.6 RDW 16.0 Plt Count 191 MPV 7.9 Neut % (Auto) 75.9 H Lymph % (Auto) 6.6 L Cameron % (Auto) 12.8 H Eos % (Auto) 3.8 Baso % (Auto) 0.9 Neut # (Auto) 4.5 Lymph # (Auto) 0.4 L Cameron # (Auto) 0.8 Eos # (Auto) 0.2 Baso # (Auto) 0.1 WBC Differential . Differential Comment Auto diff final PT 11.8 H INR 1.2 APTT 29.1 Sodium 132 L Potassium 4.4 Chloride 96 L Carbon Dioxide 28.0 Anion Gap 8 BUN 44 H Creatinine 2.13 H Estimated GFR 31 L Random Glucose 130 H Calcium 7.9 L Magnesium 2.4 Total Bilirubin 1.4 H AST 14 L ALT 20 Alkaline Phosphatase 130 H Troponin I 0.02 B-Natriuretic Peptide Total Protein 7.8 Albumin 4.1 Urine Color Urine Clarity Urine pH Ur Specific [place] Urine Protein Urine Glucose (UA) Urine Ketones Urine Occult Blood Urine Nitrate Urine Bilirubin Urine Urobilinogen Ur Leukocyte Esterase Urine RBC Urine WBC Ur Squamous Epith Cells Hyaline Casts Micro UA Comment Ur Microscopic Review Urine Culture Comments Urine Opiates Screen Ur Barbiturates Screen Ur Amphetamines Screen U Benzodiazepines Scrn Urine Cocaine Screen U Cannabinoids Screen 05/03/18 05/03/18 05/03/18 14:31 16:50 16:50 WBC RBC Hgb Hct MCV MCH MCHC RDW Plt Count MPV Neut % (Auto) Lymph % (Auto) Cameron % (Auto) Eos % (Auto) Baso % (Auto) Neut # (Auto) Lymph # (Auto) [place] # (Auto) Eos # (Auto) Baso # (Auto) WBC Differential Differential Comment PT INR APTT Sodium Potassium Chloride Carbon Dioxide Anion Gap BUN Creatinine Estimated GFR Random Glucose Calcium Magnesium Total Bilirubin AST ALT Alkaline Phosphatase Troponin I B-Natriuretic Peptide 907 H Total Protein Albumin Urine Color Yellow Urine Clarity Clear Urine pH 5.0 Ur Specific [place] 1.013 Urine Protein Negative Urine Glucose (UA) Negative Urine Ketones Negative Urine Occult Blood Small H Urine Nitrate Negative Urine Bilirubin Negative Urine Urobilinogen Less than 2 Ur Leukocyte Esterase Negative Urine RBC 4 H Urine WBC Less than 1 Ur Squamous Epith Cells <1 Hyaline Casts 20 Micro UA Comment Culture not ind Ur Microscopic Review Not Reportable Urine Culture Comments Culture not ind Urine Opiates Screen Neg Ur Barbiturates Screen Neg Ur Amphetamines Screen Neg U Benzodiazepines Scrn Neg Urine Cocaine Screen Neg U Cannabinoids Screen Neg 05/04/18 07:15 WBC RBC Hgb Hct MCV MCH MCHC RDW Plt Count MPV Neut % (Auto) Lymph % (Auto) Cameron % (Auto) Eos % (Auto) Baso % (Auto) Neut # (Auto) Lymph # (Auto) Cameron # (Auto) Eos # (Auto) Baso # (Auto) WBC Differential Differential Comment PT INR APTT Sodium 131 L Potassium 4.0 Chloride 97 L Carbon Dioxide 27.0 Anion Gap 7 BUN 42 H Creatinine 1.77 H Estimated GFR 38 L Random Glucose 123 H Calcium 8.5 Magnesium Total Bilirubin AST ALT Alkaline Phosphatase Troponin I B-Natriuretic Peptide Total Protein Albumin Urine Color Urine Clarity Urine pH Ur Specific [place] Urine Protein Urine Glucose (UA) Urine Ketones Urine Occult Blood Urine Nitrate Urine Bilirubin Urine Urobilinogen Ur Leukocyte Esterase Urine RBC Urine WBC Ur Squamous Epith Cells Hyaline Casts Micro UA Comment Ur Microscopic Review Urine Culture Comments Urine Opiates Screen Ur Barbiturates Screen Ur Amphetamines Screen U Benzodiazepines Scrn Urine Cocaine Screen U Cannabinoids Screen - Imaging Impressions Chest X-Ray 05/03/18 14:19 CONCLUSION: Stable appearance with no acute cardiopulmonary disease. Assessment and Plan - Plan 68-year-old male with history of atrial fibrillation on Eliquis s/p pacer/AICD, CAD s/p CABG and stents, CHF with EF 15%, CKD stage III, chronic hypotension, hyperlipidemia, vertigo, BPH, presents with a 2 day history of dizziness and fatigue with concern for recurrent rapid heart rate. The patient was recently admitted 04/27-04/29 for afib with RVR s/p cardioversion and biventricular pacer defibrillator placement by Dr. Crawford. Atrial Fibrillation with RVR: acute. HR in the 110s on telemetry in the ER. S/p recent pacer placement. Had abltation done 4 years ago -EKG reviewed, shows afib with RVR HR 109 -Monitor on telemetry -Continue patient's Elquis -will attempt cardioversion today Hypotension: patient with chronic hx of hypotension, difficult controlling HR due to BP limitations -holding off on IVF resuscitation at this time due to hx of CHF -continue patient's midodrine tid -monitor BP closely, currently SBP in low 100s in the ER Chronic Systolic CHF: no signs of fluid overload. BNP 900 consistent with previous. S/p AICD. 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
--- NOTE | 2018-05-04 14:20 | P.PCNCA ---
- Cardiology Procedure Note Procedure: Electrical cardioversion of atrial fibrillation Procedure Date: 05/04/18 Procedure Detail: The patient was brought to the DOC unit in a fasting state after signing informed consent. Atrial fibrillation was verified via ICD interrogation. A 40 joule shock was delivered after the patient was sedated by the nurse commercial front load operator. Atrial fibrillation persisted. Another 40 joule shock was delivered restoring an AV paced rhythm. CONCLUSION: Successful electrical cardioversion of atrial fibrillation to an AV paced rhythm
[2018-05-04] MEDS ORDERED: Amiodarone Inj 150 MG in Dextrose 5% in Water Inj 97 ML IV.SIG ONE ×2 (14:40)
[2018-05-05] MEDS ORDERED: Bisacodyl 10 MG Supp RECTAL ONE (00:43)
[2018-05-05] MEDS: Allopurinol 100 MG Tablet PO SCH (07:59)
[2018-05-05] MEDS: Finasteride 5 MG Tablet PO SCH (08:00)
[2018-05-05] MEDS: Torsemide 20 MG Tablet PO SCH (08:00)
[2018-05-05] MEDS: metOLazone 5 MG Tablet PO SCH (08:00)
--- NOTE | 2018-05-05 08:48 | P.PNCA ---
Subjective Interval history: Feeling better. Dizziness much improved. Brief "anxiety" chest discomfort this morning. No dyspnea. Slept very little. No palpitations. Medications and Allergies Active Medications: Active Medications Allopurinol (Zyloprim) 100 mg PO DAILY [facility] Last Admin: 05/05/18 07:59 Dose: 100 mg Apixaban (Eliquis) 5 mg PO BID [facility] Last Admin: 05/05/18 07:59 Dose: 5 mg Atorvastatin Calcium (Lipitor) 80 mg PO DAILY [facility] Last Admin: 05/05/18 07:59 Dose: 80 mg Clopidogrel Bisulfate (Plavix) 75 mg PO DAILY [facility] Last Admin: 05/05/18 07:59 Dose: 75 mg Finasteride (Proscar) 5 mg PO DAILY [facility] Last Admin: 05/05/18 08:00 Dose: Not Given Amiodarone HCl 450 mg/ (Dextrose) 250 mls @ 33.33 mls/hr IV.CONT TITRATE PRN; Protocol PRN Reason: Per Protocol Metolazone (Zaroxolyn) 5 mg PO DAILY [facility] Last Admin: 05/05/18 08:00 Dose: Not Given Midodrine (Proamatine) 5 mg PO TID@0700,1200,1700 [facility] Last Admin: 05/05/18 06:01 Dose: 5 mg Ondansetron HCl (Zofran Inj) 4 mg IV.PUSH Q8H PRN PRN Reason: NAUSEA Last Admin: 05/04/18 22:28 Dose: 4 mg Sodium Chloride (Ns Flush) 2 ml IV.FLUSH BID [facility] Last Admin: 05/05/18 08:00 Dose: 2 ml Sodium Chloride (Ns Flush) 2 ml IV.FLUSH PRN PRN PRN Reason: FLUSH AFTER USING IV ACCESS Tamsulosin HCl (Flomax) 0.4 mg PO DAILY [facility] Last Admin: 05/05/18 08:00 Dose: 0.4 mg Torsemide (Demadex) 20 mg PO DAILY [facility] Last Admin: 05/05/18 08:00 Dose: Not Given Allergies Allergy/AdvReac Type Severity Reaction Status Date / Time diltiazem Allergy Severe Edema Verified 05/03/18 13:44 Home Medications Medication Instructions Recorded Confirmed Type apixaban [Eliquis] 5 mg PO BID 03/29/18 05/03/18 History atorvastatin 80 mg PO DAILY 03/29/18 05/03/18 History clopidogrel [Plavix] 75 mg PO DAILY 03/29/18 05/03/18 History finasteride 5 mg PO DAILY 03/29/18 05/03/18 History tamsulosin 0.4 mg PO DAILY 03/29/18 05/03/18 History allopurinol 100 mg PO DAILY 04/22/18 05/03/18 History metolazone 5 mg PO DAILY 04/22/18 05/03/18 History nitroglycerin 0.4 mg SUBLINGUAL Q5-15M PRN 04/22/18 05/03/18 History spironolactone 25 mg PO DAILY 04/27/18 05/03/18 History torsemide 20 mg PO DAILY 04/27/18 05/03/18 History Physical Exam Vital signs: Vital Signs 05/04/18 11:44 05/04/18 12:00 05/04/18 15:40 Temperature 98.5 F 98.1 F Pulse Rate 109 H 103 H 82 Respiratory Rate 16 18 Blood Pressure 85/62 L 89/62 L Pulse Oximetry 99 99 05/04/18 16:00 05/04/18 19:29 05/04/18 19:33 Temperature 97.6 F Pulse Rate 79 92 H 110 H Respiratory Rate 18 Blood Pressure 94/65 L Pulse Oximetry 96 05/04/18 20:00 05/05/18 00:00 05/05/18 03:50 Temperature 98.2 F Pulse Rate 86 84 Respiratory Rate 19 Blood Pressure 95/65 L Pulse Oximetry 96 98 05/05/18 04:00 05/05/18 07:07 05/05/18 07:55 Temperature 98 F 97.7 F Pulse Rate 80 86 Respiratory Rate 18 18 Blood Pressure 93/67 L 103/57 L Pulse Oximetry 98 97 95 Intake & Output 05/04/18 05/05/18 05/05/18 18:59 06:59 18:59 Intake Total 940 / 940 350 / 350 Balance 940 / 940 350 / 350 Weight 78.5 kg Intake: IV 100 / 100 Cordarone Inj 150 MG In D5W Inj 100 / 100 97 ML @ 600 mls/hr IV.SIG ONCE ONE Rx#:[id number] Oral 840 / 840 350 / 350 Other: # Voids 4 2 Date of Last Bowel Movement 05/03/18 05/03/18 - Constitutional no acute distress - Routine Neck Exam Absent: JVD - Routine Respiratory Exam Present: CTA bilaterally - Routine Cardiovascular Exam Present: RRR, S1, S2. Absent: murmur, gallop - Routine Abdominal Exam Present: soft, normoactive bowel sounds. Absent: tenderness, organomegaly - Routine Extremities Exam Absent: cyanosis, clubbing, edema Results 05/03/18 14:31 05/04/18 07:15 Cardiac Enzymes 05/03/18 05/03/18 Range/Units 14:31 14:31 AST 14 L (15-37) U/L Troponin I 0.02 (0.02-0.05) ng/mL B-Natriuretic Peptide 907 H (0-100) pg/mL Coagulation 05/03/18 05/03/18 Range/Units 14:31 14:31 PT 11.8 H (9.8-11.6) sec APTT 29.1 (23.4-31.7) sec B-Natriuretic Peptide 907 H (0-100) pg/mL CBC 05/03/18 Range/Units 14:31 WBC 5.9 (4.0-11.0) th/mm3 RBC 3.75 L (4.50-5.90) mil/mm3 Hgb 12.6 L (13.0-17.0) gm/dL Hct 36.5 L (39.0-51.0) % Plt Count 191 (150-450) th/mm3 Neut # (Auto) 4.5 (1.8-7.7) th/mm3 Lymph # (Auto) 0.4 L (1.0-4.8) th/mm3 [place] # (Auto) 0.8 (0.0-0.9) th/mm3 Eos # (Auto) 0.2 (0.0-0.4) th/mm3 Baso # (Auto) 0.1 (0.0-0.2) th/mm3 Comprehensive Metabolic Panel 05/03/18 05/04/18 Range/Units 14:31 07:15 Sodium 132 L 131 L (136-145) meq/L Potassium 4.4 4.0 (3.5-5.1) meq/L Chloride 96 L 97 L (98-107) meq/L Carbon Dioxide 28.0 27.0 (21.0-32.0) meq/L BUN 44 H 42 H (7-18) mg/dL Creatinine 2.13 H 1.77 H (0.60-1.30) mg/dL Calcium 7.9 L 8.5 (8.5-10.1) mg/dL AST 14 L (15-37) U/L ALT 20 (12-78) U/L Alkaline Phosphatase 130 H (45-117) U/L Total Protein 7.8 (6.4-8.2) g/dL Albumin 4.1 (3.4-5.0) g/dL Intake and Output 05/04/18 05/05/18 05/05/18 22:59 06:59 14:59 Intake Total 940 / 940 350 / 350 Balance 940 / 940 350 / 350 Intake: IV 100 / 100 Cordarone Inj 150 MG In D5W Inj 100 / 100 97 ML @ 600 mls/hr IV.SIG ONCE ONE Rx#:[id number] Oral 840 / 840 350 / 350 Other: # Voids 4 2 Date of Last Bowel Movement 05/03/18 05/03/18 Weight 78.5 kg - Imaging and Cardiology Imaging: Impressions Chest X-Ray 05/03/18 14:19 CONCLUSION: Stable appearance with no acute cardiopulmonary disease. Assessment and Plan - Assessment (1) Hypotension Code(s): I95.9 - Hypotension, unspecified Status: Acute Plan: Normal BP's since admission and at baseline now. Unfortunately will likely have to keep him off Entresto and beta benjamin therapy. Redevelopment of atrial fib and subsequent loss of atrial contribution to left ventricular filling also may have reduced his cardiac output considerably. Now back in NSR s /p cardioversion yesterday. REC 24 more hours observation. (2) CAD (coronary artery disease) Code(s): I25.10 - Atherosclerotic heart disease of [place] coronary artery without angina pectoris Status: Chronic Plan: Stable CAD status. No definite recent angina. Continue Plavix. No aspirin while on Eliquis. (3) Ischemic cardiomyopathy Code(s): I25.5 - Ischemic cardiomyopathy Status: Chronic Plan: EF 10-15%. Overall compensated at present. BP's often too low for beta benjamin or Entresto. Continue torsemide, consider resuming his spironolactone and metolazone. (4) Paroxysmal atrial fibrillation Code(s): I48.0 - Paroxysmal atrial fibrillation Status: Chronic Plan: Remains in NSR s/p cardioversion yesterday. Redevelopment of atrial fib and subsequent loss of atrial contribution to left ventricular filling also may have reduced his cardiac output considerably. Continue Eliquis, Amiodarone. 24 more hours observation. - Plan Code Status: full Discussed Condition With: patient (1) Hypotension Qualifiers: Hypotension type: other hypotension type Qualified Code(s): I95.89 - Other hypotension (2) CAD (coronary artery disease) Qualifiers: Coronary Disease-Associated Artery/Lesion type: bypass graft [place] vs. transplanted heart: [place] heart Associated angina: without angina Qualified Code(s): I25.810 - Atherosclerosis of coronary artery bypass graft(s) without angina pectoris
[2018-05-05] MEDS: Spironolactone 25 MG Tablet PO SCH (09:35)
--- NOTE | 2018-05-05 14:06 | P.PN ---
Subjective Interval history: occasional anxiety attacks no shortness of breath SBPs low- but up and ambulating no dizziness Physical Exam Vital signs: Vital Signs 05/04/18 15:40 05/04/18 16:00 05/04/18 19:29 Temperature 98.1 F 97.6 F Pulse Rate 82 79 92 H Respiratory Rate 18 18 Blood Pressure 89/62 L 94/65 L Pulse Oximetry 99 96 05/04/18 19:33 05/04/18 20:00 05/05/18 00:00 Temperature 98.2 F Pulse Rate 110 H 86 Respiratory Rate 19 Blood Pressure 95/65 L Pulse Oximetry 96 98 05/05/18 03:50 05/05/18 04:00 05/05/18 07:07 Temperature 98 F Pulse Rate 84 80 Respiratory Rate 18 Blood Pressure 93/67 L Pulse Oximetry 98 97 05/05/18 07:55 05/05/18 08:00 05/05/18 10:08 Temperature 97.7 F Pulse Rate 86 92 H Respiratory Rate 18 Blood Pressure 103/57 L Pulse Oximetry 95 96 05/05/18 11:36 05/05/18 11:54 Temperature Pulse Rate 89 83 Respiratory Rate 16 Blood Pressure 85/57 L Pulse Oximetry 99 Intake & Output 05/04/18 05/05/18 05/05/18 18:59 06:59 18:59 Intake Total 940 / 940 350 / 350 Balance 940 / 940 350 / 350 Weight 78.5 kg Intake: IV 100 / 100 Cordarone Inj 150 MG In D5W Inj 100 / 100 97 ML @ 600 mls/hr IV.SIG ONCE ONE Rx#:[id number] Oral 840 / 840 350 / 350 Other: # Voids 4 2 Date of Last Bowel Movement 05/03/18 05/03/18 05/05/18 Narrative: GENERAL: Well-nourished, well-developed pleasant middle aged male patient in [facility]. SKIN: Warm and dry. No rash. HEENT: Normocephalic. Atraumatic. Pupils equal and round. Mucous membranes pink and moist. NECK: Supple. Trachea midline. CARDIOVASCULAR: Irregular rate and rhythm. New pacer/AICD surgical site at left upper chest - hematoma- softer RESPIRATORY: No accessory muscle use. Clear to auscultation. Breath sounds equal bilaterally. GASTROINTESTINAL: Abdomen soft, non-tender, nondistended. Normoactive bowel sounds x4. MUSCULOSKELETAL: No obvious deformities. Extremities without clubbing, cyanosis , or edema. NEUROLOGICAL: Awake and alert. No obvious cranial nerve deficits. Moving all extremities spontaneously. Normal speech. Results - Labs CBC & Chem 7: 05/03/18 14:31 05/04/18 07:15 - Procedures 05/04 Successful electrical cardioversion of atrial fibrillation to an AV paced rhythm Assessment and Plan - Plan 68-year-old male with history of atrial fibrillation on Eliquis s/p pacer/AICD, CAD s/p CABG and stents, CHF with EF 15%, CKD stage III, chronic hypotension, hyperlipidemia, vertigo, BPH, presents with a 2 day history of dizziness and fatigue with concern for recurrent rapid heart rate. The patient was recently admitted 04/27-04/29 for afib with RVR s/p cardioversion and biventricular pacer defibrillator placement by Dr. Crawford. Atrial Fibrillation with RVR: acute. HR in the 110s on telemetry in the ER. S/p recent pacer placement. - PACED rhythm Had abltation done 4 years ago S/P cardioversion 05/04 -EKG reviewed, shows afib with RVR HR 109- now paced rhytm- rate controlled -Monitor on telemetry -Continue patient's Elquis Hypotension: patient with chronic hx of hypotension, difficult controlling HR due to BP limitations -holding off on IVF resuscitation at this time due to hx of CHF -continue patient's midodrine tid -monitor BP closely, currently SBP in low 100s in the ER Chronic Systolic CHF: no signs of fluid overload. BNP 900 consistent with previous. S/p AICD. 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
--- NOTE | 2018-05-05 23:05 | ECG ---
Date Performed: 05/04/2018 Time Performed: 14:23:16 PTAGE: 68 years EKG: ATRIAL-VENTRICULAR DEMAND PACING WITH OCCASIONAL PREMATURE ATRIAL CONTRACTIONS LOW QRS VOLT AGE IN THE LIMB LEADS Abnormal ECG PREVIOUS TRACING : 05/03/2018 14.02 Compared to previous tracing, DEMAND PACING IS NEW DOCTOR: Brian Dubois Interpretating Date/Time 05/05/2018 23:04:11
--- NOTE | 2018-05-06 07:59 | P.PNCA ---
Subjective Interval history: No angina. Dizziness much improved. No dyspnea, PND, palpitations. No nausea , constipation. Medications and Allergies Active Medications: Active Medications Allopurinol (Zyloprim) 100 mg PO DAILY [facility] Last Admin: 05/05/18 07:59 Dose: 100 mg Apixaban (Eliquis) 5 mg PO BID [facility] Last Admin: 05/05/18 20:25 Dose: 5 mg Atorvastatin Calcium (Lipitor) 80 mg PO DAILY [facility] Last Admin: 05/05/18 07:59 Dose: 80 mg Clopidogrel Bisulfate (Plavix) 75 mg PO DAILY [facility] Last Admin: 05/05/18 07:59 Dose: 75 mg Finasteride (Proscar) 5 mg PO DAILY [facility] Last Admin: 05/05/18 08:00 Dose: Not Given Amiodarone HCl 450 mg/ (Dextrose) 250 mls @ 33.33 mls/hr IV.CONT TITRATE PRN; Protocol PRN Reason: Per Protocol Metolazone (Zaroxolyn) 5 mg PO DAILY [facility] Last Admin: 05/05/18 08:00 Dose: Not Given Midodrine (Proamatine) 5 mg PO TID@0700,1200,1700 [facility] Last Admin: 05/06/18 06:15 Dose: 5 mg Ondansetron HCl (Zofran Inj) 4 mg IV.PUSH Q8H PRN PRN Reason: NAUSEA Last Admin: 05/05/18 22:20 Dose: 4 mg Sodium Chloride (Ns Flush) 2 ml IV.FLUSH BID [facility] Last Admin: 05/05/18 20:25 Dose: 2 ml Sodium Chloride (Ns Flush) 2 ml IV.FLUSH PRN PRN PRN Reason: FLUSH AFTER USING IV ACCESS Spironolactone (Aldactone) 25 mg PO DAILY [facility] Last Admin: 05/05/18 09:35 Dose: 25 mg Tamsulosin HCl (Flomax) 0.4 mg PO DAILY [facility] Last Admin: 05/05/18 08:00 Dose: 0.4 mg Torsemide (Demadex) 20 mg PO DAILY [facility] Last Admin: 05/05/18 08:00 Dose: Not Given Allergies Allergy/AdvReac Type Severity Reaction Status Date / Time diltiazem Allergy Severe Edema Verified 05/03/18 13:44 Home Medications Medication Instructions Recorded Confirmed Type apixaban [Eliquis] 5 mg PO BID 03/29/18 05/03/18 History atorvastatin 80 mg PO DAILY 03/29/18 05/03/18 History clopidogrel [Plavix] 75 mg PO DAILY 03/29/18 05/03/18 History finasteride 5 mg PO DAILY 03/29/18 05/03/18 History tamsulosin 0.4 mg PO DAILY 03/29/18 05/03/18 History allopurinol 100 mg PO DAILY 04/22/18 05/03/18 History metolazone 5 mg PO DAILY 04/22/18 05/03/18 History nitroglycerin 0.4 mg SUBLINGUAL Q5-15M PRN 04/22/18 05/03/18 History spironolactone 25 mg PO DAILY 04/27/18 05/03/18 History torsemide 20 mg PO DAILY 04/27/18 05/03/18 History Physical Exam Vital signs: Vital Signs 05/05/18 07:55 05/05/18 08:00 05/05/18 10:08 Temperature 97.7 F Pulse Rate 86 92 H Respiratory Rate 18 Blood Pressure 103/57 L Pulse Oximetry 95 96 05/05/18 11:36 05/05/18 11:54 05/05/18 16:00 Temperature Pulse Rate 89 83 84 Respiratory Rate 16 18 Blood Pressure 85/57 L 96/72 L Pulse Oximetry 99 97 05/05/18 19:28 05/05/18 20:00 05/06/18 00:00 Temperature 98.1 F 98.2 F Pulse Rate 87 85 86 Respiratory Rate 19 18 Blood Pressure 96/48 L 85/53 L Pulse Oximetry 97 98 97 05/06/18 03:14 05/06/18 04:00 05/06/18 07:00 Temperature 97.6 F Pulse Rate 75 86 78 Respiratory Rate 16 Blood Pressure 90/52 L Pulse Oximetry 97 Intake & Output 05/05/18 05/06/18 05/06/18 18:59 06:59 18:59 Intake Total 860 / 860 Balance 860 / 860 Weight 78.2 kg Intake: Oral 860 / 860 Other: # Voids 5 2 Date of Last Bowel Movement 05/05/18 05/03/18 - Constitutional no acute distress - Routine Neck Exam Absent: JVD - Routine Respiratory Exam Present: CTA bilaterally - Routine Cardiovascular Exam Present: RRR, S1, S2. Absent: murmur, gallop - Routine Abdominal Exam Present: soft, normoactive bowel sounds. Absent: tenderness, organomegaly - Routine Extremities Exam Present: normal capillary refill. Absent: cyanosis, clubbing, edema Results 05/03/18 14:31 05/04/18 07:15 Comprehensive Metabolic Panel 05/04/18 Range/Units 07:15 Sodium 131 L (136-145) meq/L Potassium 4.0 (3.5-5.1) meq/L Chloride 97 L (98-107) meq/L Carbon Dioxide 27.0 (21.0-32.0) meq/L BUN 42 H (7-18) mg/dL Creatinine 1.77 H (0.60-1.30) mg/dL Calcium 8.5 (8.5-10.1) mg/dL Intake and Output 05/05/18 05/06/18 05/06/18 22:59 06:59 14:59 Intake Total 860 / 860 Balance 860 / 860 Intake: Oral 860 / 860 Other: # Voids 5 2 Date of Last Bowel Movement 05/03/18 05/03/18 Weight 78.2 kg Assessment and Plan - Assessment (1) Hypotension Code(s): I95.9 - Hypotension, unspecified Status: Acute Plan: Low normal to mildly reduced BP's, which is patient's baseline. Unfortunately will likely have to keep him off Entresto and beta benjamin therapy. Redevelopment of atrial fib and subsequent loss of atrial contribution to left ventricular filling also may have reduced his cardiac output considerably. Now remains in NSR s/p cardioversion. REC OK to discharge today on current medications, keep off Entresto for now (2) CAD (coronary artery disease) Code(s): I25.10 - Atherosclerotic heart disease of [place] coronary artery without angina pectoris Status: Chronic Plan: Stable CAD status. No definite recent angina. Continue Plavix. No aspirin while on Eliquis. (3) Ischemic cardiomyopathy Code(s): I25.5 - Ischemic cardiomyopathy Status: Chronic Plan: EF 10-15%. Overall compensated at present. BP's often too low for beta benjamin or Entresto. Continue torsemide, spironolactone and metolazone. (4) Paroxysmal atrial fibrillation Code(s): I48.0 - Paroxysmal atrial fibrillation Status: Chronic Plan: Remains in NSR s/p cardioversion. Redevelopment of atrial fib and subsequent loss of atrial contribution to left ventricular filling also may have reduced his cardiac output considerably. Continue Eliquis, Amiodarone (400 mg qd) - Plan Code Status: full Discussed Condition With: patient (1) Hypotension Qualifiers: Hypotension type: other hypotension type Qualified Code(s): I95.89 - Other hypotension (2) CAD (coronary artery disease) Qualifiers: Coronary Disease-Associated Artery/Lesion type: bypass graft [place] vs. transplanted heart: [place] heart Associated angina: without angina Qualified Code(s): I25.810 - Atherosclerosis of coronary artery bypass graft(s) without angina pectoris
[2018-05-06] MEDS: metOLazone 5 MG Tablet PO SCH (08:07)
[2018-05-06] MEDS: Allopurinol 100 MG Tablet PO SCH (08:07)
[2018-05-06] MEDS: Finasteride 5 MG Tablet PO SCH (08:08)
[2018-05-06] MEDS: Spironolactone 25 MG Tablet PO SCH (08:12)
[2018-05-06] MEDS: Torsemide 20 MG Tablet PO SCH (08:12)
--- NOTE | 2018-05-06 08:12 | P.PN ---
Subjective Interval history: telemetry - paced rhythm up and ambulating no chest discomfort or palpitations, no dizziness Physical Exam Vital signs: Vital Signs 05/05/18 10:08 05/05/18 11:36 05/05/18 11:54 Temperature Pulse Rate 89 83 Respiratory Rate 16 Blood Pressure 85/57 L Pulse Oximetry 96 99 05/05/18 16:00 05/05/18 19:28 05/05/18 20:00 Temperature 98.1 F Pulse Rate 84 87 85 Respiratory Rate 18 19 Blood Pressure 96/72 L 96/48 L Pulse Oximetry 97 97 98 05/06/18 00:00 05/06/18 03:14 05/06/18 04:00 Temperature 98.2 F 97.6 F Pulse Rate 86 75 86 Respiratory Rate 18 16 Blood Pressure 85/53 L 90/52 L Pulse Oximetry 97 97 05/06/18 07:00 05/06/18 08:01 Temperature 96.6 F L Pulse Rate 78 99 H Respiratory Rate 18 Blood Pressure 91/70 L Pulse Oximetry 98 Intake & Output 05/05/18 05/06/18 05/06/18 18:59 06:59 18:59 Intake Total 860 / 860 Balance 860 / 860 Weight 78.2 kg Intake: Oral 860 / 860 Other: # Voids 5 2 Date of Last Bowel Movement 05/05/18 05/03/18 Narrative: GENERAL: Well-nourished, well-developed pleasant middle aged male patient in [facility]. HEENT: Normocephalic. Atraumatic. Pupils equal and round. Mucous membranes pink and moist. NECK: Supple. Trachea midline. CARDIOVASCULAR: Paced rhythm, occ, PVcs. New pacer/AICD surgical site at left upper chest - hematoma/eechymoses- softer RESPIRATORY: No accessory muscle use. Clear to auscultation. Breath sounds equal bilaterally. GASTROINTESTINAL: Abdomen soft, non-tender,good bowel sounds MUSCULOSKELETAL: No obvious deformities. Extremities without clubbing, cyanosis , or edema. NEUROLOGICAL: Awake and alert. No obvious cranial nerve deficits. Moving all extremities spontaneously. Normal speech. Results - Labs CBC & Chem 7: 05/03/18 14:31 05/04/18 07:15 - Procedures 05/04 Successful electrical cardioversion of atrial fibrillation to an AV paced rhythm Assessment and Plan - Plan 68-year-old male with history of atrial fibrillation on Eliquis s/p pacer/AICD, CAD s/p CABG and stents, CHF with EF 15%, CKD stage III, chronic hypotension, hyperlipidemia, vertigo, BPH, presents with a 2 day history of dizziness and fatigue with concern for recurrent rapid heart rate. The patient was recently admitted 04/27-04/29 for afib with RVR s/p cardioversion and biventricular pacer defibrillator placement by Dr. Crawford. Atrial Fibrillation with RVR: acute. HR in the 110s on telemetry in the ER. S/p recent pacer placement. - PACED rhythm Had abltation done 4 years ago S/P cardioversion 05/04 -EKG reviewed, shows afib with RVR HR 109- now paced rhytm- rate controlled -Monitor on telemetry -Continue patient's Elquis -changed to po Amidoaron 400 mg po today Hypotension: patient with chronic hx of hypotension, difficult controlling HR due to BP limitations -holding off on IVF resuscitation at this time due to hx of CHF -continue patient's midodrine tid Chronic Systolic CHF: no signs of fluid overload. BNP 900 consistent with previous. S/p AICD. 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
--- NOTE | 2018-05-06 08:20 | P.DS ---
Date of admission: 05/03/18 18:22 Primary care physician: Collin Menjivar MD Anticipated date of discharge: 05/06/18 Brief History from admission: 68-year-old male with history of atrial fibrillation on Eliquis s/p pacer/AICD, CAD s/p CABG and stents, CHF with EF 15%, CKD stage III, chronic hypotension, hyperlipidemia, vertigo, BPH, presents with a 2 day history of dizziness and fatigue with concern for recurrent rapid heart rate. The patient was recently admitted 04/27-04/29 for afib with RVR s/p cardioversion and biventricular pacer defibrillator placement by Dr. Crawford. He states after discharge he was feeling well for a few days, until Thursday night 05/02 he started to notice his heart rate going up to the upper 90s. He reports feeling dizzy and nauseous. Denies any palpitations, chest pain, or shortness of breath. Today he woke up and still did not feel well. He took his blood pressure which was in the 90s/60s with heart rate going up the low 100s. He states he was feeling similar to how he felt before his last admission, therefore he decided to come to the ER. He reports compliance with his medications since discharge. He denies any other new medical complaints including no fevers/chills, cough, abdominal or urinary complaints. 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 Patient update on day of discharge: no chest discomfort up and ambualting no dizziness telemtry- paced rhythm DS: Summary Hospital Course: 68-year-old male with history of atrial fibrillation on Eliquis s/p pacer/AICD, CAD s/p CABG and stents, CHF with EF 15%, CKD stage III, chronic hypotension, hyperlipidemia, vertigo, BPH, presents with a 2 day history of dizziness and fatigue with concern for recurrent rapid heart rate. The patient was recently admitted 04/27-04/29 for afib with RVR s/p cardioversion and biventricular pacer defibrillator placement by Dr. Crawford. Atrial Fibrillation with RVR: acute. HR in the 110s on telemetry in the ER. S/p recent pacer placement. - PACED rhythm Had abltation done 4 years ago S/P cardioversion 05/04 -EKG reviewed, shows afib with RVR HR 109- now paced rhytm- rate controlled -Monitor on telemetry -Continue patient's Elquis -changed to po Amidoaron 400 mg po today Hypotension: patient with chronic hx of hypotension, difficult controlling HR due to BP limitations -holding off on IVF resuscitation at this time due to hx of CHF -continue patient's midodrine tid Chronic Systolic CHF: no signs of fluid overload. BNP 900 consistent with previous. S/p AICD. 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 -will avoid any further nephrotoxins -monitor renal function closely CAD: s/p CABG and stents -continue patient's plavix -no complaints of chest pain -cardiology following as above BPH: chronic -continue patient's flomax and finasteride DVT Prophylaxis: on Eliquis DC home today- FF up with PCP FF up with Cardiology- in 1 week - Time Spent with Patient Total time spent providing and/or coordinating discharge services: Greater than 30 minutes Exam Vital signs: Vital Signs 05/05/18 10:08 05/05/18 11:36 05/05/18 11:54 Temperature Pulse Rate 89 83 Respiratory Rate 16 Blood Pressure 85/57 L Pulse Oximetry 96 99 05/05/18 16:00 05/05/18 19:28 05/05/18 20:00 Temperature 98.1 F Pulse Rate 84 87 85 Respiratory Rate 18 19 Blood Pressure 96/72 L 96/48 L Pulse Oximetry 97 97 98 05/06/18 00:00 05/06/18 03:14 05/06/18 04:00 Temperature 98.2 F 97.6 F Pulse Rate 86 75 86 Respiratory Rate 18 16 Blood Pressure 85/53 L 90/52 L Pulse Oximetry 97 97 05/06/18 07:00 05/06/18 08:01 Temperature 96.6 F L Pulse Rate 78 99 H Respiratory Rate 18 Blood Pressure 91/70 L Pulse Oximetry 98 Intake & Output 05/05/18 05/06/18 05/06/18 18:59 06:59 18:59 Intake Total 860 / 860 Balance 860 / 860 Weight 78.2 kg Intake: Oral 860 / 860 Other: # Voids 5 2 Date of Last Bowel Movement 05/05/18 05/03/18 Results Procedures completed during hospitalization: 05/04 Successful electrical cardioversion of atrial fibrillation to an AV paced rhythm - Impressions ITS Impressions Chest X-Ray 05/03/18 14:19 CONCLUSION: Stable appearance with no acute cardiopulmonary disease. Discharge Plan - Discharge Disposition Patient Disposition: Discharge Home - Discharge Condition Condition: Fair - Discharge Order Discharge Orders: Discharge Order (Routine); Ordered 05/06/18 Ordered By: Genoveva Jarvis Cardiology Clear for Discharge (Routine); Ordered 05/06/18 Ordered By: Chris Ward ED Use Only Admit Order (Routine); Ordered 05/03/18 Ordered By: Rambo Mehta - Discharge Details Anticipated Discharge Date: 05/06/18 - Physicians Team Primary Care Provider: Collin Menjivar Attending Provider: Genoveva Jarvis Other Providers: Chris Ward MD ; Nemo Mckeon MD
[2018-05-06] MEDS ORDERED: Amiodarone 200 MG Tablet PO SCH (09:00)
== END 2018-05-06 10:56 | disposition home or self-care (01) ==
LOC: NEDA 13:11 → NEPE 13:11 → HCIN 19:35 → NEDA 20:02
PROVIDERS: ADMIT Internal Medicine; ATTEND Internal Medicine

== ENCOUNTER 2018-07-12 02:16 | Observation (INO) ==
--- NOTE | 2018-07-12 04:12 | ED ---
HPI General Chief complaint: Chest Pain Stated complaint: chest pain/sob Time Seen by Provider: 07/12/18 03:41 Source: patient History of Present Illness HPI narrative: The patient is a 68 year old male who presents to the [facility] emergency department with a history of reportedly having chest pain that has been mild and coming and going over the last couple of days, however today it is submitted more persistent. He reports that the character of the pain is a tightening sensation. He reports having shortness of breath associated with it. He reports that the pain became persistent at 6 PM last night. He reports that he did take an adult aspirin last at 11 PM last night. The patient is also on Eliquis and Plavix related to a history of coronary artery disease, atrial fibrillation, and congestive heart failure. The patient reports that he is on Torsemide. He reports that his weight has recently increased by 3-4 pounds. He reports having edema in his lower extremities, mainly in his ankles and feet. He also reports having abdominal bloating. He reports having a prior history of constipation, however he has been moving his bowels regularly and last moved his bowels yesterday. He denies having any blood in his stool or black or tarry stools. He reports that he was recently treated for a congestive heart failure exacerbation. He reports that his driller and broacher is Dr. Ward. He cannot recall when his last stress test was, however he reports that Dr. Ward did want to do a cardiac catheterization, however his kidney function studies were more abnormal than usual on last evaluation. On review of systems otherwise, the patient denies having any known recent fevers, cough, congestion , neck pain, vomiting, diarrhea, urinary symptoms, or neurologic symptoms. He does report having some nausea. He denies having any radiation of his chest pain. He denies having any diaphoresis. The patient reports that with his abdominal bloating he has been experiencing a midepigastric abdominal discomfort. He reports that this comes and goes. Related Data Home Medications Medication Instructions Recorded Confirmed apixaban [Eliquis] 5 mg PO BID 03/29/18 07/12/18 atorvastatin 80 mg PO DAILY 03/29/18 07/12/18 clopidogrel [Plavix] 75 mg PO DAILY 03/29/18 07/12/18 finasteride 5 mg PO DAILY 03/29/18 07/12/18 tamsulosin 0.4 mg PO DAILY 03/29/18 07/12/18 nitroglycerin 0.4 mg SUBLINGUAL Q5-15M PRN 04/22/18 07/12/18 torsemide 20 mg PO DAILY 04/27/18 07/12/18 digoxin [Digox] 0.125 mg PO DAILY 07/12/18 07/12/18 Previous Rx's Medication Instructions Recorded potassium chloride 20 meq PO DAILY #30 tab 06/18/18 Allergies Allergy/AdvReac Type Severity Reaction Status Date / Time diltiazem Allergy Severe Edema Verified 07/12/18 02:21 amiodarone Allergy Weakness Verified 07/12/18 02:21 Review of Systems ROS: all other systems reviewed are negative [facility] Medical History Medical History Atrial fibrillation (Acute) BPH (benign prostatic hyperplasia) (Acute) CAD (coronary artery disease) (Acute) CHF (congestive heart failure) (Acute) Heart attack (Acute) Hyperlipemia (Acute) Hypotension (Acute) Presence of combination internal cardiac defibrillator (ICD) and pacemaker ( Acute) Vertigo (Acute) Surgical History Surgical History History of cardiac cath (Acute) History of permanent cardiac pacemaker placement (Acute) S/P CABG x 5 (Acute) Family History Family History Mother Coronary artery disease Uncle Coronary artery disease Grandparent Coronary artery disease Father Squamous cell carcinoma Social History Social History Substance History: No History of Abuse Second Hand Smoke Exposure: No Smoking Status: Former smoker Tobacco Type: Cigarettes How Often Do You Have a Drink Containing Alcohol: Never Recent Travel in [facility] within the Last 8 Weeks: No Recent Out of Country Travel within the Last 8 Weeks: No Immunization History Tetanus Immunization: Unsure Exam Const General: cooperative, no acute distress and well developed Nutritional Appearance: well nourished Orientation: alert, awake and oriented x3 HENMT Head: normocephalic and atraumatic Nose: no nasal discharge and no epistaxis Mouth: moist mucous membranes Throat: posterior oropharynx normal and uvula midline Eyes Sclera: normal sclerae Pupils: PERRL Neck Neck: no meningeal signs, trachea midline and no JVD Resp Effort & Inspection: no use of accessory muscles Auscultation: clear to auscultation bilaterally Cardio Rate: regular rate Rhythm: abnormal rhythm irregularly irregular Heart Sounds: no gallops, no murmurs and no rubs GI Inspection: non-distended Palpation: soft, no hepatosplenomegaly, no guarding, not rigid and tender in the epigastrum; not in the LLQ, not in the RLQ, not in the LUQ, not in the RUQ, not at McBurney's point, not periumbilically, not suprapubicly, Bundy's sign negative and with no rebound tenderness Auscultation: normal bowel sounds Back/Spine/Pelvis Back: no CVA tenderness Skin General: dry skin (warm) Neuro General: alert, awake, oriented x3 and other (Grossly nonfocal.) Speech: speech normal Motor: no movement abnormalities noted Extrem General: normal to inspection, no calf tenderness, no clubbing, no cyanosis and edema (Trace pedal edema bilaterally.) Laterality: bilaterally Psych Mood: congruent mood Affect: normal affect Judgment: judgment good Course Initial Documented Vital Signs Pulse Rate 95 H 07/12/18 02:21 Respiratory Rate 21 07/12/18 02:21 Blood Pressure 101/62 07/12/18 02:21 Pulse Oximetry 99 07/12/18 02:21 Last Documented Vital Signs Temperature 98.1 F 07/12/18 16:00 Pulse Rate 79 07/12/18 16:00 Respiratory Rate 16 07/12/18 16:00 Blood Pressure 101/58 L 07/12/18 16:00 Pulse Oximetry 100 07/12/18 16:00 Medical Decision Making MDM Narrative Medical decision making narrative: During the course of the patient's emergency department visit, the patient's history, examination, and differential diagnosis were reviewed with the patient. The patient was placed on a electronic device monitor with oximetry and frequent blood pressure monitoring. The patient had IV access obtained and blood work sent for analysis. A diagnostic evaluation was started regarding the patient's chest pain and shortness of breath. The patient was initially provided nitroglycerin 1 inch to the chest wall. The patient reports that he did take an adult aspirin within the last 24 hours. The patient's diagnostic testing is remarkable for normal white blood cell count of 5.4, hemoglobin 12.1, platelets 228 with 74.8 neutrophils, 12.9 monocytes, PT 12.2, INR 1.2, PTT 29.5, chemistries remarkable for sodium of 130 , chloride 93, BUN 43, creatinine 2.16 which is similar to his level of renal insufficiency with a creatinine of 2.14 on July 01, 2018, total bilirubin 1.2 , alk phos 158, troponin I is 0.06 which is slightly elevated, BNP is 889 which is less than his last BNP on June 27, lipase is elevated at 890 which was last normal on June 24, 2018. TSH is within normal limits. The patient's chest x-ray showed compensated cardiomegaly, no acute cardiopulmonary process. A CT scan of the abdomen and pelvis was added onto the patient's workup for pancreatitis. CT scan of the abdomen and pelvis showed stable 1.6 cm cyst in the hepatic dome diverticular disease without diverticulitis, mild diffuse mesenteric edema of uncertain etiology, possibly related to fluid overload. The patient was given Lasix 20 mg IV, mild splenomegaly, circum-aortic left renal vein, an anatomic variant. The patient's case including history, pertinent physical examination findings, and laboratory studies were discussed with Sharyn, the PAYTON for [facility]. It was agreed that the patient would be admitted to the hospitalist service. The patient's results were discussed with the patient, including the plan of care. I explained that further testing and/ or monitoring is indicated based on the patient's history, examination, and/ or laboratory findings. Therefore, I recommended admission for additional evaluation. The patient expressed understanding and was agreeable with this plan. The patient was admitted to the hospital in stable condition and sent to a bed under the care of the [facility] service. Medical Screen Exam Complete: Yes Emergency Medical Condition: Yes Differential Diagnosis Differential Diagnosis: Acute coronary syndrome, versus A. fib with RVR, versus congestive heart failure exacerbation Medical Records Medical records reviewed: Yes I reviewed the patient's medical records. Lab Data Lab results reviewed: Yes I reviewed the patient's lab results. Result diagrams: 07/12/18 03:45 07/12/18 03:45 Lab Results 07/12/18 07/12/18 07/12/18 Range/Units 03:45 03:45 03:45 WBC 5.4 (4.0-11.0) th/mm3 RBC 4.11 L (4.50-5.90) mil/mm3 Hgb 12.1 L (13.0-17.0) gm/dL Hct 35.8 L (39.0-51.0) % MCV 87.1 (80.0-100.0) fL MCH 29.5 (27.0-34.0) pg MCHC 33.8 (32.0-36.0) % RDW 17.9 H (11.6-17.2) % Plt Count 228 (150-450) th/mm3 MPV 7.6 (7.0-11.0) fL Neut % (Auto) 74.8 H (16.0-70.0) % Lymph % (Auto) 8.7 L (9.0-44.0) % Sharkey % (Auto) 12.9 H (0.0-8.0) % Eos % (Auto) 2.8 (0.0-4.0) % Baso % (Auto) 0.8 (0.0-2.0) % Neut # (Auto) 4.0 (1.8-7.7) th/mm3 Lymph # (Auto) 0.5 L (1.0-4.8) th/mm3 Sharkey # (Auto) 0.7 (0.0-0.9) th/mm3 Eos # (Auto) 0.1 (0.0-0.4) th/mm3 Baso # (Auto) 0.0 (0.0-0.2) th/mm3 WBC Differential . Differential Comment Auto diff final PT 12.2 H (9.8-11.6) sec INR 1.2 Ratio APTT 29.5 (23.4-31.7) sec Sodium 130 L (136-145) meq/L Potassium 4.7 (3.5-5.1) meq/L Chloride 93 L (98-107) meq/L Carbon Dioxide 31.7 (21.0-32.0) meq/L Anion Gap 5 (5-15) meq/L BUN 43 H (7-18) mg/dL Creatinine 2.16 H (0.60-1.30) mg/dL Estimated GFR 30 L (>89) mL/min Random Glucose 140 H (74-106) mg/dL Calcium 8.0 L (8.5-10.1) mg/dL Magnesium 2.5 (1.5-2.5) mg/dL Total Bilirubin 1.2 H (0.2-1.0) mg/dL AST 21 (15-37) U/L ALT 29 (12-78) U/L Alkaline Phosphatase 158 H (45-117) U/L Total Creatine Kinase 132 (39-308) U/L CK-MB (CK-2) 2.5 (0.5-3.6) ng/mL Troponin I 0.06 H (0.02-0.05) ng/mL B-Natriuretic Peptide (0-100) pg/mL Total Protein 7.5 (6.4-8.2) g/dL Albumin 3.5 (3.4-5.0) g/dL Lipase 819 H (73-393) U/L TSH (0.358-3.740) uIU/mL 07/12/18 07/12/18 07/12/18 Range/Units 03:45 03:45 11:30 WBC (4.0-11.0) th/mm3 RBC (4.50-5.90) mil/mm3 Hgb (13.0-17.0) gm/dL Hct (39.0-51.0) % MCV (80.0-100.0) fL MCH (27.0-34.0) pg MCHC (32.0-36.0) % RDW (11.6-17.2) % Plt Count (150-450) th/mm3 MPV (7.0-11.0) fL Neut % (Auto) (16.0-70.0) % Lymph % (Auto) (9.0-44.0) % Sharkey % (Auto) (0.0-8.0) % Eos % (Auto) (0.0-4.0) % Baso % (Auto) (0.0-2.0) % Neut # (Auto) (1.8-7.7) th/mm3 Lymph # (Auto) (1.0-4.8) th/mm3 Sharkey # (Auto) (0.0-0.9) th/mm3 Eos # (Auto) (0.0-0.4) th/mm3 Baso # (Auto) (0.0-0.2) th/mm3 WBC Differential Differential Comment PT (9.8-11.6) sec INR Ratio APTT (23.4-31.7) sec Sodium (136-145) meq/L Potassium (3.5-5.1) meq/L Chloride (98-107) meq/L Carbon Dioxide (21.0-32.0) meq/L Anion Gap (5-15) meq/L BUN (7-18) mg/dL Creatinine (0.60-1.30) mg/dL Estimated GFR (>89) mL/min Random Glucose (74-106) mg/dL Calcium (8.5-10.1) mg/dL Magnesium (1.5-2.5) mg/dL Total Bilirubin (0.2-1.0) mg/dL AST (15-37) U/L ALT (12-78) U/L Alkaline Phosphatase (45-117) U/L Total Creatine Kinase (39-308) U/L CK-MB (CK-2) (0.5-3.6) ng/mL Troponin I 0.05 (0.02-0.05) ng/mL B-Natriuretic Peptide 889 H (0-100) pg/mL Total Protein (6.4-8.2) g/dL Albumin (3.4-5.0) g/dL Lipase (73-393) U/L TSH 0.825 (0.358-3.740) uIU/mL Imaging Data Radiologist's impression: Chest X-Ray 07/12/18 03:41 CONCLUSION: 1. Compensated cardiomegaly. 2. No acute cardiopulmonary process. Abdomen/Pelvis CT 07/12/18 06:15 CONCLUSION: 1. Stable 1.6 cm cyst in the hepatic dome. 2. 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 3. Mild, diffuse mesenteric edema of uncertain etiology. 4. Mild splenomegaly. 5. Circumaortic left renal vein, an anatomic variant. ECG Data Attestation: I personally reviewed and interpreted this ECG as follows: Interpretation: The patient had an EKG done on arrival. The patient's EKG reveals atrial fibrillation heart rate of 87, QRS duration 154 ms with an intraventricular conduction delay. QTC is [address] segment changes are noted when compared to an EKG done July 01, 2018. Discharge Plan Discharge Disposition Patient Disposition: ED Admit(ED Internal Use Only) Discharge Order Discharge Orders: ED Use Only Admit Order (Routine); Ordered 07/12/18 Ordered By: Kaylyn Murray Discharge Details Diagnosis: Acute pancreatitis, Chest pain, Elevated troponin Physicians Team ED Provider: Kaylyn Murray Primary Care Provider: Collin Menjivar Attending Provider: Rafal Allen Other Providers: Mansoor Mascorro Status ED Status: Left Department Discharge Information Discharge Date/Time: 07/12/18 08:05
[2018-07-12 04:13] LABS: Baso % (Auto) 0.8 % (0.0-2.0); Eos # (Auto) 0.1 th/mm3 (0.0-0.4); Eos % (Auto) 2.8 % (0.0-4.0); Hematocrit 35.8 % (39.0-51.0); Hemoglobin 12.1 gm/dL (13.0-17.0); Lymph # (Auto) 0.5 th/mm3 (1.0-4.8); Lymph % (Auto) 8.7 % (9.0-44.0); Mean Corpuscular HGB Conc 33.8 % (32.0-36.0); Mean Corpuscular Hemoglobin 29.5 pg (27.0-34.0); Mean Corpuscular Volume 87.1 fL (80.0-100.0); Mean Platelet Volume 7.6 fL (7.0-11.0); Mono # (Auto) 0.7 th/mm3 (0.0-0.9); Mono % (Auto) 12.9 % (0.0-8.0); Neut % (Auto) 74.8 % (16.0-70.0); Platelet Count 228 th/mm3 (150-450); Red Blood Count 4.11 mil/mm3 (4.50-5.90); Red Cell Distribution Width 17.9 % (11.6-17.2); White Blood Count 5.4 th/mm3 (4.0-11.0)
[2018-07-12 04:19] LABS: Alanine Aminotransferase 29 U/L (12-78); Albumin 3.5 g/dL (3.4-5.0); Anion Gap 5 meq/L (5-15); Aspartate Aminotransferase 21 U/L (15-37); Blood Urea Nitrogen 43 mg/dL (7-18); Carbon Dioxide 31.7 meq/L (21.0-32.0); Chloride 93 meq/L (98-107); Glomerular Filtration Rate 30 mL/min (>89); Glucose,Random 140 mg/dL (74-106); Lipase 819 U/L (73-393); Magnesium 2.5 mg/dL (1.5-2.5); Potassium 4.7 meq/L (3.5-5.1); Sodium 130 meq/L (136-145)
[2018-07-12 04:23] LABS: Activated Partial Thrombo Time 29.5 sec (23.4-31.7); Alkaline Phosphatase 158 U/L (45-117); Creatine Kinase 132 U/L (39-308); INR 1.2 Ratio; Prothrombin Time 12.2 sec (9.8-11.6); Total Protein 7.5 g/dL (6.4-8.2); Troponin I 0.06 ng/mL (0.02-0.05)
[2018-07-12 04:36] LABS: Creatine Kinase MB 2.5 ng/mL (0.5-3.6)
--- NOTE | 2018-07-12 04:59 | XR ---
EXAM DATE: 07/12/2018 4:17 AM EST AGE/SEX: 68 years / Male INDICATIONS: Chest pain. CLINICAL DATA: This is the patient's initial encounter. Patient reports that signs and symptoms have been present for 1 day and indicates a pain score of 7/10. MEDICAL/SURGICAL HISTORY: . Hypotension CABG. Pacemaker. Coronary artery stent. COMPARISON: C, CHEST 1V SINGLE AP, 07/01/2018. . FINDINGS: A single AP view of the chest demonstrates the lungs to be symmetrically aerated without evidence of mass, infiltrate or effusion. Heart size is prominent but well compensated. Findings of prior CABG. L eft subclavian bipolar pacer/defibrillator. Osseous structures are intact CONCLUSION: 1. Compensated cardiomegaly. 2. No acute cardiopulmonary process. Electronically signed by: Will Dubois MD Board Certified Radiologist 07/12/2018 4:58 AM EST
[2018-07-12] MEDS ORDERED: Bisacodyl 10 MG Supp RECTAL PRN (06:28)
[2018-07-12] MEDS ORDERED: Acetaminophen 325 MG Tablet PO PRN (06:28)
[2018-07-12] MEDS ORDERED: Morphine Sulfate Inj 2 MG/ML Vial IV.PUSH PRN (06:28)
--- NOTE | 2018-07-12 06:50 | CT ---
EXAM DATE: 07/12/2018 6:39 AM EST AGE/SEX: 68 years / Male INDICATIONS: Upper abdominal pain; possible pancreatitis. CLINICAL DATA: This is the patient's initial encounter. Patient reports that signs and symptoms have been present for 1 day and indicates a pain score of 5/10. MEDICAL/SURGICAL HISTORY: Congestive heart failure. Myocardial infarction. Atrial fibrillation , hypotension Defibrillator. Pacemaker. CABG. RADIATION DOSE: 6.64 CTDI (mGy) COMPARISON: [facility], CT ABDOMEN AND PELVIS W/ CONTRAST, 08/25/2016. . TECHNIQUE: Multiple contiguous axial images were obtained through the abdomen. Images were obtained using multiple row detector helical technique. Using automated exposure control and adjustment of the mA and/or kV according to patient size, radiation dose was kept as low as reasonably achievable to o btain optimal diagnostic quality images. DICOM format image data is available electronically for rev iew and comparison. FINDINGS: Lower Lungs: Minimal atelectasis or scarring posteriorly in the right base. Lung bases are otherwise clear.. Liver: 1.6 cm hypodensity in the hepatic dome is most characteristic of a benign cyst. There is no di lation of the biliary tree. Spleen: Homogeneous density but slightly prominent measuring 13.3 cm in the greatest AP dimension. Pancreas: Unremarkable without mass or calcification. Kidneys: Normal in size and shape. No evidence of mass or hydronephrosis. Stable 3 cm cyst laterally in the midpole the right kidney.. Adrenal Glands: Unremarkable. Aorta: The aorta and proximal iliac vessels are grossly unremarkable without aneurysmal dilation. Bowel/Mesentery: Diverticular disease most prominent in the sigmoid without diverticulitis. Mild, di ffuse mesenteric edema. The appendix is identified and is radiographically normal. Abdominal Wall: Intact. Retroperitoneum: No evidence of adenopathy in the retrocrural, para-aortic, or deep pelvic regions. Circumaortic left renal vein, an anatomic variant. Bladder: Contours are smooth. Reproductive Organs: Prostate is prominent at 5 cm with some dystrophic type calcification. Inguinal: The inguinal region is unremarkable without evidence of adenopathy. Bony Structures: Unremarkable. CONCLUSION: 1. Stable 1.6 cm cyst in the hepatic dome. 2. 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 3. Mild, diffuse mesenteric edema of uncertain etiology. 4. Mild splenomegaly. 5. Circumaortic left renal vein, an anatomic variant. Electronically signed by: Will Dubois MD Board Certified Radiologist 07/12/2018 6:48 AM EST
[2018-07-12] MEDS: Pantoprazole Inj 40 MG Vial IV.PUSH SCH ×2 (10:30→20:57)
[2018-07-12] MEDS: Torsemide 20 MG Tablet PO SCH (10:30)
[2018-07-12] MEDS: Senna/Docusate Sodium 8.6/50 MG Tablet PO SCH ×2 (10:31→20:57)
[2018-07-12] MEDS: Finasteride 5 MG Tablet PO SCH (10:31)
--- NOTE | 2018-07-12 14:18 | P.HPIM ---
History of Present Illness Primary Care Physician: Collin Menjivar MD History of Present Illness: 68-year-old male with a history of CAD, CHF, BPH who presents following 3-4 weeks of abdominal pain that started affecting his breathing overnight. He states that the abdominal pain became worse, his abdomen became more bloated and the pressure on his diaphragm caused him to feel short of breath. He states that he still feels short of breath depending on how he positions his body. He had a heart catheterization last March with Dr. Ward and subsequently was hospitalized with CHF exacerbation, pacemaker in place. He denies any recent alcohol use. He was previously on amiodarone but that was stopped 20 days ago. He denies any vomiting, denies diarrhea or nausea. He denies chest pain. He denies any recent fever or cough. Review of Systems Review of Systems: all other systems reviewed are negative [facility] Medical History Medical History Atrial fibrillation (Acute) BPH (benign prostatic hyperplasia) (Acute) CAD (coronary artery disease) (Acute) CHF (congestive heart failure) (Acute) Heart attack (Acute) Hyperlipemia (Acute) Hypotension (Acute) Presence of combination internal cardiac defibrillator (ICD) and pacemaker ( Acute) Vertigo (Acute) Surgical History Surgical History History of cardiac cath (Acute) History of permanent cardiac pacemaker placement (Acute) S/P CABG x 5 (Acute) Family History Family History Mother Coronary artery disease Uncle Coronary artery disease Grandparent Coronary artery disease Father Squamous cell carcinoma Social History Social History Substance History: No History of Abuse Second Hand Smoke Exposure: No Smoking Status: Former smoker Tobacco Type: Cigarettes How Often Do You Have a Drink Containing Alcohol: Never Recent Travel in [facility] within the Last 8 Weeks: No Recent Out of Country Travel within the Last 8 Weeks: No Immunization History Tetanus Immunization: Unsure Medications and Allergies Allergies Allergy/AdvReac Type Severity Reaction Status Date / Time diltiazem Allergy Severe Edema Verified 07/12/18 02:21 amiodarone Allergy Weakness Verified 07/12/18 02:21 Home Medications Medication Instructions Recorded Confirmed Type apixaban [Eliquis] 5 mg PO BID 03/29/18 07/12/18 History atorvastatin 80 mg PO DAILY 03/29/18 07/12/18 History clopidogrel [Plavix] 75 mg PO DAILY 03/29/18 07/12/18 History finasteride 5 mg PO DAILY 03/29/18 07/12/18 History tamsulosin 0.4 mg PO DAILY 03/29/18 07/12/18 History nitroglycerin 0.4 mg SUBLINGUAL Q5-15M PRN 04/22/18 07/12/18 History torsemide 20 mg PO DAILY 04/27/18 07/12/18 History digoxin [Digox] 0.125 mg PO DAILY 07/12/18 07/12/18 History Active Medications: Active Medications Acetaminophen (Tylenol) 650 mg PO Q4H PRN PRN Reason: Temp > 100.4 Al Hydroxide/Mg Hydroxide (Milk Of Magnesia Liq) 30 ml PO Q12H PRN PRN Reason: Mild Constipation Apixaban (Eliquis) 5 mg PO BID [facility] Last Admin: 07/12/18 10:30 Dose: 5 mg Atorvastatin Calcium (Lipitor) 80 mg PO DAILY [facility] Last Admin: 07/12/18 10:31 Dose: 80 mg Bisacodyl (Dulcolax Supp) 10 mg RECTAL DAILY PRN PRN Reason: SEVERE CONSITIPATION Clopidogrel Bisulfate (Plavix) 75 mg PO DAILY [facility] Last Admin: 07/12/18 10:31 Dose: 75 mg Finasteride (Proscar) 5 mg PO DAILY [facility] Last Admin: 07/12/18 10:31 Dose: 5 mg Lactulose (Lactulose Liq) 30 ml PO DAILY PRN PRN Reason: SEVERE CONSITIPATION Morphine Sulfate (Morphine Inj) 2 mg IV.PUSH Q4H PRN PRN Reason: PAIN SCALE 6 TO 10 Nitroglycerin (Nitro-Bid 2% Oint) 0.5 inch TOPICAL Q6HR PRN PRN Reason: Chest Pain Ondansetron HCl (Zofran Inj) 4 mg IV.PUSH Q6H PRN PRN Reason: NAUSEA OR VOMITING Pantoprazole Sodium (Protonix Inj) 40 mg IV.PUSH Q12H [facility] Last Admin: 07/12/18 10:30 Dose: 40 mg Senna/Docusate Sodium (Kiara-Colace) 1 tab PO BID [facility] Last Admin: 07/12/18 10:31 Dose: 1 tab Sennosides (Senokot) 17.2 mg PO Q12H PRN PRN Reason: Moderate Constipation Sodium Chloride (Ns Flush) 2 ml IV.FLUSH UNSCH PRN PRN Reason: FLUSH AFTER USING IV ACCESS Sodium Chloride (Ns Flush) 2 ml IV.FLUSH BID [facility] Last Admin: 07/12/18 10:31 Dose: 2 ml Sodium Chloride (Ns Flush) 2 ml IV.FLUSH PRN PRN PRN Reason: FLUSH AFTER USING IV ACCESS Tamsulosin HCl (Flomax) 0.4 mg PO DAILY [facility] Last Admin: 07/12/18 10:30 Dose: 0.4 mg Torsemide (Demadex) 20 mg PO DAILY [facility] Last Admin: 07/12/18 10:30 Dose: 20 mg Physical Exam Vital signs: Vital Signs 07/12/18 02:21 07/12/18 03:55 07/12/18 07:00 Temperature 97.7 F Pulse Rate 95 H 80 Respiratory Rate 21 19 Blood Pressure 101/62 106/59 L Pulse Oximetry 99 100 99 07/12/18 07:36 07/12/18 07:37 07/12/18 11:58 Temperature 97.9 F Pulse Rate 78 84 74 Respiratory Rate 18 Blood Pressure 104/60 Pulse Oximetry 100 100 07/12/18 12:00 Temperature Pulse Rate Respiratory Rate Blood Pressure Pulse Oximetry 100 Intake & Output 07/11/18 07/12/18 07/12/18 18:59 06:59 18:59 Output Total 250 / 250 Balance -250 / -250 Weight 72.575 kg 72.575 kg Output: Urine 250 / 250 Other: # Voids 1 Weight On Admission 72.575 kg Narrative: GENERAL: AAOx3, no acute distress, adequate nutrition SKIN: Warm and dry, no rashes. HEAD: Atraumatic. Normocephalic. EYES: Pupils equal, round, reactive to light. No scleral icterus. No injection or drainage. ENT: No nasal bleeding or discharge. Moist mucous membranes. Nonerythematous oropharynx. NECK: Trachea midline. No JVD. Thyroid size within normal limits. CARDIOVASCULAR: Regular rate and rhythm. No murmur, no gallops, no rubs. RESPIRATORY: Clear and equal to auscultation bilaterally. No crackles, no wheezes. No accessory muscle use. GASTROINTESTINAL: Abdomen soft, slightly bloated, non-tender, normal active bowel sounds. Hepatic and splenic margins not palpable. MUSCULOSKELETAL: Extremities without clubbing or cyanosis. No obvious deformities. Trace edema. NEUROLOGICAL: Awake and alert. No obvious cranial nerve deficits. Motor grossly within normal limits. No focal deficits. Five out of 5 muscle strength in the arms and legs. Normal speech. PSYCHIATRIC: Appropriate mood and affect; insight and judgment normal. Results Labs CBC & Chem 7: 07/12/18 03:45 07/12/18 03:45 Imaging Impressions Chest X-Ray 07/12/18 03:41 CONCLUSION: 1. Compensated cardiomegaly. 2. No acute cardiopulmonary process. Abdomen/Pelvis CT 07/12/18 06:15 CONCLUSION: 1. Stable 1.6 cm cyst in the hepatic dome. 2. 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 3. Mild, diffuse mesenteric edema of uncertain etiology. 4. Mild splenomegaly. 5. Circumaortic left renal vein, an anatomic variant. Caprini VTE Risk Assessment Caprini VTE Risk Assessment: Moderate/High Risk (score >= 2) Caprini Risk Assessment Model: Point Value = 1 Point Value = 2 Point Value = 3 Point Value = 5 Age 41-60 Minor surgery BMI > 25 kg/m2 Swollen legs Varicose veins or History of unexplained or recurrent spontaneous Oral contraceptives or hormone replacement Sepsis (< 1 month) Serious lung disease, including pneumonia (< 1 month) Abnormal pulmonary function Acute myocardial infarction Congestive heart failure (< 1 month) History of inflammatory bowel disease Medical patient at bed rest Age 61-74 Arthroscopic surgery Major open surgery (> 45 min) Laparoscopic surgery (> 45 min) Malignancy Confined to bed (> 72 hours) Immobilizing plaster cast Central venous access Age >= 75 History of VTE Family history of VTE Factor V Leiden Prothrombin [id number] Lupus anticoagulant Anticardiolipin antibodies Elevated serum homocysteine Heparin-induced thrombocytopenia Other congenital or acquired thrombophilia Stroke (< 1 month) Elective arthroplasty Hip, pelvis, or leg fracture Acute spinal cord injury (< 1 month) Prophylaxis Regimen: Total Risk Factor Score Risk Level Prophylaxis Regimen 0-1 Low Early ambulation 2 Moderate Order ONE of the following: *Sequential Compression Device (SCD) *Heparin 5000 units SQ BID 3-4 Higher Order ONE of the following medications: *Heparin 5000 units SQ TID *Enoxaparin/Lovenox 40 mg SQ daily (WT < 150 kg, CrCl > 30 mL/min) *Enoxaparin/Lovenox 30 mg SQ daily (WT < 150 kg, CrCl > 10-29 mL/min) *Enoxaparin/Lovenox 30 mg SQ BID (WT < 150 kg, CrCl > 30 mL/min) AND/OR *Sequential Compression Device (SCD) 5 or more Highest Order ONE of the following medications: *Heparin 5000 units SQ TID (Preferred with Epidurals) *Enoxaparin/Lovenox 40 mg SQ daily (WT < 150 kg, CrCl > 30 mL/min) *Enoxaparin/Lovenox 30 mg SQ daily (WT < 150 kg, CrCl > 10-29 mL/min) *Enoxaparin/Lovenox 30 mg SQ BID (WT < 150 kg, CrCl > 30 mL/min) AND *Sequential Compression Device (SCD) Assessment and Plan Plan Abdominal pain, elevated lipase Patient presented with abdominal bloating that seems to affect his breathing Lipase is elevated, but no pancreatitis noted on CT abdomen There is a stable 1.6 cm cyst on his liver CT did show mild mesenteric edema with mild splenomegaly We will resume full liquid diet Trend lipase from today through tomorrow Patient able to tolerate food, consider discharge home We will consult gastroenterology for their opinion h/o CHF Patient has hx of pacemaker, CHF, CAD Will check ECHO to rule out endocarditis given positional dyspnea Mild edema Continue diuresis, 40mg IV Lasix BID h/o CAD, stents Continue Plavix, Atorvastatin h/o BPH Continue Flomax DVT Prophylaxis Eliquis H&P: Quality VTE Deep Vein Thrombosis/Pulmonary Embolism Present on Admission: No
--- NOTE | 2018-07-12 15:16 | ECG ---
Date Performed: 07/12/2018 Time Performed: 02:29:17 PTAGE: 68 years EKG: ATRIAL FIBRILLATION INTRAVENTRICULAR CONDUCTION DELAY LATERAL MYOCARDIAL INFARCTION ACUT E NE Since PREVIOUS TRACING , no significant change noted PREVIOUS TRACIN07/01/2018 13.05 DOCTOR: Pio Rubio Interpretating Date/Time 07/12/2018 15:14:14
--- NOTE | 2018-07-12 18:03 | ECHRPT ---
Indication: CARDIOMYOPATHY CONCLUSIONS The left ventricular systolic function is severely reduced with an estimated ejection fraction in th e range of 20-25%. There is global left ventricular dysfunction. The right ventricular systoilc function is moderately decreased. Trace mitral valve regurgitation. There is trace tricuspid valve regurgitation. BP: / HR: Rhythm: PACED MEASUREMENTS (Male / Female) Normal Values Technical Quality:Fair 2D ECHO LV Diastolic Diameter PLAX 5.8 cm 4.2 - 5.9 / 3.9 - 5.3 cm LV Systolic Diameter PLAX 5.2 cm FINDINGS LEFT VENTRICLE Wall thickness is normal. The left ventricular systolic function is severely reduced with an estimated ejection fraction in th e range of 20-25%. There is global left ventricular dysfunction. RIGHT VENTRICLE The right ventricular size is normal. The right ventricular systoilc function is moderately decreased. LEFT ATRIUM The left atrial size is normal. RIGHT ATRIUM The right atrial size is normal. ATRIAL SEPTUM Normal atrial septal thickness without atrial level shunting by limited color doppler interrogation. AORTA The aortic root and proximal ascending aorta are normal in size on limited imaging. MITRAL VALVE Mild thickening of the mitral valve leaflets. Trace mitral valve regurgitation. Mitral annular calcification is present. AORTIC VALVE Aortic valve sclerosis is present. No aortic valve regurgitation. No aortic valve stenosis. TRICUSPID VALVE There is trace tricuspid valve regurgitation. PULMONARY VALVE The pulmonary valve is not well visualized. VESSELS The inferior vena cava was not well visualized. PERICARDIUM No pericardial effusion. Cholo Osei DO (Electronically Signed) Final Date:12 July 2018 18:02
[2018-07-13 07:29] LABS: Baso # (Auto) 0.1 th/mm3 (0.0-0.2); Baso % (Auto) 1.7 % (0.0-2.0); Eos # (Auto) 0.1 th/mm3 (0.0-0.4); Eos % (Auto) 2.1 % (0.0-4.0); Hematocrit 35.7 % (39.0-51.0); Hemoglobin 11.9 gm/dL (13.0-17.0); Lymph # (Auto) 0.4 th/mm3 (1.0-4.8); Lymph % (Auto) 9.4 % (9.0-44.0); Mean Corpuscular HGB Conc 33.3 % (32.0-36.0); Mean Corpuscular Hemoglobin 28.6 pg (27.0-34.0); Mean Platelet Volume 7.6 fL (7.0-11.0); Mono # (Auto) 0.7 th/mm3 (0.0-0.9); Mono % (Auto) 15.6 % (0.0-8.0); Neut # (Auto) 3.4 th/mm3 (1.8-7.7); Neut % (Auto) 71.2 % (16.0-70.0); Platelet Count 230 th/mm3 (150-450); Red Blood Count 4.15 mil/mm3 (4.50-5.90); Red Cell Distribution Width 17.7 % (11.6-17.2); White Blood Count 4.7 th/mm3 (4.0-11.0)
[2018-07-13 08:10] LABS: Albumin 3.3 g/dL (3.4-5.0); Anion Gap 7 meq/L (5-15); Aspartate Aminotransferase 18 U/L (15-37); Blood Urea Nitrogen 40 mg/dL (7-18); Calcium 8.3 mg/dL (8.5-10.1); Carbon Dioxide 30.2 meq/L (21.0-32.0); Chloride 96 meq/L (98-107); Glomerular Filtration Rate 38 mL/min (>89); Glucose,Random 103 mg/dL (74-106); Lipase 100 U/L (73-393); Potassium 4.5 meq/L (3.5-5.1); Sodium 133 meq/L (136-145)
[2018-07-13 08:11] LABS: Alanine Aminotransferase 25 U/L (12-78)
[2018-07-13 08:13] LABS: Alkaline Phosphatase 154 U/L (45-117); Total Protein 7.1 g/dL (6.4-8.2)
[2018-07-13] MEDS: Senna/Docusate Sodium 8.6/50 MG Tablet PO SCH ×2 (09:06→20:53)
[2018-07-13] MEDS: Finasteride 5 MG Tablet PO SCH (09:06)
[2018-07-13] MEDS: Pantoprazole Inj 40 MG Vial IV.PUSH SCH ×2 (09:06→20:53)
[2018-07-13] MEDS: Torsemide 20 MG Tablet PO SCH (10:43)
--- NOTE | 2018-07-13 11:05 | P.PNIM ---
Subjective Interval history: For abdominal pain, shortness of breath. Patient reports feeling slightly better today. He states his abdomen does not feel as full, and he is able to take more of a deep breath today. He also reports his lower extremity edema has improved. Denies any nausea or vomiting. Denies any diarrhea. Denies any fevers or chills. He would like to try more solid foods, currently tolerating a liquid diet. He reports he follows with Dr. Ward for cardiology. He has no medical complaints at this time. Physical Exam Vital signs: Vital Signs 07/12/18 11:58 07/12/18 12:00 07/12/18 14:27 Temperature 97.9 F Pulse Rate 74 Respiratory Rate 18 Blood Pressure 104/60 Pulse Oximetry 100 100 100 07/12/18 16:00 07/12/18 20:00 07/12/18 23:41 Temperature 98.1 F 98.1 F 97.9 F Pulse Rate 79 72 76 Respiratory Rate 16 16 14 Blood Pressure 101/58 L 93/55 L 96/55 L Pulse Oximetry 100 96 94 L 07/13/18 00:00 07/13/18 03:48 07/13/18 07:27 Temperature 97.4 F L 97.7 F Pulse Rate 75 78 75 Respiratory Rate 16 16 Blood Pressure 113/58 L 99/54 L Pulse Oximetry 98 97 07/13/18 09:40 07/13/18 10:42 Temperature Pulse Rate Respiratory Rate Blood Pressure 100/62 Pulse Oximetry 95 Intake & Output 07/12/18 07/13/18 07/13/18 18:59 06:59 18:59 Intake Total 480 / 480 Output Total 250 / 250 Balance -250 / -250 480 / 480 Weight 72.575 kg Intake: Oral 480 / 480 Output: Urine 250 / 250 Other: # Voids 2 3 Date of Last Bowel Movement 07/11/18 07/11/18 07/11/18 Weight On Admission 72.575 kg Narrative: GENERAL: Well-nourished, well-developed male patient in [facility]. SKIN: Warm and dry. No rash. HEENT: Normocephalic. Atraumatic. Pupils equal and round. Mucous membranes pink and moist. CARDIOVASCULAR: Regular rate and rhythm. No murmur appreciated. RESPIRATORY: No accessory muscle use. Clear to auscultation. Breath sounds equal bilaterally. GASTROINTESTINAL: Abdomen soft, non-tender, nondistended. Normoactive bowel sounds x4. MUSCULOSKELETAL: No obvious deformities. Trace bilateral lower extremity edema , mostly around the ankles. NEUROLOGICAL: Awake and alert. No obvious cranial nerve deficits. Motor grossly within normal limits. Moving all extremities spontaneously. Normal speech. PSYCHIATRIC: Appropriate mood and affect; insight and judgment normal. Results Labs CBC & Chem 7: 07/13/18 06:20 07/13/18 06:20 Assessment and Plan Plan 68-year-old male with a history of CAD, CHF, BPH who presents following 3-4 weeks of abdominal pain/fullness that started affecting his breathing overnight. Abdominal pain: Possibly secondary to mild pancreatitis, lipase 819 upon arrival. Also concern for mesenteric ischemia. -CT abdomen/pelvis reviewed, shows mild diffuse mesenteric edema of uncertain etiology, diverticular disease without diverticulitis -S/p IVF hydration -Continue antiemetics and pain control as needed -Lipase improved from 819 to 100 today -GI consulted, recommending abdominal MRA, however unclear if compatible with AICD -Check lactic acid stat -Continue full liquid diet for now Chronic systolic CHF: Does not appear to be in significant fluid overload, although BNP elevated at 889 and mild lower extremity edema -CXR reviewed, shows compensated cardiomegaly, otherwise no acute cardiopulmonary process -Continue patient's torsemide 20mg daily -Patient did not tolerate NATE/BB/Entresto in the past due to hypotension -Continue to monitor -Echo 07/12/18 showed EF 20-25%, no evidence of endocarditis h/o CAD s/p stents/CABG: Chronic -troponins negative x2 -Continue Plavix, Atorvastatin -Outpatient f/up with cosmetic chemist Dr. Ward h/o BPH: Chronic -Continue Flomax and Proscar Atrial Fibrillation: Chronic -Continue patient's Eliquis -Rate controlled DVT Prophylaxis: on Eliquis Progress Note: Quality VTE Deep Vein Thrombosis/Pulmonary Embolism Present on Admission: No
--- NOTE | 2018-07-13 12:25 | P.CONGI ---
History of Present Illness Consult date: 07/13/18 Consult reason: To assist in the workup of CHF patient with abdominal pain bloating and an elevated lipase. Chief complaint: Acute Pancreatitis, CP R/O ACS, Elevated Troponin History of Present Illness: Patient is a pleasant 68-year-old male with extensive cardiac history CAD CHF multiple cardiac stents (13 stents) CABG x5 vessels in 2002, AICD placement 2016 and BPH. For the past month patient has been having shortness of breathing and paroxysmal nocturnal dyspnea and progressively becoming worse associated with mild diffuse abdominal pain. Patient stated that he became more bloated causing his diaphragm to be elevated and having a hard time catching his breath. Last cardiac catheterization was done March [address] Menezes's with hospitalization for CHF exacerbation. He denies nausea vomiting diarrhea constipation. Was put on amiodarone for irregular heart rate but has to be discontinued secondary to allergic skin reaction causing him to have multiple eczematous lesions all over the body. Patient denies smoking cigarettes nor R alcohol use. Currently patient does not have any shortness of breathing chest pain lightheadedness nor fever. Our service is consulted for abdominal pain bloating and elevated lipase. Review of Systems All other systems reviewed negative except as stated in HPI PMFSH - History History Provided By: Patient - Medical History Medical History: Medical History (Last Reviewed 07/12/18 @ 14:21 by Rafal Allen MD) Atrial fibrillation BPH (benign prostatic hyperplasia) CAD (coronary artery disease) CHF (congestive heart failure) Heart attack Hyperlipemia Hypotension Presence of combination internal cardiac defibrillator (ICD) and pacemaker Vertigo - Surgical History Surgical History: Surgical History (Last Reviewed 07/12/18 @ 14:22 by Rafal Allen MD) History of cardiac cath History of permanent cardiac pacemaker placement S/P CABG x 5 - Family History Family History: Family History (Last Reviewed 07/12/18 @ 14:22 by Rafal Allen MD) Mother Coronary artery disease Uncle Coronary artery disease Grandparent Coronary artery disease Father Squamous cell carcinoma - Tobacco History Second Hand Smoke Exposure: No Tobacco Use In Past 30 Days: No Smoking Status: Former smoker Tobacco Type: Cigarettes - Alcohol History How Often Do You Have a Drink Containing Alcohol: Never - Substance Use History Substance History: No History of Abuse - Travel History Recent Travel in the [place] Within the Last 8 Weeks: No Recent Travel Out of the Country Within the Last 8 Weeks: No - Immunization History Tetanus Immunization: Unsure Medications and Allergies Active Medications: Active Medications Acetaminophen (Tylenol) 650 mg PO Q4H PRN PRN Reason: Temp > 100.4 Al Hydroxide/Mg Hydroxide (Milk Of Magnesia Liq) 30 ml PO Q12H PRN PRN Reason: Mild Constipation Apixaban (Eliquis) 5 mg PO BID [facility] Last Admin: 07/13/18 09:06 Dose: 5 mg Atorvastatin Calcium (Lipitor) 80 mg PO DAILY [facility] Last Admin: 07/13/18 09:06 Dose: 80 mg Bisacodyl (Dulcolax Supp) 10 mg RECTAL DAILY PRN PRN Reason: SEVERE CONSITIPATION Clopidogrel Bisulfate (Plavix) 75 mg PO DAILY [facility] Last Admin: 07/13/18 09:06 Dose: 75 mg Finasteride (Proscar) 5 mg PO DAILY [facility] Last Admin: 07/13/18 09:06 Dose: 5 mg Lactulose (Lactulose Liq) 30 ml PO DAILY PRN PRN Reason: SEVERE CONSITIPATION Morphine Sulfate (Morphine Inj) 2 mg IV.PUSH Q4H PRN PRN Reason: PAIN SCALE 6 TO 10 Nitroglycerin (Nitro-Bid 2% Oint) 0.5 inch TOPICAL Q6HR PRN PRN Reason: Chest Pain Ondansetron HCl (Zofran Inj) 4 mg IV.PUSH Q6H PRN PRN Reason: NAUSEA OR VOMITING Pantoprazole Sodium (Protonix Inj) 40 mg IV.PUSH Q12H [facility] Last Admin: 07/13/18 09:06 Dose: 40 mg Senna/Docusate Sodium (Kiara-Colace) 1 tab PO BID [facility] Last Admin: 07/13/18 09:06 Dose: 1 tab Sennosides (Senokot) 17.2 mg PO Q12H PRN PRN Reason: Moderate Constipation Sodium Chloride (Ns Flush) 2 ml IV.FLUSH UNSCH PRN PRN Reason: FLUSH AFTER USING IV ACCESS Sodium Chloride (Ns Flush) 2 ml IV.FLUSH BID [facility] Last Admin: 07/13/18 09:08 Dose: 2 ml Sodium Chloride (Ns Flush) 2 ml IV.FLUSH PRN PRN PRN Reason: FLUSH AFTER USING IV ACCESS Tamsulosin HCl (Flomax) 0.4 mg PO DAILY [facility] Last Admin: 07/13/18 09:06 Dose: 0.4 mg Torsemide (Demadex) 20 mg PO DAILY [facility] Last Admin: 07/13/18 10:43 Dose: 20 mg Allergies Allergy/AdvReac Type Severity Reaction Status Date / Time diltiazem Allergy Severe Edema Verified 07/12/18 02:21 amiodarone Allergy Weakness Verified 07/12/18 02:21 Home Medications Medication Instructions Recorded Confirmed Type apixaban [Eliquis] 5 mg PO BID 03/29/18 07/12/18 History atorvastatin 80 mg PO DAILY 03/29/18 07/12/18 History clopidogrel [Plavix] 75 mg PO DAILY 03/29/18 07/12/18 History finasteride 5 mg PO DAILY 03/29/18 07/12/18 History tamsulosin 0.4 mg PO DAILY 03/29/18 07/12/18 History nitroglycerin 0.4 mg SUBLINGUAL Q5-15M PRN 04/22/18 07/12/18 History torsemide 20 mg PO DAILY 04/27/18 07/12/18 History digoxin [Digox] 0.125 mg PO DAILY 07/12/18 07/12/18 History Exam Vital signs: Vital Signs 07/12/18 14:27 07/12/18 16:00 07/12/18 20:00 Temperature 98.1 F 98.1 F Pulse Rate 79 72 Respiratory Rate 16 16 Blood Pressure 101/58 L 93/55 L Pulse Oximetry 100 100 96 07/12/18 23:41 07/13/18 00:00 07/13/18 03:48 Temperature 97.9 F 97.4 F L Pulse Rate 76 75 78 Respiratory Rate 14 16 Blood Pressure 96/55 L 113/58 L Pulse Oximetry 94 L 98 07/13/18 07:27 07/13/18 09:40 07/13/18 10:42 Temperature 97.7 F Pulse Rate 75 Respiratory Rate 16 Blood Pressure 99/54 L 100/62 Pulse Oximetry 97 95 Intake & Output 07/12/18 07/13/18 07/13/18 18:59 06:59 18:59 Intake Total 480 / 480 Output Total 250 / 250 Balance -250 / -250 480 / 480 Weight 72.575 kg Intake: Oral 480 / 480 Output: Urine 250 / 250 Other: # Voids 2 3 Date of Last Bowel Movement 07/11/18 07/11/18 07/11/18 Weight On Admission 72.575 kg - Constitutional no acute distress, average body habitus - Routine HEENT Exam Head: Present: normocephalic, atraumatic - Routine Neck Exam Present: supple - Routine Cardiovascular Exam Present: RRR, S1, S2 Comments: Pacemaker on the left upper chest area AICD 2016. Patient has midsternal incision old scar from CABG in 2002 - Routine Abdominal Exam Present: soft, normoactive bowel sounds. Absent: tenderness, distended - Routine Extremities Exam Present: pulses intact, normal capillary refill - Routine Skin Exam Present: erythema, lesions, rash, ecchymosis Comments: Patient has multiple generalize skin lesions patient reported as from amiodarone reaction - Routine Neurological Exam Present: alert, oriented X3 Results - Labs CBC & Chem 7: 07/13/18 06:20 07/13/18 06:20 Labs: Laboratory Results - last 24 hr 07/12/18 07/13/18 07/13/18 11:30 06:20 06:20 WBC 4.7 RBC 4.15 L Hgb 11.9 L Hct 35.7 L MCV 86.0 MCH 28.6 MCHC 33.3 RDW 17.7 H Plt Count 230 MPV 7.6 Neut % (Auto) 71.2 H Lymph % (Auto) 9.4 [place] % (Auto) 15.6 H Eos % (Auto) 2.1 Baso % (Auto) 1.7 Neut # (Auto) 3.4 Lymph # (Auto) 0.4 L [place] # (Auto) 0.7 Eos # (Auto) 0.1 Baso # (Auto) 0.1 WBC Differential . Differential Comment Auto diff final Sodium 133 L Potassium 4.5 Chloride 96 L Carbon Dioxide 30.2 Anion Gap 7 BUN 40 H Creatinine 1.80 H Estimated GFR 38 L Random Glucose 103 Calcium 8.3 L Total Bilirubin 1.4 H AST 18 ALT 25 Alkaline Phosphatase 154 H Troponin I 0.05 Total Protein 7.1 Albumin 3.3 L Lipase 100 Assessment and Plan (1) History of heart artery stent Status: Acute Code(s): Z95.5 - Presence of coronary angioplasty implant and graft (2) Abdominal pain Status: Acute Code(s): R10.9 - Unspecified abdominal pain (3) Elevated lipase Status: Acute Code(s): R74.8 - Abnormal levels of other serum enzymes (4) AICD (automatic cardioverter/defibrillator) present Status: Acute Code(s): Z95.810 - Presence of automatic (implantable) cardiac defibrillator (5) Allergic eczema Status: Acute Code(s): L23.9 - Allergic contact dermatitis, unspecified cause (6) CAD (coronary artery disease) Status: Chronic Code(s): I25.10 - Atherosclerotic heart disease of [place] coronary artery without angina pectoris (7) Hx of CABG Status: Acute Code(s): Z95.1 - Presence of aortocoronary bypass graft (8) CHF (congestive heart failure) Status: Acute Code(s): I50.9 - Heart failure, unspecified (9) Mesenteric adenitis Status: Acute Code(s): I88.0 - Nonspecific mesenteric lymphadenitis - Plan 07/13/2018 Patient is a pleasant 68-year-old male with extensive cardiac history CAD CHF multiple cardiac stents (13 stents) CABG x5 vessels in 2002, AICD placement 2016 and BPH. For the past month patient has been having shortness of breathing and paroxysmal nocturnal dyspnea and progressively becoming worse associated with mild diffuse abdominal pain characterized as dull 7/10 nonradiating. Patient stated that he became more bloated causing his diaphragm to be elevated and having a hard time catching his breath. Last cardiac catheterization was done March [address] Menezes's with hospitalization for CHF exacerbation. He denies nausea vomiting diarrhea constipation. Was put on amiodarone for irregular heart rate but has to be discontinued secondary to allergic skin reaction causing him to have multiple eczematous lesions all over the body. Patient denies smoking cigarettes nor any alcohol use. No report of EGD colonoscopy in the past. currently patient does not have any shortness of breathing chest pain lightheadedness nor fever. Our service is consulted for a bdominal pain bloating and elevated lipase. CT scan abdomen pelvis 07/12/2018 showed Stable 1.6 cm cyst in the hepatic dome. 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 Mild, diffuse mesenteric edema of uncertain etiology. Mild splenomegaly. Circumaortic left renal vein, an anatomic variant. Hemoglobin 11.9 hematocrit 35.7 platelet 230 INR 1.2 BUN 14 creatinine 1.80 GFR 38 Liver enzymes were both normal elevated alkaline phosphatase at 154 Lipase was initially elevated at 819 on repeat it normalizes to 100 Assessment Possible mesenteric ischemia or mesenteric adenitis based on the CT scan of the abdomen from yesterday that showed mild diffuse mesenteric edema In light of pt's extensive cardiac history and limited arterial perfusion, abd. pain is most likely due to ischemic colitis. We will just observe and monitor. CHF AICD Chronic renal insufficiency Elevated lipase Plan Cardiac diet For MRA of the abdomen if compatible with AICD Monitor labs Monitor active bleeding Supportive care Further recommendations to follow. Patient seen and examined by myself and Dr. Lira and his note is written on his behalf - Attending Attestation Dr. Lira (6) CAD (coronary artery disease) Qualifiers:
--- NOTE | 2018-07-14 09:14 | P.PNGI ---
Subjective Interval history: Patient laying in bed comfortably No episodes of abdominal pain Nausea vomiting Tolerated meals Physical Exam Vital signs: Vital Signs 07/13/18 09:40 07/13/18 10:42 07/13/18 12:36 Temperature 97.7 F Pulse Rate 78 Respiratory Rate 20 Blood Pressure 100/62 96/60 L Pulse Oximetry 95 98 07/13/18 16:12 07/13/18 19:45 07/13/18 20:00 Temperature 97.8 F 97.9 F Pulse Rate 76 73 73 Respiratory Rate 20 18 Blood Pressure 101/61 93/61 L Pulse Oximetry 100 98 07/14/18 00:00 07/14/18 00:15 07/14/18 04:00 Temperature 98.7 F 98.7 F Pulse Rate 82 73 70 Respiratory Rate 18 20 Blood Pressure 104/56 L 85/52 L Pulse Oximetry 95 94 L 07/14/18 04:14 07/14/18 08:00 Temperature 97.6 F Pulse Rate 76 71 Respiratory Rate 16 Blood Pressure 104/57 L Pulse Oximetry 99 Intake & Output 07/13/18 07/14/18 07/14/18 18:59 06:59 18:59 Intake Total 480 / 480 Output Total 305 / 305 250 / 250 Balance 175 / 175 -250 / -250 Intake: Oral 480 / 480 Output: Urine 303 / 303 250 / 250 Urine/Stool Mix 2 / 2 Other: Date of Last Bowel Movement 07/13/18 07/13/18 - Constitutional no acute distress - Routine HEENT Exam Head: Present: normocephalic, atraumatic - Routine Neck Exam Present: supple - Routine Respiratory Exam Present: CTA bilaterally - Routine Cardiovascular Exam Present: RRR, S1, S2 - Routine Abdominal Exam Present: soft, normoactive bowel sounds. Absent: tenderness, distended - Routine Extremities Exam Present: pulses intact - Routine Skin Exam Present: intact - Routine Neurological Exam Present: alert, oriented X3 Results - Labs CBC & Chem 7: 07/13/18 06:20 07/13/18 06:20 Laboratory Results - last 24 hr 07/13/18 15:26 Lactic Acid 1.7 Assessment and Plan (1) History of heart artery stent Status: Acute Code(s): Z95.5 - Presence of coronary angioplasty implant and graft (2) Abdominal pain Status: Acute Code(s): R10.9 - Unspecified abdominal pain (3) Elevated lipase Status: Acute Code(s): R74.8 - Abnormal levels of other serum enzymes (4) AICD (automatic cardioverter/defibrillator) present Status: Acute Code(s): Z95.810 - Presence of automatic (implantable) cardiac defibrillator (5) Allergic eczema Status: Acute Code(s): L23.9 - Allergic contact dermatitis, unspecified cause (6) CAD (coronary artery disease) Status: Chronic Code(s): I25.10 - Atherosclerotic heart disease of [place] coronary artery without angina pectoris (7) Hx of CABG Status: Acute Code(s): Z95.1 - Presence of aortocoronary bypass graft (8) CHF (congestive heart failure) Status: Acute Code(s): I50.9 - Heart failure, unspecified (9) Mesenteric adenitis Status: Acute Code(s): I88.0 - Nonspecific mesenteric lymphadenitis - Plan 07/13/2018 Patient is a pleasant 68-year-old male with extensive cardiac history CAD CHF multiple cardiac stents (13 stents) CABG x5 vessels in 2002, AICD placement 2016 and BPH. For the past month patient has been having shortness of breathing and paroxysmal nocturnal dyspnea and progressively becoming worse associated with mild diffuse abdominal pain characterized as dull 7/10 nonradiating. Patient stated that he became more bloated causing his diaphragm to be elevated and having a hard time catching his breath. Last cardiac catheterization was done March [address] Menezes's with hospitalization for CHF exacerbation. He denies nausea vomiting diarrhea constipation. Was put on amiodarone for irregular heart rate but has to be discontinued secondary to allergic skin reaction causing him to have multiple eczematous lesions all over the body. Patient denies smoking cigarettes nor any alcohol use. No report of EGD colonoscopy in the past. currently patient does not have any shortness of breathing chest pain lightheadedness nor fever. Our service is consulted for a bdominal pain bloating and elevated lipase. CT scan abdomen pelvis 07/12/2018 showed Stable 1.6 cm cyst in the hepatic dome. 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 Mild, diffuse mesenteric edema of uncertain etiology. Mild splenomegaly. Circumaortic left renal vein, an anatomic variant. Hemoglobin 11.9 hematocrit 35.7 platelet 230 INR 1.2 BUN 14 creatinine 1.80 GFR 38 Liver enzymes were both normal elevated alkaline phosphatase at 154 Lipase was initially elevated at 819 on repeat it normalizes to 100 Assessment Possible mesenteric ischemia or mesenteric adenitis based on the CT scan of the abdomen from yesterday that showed mild diffuse mesenteric edema In light of pt's extensive cardiac history and limited arterial perfusion, abd. pain is most likely due to ischemic colitis. We will just observe and monitor. CHF AICD Chronic renal insufficiency Elevated lipase 07/14/2018 Assessment CHF CAD -patient had multiple stents and had CABG in the past making him potential for ischemic issues Abdominal pain -has resolved probably due to some ischemic episodes Elevated lipase -initial lipase was elevated but now it is normal patient has no abdominal pain Hemoglobin 11.9 hematocrit 35.7 platelet 230 Lipase 100 normal TSH 0.825 normal Plan Cardiac diet Monitor labs Monitor active bleeding PPI Supportive care GI will signed off patient is stable from GI standpoint Patient agrees to follow-up as an outpatient 2 weeks from discharge Reconsult if needed Patient seen and examined by myself and Dr. Lira and his note is written on his behalf (6) CAD (coronary artery disease) Qualifiers:
[2018-07-14] MEDS: Pantoprazole Inj 40 MG Vial IV.PUSH SCH ×2 (09:35→22:47)
[2018-07-14] MEDS: Senna/Docusate Sodium 8.6/50 MG Tablet PO SCH ×2 (09:36→22:47)
[2018-07-14] MEDS: Torsemide 20 MG Tablet PO SCH (09:36)
[2018-07-14] MEDS: Finasteride 5 MG Tablet PO SCH (09:36)
--- NOTE | 2018-07-14 11:08 | P.DS ---
DS: Providers Date of admission: 07/12/18 06:28 Primary care physician: Collin Menjivar MD Consults: 07/12/18 14:33 Consult to Gastroenterology Routine Consulting Provider: Mansoor Mascorro Reason for Consultation: 68M with h/o CHF presents to the ER with vague complaint of abdominal pain and bloating. Lipase is elevated, but CT did not confirm pancreatitis. CT did show mild diffuse mesenteric edema. Please assist with work up. Notified:: Office Spoke with:: Elicia Date Notified:: 07/12/18 Time Notified:: 15:18 Ordering Provider: JOJO Brief History from admission: 68-year-old male with a history of CAD, CHF, BPH who presents following 3-4 weeks of abdominal pain that started affecting his breathing overnight. He states that the abdominal pain became worse, his abdomen became more bloated and the pressure on his diaphragm caused him to feel short of breath. He states that he still feels short of breath depending on how he positions his body. He had a heart catheterization last March with Dr. Ward and subsequently was hospitalized with CHF exacerbation, pacemaker in place. He denies any recent alcohol use. He was previously on amiodarone but that was stopped 20 days ago. He denies any vomiting, denies diarrhea or nausea. He denies chest pain. He denies any recent fever or cough. DS: Diagnosis Discharge Diagnosis (1) History of heart artery stent: Status: Acute (2) Abdominal pain: Status: Acute (3) Elevated lipase: Status: Acute (4) AICD (automatic cardioverter/defibrillator) present: Status: Acute (5) Allergic eczema: Status: Acute (6) CAD (coronary artery disease): Status: Chronic (7) Hx of CABG: Status: Acute (8) CHF (congestive heart failure): Status: Acute (9) Mesenteric adenitis: Status: Acute DS: Summary Time Spent with Patient Total time spent providing and/or coordinating discharge services: Quality: VTE Deep Vein Thrombosis/Pulmonary Embolism Present on Admission: No Results Labs on day of discharge: Labs from last 24 hours 07/13/18 15:26 Lactic Acid 1.7 Impressions ITS Impressions Chest X-Ray 07/12/18 03:41 CONCLUSION: 1. Compensated cardiomegaly. 2. No acute cardiopulmonary process. Abdomen/Pelvis CT 07/12/18 06:15 CONCLUSION: 1. Stable 1.6 cm cyst in the hepatic dome. 2. 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 3. Mild, diffuse mesenteric edema of uncertain etiology. 4. Mild splenomegaly. 5. Circumaortic left renal vein, an anatomic variant. Discharge Plan Physicians Team Primary Care Provider: Collin Menjivar Attending Provider: Gautam Faulkner Other Providers: Mansoor Mascorro Rxs /Orders / Referrals /Forms Prescriptions: No Action atorvastatin 80 mg Tablet 80 mg PO DAILY RF: 0 clopidogrel [Plavix] 75 mg Tablet 75 mg PO DAILY RF: 0 finasteride 5 mg Tablet 5 mg PO DAILY RF: 0 apixaban [Eliquis] 5 mg Tablet 5 mg PO BID RF: 0 tamsulosin 0.4 mg Capsule 0.4 mg PO DAILY RF: 0 torsemide 20 mg Tablet 20 mg PO DAILY RF: 0 potassium chloride 20 mEq Tablet,Er Particles/Crystals 20 meq PO DAILY Qty: 30 RF: 0 nitroglycerin 0.4 mg Tablet, Sublingual 0.4 mg SUBLINGUAL Q5-15M PRN (Reason: Chest Pain) RF: 0 digoxin [Digox] 125 mcg Tablet 0.125 mg PO DAILY RF: 0 Referrals: Collin Menjivar MD [Primary Care Provider] - See Instructions Discharge Instructions Patient Printed Instructions: Chest Pain (ED) Status ED Status: Left Department
--- NOTE | 2018-07-14 17:09 | P.PNIM ---
Subjective Interval history: Follow-up for abdominal pain, pancreatitis. Patient was initially seen around 9 AM this morning. The patient reports feeling much better today. He states his abdominal fullness has improved. Denies any nausea or vomiting. Denies any fevers or chills. He reports 2 formed bowel movements yesterday. He states he has problems with constipation at home. He is looking forward to trying more solid foods today. Of note, notified by RN after lunch that the patient had increasing abdominal pain and fullness shortly after his meal. RN to notify GI team. Hold off on discharge. Physical Exam Vital signs: Vital Signs 07/13/18 19:45 07/13/18 20:00 07/14/18 00:00 Temperature 97.9 F 98.7 F Pulse Rate 73 73 82 Respiratory Rate 18 18 Blood Pressure 93/61 L 104/56 L Pulse Oximetry 98 95 07/14/18 00:15 07/14/18 04:00 07/14/18 04:14 Temperature 98.7 F Pulse Rate 73 70 76 Respiratory Rate 20 Blood Pressure 85/52 L Pulse Oximetry 94 L 07/14/18 08:00 07/14/18 12:00 07/14/18 15:40 Temperature 97.6 F 97.4 F L Pulse Rate 77 78 Respiratory Rate 16 16 Blood Pressure 104/57 L 100/56 L Pulse Oximetry 99 98 98 07/14/18 16:00 Temperature 97.4 F L Pulse Rate 74 Respiratory Rate 16 Blood Pressure 101/56 L Pulse Oximetry 99 Intake & Output 07/13/18 07/14/18 07/14/18 18:59 06:59 18:59 Intake Total 480 / 480 Output Total 305 / 305 250 / 250 Balance 175 / 175 -250 / -250 Intake: Oral 480 / 480 Output: Urine 303 / 303 250 / 250 Urine/Stool Mix 2 / 2 Other: Date of Last Bowel Movement 07/13/18 07/13/18 07/14/18 Narrative: GENERAL: Well-nourished, well-developed male patient in [facility]. SKIN: Warm and dry. No rash. HEENT: Normocephalic. Atraumatic. Pupils equal and round. Mucous membranes pink and moist. CARDIOVASCULAR: Regular rate and rhythm. No murmur appreciated. RESPIRATORY: No accessory muscle use. Clear to auscultation. Breath sounds equal bilaterally. GASTROINTESTINAL: Abdomen soft, non-tender, nondistended. Normoactive bowel sounds x4. MUSCULOSKELETAL: No obvious deformities. Trace bilateral lower extremity edema , mostly around the ankles. NEUROLOGICAL: Awake and alert. No obvious cranial nerve deficits. Motor grossly within normal limits. Moving all extremities spontaneously. Normal speech. PSYCHIATRIC: Appropriate mood and affect; insight and judgment normal. Results Labs CBC & Chem 7: 07/13/18 06:20 07/13/18 06:20 Assessment and Plan (1) History of heart artery stent: Code(s): Z95.5 - Presence of coronary angioplasty implant and graft Status: Acute (2) Abdominal pain: Code(s): R10.9 - Unspecified abdominal pain Status: Acute (3) Elevated lipase: Code(s): R74.8 - Abnormal levels of other serum enzymes Status: Acute (4) AICD (automatic cardioverter/defibrillator) present: Code(s): Z95.810 - Presence of automatic (implantable) cardiac defibrillator Status: Acute (5) Allergic eczema: Code(s): L23.9 - Allergic contact dermatitis, unspecified cause Status: Acute (6) CAD (coronary artery disease): Code(s): I25.10 - Atherosclerotic heart disease of [place] coronary artery without angina pectoris Status: Chronic (7) Hx of CABG: Code(s): Z95.1 - Presence of aortocoronary bypass graft Status: Acute (8) CHF (congestive heart failure): Code(s): I50.9 - Heart failure, unspecified Status: Acute (9) Mesenteric adenitis: Code(s): I88.0 - Nonspecific mesenteric lymphadenitis Status: Acute Plan 68-year-old male with a history of CAD, CHF, BPH who presents following 3-4 weeks of abdominal pain/fullness that started affecting his breathing overnight. Abdominal pain: Possibly secondary to mild pancreatitis, lipase 819 upon arrival. Also concern for mesenteric ischemia per GI although lactic acid wnl. -CT abdomen/pelvis reviewed, shows mild diffuse mesenteric edema of uncertain etiology, diverticular disease without diverticulitis -S/p IVF hydration -Continue antiemetics and pain control as needed -Lipase improved, decreased from 819 to 100 -GI consulted, recommending abdominal MRA, however not compatible with AICD -Lactic acid 1.7 -GI advanced diet today however patient did not tolerate well after lunch, RN to notify GI team -Repeat labs in am Chronic systolic CHF: Does not appear to be in significant fluid overload, although BNP elevated at 889 and mild lower extremity edema, now improved -CXR reviewed, shows compensated cardiomegaly, otherwise no acute cardiopulmonary process -Continue patient's torsemide 20mg daily -Patient did not tolerate NATE/BB/Entresto in the past due to hypotension -Continue to monitor -Echo 07/12/18 showed EF 20-25%, no evidence of endocarditis h/o CAD s/p stents/CABG: Chronic. No complaints of chest pain. -troponins negative x2 -Continue Plavix, Atorvastatin -Outpatient f/up with reporting lead Dr. Wrad h/o BPH: Chronic -Continue Flomax and Proscar Atrial Fibrillation: Chronic -Continue patient's Eliquis -Rate controlled DVT Prophylaxis: on Eliquis Progress Note: Quality VTE Deep Vein Thrombosis/Pulmonary Embolism Present on Admission: No _ (1) Abdominal pain Qualifiers: Abdominal location: (2) CAD (coronary artery disease) Qualifiers: Coronary Disease-Associated Artery/Lesion type: [place] vs. transplanted heart: Associated angina: (3) CHF (congestive heart failure) Qualifiers: Heart failure chronicity: Heart failure type:
[2018-07-15 07:00] LABS: Baso # (Auto) 0.1 th/mm3 (0.0-0.2); Baso % (Auto) 1.4 % (0.0-2.0); Eos # (Auto) 0.1 th/mm3 (0.0-0.4); Eos % (Auto) 1.6 % (0.0-4.0); Hematocrit 37.1 % (39.0-51.0); Hemoglobin 12.3 gm/dL (13.0-17.0); Lymph # (Auto) 0.6 th/mm3 (1.0-4.8); Lymph % (Auto) 10.9 % (9.0-44.0); Mean Corpuscular HGB Conc 33.2 % (32.0-36.0); Mean Corpuscular Hemoglobin 28.7 pg (27.0-34.0); Mean Corpuscular Volume 86.3 fL (80.0-100.0); Mean Platelet Volume 7.4 fL (7.0-11.0); Mono # (Auto) 0.8 th/mm3 (0.0-0.9); Mono % (Auto) 15.6 % (0.0-8.0); Neut # (Auto) 3.7 th/mm3 (1.8-7.7); Neut % (Auto) 70.5 % (16.0-70.0); Platelet Count 215 th/mm3 (150-450); Red Cell Distribution Width 18.1 % (11.6-17.2); White Blood Count 5.2 th/mm3 (4.0-11.0)
[2018-07-15 07:25] LABS: Albumin 3.5 g/dL (3.4-5.0); Anion Gap 8 meq/L (5-15); Aspartate Aminotransferase 17 U/L (15-37); Blood Urea Nitrogen 44 mg/dL (7-18); Calcium 8.5 mg/dL (8.5-10.1); Chloride 96 meq/L (98-107); Glomerular Filtration Rate 34 mL/min (>89); Glucose,Random 117 mg/dL (74-106); Lipase 120 U/L (73-393); Potassium 3.8 meq/L (3.5-5.1); Sodium 134 meq/L (136-145)
[2018-07-15 07:28] LABS: Alanine Aminotransferase 24 U/L (12-78); Alkaline Phosphatase 160 U/L (45-117); Total Protein 7.3 g/dL (6.4-8.2)
[2018-07-15 08:49] VITALS: BP 91/54; RESP 18; TEMP 97.8; O2SAT 97
[2018-07-15] MEDS: Finasteride 5 MG Tablet PO SCH (09:28)
[2018-07-15] MEDS: Senna/Docusate Sodium 8.6/50 MG Tablet PO SCH (09:28)
[2018-07-15] MEDS: Torsemide 20 MG Tablet PO SCH (09:28)
[2018-07-15] MEDS: Pantoprazole Inj 40 MG Vial IV.PUSH SCH (09:29)
--- NOTE | 2018-07-15 10:24 | P.DS ---
DS: Providers Date of admission: 07/12/18 06:28 Primary care physician: Collin Menjivar MD Consults: 07/12/18 14:33 Consult to Gastroenterology Routine Consulting Provider: Mansoor Mascorro Reason for Consultation: 68M with h/o CHF presents to the ER with vague complaint of abdominal pain and bloating. Lipase is elevated, but CT did not confirm pancreatitis. CT did show mild diffuse mesenteric edema. Please assist with work up. Notified:: Office Spoke with:: Elicia Date Notified:: 07/12/18 Time Notified:: 15:18 Ordering Provider: JOJO Anticipated date of discharge: 07/15/18 Brief History from admission: 68-year-old male with a history of CAD, CHF, BPH who presents following 3-4 weeks of abdominal pain that started affecting his breathing overnight. He states that the abdominal pain became worse, his abdomen became more bloated and the pressure on his diaphragm caused him to feel short of breath. He states that he still feels short of breath depending on how he positions his body. He had a heart catheterization last March with Dr. Ward and subsequently was hospitalized with CHF exacerbation, pacemaker in place. He denies any recent alcohol use. He was previously on amiodarone but that was stopped 20 days ago. He denies any vomiting, denies diarrhea or nausea. He denies chest pain. He denies any recent fever or cough. Patient update on day of discharge: Follow-up for pancreatitis, CHF. Patient reports feeling much better today. He states he did have some pain after his first solid meal yesterday, however he has now been able to tolerate well. He denies any current abdominal pain, nausea/vomiting, or diarrhea. Denies any fevers or chills. He wants to go home. He does report since he was on a liquid diet over the past few days that he is now having mild increased ankle edema and is requesting an IV push of Lasix prior to discharge. He denies any chest pain or shortness of breath. His O2 sat stable on room air. DS: Diagnosis Discharge Diagnosis (1) History of heart artery stent: Status: Acute (2) Abdominal pain: Status: Acute (3) Elevated lipase: Status: Acute (4) AICD (automatic cardioverter/defibrillator) present: Status: Acute (5) Allergic eczema: Status: Acute (6) CAD (coronary artery disease): Status: Chronic (7) Hx of CABG: Status: Acute (8) CHF (congestive heart failure): Status: Acute (9) Mesenteric adenitis: Status: Acute DS: Summary 68-year-old male with a history of CAD, CHF, BPH who presents following 3-4 weeks of abdominal pain/fullness that started affecting his breathing overnight. Abdominal pain: Possibly secondary to mild pancreatitis, lipase 819 upon arrival. Also concern for mesenteric ischemia per GI although lactic acid wnl. CT abdomen/pelvis reviewed, shows mild diffuse mesenteric edema of uncertain etiology, diverticular disease without diverticulitis. S/p IVF hydration. Continue antiemetics and pain control as needed. Lipase improved, decreased from 819 to 100. GI consulted, recommending abdominal MRA, however not compatible with AICD. Lactic acid 1.7. GI advanced diet and signed off, cleared for discharge. Patient tolerating oral intake today. Strongly encouraged outpatient f/up with GI, patient verbalized understanding. Chronic systolic CHF: Possible mild fluid overload with BNP elevated at 889 and mild lower extremity edema, now improved. CXR reviewed, shows compensated cardiomegaly, otherwise no acute cardiopulmonary process. Continue patient's torsemide 20mg daily. Patient did not tolerate NATE/BB/Entresto in the past due to hypotension. Echo 07/12/18 showed EF 20-25%, no evidence of endocarditis. Stable for discharge. Outpatient f/up. h/o CAD s/p stents/CABG: Chronic. No complaints of chest pain. Troponins negative x2. Continue Plavix, Atorvastatin. Outpatient f/up with [employer] Dr. Ward h/o BPH: Chronic. Continue Flomax and Proscar Atrial Fibrillation: Chronic. Continue patient's Eliquis. Rate controlled Time Spent with Patient Total time spent providing and/or coordinating discharge services: Greater than 30 minutes Quality: VTE Deep Vein Thrombosis/Pulmonary Embolism Present on Admission: No Exam Narrative Exam Narrative: GENERAL: Well-nourished, well-developed male patient in [facility]. SKIN: Warm and dry. CARDIOVASCULAR: Regular rate and rhythm. No murmur appreciated. RESPIRATORY: No accessory muscle use. Clear to auscultation. Breath sounds equal bilaterally. GASTROINTESTINAL: Abdomen soft, non-tender, nondistended. Normoactive bowel sounds x4. MUSCULOSKELETAL: No obvious deformities. Trace bilateral lower extremity edema around the ankles. NEUROLOGICAL: Awake and alert. No obvious cranial nerve deficits. Moving all extremities spontaneously. Normal speech. PSYCHIATRIC: Appropriate mood and affect; insight and judgment normal. Results Labs on day of discharge: Labs from last 24 hours 07/15/18 07/15/18 07/15/18 06:41 06:41 06:41 WBC 5.2 RBC 4.30 L Hgb 12.3 L Hct 37.1 L MCV 86.3 MCH 28.7 MCHC 33.2 RDW 18.1 H Plt Count 215 MPV 7.4 Neut % (Auto) 70.5 H Lymph % (Auto) 10.9 Mower % (Auto) 15.6 H Eos % (Auto) 1.6 Baso % (Auto) 1.4 Neut # (Auto) 3.7 Lymph # (Auto) 0.6 L Mower # (Auto) 0.8 Eos # (Auto) 0.1 Baso # (Auto) 0.1 WBC Differential . Differential Comment Auto diff final Sodium 134 L Potassium 3.8 Chloride 96 L Carbon Dioxide 30.0 Anion Gap 8 BUN 44 H Creatinine 1.94 H Estimated GFR 34 L Random Glucose 117 H Lactic Acid 1.1 Calcium 8.5 Total Bilirubin 1.4 H AST 17 ALT 24 Alkaline Phosphatase 160 H Total Protein 7.3 Albumin 3.5 Lipase 120 Impressions ITS Impressions Chest X-Ray 07/12/18 03:41 CONCLUSION: 1. Compensated cardiomegaly. 2. No acute cardiopulmonary process. Abdomen/Pelvis CT 07/12/18 06:15 CONCLUSION: 1. Stable 1.6 cm cyst in the hepatic dome. 2. 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 3. Mild, diffuse mesenteric edema of uncertain etiology. 4. Mild splenomegaly. 5. Circumaortic left renal vein, an anatomic variant. Discharge Plan Discharge Disposition Patient Disposition: Discharge Home Discharge Condition Condition: Stable Discharge Order Discharge Orders: Discharge Order (Routine); Ordered 07/15/18 Ordered By: Dianne Richardson Discharge Details Anticipated Discharge Date: 07/15/18 Discharge Comment: Ok to discharge around lunch time if tolerating oral intake. Physicians Team Primary Care Provider: Collin Menjivar Attending Provider: Gautam Faulkner Other Providers: Mansoor Mascorro Rxs /Orders / Referrals /Forms Prescriptions: Continue atorvastatin 80 mg Tablet 80 mg PO DAILY RF: 0 clopidogrel [Plavix] 75 mg Tablet 75 mg PO DAILY RF: 0 finasteride 5 mg Tablet 5 mg PO DAILY RF: 0 apixaban [Eliquis] 5 mg Tablet 5 mg PO BID RF: 0 tamsulosin 0.4 mg Capsule 0.4 mg PO DAILY RF: 0 torsemide 20 mg Tablet 20 mg PO DAILY RF: 0 potassium chloride 20 mEq Tablet,Er Particles/Crystals 20 meq PO DAILY Qty: 30 RF: 0 nitroglycerin 0.4 mg Tablet, Sublingual 0.4 mg SUBLINGUAL Q5-15M PRN (Reason: Chest Pain) RF: 0 digoxin [Digox] 125 mcg Tablet 0.125 mg PO DAILY RF: 0 Ambulatory Orders / Order Sets / DME: Basic Metabolic Panel (Routine) Timeframe: 3 Days Location: Determined by Patient Ordered By: Dianne Richardson Referrals: Collin Menjivar MD [Primary Care Provider] - See Instructions Discharge Instructions Patient Printed Instructions: Chest Pain (ED) Post Discharge Care Plan Care Plan Goals: Your Health Problems: Goals to Promote Your Health: * To prevent worsening of your condition * To maintain your health at the optimal level Directions to Meet Your Goals: * Take your medications as prescribed * Follow your dietary instruction * Follow activity as directed * Keep your appointments as scheduled * Take your immunizations and boosters as scheduled * If your symptoms worsen call your PCP * If no PCP go to Urgent Care or Emergency Room Smoking is dangerous to your health. Avoid second hand smoke. You may reach the 24-hour crisis hotline for domestic abuse at . Status ED Status: Left Department Discharge Information Discharge Date/Time: 07/15/18 11:55
[2018-07-15 11:19] VITALS: PULSE 72
== END 2018-07-15 11:55 | disposition home or self-care (01) ==
LOC: NEPE 02:16 → NEDA 06:16 → INTOOBSV 06:16 → NEPHCDU 08:05
PROVIDERS: ADMIT Hospitalist; ATTEND Hospitalist
DX: Z79.01 Long term (current) use of anticoagulants; E78.5 Hyperlipidemia, unspecified; Z79.899 Other long term (current) drug therapy; N40.0 Benign prostatic hyperplasia without lower urinary tract symptoms; Z79.02 Long term (current) use of antithrombotics/antiplatelets; K57.30 Diverticulosis of large intestine without perforation or abscess without bleeding; K59.00 Constipation, unspecified; R16.1 Splenomegaly, not elsewhere classified; Z95.810 Presence of automatic (implantable) cardiac defibrillator; I50.22 Chronic systolic (congestive) heart failure; I25.10 Atherosclerotic heart disease of native coronary artery without angina pectoris; L23.9 Allergic contact dermatitis, unspecified cause; I48.2 Chronic atrial fibrillation; Z87.891 Personal history of nicotine dependence; I88.0 Nonspecific mesenteric lymphadenitis; K76.89 Other specified diseases of liver; Z95.5 Presence of coronary angioplasty implant and graft; I25.2 Old myocardial infarction
CPT/HCPCS: 71010; 71045; 74176; 80053; 82550; 82552; 83520; 83605; 83690; 83735; 83880; 84443; 84484; 85025; 85610; 85730; 93005; 93308; 96374; 96375; 96376; 99285; C9113; G0378; J1940